=== PATIENT | female | born 1930 | race Caucasian/White ===

== ENCOUNTER 2016-10-15 18:35 | Inpatient (IN) | payer MEDICARE, BC ==
[2016-10-15] VITALS (13 sets, daily range): BP systolic 129–220; BP diastolic 62–93; PULSE 61–105; RESP 18–22; TEMP 97.8–98.4; O2SAT 97–98
[~2016-10-15] VITALS: Ht 152.4 cm; Wt 37.7 kg
[~2016-10-15 18:35] MED LIST: COUM2TAB PO; COUM3TAB PO; DILA100C PO; LANO0.2510 PO; METO25 PO; SIMV20 PO
[2016-10-15] MEDS ORDERED: METO25TA3 PO (19:00)
[2016-10-15] MEDS ORDERED: DIGO0.25 PO (19:00)
[2016-10-15] MEDS ORDERED: COUM4TAB PO (19:00)
[2016-10-15] MEDS ORDERED: SODIUM CHLORIDE 0.9% FLUSH 5 ML FLUSH IVF PRN (19:00)
[2016-10-15] MEDS ORDERED: DILA100C PO (19:00)
--- NOTE | 2016-10-15 19:02 | PD ---
HPI Chief Complaint: Pain: Acute or Chronic Time Seen by Provider: 19:02 (Cynthia Longo) Time Seen by Provider: 18:56 (Marixa Soto MD) Travel History International Travel<30 days: No Contact w/Intl Traveler<30days: No Traveled to known affect area: No (Cynthia Longo) History of Present Illness HPI 86-year-old female with a history of CVA with residual right-sided weakness, atrial fibrillation, hyperlipidemia, CHF, CAD presents to the emergency department by EMS for evaluation of right leg and right arm pain. Per EMS report the patient lives at home with her who is her caregiver. Per EMS report fire rescue was called to help lift the patient earlier today as she had fallen out of her chair onto the ground. Apparently fire rescue place the patient back into her chair and they left. Later EMS was called again to the house by the because the patient was complaining of pain in her right arm and right leg. The patient is speech impaired and therefore difficult to understand making her a poor historian. When I ask her if she has any pain she points that her right arm and right leg and moans. She is unable to provide any further meaningful history. (Cynthia Longo) PFSH Past Medical History Arthritis: No Asthma: No Atrial Fibrillation: Yes Heart Rhythm Problems: Yes Cancer: No Cardiovascular Problems: Yes High Cholesterol: Yes Chest Pain: No Congestive Heart Failure: Yes COPD: No Cerebrovascular Accident: Yes Coronary Artery Disease: Yes Diabetes: No Diminished Hearing: No Endocrine: No Genitourinary: No Hypertension: Yes Immune Disorder: No Musculoskeletal: Yes (rt hip, rt side weakness post stroke) Neurologic: Yes Psychiatric: No Reproductive: No Respiratory: No Migraines: No Seizures: Yes (Started post stroke) Sleep Apnea: No Tetanus Vaccination: Unknown PNEUMOCCOCAL Vaccine (Year): 1 ?: Not Menopausal: Yes (Cynthia Longo) Past Surgical History Abdominal Surgery: No Cardiac Surgery: No Ear Surgery: No Endocrine Surgery: No Eye Surgery: Yes (DETACHED RETINA, IVETTE CATARACTS) Genitourinary Surgery: No Gynecologic Surgery: Yes (Hysto) Hysterectomy: Yes Joint Replacement: Yes Oral Surgery: No Thoracic Surgery: No Other Surgery: Yes (Cynthia Longo) Social History Alcohol Use: No Tobacco Use: No Substance Use: No (Cynthia Longo) Allergies-Medications (Allergen,Severity, Reaction): Coded Allergies: Sulfa (Verified Allergy, Severe, UNKNOWN, 03/11/15) Reported Meds & Prescriptions Reported Meds & Active Scripts Active Reported Digoxin 0.25 Mg Tab 0.25 Mg PO DAILY Metoprolol Tartrate 25 Mg Tab 25 Mg PO BID Dilantin (Phenytoin Extended) 100 Mg Cap 100 Mg PO BID (Marixa Soto MD) Review of Systems ROS Limitations: Speech Impaired, Poor Historian (Cynthia Longo) Physical Exam Exam Limitations: Poor Historian Narrative GENERAL: Well-nourished and well-developed pleasant patient in no acute distress who is nontoxic appearing. SKIN: Warm and dry. HEAD: Normocephalic and atraumatic. EYES: No injection, drainage, or hyphema noted. PERRLA. EOMI. ENT: No nasal drainage noted. Oropharynx is clear. NECK: Supple and the trachea is midline. CARDIOVASCULAR: Regular rate and rhythm. RESPIRATORY: Breath sounds are equal bilaterally with no accessory muscle use, wheezing, rhonchi, or crackles. GASTROINTESTINAL: Abdomen is soft, non-tender, and nondistended. MUSCULOSKELETAL: Right arm and right leg contractures chronic secondary to CVA. Tenderness to palpation of right forearm and right femur, patient pointing to these locations when asked if she has pain. Full range of motion in the left hip and leg. Patient resists range of motion exercises in the right leg due to pain. No swelling, cyanosis, or ecchymosis is present throughout the upper and lower extremities. DP pulses are 2+ bilaterally. NEUROLOGICAL: Awake, alert, and oriented. Speech impaired. Cranial nerves are grossly intact. (Cynthia Longo) Data Data Last Documented VS Vital Signs Date Time Temp Pulse Resp B/P Pulse Ox O2 Delivery O2 Flow Rate FiO2 10/15/16 21:51 98 18 188/82 98 Room Air 10/15/16 18:44 98.4 (Marixa Soto MD) Orders Electrocardiogram (10/15/16 19:00) Complete Blood Count With Diff (10/15/16 19:00) Comprehensive Metabolic Panel (10/15/16 19:00) Creatine Kinase (Cpk) (10/15/16 19:00) Prothrombin Time / Inr (Pt) (10/15/16 19:00) Act Partial Throm Time (Ptt) (10/15/16 19:00) Troponin I (10/15/16 19:00) Urinalysis - C+S If Indicated (10/15/16 19:00) Chest, Single Ap (10/15/16 19:00) Ct Brain W/O Iv Contrast(Rout) (10/15/16 19:00) Blood Glucose (10/15/16 19:00) Ecg Monitoring (10/15/16 19:00) Iv Access Insert/Monitor (10/15/16 19:00) Oximetry (10/15/16 19:00) Sodium Chloride 0.9% Flush (Ns Flush) (10/15/16 19:00) Femur (Ap & Lat/2vws) (10/15/16 19:00) Hip, Uni(Ap&Lat) W Ap Pelvis (10/15/16 ) Forearm (2vws) (10/15/16 19:00) Ct Cerv Spine W/O Contrast (10/15/16 19:45) Urine Culture (10/15/16 19:30) Ceftriaxone Inj (Rocephin Inj) (10/15/16 20:15) Ct Pelvis W/O Iv Contrast (10/15/16 ) Type And Screen (10/15/16 21:06) Fresh Frozen Plasma (Ffp) (10/15/16 21:06) Blood Product Administration .UPON TRANSFUSION (10/15/16 21:06) Sodium Chlor 0.9% 250 Ml Inj (Ns 250 Ml (10/15/16 21:15) Nicardipine Inj (Cardene Inj) (10/15/16 21:15) Consult Neurosurgery (10/15/16 ) (Hub Use Only)Inp Phy Cons/Ref (10/15/16 ) Morphine Inj (Morphine Inj) (10/15/16 21:45) Admit Order (Ed Use Only) (10/15/16 21:58) (Mraixa Soto MD) Labs Laboratory Tests Test 10/15/16 10/15/16 10/15/16 19:20 19:30 21:15 Prothrombin Time 22.1 SEC Prothromb Time International 1.9 RATIO Ratio Activated Partial 40.0 SEC Thromboplast Time Sodium Level 137 MEQ/L Potassium Level 3.8 MEQ/L Chloride Level 100 MEQ/L Carbon Dioxide Level 30.7 MEQ/L Anion Gap 6 MEQ/L Blood Urea Nitrogen 13 MG/DL Creatinine 0.58 MG/DL Estimat Glomerular Filtration 99 ML/MIN Rate Random Glucose 110 MG/DL Calcium Level 9.0 MG/DL Total Bilirubin 0.4 MG/DL Aspartate Amino Transf 24 U/L (AST/SGOT) Alanine Aminotransferase 23 U/L (ALT/SGPT) Alkaline Phosphatase 231 U/L Total Creatine Kinase 73 U/L Troponin I LESS THAN 0.02 NG/ML Total Protein 7.9 GM/DL Albumin 3.3 GM/DL White Blood Count 9.0 TH/MM3 Red Blood Count 4.65 MIL/MM3 Hemoglobin 14.0 GM/DL Hematocrit 40.7 % Mean Corpuscular Volume 87.6 FL Mean Corpuscular Hemoglobin 30.0 PG Mean Corpuscular Hemoglobin 34.3 % Concent Red Cell Distribution Width 14.3 % Platelet Count 287 TH/MM3 Mean Platelet Volume 7.9 FL Neutrophils (%) (Auto) 82.6 % Lymphocytes (%) (Auto) 10.0 % Monocytes (%) (Auto) 6.4 % Eosinophils (%) (Auto) 0.7 % Basophils (%) (Auto) 0.3 % Neutrophils # (Auto) 7.4 TH/MM3 Lymphocytes # (Auto) 0.9 TH/MM3 Monocytes # (Auto) 0.6 TH/MM3 Eosinophils # (Auto) 0.1 TH/MM3 Basophils # (Auto) 0.0 TH/MM3 CBC Comment DIFF FINAL Differential Comment Urine Color LIGHT-YELLOW Urine Turbidity HAZY Urine pH 7.0 Urine Specific [place] 1.013 Urine Protein TRACE mg/dL Urine Glucose (UA) NEG mg/dL Urine Ketones NEG mg/dL Urine Occult Blood SMALL Urine Nitrite POS Urine Bilirubin NEG Urine Urobilinogen LESS THAN 2.0 MG/DL Urine Leukocyte Esterase LARGE Urine RBC 2 /hpf Urine WBC 80 /hpf Urine WBC Clumps RARE Urine Squamous Epithelial <1 /hpf Cells Urine Bacteria OCC /hpf Urine Yeast (Budding) OCC Microscopic Urinalysis Comment CATH-CULTURE IND Blood Type O POSITIVE Antibody Screen NEGATIVE Blood Bank Comment (Marixa Soto MD) MDM Medical Decision Making Medical Screen Exam Complete: Yes Emergency Medical Condition: Yes Differential Diagnosis Hip fracture versus muscle spasms versus arthritis versus altered mental status versus intracranial hemorrhage versus dehydration versus electrolyte abnormality Narrative Course 86-year-old female presents to the emergency department for evaluation of right leg and right arm pain. Patient is afebrile. She is initially hypertensive with a blood pressure of 220/93. Otherwise vital signs are stable. She has chronic right-sided weakness and contractures in the right arm and leg secondary to previous CVA. She has a speech impairment secondary to her CVA and is an unreliable historian although she does consistently complain of pain in the right arm and leg. IV access is obtained, labs have been drawn and sent. X-ray imaging has been ordered and is pending. Head and cervical spine CT has been ordered and is pending. CBC is unremarkable. BMP is unremarkable. Troponin is less than 0.02. INR is 1.9, patient is reportedly anticoagulated on Coumadin for A. fib. Urinalysis shows urinary tract infection. Chest x-ray shows patchy non-consolidative opacity throughout both lungs suggesting interstitial and alveolar disease. X-ray of the right femur is unremarkable. X-ray of the right forearm is unremarkable. X-ray of the right hip shows extra linear density along the inferior margin of the femoral neck which could represent a femoral neck fracture. CT of the cervical spine is negative for any Abnormalities. Head CT shows focal hemorrhage 5 mm in the right posterior hemisphere adjacent to the margin of the lateral ventricle suggesting a countercoup injury. Left eye frontal scalp hematoma without evidence of skull fracture. Stable appearance to the posterior MCA infarction. She is given Rocephin 1 g IV for urinary tract infection. She started on a Cardene drip for blood pressure control. Patient is administered 4 units of FFP and 1250 units of Kcentra to reverse anticoagulation. She'll be admitted to the airline reservationist service with neurosurgery consultation. I discussed the case with my attending physician Dr. Soto who is aware of the patients history, physical examination findings, and treatment plan. (Cynthia Longo) Physician Communication Physician Communication I spoke with Dr. Tao, neurosurgeon, who recommends reversal of anticoagulation with use of FFP with admission to airline reservationist and to consult him. I spoke with Dr. Cortez airline reservationist who requests we give Kcentra as well as FFP. He agrees to admit the patient to his service. (Cynthia Longo) Diagnosis Primary Impression: Intracranial hemorrhage Additional Impressions: Anticoagulated on Coumadin Right hip pain Admitting Information Admitting Physician Requests: Admit (Cynthia Longo) Cynthia Longo Oct 15, 2016 19:02 Marixa Soto MD Oct 18, 2016 05:53
[2016-10-15 19:47] LABS: AUTOMATED NEUTROPHIL # 7.4 TH/MM3 (1.8-7.7); BASOPHIL % 0.3 % (0.0-2.0); EOSINOPHIL # 0.1 TH/MM3 (0-0.4); EOSINOPHIL % 0.7 % (0.0-4.0); HEMATOCRIT 40.7 % (35.0-46.0); HEMO FLAGS DIFF FINAL; LYMPHOCYTE # 0.9 TH/MM3 (1.0-4.8); MEAN CELL VOLUME 87.6 FL (80.0-100.0); MEAN CORPUSCULAR HGB CONC 34.3 % (32.0-36.0); MONO % 6.4 % (0.0-8.0); NEUT % 82.6 % (16.0-70.0); PLATELET COUNT 287 TH/MM3 (150-450); RED BLOOD COUNT 4.65 MIL/MM3 (4.00-5.30); RED CELL DISTRIBUTION WIDTH 14.3 % (11.6-17.2)
[2016-10-15 19:51] LABS: BACTERIA, URINE OCC /hpf; BLOOD, URINE SMALL (NEG); GLUCOSE,URINE NEG (NEG); KETONE, URINE NEG (NEG); NITRITE,URINE POS (NEG); SQUAMOUS EPITHELIAL CELL URINE <1 /hpf (0-5); URINE COLOR LIGHT-YELLOW (YELLW/STRAW)
[2016-10-15 19:52] LABS: COMMENT (UR) CATH-CULTURE IND; CULTURE IF INDICATED CATH CULTURE IND
[2016-10-15 19:55] LABS: INTERNATIONAL NORMALIZED RATIO 1.9 RATIO; PROTHROMBIN TIME - PATIENT 22.1 SEC (9.8-11.6)
[2016-10-15 20:08] LABS: ANION GAP 6 MEQ/L (5-15); AST (GOT) 24 U/L (15-37); BICARBONATE 30.7 MEQ/L (21.0-32.0); BLOOD UREA NITROGEN 13 MG/DL (7-18); CHLORIDE 100 MEQ/L (98-107); GLOMERULAR FILTRATION RATE 99 ML/MIN (>89); POTASSIUM 3.8 MEQ/L (3.5-5.1); SODIUM (NA) 137 MEQ/L (136-145)
[2016-10-15 20:13] LABS: ALKALINE PHOSPHATASE 231 U/L (45-117); ALT (GPT) 23 U/L (10-53); TOTAL BILIRUBIN ADULT 0.4 MG/DL (0.2-1.0)
[2016-10-15] MEDS ORDERED: cefTRIAXone INJ 1,000 MG in SODIUM CHLORIDE 0.9% INJ 100 ML IV ONE (20:15)
[2016-10-15 20:18] LABS: CREATINE KINASE 73 U/L (26-192)
--- NOTE | 2016-10-15 20:35 | RADRPT ---
EXAM DATE/TIME: 10/15/2016 20:03 [facility] COMPARISON: No previous studies available for comparison. INDICATIONS : Fall from chair. MEDICAL HISTORY : Unobtainable. SURGICAL HISTORY : Unobtainable. ENCOUNTER: Initial ACUITY: 1 day PAIN SCORE: Non-responsive. LOCATION: Bilateral chest FINDINGS: There are patchy areas of opacity in the central lungs bilaterally without focal consolidation. The heart is normal size. Both hemidiaphragms are well delineated. No evidence of pneumothorax. Osseou s structures are diffusely osteopenic. CONCLUSION: No evidence pneumothorax. Patchy non-consolidative there is opacity throughout both lungs suggest a mixture of interstitial and alveolar disease. Orestes Breen MD on October 15, 2016 at 20:33 Board Certified Radiologist. This report was verified electronically.
--- NOTE | 2016-10-15 20:42 | RADRPT ---
EXAM DATE/TIME: 10/15/2016 20:06 [facility] COMPARISON: CT BRAIN W/O CONTRAST, February 09, 2012, 14:19. INDICATIONS : Altered mental status. RADIATION DOSE: 56.35 CTDIvol (mGy) MEDICAL HISTORY : Hypertension. Cardiovascular disease Seizures.CVA. SURGICAL HISTORY : None. ENCOUNTER: Initial ACUITY: 1 day PAIN SCALE: Non-responsive LOCATION: cranial TECHNIQUE: Multiple contiguous axial images were obtained of the head. Using automated exposure control and adj ustment of the mA and/or kV according to patient size, radiation dose was kept as low as reasonably a chievable to obtain optimal diagnostic quality images. FINDINGS: CEREBRUM: Prior CT in 2012 are demonstrated encephalomalacic from left MCA infarction involving the mid sylvian to watershed zone. On today's examination, this old infarction is similar in configuration and appe arance. There is a new oval hyperdensity along the posterior lateral margin of the right occipital h orn of the ventricle measuring 5 mm, best seen on image #18. Lacunar infarct in the left striatum wi th stable from prior. POSTERIOR FOSSA: The cerebellum and brainstem are intact. The 4th ventricle is midline. The cerebellopontine angle i s unremarkable. EXTRACRANIAL: The visualized portion of the orbits is intact. SKULL: There is a left high convexity frontal scalp hematoma which measures up to 8 mm in size. No evidence of skull fracture. CONCLUSION: 1. Findings suggesting focal hemorrhage in the right posterior hemisphere adjacent to the margin of t he lateral ventricle, suggesting a contrecoup injury. 2. Left high frontal scalp hematoma without evidence of skull fracture. 3. 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 Orestes Breen MD on October 15, 2016 at 20:36 Board Certified Radiologist. This report was verified electronically.
--- NOTE | 2016-10-15 20:46 | RADRPT ---
EXAM DATE/TIME: 10/15/2016 19:53 [facility] COMPARISON: No previous studies available for comparison. INDICATIONS : Fall from chair. MEDICAL HISTORY : Unobtainable. SURGICAL HISTORY : Unobtainable. ENCOUNTER: Initial ACUITY: 1 day PAIN SCORE: Non-responsive. LOCATION: Right hip. FINDINGS: The osseous structures are severely osteopenic. The patient is rotated towards the left. There is a total hip arthroplasty on the left side. There is a cone-down view which includes the proximal femo ral neck. The primary trabecula pattern is intact. The secondary trabecula are not visible and pres umed resorbed due to the osteoporosis. There is an unusual appearance to the inferior femoral neck o n the frontal view. The femoral head has smooth margins. The bony acetabulum appears grossly intact with intratrochanteric region is intact. CONCLUSION: Severe osteoporosis. No definite fracture seen, however, on the frontal view there is a extra linear density along the inferior margin of the femoral neck which could represent a femoral neck fracture Orestes Breen MD on October 15, 2016 at 20:41 Board Certified Radiologist. This report was verified electronically.
--- NOTE | 2016-10-15 20:47 | RADRPT ---
EXAM DATE/TIME: 10/15/2016 19:54 [facility] COMPARISON: No previous studies available for comparison. INDICATIONS : Fall from chair. MEDICAL HISTORY : Unobtainable. SURGICAL HISTORY : Unobtainable. ENCOUNTER: Initial ACUITY: 1 day PAIN SCORE: Non-responsive. LOCATION: Right femur. FINDINGS: Multiple views and mosaic are performed to include the entire femur. The findings in the proximal fe mur and femoral neck are described on the report of the hip film performed concurrently. Osseous str uctures are severely osteopenic. No fractures seen in the shaft of the femur or distal femur. No ra diopaque foreign bodies. CONCLUSION: The shaft of the femur is grossly intact. Severe osteoporosis. Orestes Breen MD on October 15, 2016 at 20:44 Board Certified Radiologist. This report was verified electronically.
--- NOTE | 2016-10-15 20:48 | RADRPT ---
EXAM DATE/TIME: 10/15/2016 20:05 [facility] COMPARISON: No previous studies available for comparison. INDICATIONS : Fall from chair. MEDICAL HISTORY : Unobtainable. SURGICAL HISTORY : Unobtainable. ENCOUNTER: Initial ACUITY: 1 day PAIN SCORE: Non-responsive. LOCATION: Right forearm. FINDINGS: Two view examination of the right forearm demonstrates no evidence of fracture or dislocation. Sever e osteoporosis. The soft tissue structures are intact. CONCLUSION: No fracture seen. Severe osteoporosis. Orestes Breen MD on October 15, 2016 at 20:46 Board Certified Radiologist. This report was verified electronically.
--- NOTE | 2016-10-15 21:08 | RADRPT ---
EXAM DATE/TIME: 10/15/2016 20:07 [facility] COMPARISON: CTA CAROTID ARTERIES W 3D RECON, October 06, 2010, 21:16. INDICATIONS : Trauma; fall. RADIATION DOSE: 22.50 CTDIvol (mGy) MEDICAL HISTORY : Cardiovascular disease. Cerebrovascular disease. Seizures.Hypertension SURGICAL HISTORY : None. ENCOUNTER: Initial ACUITY: 1 day PAIN SCALE: Non-responsive LOCATION: TECHNIQUE: Volumetric scanning of the cervical spine was performed. Multiplanar reconstructions in the sagittal, coronal and oblique axial planes were performed. Using automated exposure control and adjustment o f the mA and/or kV according to patient size, radiation dose was kept as low as reasonably achievable to obtain optimal diagnostic quality images. FINDINGS: There is an oblique cleft through the dens with a fragment measuring 11 mm located posterior and to t he left of the body of. This fragment was present on bone windows prior CTA in 2010 and configuratio n is entirely unchanged from the prior scan. There is no bony fusion between this fragment and any o ther bone. Vertebral bodies of the cervical spine are in normal alignment without evidence of compre ssion deformity of spondylolisthesis. Advanced discogenic degenerative changes are present at C3-4, C5-6 and C6-7. Moderate posterior osteophytes are present at C6-7 and C5-6. The lateral masses ricardo in in normal alignment without evidence of locked or perched facets. No acute fractures seen. CONCLUSION: No acute fractures seen; no evidence of gross deformities or spondylolisthesis. Prominent osteophyti c fragment adjacent to the dens is of uncertain bone of origin, or possibly represents some heterotop ic ossification, but is unchanged in configuration and appearance when compared to 2010. Oerstes Breen MD on October 15, 2016 at 20:46 Board Certified Radiologist. This report was verified electronically.
[2016-10-15] MEDS ORDERED: niCARdipine INJ 25 MG in SODIUM CHLOR 0.9% 250 ML INJ 250 ML IV ONE (21:15)
[2016-10-15] MEDS ORDERED: SODIUM CHLOR 0.9% 250 ML INJ 250 ML IV ONE (21:15)
[2016-10-15] MEDS ORDERED: MORPHINE SULFATE 4 MG/ML INJ IV PUSH ONE (21:45)
[2016-10-15] MEDS ORDERED: PROTHROMBIN COMPLEX CONC 500 UNIT VIAL IV ONE (22:15)
[2016-10-15] MEDS ORDERED: SODIUM CHLORIDE 0.9% FLUSH 5 ML FLUSH IV FLUSH PRN (22:30)
[2016-10-15] MEDS ORDERED: MISCELLANEOUS NURSING INFORMATION XX SCH (22:30)
[2016-10-15] MEDS ORDERED: METOCLOPRAMIDE HCL 10 MG/2 ML VIAL IV PRN (22:30)
[2016-10-15] MEDS ORDERED: CHLORHEXIDINE GLUCONATE 2 % 1 PACK (2 CLOTHS) TOP PRN (22:30)
[2016-10-15] MEDS: DOCUSATE SODIUM 100 MG/10 ML UDC G-TUBE SCH (22:30)
[2016-10-15] MEDS ORDERED: ONDANSETRON HCL 4 MG/2 ML VIAL IV PRN (22:30)
[2016-10-15] MEDS ORDERED: RESP: ALBUTEROL 2.5 MG/IPRATROPIUM 0.5 MG NEB (PRN) INH (22:30)
[2016-10-15] MEDS ORDERED: ACETAMINOPHEN 325 MG TAB PO PRN (22:30)
--- NOTE | 2016-10-15 22:31 | HHI.HP ---
HPI Service Critical Care Medicine Primary Care Physician Dennis Arnold MD Admission Diagnosis Intracranial Hemorrhage, Anticoagulated on Coumadin, Rt Hip Injury Diagnosis: Travel History International Travel<30 Days: No Contact w/Intl Traveler <30 Da: No Traveled to Known Affected Are: No History of Present Illness 86-year-old female with a history of CVA with residual right-sided weakness, atrial fibrillation on Coumadin, hyperlipidemia, CHF, CAD presents to the emergency department by EMS for evaluation of right leg and right arm pain. Per EMS report the patient lives at home with her who is her caregiver. The fire rescue was called to help lift the patient earlier today as she had fallen out of her chair onto the ground. Apparently fire rescue place the patient back into her chair and they left. Later EMS was called again to the house by the because the patient was complaining of pain in her right arm and right leg. Review of Systems ROS The patient is speech impaired and therefore unable to obtain any meaningful ROS. Past Family Social History Allergies: Coded Allergies: Sulfa (Verified Allergy, Severe, UNKNOWN, 03/11/15) Past Medical History Atrial Fibrillation: Yes High Cholesterol: Yes Congestive Heart Failure: Yes Cerebrovascular Accident: Yes Coronary Artery Disease: Yes Hypertension: Yes Seizures: Yes (Started post stroke) Past Surgical History Eye Surgery: Yes (DETACHED RETINA, IVETTE CATARACTS) Hysterectomy: Yes Joint Replacement: Yes Reported Medications Digoxin 0.25 Mg Tab 0.25 Mg PO DAILY Metoprolol Tartrate 25 Mg Tab 25 Mg PO BID Coumadin (Warfarin) 4 Mg Tab 4 Mg PO DAILY Dilantin (Phenytoin Extended) 100 Mg Cap 100 Mg PO BID Active Ordered Medications Current Medications Medications (Trade) Dose Ordered Sig/Anabella Route PRN Reason Start Time Stop Time Status Last Admin Dose Admin Sodium Chloride 250 ml @ 15 mls/hr ONCE ONCE IV 10/15/16 21:15 10/16/16 13:54 Sodium Chloride (NS 1000 ml Inj) 1,000 ml @ 84 mls/hr [id number] IV 10/15/16 22:26 10/15/16 23:35 IV Flush (NS Flush) 2 ml UNSCH PRN IV FLUSH FLUSH AFTER USING IV ACCESS 10/15/16 22:30 IV Flush (NS Flush) 2 ml BID IV FLUSH 10/16/16 09:00 Acetaminophen (Tylenol) 650 mg Q6H PRN PO PAIN 1-5 AND/OR FEVER >101F 10/15/16 22:30 Morphine Sulfate (Morphine Inj) 2 mg Q2H PRN IV PAIN SCALE 6 TO 10 10/15/16 22:30 Famotidine (Pepcid Inj) 20 mg Q12HR IV PUSH 10/16/16 09:00 Ondansetron HCl (Zofran Inj) 4 mg Q6H PRN IV NAUSEA OR VOMITING 10/15/16 22:30 Metoclopramide HCl (Reglan Inj) 10 mg Q6H PRN IV NAUSEA OR VOMITING 10/15/16 22:30 Docusate Sodium (Colace Liq) 100 mg Q12HR G-TUBE 10/15/16 22:30 Miscellaneous Information 1 [id number] XX 10/15/16 22:30 Chlorhexidine Gluconate (Chlorhexidine 2% Cloth) 3 pack Taper DAILY@04 TOP 10/16/16 04:00 10/12/17 03:59 Chlorhexidine Gluconate 3 pack 3 pack UNSCH PRN TOP HYGIENIC CARE 10/15/16 22:30 Nicardipine HCl/ Sodium Chloride (Cardene Inj/NS 250 ml Inj) 260 ml @ 0 mls/hr TITRATE IV 10/15/16 22:45 Family History Noncontributory Social History Alcohol Use: No Tobacco Use: No Substance Use: No Physical Exam Vital Signs Vital Signs Date Time Temp Pulse Resp B/P Pulse Ox O2 Delivery O2 Flow Rate FiO2 10/15/16 22:17 96 18 173/72 97 Room Air 10/15/16 21:51 98 18 188/82 98 Room Air 10/15/16 21:18 92 20 188/84 97 Room Air 10/15/16 20:24 83 22 202/87 98 Room Air 10/15/16 19:37 22 98 Room Air 10/15/16 18:50 62 18 10/15/16 18:50 61 18 220/93 98 Room Air 10/15/16 18:44 98.4 71 18 220/93 98 Physical Exam Vital Signs Date Time Temp Pulse Resp B/P Pulse Ox O2 Delivery O2 Flow Rate FiO2 10/15/16 23:40 105 18 156/72 97 Room Air 10/15/16 23:04 97.9 GENERAL: Well-nourished, well-developed patient, right sided stiffness SKIN: Warm and dry. HEAD: Normocephalic. EYES: No scleral icterus. No injection or drainage. NECK: Supple, trachea midline. No JVD or lymphadenopathy. CARDIOVASCULAR: Regular rate and rhythm without murmurs, gallops, or rubs. RESPIRATORY: Breath sounds equal bilaterally. No accessory muscle use. GASTROINTESTINAL: Abdomen soft, non-tender, nondistended. MUSCULOSKELETAL: No cyanosis, or edema. BACK: Nontender without obvious deformity. No CVA tenderness. Laboratory Laboratory Tests Test 10/15/16 10/15/16 10/15/16 19:20 19:30 21:15 White Blood Count 9.0 Red Blood Count 4.65 Hemoglobin 14.0 Hematocrit 40.7 Mean Corpuscular Volume 87.6 Mean Corpuscular Hemoglobin 30.0 Mean Corpuscular Hemoglobin 34.3 Concent Red Cell Distribution Width 14.3 Platelet Count 287 Mean Platelet Volume 7.9 Neutrophils (%) (Auto) 82.6 Lymphocytes (%) (Auto) 10.0 Monocytes (%) (Auto) 6.4 Eosinophils (%) (Auto) 0.7 Basophils (%) (Auto) 0.3 Neutrophils # (Auto) 7.4 Lymphocytes # (Auto) 0.9 Monocytes # (Auto) 0.6 Eosinophils # (Auto) 0.1 Basophils # (Auto) 0.0 CBC Comment DIFF FINAL Differential Comment Prothrombin Time 22.1 Prothromb Time International 1.9 Ratio Activated Partial 40.0 Thromboplast Time Sodium Level 137 Potassium Level 3.8 Chloride Level 100 Carbon Dioxide Level 30.7 Anion Gap 6 Blood Urea Nitrogen 13 Creatinine 0.58 Estimat Glomerular Filtration 99 Rate Random Glucose 110 Calcium Level 9.0 Total Bilirubin 0.4 Aspartate Amino Transf 24 (AST/SGOT) Alanine Aminotransferase 23 (ALT/SGPT) Alkaline Phosphatase 231 Total Creatine Kinase 73 Troponin I LESS THAN 0.02 Total Protein 7.9 Albumin 3.3 Urine Color LIGHT-YELLOW Urine Turbidity HAZY Urine pH 7.0 Urine Specific [place] 1.013 Urine Protein TRACE Urine Glucose (UA) NEG Urine Ketones NEG Urine Occult Blood SMALL Urine Nitrite POS Urine Bilirubin NEG Urine Urobilinogen LESS THAN 2.0 Urine Leukocyte Esterase LARGE Urine RBC 2 Urine WBC 80 Urine WBC Clumps RARE Urine Squamous Epithelial <1 Cells Urine Bacteria OCC Urine Yeast (Budding) OCC Microscopic Urinalysis Comment CATH-CULTURE IND Blood Type O POSITIVE Antibody Screen NEGATIVE Blood Bank Comment Date/Time Procedure Status Source Growth 10/15/16 19:30 Urine Culture Received Urine Catheterized Urine Pending Result Diagram: 10/15/16191910/15/161919 Imaging Last 24 hours Impressions Cervical Spine CT 10/15/161944 Signed Impressions: Service Date/Time: Saturday, October 15, 2016 20:07 - CONCLUSION: No acute fractures seen; no evidence of gross deformities or spondylolisthesis. Prominent osteophytic fragment adjacent to the dens is of uncertain bone of origin, or possibly represents some heterotopic ossification, but is unchanged in configuration and appearance when compared to 2011. Orestes Breen MD Radius/Ulna X-Ray 10/15/161899 Signed Impressions: Service Date/Time: Saturday, October 15, 2016 20:05 - CONCLUSION: No fracture seen. Severe osteoporosis. Orestes Breen MD Head CT 10/15/161899 Signed Impressions: Service Date/Time: Saturday, October 15, 2016 20:06 - CONCLUSION: 1. Findings suggesting focal hemorrhage in the right posterior hemisphere adjacent to the margin of the lateral ventricle, suggesting a contrecoup injury. 2. Left high frontal scalp hematoma without evidence of skull fracture. 3. 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 Orestes Breen MD Femur X-Ray 10/15/161899 Signed Impressions: Service Date/Time: Saturday, October 15, 2016 19:54 - CONCLUSION: The shaft of the femur is grossly intact. Severe osteoporosis. Orestes Breen MD Chest X-Ray 10/15/161899 Signed Impressions: Service Date/Time: Saturday, October 15, 2016 20:03 - CONCLUSION: No evidence pneumothorax. Patchy non-consolidative there is opacity throughout both lungs suggest a mixture of interstitial and alveolar disease. 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 Status: Acute (6) Intracranial hemorrhage ICD Code: I62.9 Status: Acute (7) Right hip pain ICD Code: M25.551 Status: Acute (8) Anticoagulated on Coumadin ICD Code: Z51.81 Status: Acute Assessment and Plan ICH - small - no surgical intervention indicated - reverse coumadine with FFPs and K-Centra - Neurosurgery appreciated A.Fib - resume home meds Digoxin and Metoprolol for rate control - D/C Coumadin Right hip pain - X rays negative for Fx - supporitive care - pain control Hypertension - Cardene gtt - SBP goal < 160 - Metoprolo - Hydralazine PRN - Norvasc Seizure - Phenytoin - check level a.m. DVT/GI prophylaxis - TEDs/SCDs/Pepcid Critical Care: The total critical care time was 35 minutes. Time to perform other separately billable procedures was not included in the critical care time. Ron Cortez MD Oct 15, 2016 22:31
[2016-10-15] MEDS ORDERED: niCARdipine INJ 25 MG in SODIUM CHLOR 0.9% 250 ML INJ 250 ML IV SCH (22:45)
[2016-10-15] MEDS: SODIUM CHLOR 0.9% 1000 ML INJ 1,000 ML IV SCH (23:35)
[2016-10-16] VITALS (9 sets, daily range): BP systolic 118–159; BP diastolic 57–75; PULSE 66–106; RESP 16–34; TEMP 96.7–98.7; O2SAT 90–98
[2016-10-16] MEDS: MORPHINE SULFATE 4 MG/ML INJ IV PRN ×5 (00:19→18:46)
[2016-10-16] MEDS: METOPROLOL TARTRATE 25 MG TAB PO SCH ×3 (00:30→21:03)
[2016-10-16] MEDS ORDERED: hydrALAZINE HCL 20 MG/ML VIAL IV PUSH PRN (00:45)
[2016-10-16] MEDS: SODIUM CHLOR 0.9% 1000 ML INJ 1,000 ML IV SCH ×3 (01:48→21:03)
--- NOTE | 2016-10-16 03:49 | PD.CONS ---
HPI Service Neurosurgery Consult Requested By [facility] emergency room Reason for Consult Intracerebral hemorrhage Primary Care Physician Dennis Arnold MD History of Present Illness tHIS IS A 86-year-old female with a history of CVA with residual right-sided hemiparesis, atrial fibrillation on Coumadin, hyperlipidemia, CHF, CAD presents to the emergency department by EMS for evaluation of right leg and right arm pain. According to EMS report the patient lives at home with her who is her caregiver. The fire rescue was called to help lift the patient earlier today as she had fallen out of her chair onto the ground. Apparently fire rescue place the patient back into her chair and they left their house. Later EMS was called again to the house by the because the patient was complaining of severe pain in her right arm and right leg. No seizure activity noted. No tongue biting. No incontinence of stool or urine. The patient mental status appears to be at her baseline. She was brought to [facility] emergency department. CT of the brain show a small area of hemorrhage adjacent to the lateral ventricle. The patient is chronically anticoagulated on Coumadin. The patient has expressive aphasia. A neurosurgical consultation was requested Review of Systems Unable to obtain due to APHASIA ROS Limitations: Clinical Condition, Altered Mental Status Past Family Social History Allergies: Coded Allergies: Sulfa (Verified Allergy, Severe, UNKNOWN, 03/11/15) Past Medical History Atrial Fibrillation: Yes High Cholesterol: Yes Congestive Heart Failure: Yes Cerebrovascular Accident: Yes Coronary Artery Disease: Yes Hypertension: Yes Seizures: Yes (Started post stroke) Past Surgical History Eye Surgery: Yes (DETACHED RETINA, IVETTE CATARACTS) Hysterectomy: Yes Joint Replacement: Yes Reported Medications Digoxin 0.25 Mg Tab 0.25 Mg PO DAILY Metoprolol Tartrate 25 Mg Tab 25 Mg PO BID Coumadin (Warfarin) 4 Mg Tab 4 Mg PO DAILY Dilantin (Phenytoin Extended) 100 Mg Cap 100 Mg PO BID Active Ordered Medications Current Medications IV Flush 2 ml 2 ml UNSCH PRN IVF FLUSH AFTER USING IV ACCESS; Start 10/15/16 at 19:00; Stop 10/15/16 at 22:44; Status DC Ceftriaxone Sodium 1000 mg/ Sodium Chloride 100 ml @ 200 mls/hr ONCE ONCE IV Last administered on 10/15/16 20:42; Start 10/15/16 at 20:15; Stop 10/15/16 at 20:44; Status DC Sodium Chloride 250 ml @ 15 mls/hr ONCE ONCE IV ; Start 10/15/16 at 21:15; Stop 10/16/16 at 13:54 Nicardipine HCl/ Sodium Chloride (Cardene Inj/NS 250 ml Inj) 260 ml @ 0 mls/hr TITRATE ONCE IV Last administered on 10/15/16 21:39; Start 10/15/16 at 21:15 ; Stop 10/15/16 at 21:16; Status DC Morphine Sulfate (Morphine Inj) 2 mg ONCE ONCE IV PUSH Last administered on 21:51; Start 10/15/16 at 21:45; Stop 10/15/16 at 21:46; Status DC Prothrombin Complex Concent (Human) 1250 units 1,250 units ONCE ONCE IV Last administered on 10/15/16 23:04; Start 10/15/16 at 22:15; Stop 10/15/16 at 22:16 ; Status DC Sodium Chloride (NS 1000 ml Inj) 1,000 ml @ 84 mls/hr [id number] IV Last administered on 10/16/16 10:05; Start 10/15/16 at 22:26 IV Flush (NS Flush) 2 ml UNSCH PRN IV FLUSH FLUSH AFTER USING IV ACCESS; Start 10/15/16 at 22:30 IV Flush (NS Flush) 2 ml BID IV FLUSH Last administered on 10/16/16 10:04; Start 10/16/16 at 09:00 Acetaminophen (Tylenol) 650 mg Q6H PRN PO PAIN 1-5 AND/OR FEVER >101F; Start at 22:30 Morphine Sulfate (Morphine Inj) 2 mg Q2H PRN IV PAIN SCALE 6 TO 10 Last administered on 10/16/16 10:04; Start 10/15/16 at 22:30 Famotidine (Pepcid Inj) 20 mg Q12HR IV PUSH Last administered on 10/16/16 10: 04; Start 10/16/16 at 09:00 Ondansetron HCl (Zofran Inj) 4 mg Q6H PRN IV NAUSEA OR VOMITING; Start at 22:30 Metoclopramide HCl (Reglan Inj) 10 mg Q6H PRN IV NAUSEA OR VOMITING; Start at 22:30 Docusate Sodium (Colace Liq) 100 mg Q12HR G-TUBE Last administered on 10:04; Start 10/15/16 at 22:30 Albuterol/ Ipratropium (Duoneb Neb) 1 ampule Q2HR NEB PRN INH WHEEZING; Start 10/15/16 at 22:30 Miscellaneous Information 1 [id number] Last administered on 10/15/16 00:00; Start 10/15/16 at 22:30 Chlorhexidine Gluconate (Chlorhexidine 2% Cloth) 3 pack Taper DAILY@04 TOP Last administered on 10/16/16 05:15; Start 10/16/16 at 04:00; Stop 10/12/17 at 03:59 Chlorhexidine Gluconate 3 pack 3 pack UNSCH PRN TOP HYGIENIC CARE; Start at 22:30 Nicardipine HCl/ Sodium Chloride (Cardene Inj/NS 250 ml Inj) 260 ml @ 0 mls/hr TITRATE IV ; Start 10/15/16 at 22:45 Digoxin (Lanoxin) 0.25 mg DAILY PO Last administered on 10/16/16 10:05; Start 10/16/16 at 09:00 Metoprolol Tartrate (Lopressor) 25 mg BID PO Last administered on 10/16/16 10: 05; Start 10/16/16 at 00:30 Phenytoin (Dilantin) 100 mg BID PO Last administered on 10/16/16 10:05; Start 10/16/16 at 09:00 Hydralazine HCl (Apresoline Inj) 20 mg Q4H PRN IV PUSH SBP>160, DBP>90; Start 10/16/16 at 00:45 Amlodipine Besylate (Norvasc) 1 mg DAILY PO ; Start 10/16/16 at 09:00 Family History Noncontributory Social History Alcohol Use: No Tobacco Use: No Substance Use: No Physical Exam Vital Signs Vital Signs Date Time Temp Pulse Resp B/P Pulse Ox O2 Delivery O2 Flow Rate FiO2 10/16/16 02:00 102 10/16/16 01:00 102 10/16/16 01:00 98.6 106 34 118/57 93 10/15/16 23:40 105 18 156/72 97 Room Air 10/15/16 23:37 97 18 161/70 97 Room Air 10/15/16 23:04 97.9 102 18 139/62 97 Room Air 10/15/16 22:47 97.8 96 18 129/69 97 Room Air 10/15/16 22:40 103 18 129/69 97 Room Air 10/15/16 22:31 93 18 143/65 97 Room Air 10/15/16 22:17 96 18 173/72 97 Room Air 10/15/16 21:51 98 18 188/82 98 Room Air 10/15/16 21:18 92 20 188/84 97 Room Air 10/15/16 20:24 83 22 202/87 98 Room Air 10/15/16 19:37 22 98 Room Air 10/15/16 18:50 62 18 10/15/16 18:50 61 18 220/93 98 Room Air 10/15/16 18:44 98.4 71 18 220/93 98 Physical Exam The patient is alert, confused, Aphasic Cranial nerve examination demonstrates the pupils to be equal, round, and reactive to light. Extra-ocular movements are intact with normal convergence. Facial motor function appears slighly asymmetrical. Face sensation, hearing, visual polo, and olfaction can not be assessed properly due to the patients condition. The patient has an intact corneal reflex and a gag reflex. Sternocleidomastoid and trapezius have normal and symmetrical strength. Other cranial nerves are intact. Neck is soft and supple. Cervical spine has a normal range of motion of the cervical spine without pain. There is no tenderness to palpation to the spinous processes or paraspinal muscles. Muscle testing reveals normal bulk and tone. Muscle strength is 5/5 in all muscle groups of left upper and lower extremities with mild hemiparesis. Deep tendon reflexes are 1+ and symmetrical in the biceps, triceps, and brachioradialis, bilaterally, in the upper extremities. In the lower extremities , the patellar and Achilles are 1+, bilaterally. There is a left plantar flexion response, right Babinski. There is no clonus Cerebellar examination is limited due to the patient condition Laboratory Laboratory Tests Test 10/15/16 10/15/16 10/15/16 10/16/16 19:20 19:30 21:15 00:05 White Blood Count 9.0 Red Blood Count 4.65 Hemoglobin 14.0 Hematocrit 40.7 Mean Corpuscular Volume 87.6 Mean Corpuscular Hemoglobin 30.0 Mean Corpuscular Hemoglobin 34.3 Concent Red Cell Distribution Width 14.3 Platelet Count 287 Mean Platelet Volume 7.9 Neutrophils (%) (Auto) 82.6 Lymphocytes (%) (Auto) 10.0 Monocytes (%) (Auto) 6.4 Eosinophils (%) (Auto) 0.7 Basophils (%) (Auto) 0.3 Neutrophils # (Auto) 7.4 Lymphocytes # (Auto) 0.9 Monocytes # (Auto) 0.6 Eosinophils # (Auto) 0.1 Basophils # (Auto) 0.0 CBC Comment DIFF FINAL Differential Comment Prothrombin Time 22.1 Prothromb Time International 1.9 Ratio Activated Partial 40.0 Thromboplast Time Sodium Level 137 Potassium Level 3.8 Chloride Level 100 Carbon Dioxide Level 30.7 Anion Gap 6 Blood Urea Nitrogen 13 Creatinine 0.58 Estimat Glomerular Filtration 99 Rate Random Glucose 110 Calcium Level 9.0 Total Bilirubin 0.4 Aspartate Amino Transf 24 (AST/SGOT) Alanine Aminotransferase 23 (ALT/SGPT) Alkaline Phosphatase 231 Total Creatine Kinase 73 Troponin I LESS THAN 0.02 Total Protein 7.9 Albumin 3.3 Urine Color LIGHT-YELLOW Urine Turbidity HAZY Urine pH 7.0 Urine Specific [place] 1.013 Urine Protein TRACE Urine Glucose (UA) NEG Urine Ketones NEG Urine Occult Blood SMALL Urine Nitrite POS Urine Bilirubin NEG Urine Urobilinogen LESS THAN 2.0 Urine Leukocyte Esterase LARGE Urine RBC 2 Urine WBC 80 Urine WBC Clumps RARE Urine Squamous Epithelial <1 Cells Urine Bacteria OCC Urine Yeast (Budding) OCC Microscopic Urinalysis Comment CATH-CULTURE IND Blood Type O POSITIVE Antibody Screen NEGATIVE Blood Bank Comment Nasal Screen MRSA (PCR) NEGATIVE Date/Time Procedure Status Source Growth 10/15/16 19:30 Urine Culture Received Urine Catheterized Urine Pending Result Diagram: 10/15/16191910/15/161919 Imaging Last Impressions Cervical Spine CT 10/15/161944 Signed Impressions: Service Date/Time: Saturday, October 15, 2016 20:07 - CONCLUSION: No acute fractures seen; no evidence of gross deformities or spondylolisthesis. Prominent osteophytic fragment adjacent to the dens is of uncertain bone of origin, or possibly represents some heterotopic ossification, but is unchanged in configuration and appearance when compared to 2010. Orestes Breen MD Radius/Ulna X-Ray 10/15/161899 Signed Impressions: Service Date/Time: Saturday, October 15, 2016 20:05 - CONCLUSION: No fracture seen. Severe osteoporosis. Orestes Breen MD Head CT 10/15/161899 Signed Impressions: Service Date/Time: Saturday, October 15, 2016 20:06 - CONCLUSION: 1. Findings suggesting focal hemorrhage in the right posterior hemisphere adjacent to the margin of the lateral ventricle, suggesting a contrecoup injury. 2. Left high frontal scalp hematoma without evidence of skull fracture. 3. Stable appearance to the posterior MCA infarction when compared to 2011. Orestes Breen MD Femur X-Ray 10/15/161899 Signed Impressions: Service Date/Time: Saturday, October 15, 2016 19:54 - CONCLUSION: The shaft of the femur is grossly intact. Severe osteoporosis. Orestes Breen MD Chest X-Ray 10/15/161899 Signed Impressions: Service Date/Time: Saturday, October 15, 2016 20:03 - CONCLUSION: No evidence pneumothorax. Patchy non-consolidative there is opacity throughout both lungs suggest a mixture of interstitial and alveolar disease. Orestes Breen MD Hip and Pelvis X-Ray 10/15/16 0000 Signed Impressions: Service Date/Time: Saturday, October 15, 2016 19:53 - CONCLUSION: Severe osteoporosis. No definite fracture seen, however, on the frontal view there is a extra linear density along the inferior margin of the femoral neck which could represent a femoral neck fracture Orestes Breen MD Attending Statement Neuro. I have reviewed her clinical and radiological findings. Start neuro checks in a serial fashion. Recommend non surgical treatment Recommend a CT of the brain in 24 hrs Respiratory failure. Supplemental oxygen via nasal cannula. pulmonary toilette , nasotracheal suction, and breathing treatments with nebulizers. Unfortunately she is fully anticoagulated with warfarin and needs reversal of the anticoagulation PAUL Hypertension. Cardene drip to maintain SBP less than 150 mm PT and OT Nutrition. NPO Renal. monitor closely urine output, BUN and creatinine Endocrine. Monitor serial Acu checks and SSI as needed in detail ID monitor for signs of infection Protonix for stress ulcer prophylaxis Mike hose and SCD's for DVT prophylaxis Art Tao MD Oct 16, 2016 03:49 10/15/16 18:50 62 18 10/15/16 18:50 61 18 / 98 Room Air 10/15/16 18:44 98.4 71 18 / 98 Physical Exam The patient is alert, confused, Aphasic Cranial nerve examination demonstrates the pupils to be equal, round, and reactive to light. Extra-ocular movements are intact with normal convergence. Facial motor function appears slighly asymmetrical. Face sensation, hearing, visual polo, and olfaction can not be assessed properly due to the patients condition. The patient has an intact corneal reflex and a gag reflex. Sternocleidomastoid and trapezius have normal and symmetrical strength. Other cranial nerves are intact. Neck is soft and supple. Cervical spine has a normal range of motion of the cervical spine without pain. There is no tenderness to palpation to the spinous processes or paraspinal muscles. Muscle testing reveals normal bulk and tone. Muscle strength is 5/5 in all muscle groups of left upper and lower extremities with mild hemiparesis. Deep tendon reflexes are 1+ and symmetrical in the biceps, triceps, and brachioradialis, bilaterally, in the upper extremities. In the lower extremities , the patellar and Achilles are 1+, bilaterally. There is a left plantar flexion response, right Babinski. There is no clonus Cerebellar examination is limited due to the patient condition Laboratory Laboratory Tests Test 10/15/16 10/15/16 10/15/16 10/16/16 19:20 19:30 21:15 00:05 White Blood Count 9.0 Red Blood Count 4.65 Hemoglobin 14.0 Hematocrit 40.7 Mean Corpuscular Volume 87.6 Mean Corpuscular Hemoglobin 30.0 Mean Corpuscular Hemoglobin 34.3 Concent Red Cell Distribution Width 14.3 Platelet Count 287 Mean Platelet Volume 7.9 Neutrophils (%) (Auto) 82.6 Lymphocytes (%) (Auto) 10.0 Monocytes (%) (Auto) 6.4 Eosinophils (%) (Auto) 0.7 Basophils (%) (Auto) 0.3 Neutrophils # (Auto) 7.4 Lymphocytes # (Auto) 0.9 Monocytes # (Auto) 0.6 Eosinophils # (Auto) 0.1 Basophils # (Auto) 0.0 CBC Comment DIFF FINAL Differential Comment Prothrombin Time 22.1 Prothromb Time International 1.9 Ratio Activated Partial 40.0 Thromboplast Time Sodium Level 137 Potassium Level 3.8 Chloride Level 100 Carbon Dioxide Level 30.7 Anion Gap 6 Blood Urea Nitrogen 13 Creatinine 0.58 Estimat Glomerular Filtration 99 Rate Random Glucose 110 Calcium Level 9.0 Total Bilirubin 0.4 Aspartate Amino Transf 24 (AST/SGOT) Alanine Aminotransferase 23 (ALT/SGPT) Alkaline Phosphatase 231 Total Creatine Kinase 73 Troponin I LESS THAN 0.02 Total Protein 7.9 Albumin 3.3 Urine Color LIGHT-YELLOW Urine Turbidity HAZY Urine pH 7.0 Urine Specific [place] 1.013 Urine Protein TRACE Urine Glucose (UA) NEG Urine Ketones NEG Urine Occult Blood SMALL Urine Nitrite POS Urine Bilirubin NEG Urine Urobilinogen LESS THAN 2.0 Urine Leukocyte Esterase LARGE Urine RBC 2 Urine WBC 80 Urine WBC Clumps RARE Urine Squamous Epithelial <1 Cells Urine Bacteria OCC Urine Yeast (Budding) OCC Microscopic Urinalysis Comment CATH-CULTURE IND Blood Type O POSITIVE Antibody Screen NEGATIVE Blood Bank Comment Nasal Screen MRSA (PCR) NEGATIVE Date/Time Procedure Status Source Growth 10/15/16 19:30 Urine Culture Received Urine Catheterized Urine Pending Result Diagram: 10/15/16191910/15/161919 Imaging Last Impressions Cervical Spine CT 10/15/161944 Signed Impressions: Service Date/Time: Saturday, October 15, 2016 20:07 - CONCLUSION: No acute fractures seen; no evidence of gross deformities or spondylolisthesis. Prominent osteophytic fragment adjacent to the dens is of uncertain bone of origin, or possibly represents some heterotopic ossification, but is unchanged in configuration and appearance when compared to 2010. Orestes Breen MD Radius/Ulna X-Ray 10/15/161899 Signed Impressions: Service Date/Time: Saturday, October 15, 2016 20:05 - CONCLUSION: No fracture seen. Severe osteoporosis. Orestes Breen MD Head CT 10/15/161899 Signed Impressions: Service Date/Time: Saturday, October 15, 2016 20:06 - CONCLUSION: 1. Findings suggesting focal hemorrhage in the right posterior hemisphere adjacent to the margin of the lateral ventricle, suggesting a contrecoup injury. 2. Left high frontal scalp hematoma without evidence of skull fracture. 3. 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 Orestes Breen MD Femur X-Ray 10/15/161899 Signed Impressions: Service Date/Time: Saturday, October 15, 2016 19:54 - CONCLUSION: The shaft of the femur is grossly intact. Severe osteoporosis. Orestes Breen MD Chest X-Ray 10/15/161899 Signed Impressions: Service Date/Time: Saturday, October 15, 2016 20:03 - CONCLUSION: No evidence pneumothorax. Patchy non-consolidative there is opacity throughout both lungs suggest a mixture of interstitial and alveolar disease. Orestes Breen MD Hip and Pelvis X-Ray 10/15/16 0000 Signed Impressions: Service Date/Time: Saturday, October 15, 2016 19:53 - CONCLUSION: Severe osteoporosis. No definite fracture seen, however, on the frontal view there is a extra linear density along the inferior margin of the femoral neck which could represent a femoral neck fracture Orestes Breen MD Attending Statement Neuro. I have reviewed her clinical and radiological findings. Start neuro checks in a serial fashion. Recommend non surgical treatment Recommend a CT of the brain in 24 hrs Respiratory failure. Supplemental oxygen via nasal cannula. pulmonary toilette , nasotracheal suction, and breathing treatments with nebulizers. Hypertension. Cardene drip to maintain SBP less than 150 mm PT and OT Nutrition. NPO Renal. monitor closely urine output, BUN and creatinine Endocrine. Monitor serial Acu checks and SSI as needed in detail ID monitor for signs of infection Protonix for stress ulcer prophylaxis Mike hose and SCD's for DVT prophylaxis Art Tao MD Oct 16, 2016 03:49
[2016-10-16 04:19] LABS: AUTOMATED NEUTROPHIL # 6.1 TH/MM3 (1.8-7.7); BASOPHIL % 0.2 % (0.0-2.0); EOSINOPHIL % 0.2 % (0.0-4.0); HEMATOCRIT 32.1 % (35.0-46.0); HEMO FLAGS DIFF FINAL; LYMPH % 11.8 % (9.0-44.0); LYMPHOCYTE # 0.9 TH/MM3 (1.0-4.8); MEAN CELL VOLUME 87.3 FL (80.0-100.0); MEAN CORPUSCULAR HEMOGLOBIN 29.8 PG (27.0-34.0); MEAN CORPUSCULAR HGB CONC 34.1 % (32.0-36.0); MONO % 7.5 % (0.0-8.0); NEUT % 80.3 % (16.0-70.0); PLATELET COUNT 218 TH/MM3 (150-450); RED BLOOD COUNT 3.68 MIL/MM3 (4.00-5.30); RED CELL DISTRIBUTION WIDTH 14.1 % (11.6-17.2); WHITE BLOOD COUNT 7.6 TH/MM3 (4.0-11.0)
[2016-10-16 04:40] LABS: ALKALINE PHOSPHATASE 194 U/L (45-117); ALT (GPT) 49 U/L (10-53); ANION GAP 7 MEQ/L (5-15); AST (GOT) 47 U/L (15-37); BICARBONATE 30.6 MEQ/L (21.0-32.0); CHLORIDE 104 MEQ/L (98-107); GLOMERULAR FILTRATION RATE 107 ML/MIN (>89); POTASSIUM 3.4 MEQ/L (3.5-5.1); SODIUM (NA) 142 MEQ/L (136-145); TOTAL BILIRUBIN ADULT 0.4 MG/DL (0.2-1.0)
[2016-10-16 04:43] LABS: BLOOD UREA NITROGEN 11 MG/DL (7-18)
[2016-10-16 04:49] LABS: PROTHROMBIN TIME - PATIENT 11.4 SEC (9.8-11.6)
[2016-10-16] MEDS: CHLORHEXIDINE GLUCONATE 2 % 1 PACK (2 CLOTHS) TOP SCH (05:15)
--- NOTE | 2016-10-16 06:09 | EKG ---
Date Performed: 10/15/2016 Time Performed: 20:47:43 PTAGE: 86 years EKG: BASELINE ARTEFACT MAKES RHYTHM ASSESSMENT SUBOPTIMAL, POSSIBLE Sinus rhythm WITH PACs ST DEPRESSION, CONSIDER ANTEROLATERAL ISCHEMIA ABNORMAL ECG PREVIOUS TRACING : 02/09/2012 13.08 Compared to previous tracing, baseline artefact and possibl e PACs are now present. DOCTOR: Luis Miguel Winston Interpretating Date/Time 10/16/2016 06:09:02
[2016-10-16] MEDS: DOCUSATE SODIUM 100 MG/10 ML UDC G-TUBE SCH ×2 (10:04→21:02)
[2016-10-16] MEDS: SODIUM CHLORIDE 0.9% FLUSH 5 ML FLUSH IV FLUSH SCH ×2 (10:04→21:00)
[2016-10-16] MEDS: FAMOTIDINE 20 MG/2 ML VIAL IV PUSH SCH ×2 (10:04→21:03)
[2016-10-16] MEDS: DIGOXIN 0.25 MG TAB PO SCH (10:05)
[2016-10-16] MEDS: PHENYTOIN SODIUM 100 MG CAP PO SCH ×2 (10:05→21:03)
--- NOTE | 2016-10-16 11:33 | HHI.NSPN ---
Note Status Status: Progress Note Interval History Diagnosis ICH Interval History tHIS IS A 86-year-old female with a history of CVA with residual right-sided hemiparesis, atrial fibrillation on Coumadin, hyperlipidemia, CHF, CAD presents to the emergency department by EMS for evaluation of right leg and right arm pain. According to EMS report the patient lives at home with her who is her caregiver. The fire rescue was called to help lift the patient earlier today as she had fallen out of her chair onto the ground. Apparently fire rescue place the patient back into her chair and they left their house. Later EMS was called again to the house by the because the patient was complaining of severe pain in her right arm and right leg. No seizure activity noted. No tongue biting. No incontinence of stool or urine. The patient mental status appears to be at her baseline. She was brought to [place] emergency department. CT of the brain show a small area of hemorrhage adjacent to the lateral ventricle. The patient is chronically anticoagulated on Coumadin. The patient has expressive aphasia. A neurosurgical consultation was requested 10/16. She is alert, awake. Speech slightly improved Labs, Micro, & Vital Signs Results Date Time Temp Pulse Resp B/P Pulse Ox O2 Delivery O2 Flow Rate FiO2 10/16/16 07:20 94 Nasal Cannula 2.00 10/16/16 06:00 98 10/16/16 04:00 98 10/16/16 04:00 98.7 98 19 118/75 98 10/16/16 02:00 102 10/16/16 01:00 102 10/16/16 01:00 98.6 106 34 118/57 93 10/15/16 23:40 105 18 156/72 97 Room Air 10/15/16 23:37 97 18 161/70 97 Room Air 10/15/16 23:04 97.9 102 18 139/62 97 Room Air 10/15/16 22:47 97.8 96 18 129/69 97 Room Air 10/15/16 22:40 103 18 129/69 97 Room Air 10/15/16 22:31 93 18 143/65 97 Room Air 10/15/16 22:17 96 18 173/72 97 Room Air 10/15/16 21:51 98 18 188/82 98 Room Air 10/15/16 21:18 92 20 188/84 97 Room Air 10/15/16 20:24 83 22 202/87 98 Room Air 10/15/16 19:37 22 98 Room Air 10/15/16 18:50 62 18 10/15/16 18:50 61 18 220/93 98 Room Air 10/15/16 18:44 98.4 71 18 220/93 98 10/16/16 07:00 Intake Total 1373 ml Balance 1373 ml Constitutional Vital Signs Date Time Temp Pulse Resp B/P Pulse Ox O2 Delivery O2 Flow Rate FiO2 10/16/16 07:20 94 Nasal Cannula 2.00 10/16/16 06:00 98 10/16/16 04:00 98 10/16/16 04:00 98.7 98 19 118/75 98 10/16/16 02:00 102 10/16/16 01:00 102 10/16/16 01:00 98.6 106 34 118/57 93 10/15/16 23:40 105 18 156/72 97 Room Air 10/15/16 23:37 97 18 161/70 97 Room Air 10/15/16 23:04 97.9 102 18 139/62 97 Room Air 10/15/16 22:47 97.8 96 18 129/69 97 Room Air 10/15/16 22:40 103 18 129/69 97 Room Air 10/15/16 22:31 93 18 143/65 97 Room Air 10/15/16 22:17 96 18 173/72 97 Room Air 10/15/16 21:51 98 18 188/82 98 Room Air 10/15/16 21:18 92 20 188/84 97 Room Air 10/15/16 20:24 83 22 202/87 98 Room Air 10/15/16 19:37 22 98 Room Air 10/15/16 18:50 62 18 10/15/16 18:50 61 18 220/93 98 Room Air 10/15/16 18:44 98.4 71 18 220/93 98 10/16/16 07:00 Intake Total 1373 ml Balance 1373 ml Review of Systems/Exam Exam Ms Eason is alert, confused, Aphasic Cranial nerve examination demonstrates the pupils to be equal, round, and reactive to light. Extra-ocular movements are intact with normal convergence. Facial motor function appears slighly asymmetrical. Face sensation, hearing, visual polo, and olfaction can not be assessed properly due to the patients condition. The patient has an intact corneal reflex and a gag reflex. Sternocleidomastoid and trapezius have normal and symmetrical strength. Other cranial nerves are intact. Neck is soft and supple. Cervical spine has a normal range of motion of the cervical spine without pain. There is no tenderness to palpation to the spinous processes or paraspinal muscles. Muscle testing reveals normal bulk and tone. Muscle strength is 5/5 in all muscle groups of left upper and lower extremities with mild hemiparesis. Deep tendon reflexes are 1+ and symmetrical in the biceps, triceps, and brachioradialis, bilaterally, in the upper extremities. In the lower extremities , the patellar and Achilles are 1+, bilaterally. There is a left plantar flexion response, right Babinski. There is no clonus Medications Current Medications Current Medications IV Flush 2 ml 2 ml UNSCH PRN IVF FLUSH AFTER USING IV ACCESS; Start 10/15/16 at 19:00; Stop 10/15/16 at 22:44; Status DC Ceftriaxone Sodium 1000 mg/ Sodium Chloride 100 ml @ 200 mls/hr ONCE ONCE IV Last administered on 10/15/16 20:42; Start 10/15/16 at 20:15; Stop 10/15/16 at 20:44; Status DC Sodium Chloride 250 ml @ 15 mls/hr ONCE ONCE IV ; Start 10/15/16 at 21:15; Stop 10/16/16 at 13:54 Nicardipine HCl/ Sodium Chloride (Cardene Inj/NS 250 ml Inj) 260 ml @ 0 mls/hr TITRATE ONCE IV Last administered on 10/15/16 21:39; Start 10/15/16 at 21:15 ; Stop 10/15/16 at 21:16; Status DC Morphine Sulfate (Morphine Inj) 2 mg ONCE ONCE IV PUSH Last administered on 21:51; Start 10/15/16 at 21:45; Stop 10/15/16 at 21:46; Status DC Prothrombin Complex Concent (Human) 1250 units 1,250 units ONCE ONCE IV Last administered on 10/15/16 23:04; Start 10/15/16 at 22:15; Stop 10/15/16 at 22:16 ; Status DC Sodium Chloride (NS 1000 ml Inj) 1,000 ml @ 84 mls/hr [id number] IV Last administered on 10/16/16 10:05; Start 10/15/16 at 22:26 IV Flush (NS Flush) 2 ml UNSCH PRN IV FLUSH FLUSH AFTER USING IV ACCESS; Start 10/15/16 at 22:30 IV Flush (NS Flush) 2 ml BID IV FLUSH Last administered on 10/16/16 10:04; Start 10/16/16 at 09:00 Acetaminophen (Tylenol) 650 mg Q6H PRN PO PAIN 1-5 AND/OR FEVER >101F; Start at 22:30 Morphine Sulfate (Morphine Inj) 2 mg Q2H PRN IV PAIN SCALE 6 TO 10 Last administered on 10/16/16 10:04; Start 10/15/16 at 22:30 Famotidine (Pepcid Inj) 20 mg Q12HR IV PUSH Last administered on 10/16/16 10: 04; Start 10/16/16 at 09:00 Ondansetron HCl (Zofran Inj) 4 mg Q6H PRN IV NAUSEA OR VOMITING; Start at 22:30 Metoclopramide HCl (Reglan Inj) 10 mg Q6H PRN IV NAUSEA OR VOMITING; Start at 22:30 Docusate Sodium (Colace Liq) 100 mg Q12HR G-TUBE Last administered on 10:04; Start 10/15/16 at 22:30 Albuterol/ Ipratropium (Duoneb Neb) 1 ampule Q2HR NEB PRN INH WHEEZING; Start 10/15/16 at 22:30 Miscellaneous Information 1 Q361D XX Last administered on 10/15/16 00:00; Start 10/15/16 at 22:30 Chlorhexidine Gluconate (Chlorhexidine 2% Cloth) 3 pack Taper DAILY@04 TOP Last administered on 10/16/16 05:15; Start 10/16/16 at 04:00; Stop 10/12/17 at 03:59 Chlorhexidine Gluconate 3 pack 3 pack UNSCH PRN TOP HYGIENIC CARE; Start at 22:30 Nicardipine HCl/ Sodium Chloride (Cardene Inj/NS 250 ml Inj) 260 ml @ 0 mls/hr TITRATE IV ; Start 10/15/16 at 22:45 Digoxin (Lanoxin) 0.25 mg DAILY PO Last administered on 10/16/16 10:05; Start 10/16/16 at 09:00 Metoprolol Tartrate (Lopressor) 25 mg BID PO Last administered on 10/16/16 10: 05; Start 10/16/16 at 00:30 Phenytoin (Dilantin) 100 mg BID PO Last administered on 10/16/16 10:05; Start 10/16/16 at 09:00 Hydralazine HCl (Apresoline Inj) 20 mg Q4H PRN IV PUSH SBP>160, DBP>90; Start 10/16/16 at 00:45 Amlodipine Besylate (Norvasc) 1 mg DAILY PO ; Start 10/16/16 at 09:00 Medical Decision Making MDM Remarks Last Impressions Cervical Spine CT 10/15/161944 Signed Impressions: Service Date/Time: Saturday, October 15, 2016 20:07 - CONCLUSION: No acute fractures seen; no evidence of gross deformities or spondylolisthesis. Prominent osteophytic fragment adjacent to the dens is of uncertain bone of origin, or possibly represents some heterotopic ossification, but is unchanged in configuration and appearance when compared to 2010. Orestes Breen MD Radius/Ulna X-Ray 10/15/161899 Signed Impressions: Service Date/Time: Saturday, October 15, 2016 20:05 - CONCLUSION: No fracture seen. Severe osteoporosis. Orestes Breen MD Head CT 10/15/161899 Signed Impressions: Service Date/Time: Saturday, October 15, 2016 20:06 - CONCLUSION: 1. Findings suggesting focal hemorrhage in the right posterior hemisphere adjacent to the margin of the lateral ventricle, suggesting a contrecoup injury. 2. Left high frontal scalp hematoma without evidence of skull fracture. 3. Stable appearance to the posterior MCA infarction when compared to 2011. Orestes Breen MD Femur X-Ray 10/15/161899 Signed Impressions: Service Date/Time: Saturday, October 15, 2016 19:54 - CONCLUSION: The shaft of the femur is grossly intact. Severe osteoporosis. Orestes Breen MD Chest X-Ray 10/15/16 1900 Signed Impressions: Service Date/Time: Saturday, October 15, 2016 20:03 - CONCLUSION: No evidence pneumothorax. Patchy non-consolidative there is opacity throughout both lungs suggest a mixture of interstitial and alveolar disease. Orestes Breen MD Hip and Pelvis X-Ray 10/15/16 0000 Signed Impressions: Service Date/Time: Saturday, October 15, 2016 19:53 - CONCLUSION: Severe osteoporosis. No definite fracture seen, however, on the frontal view there is a extra linear density along the inferior margin of the femoral neck which could represent a femoral neck fracture Orestes Breen MD Attending Statement Neuro. continue neuro checks in a serial fashion. continue non surgical treatment Follow up CT of the brain Respiratory failure. continue supplemental oxygen via nasal cannula. pulmonary toilette, nasotracheal suction, and breathing treatments with nebulizers. Anticoagulation reversed Aphasia. daily speech pathology Hypertension. continue to maintain SBP less than 150 mm PT and OT Nutrition. Oral diet Renal. continue to monitor closely urine output, BUN and creatinine Endocrine. continue to monitor serial Acu checks and SSI as needed in detail ID continue monitor for signs of infection continue Protonix for stress ulcer prophylaxis continue Mike hose and SCD's for DVT prophylaxis Art Tao MD Oct 16, 2016 11:33
--- NOTE | 2016-10-16 13:44 | HHI.PR ---
Subjective Remarks The patient was sitting up in bed. She appeared comfortable. She denied any pain. She was talking and mumbling. She seems indicate that she did have a bit of a headache at the site of the hematoma. Nursing was at the bedside. Objective Vitals Vital Signs Date Time Temp Pulse Resp B/P Pulse Ox O2 Delivery O2 Flow Rate FiO2 10/16/16 07:20 94 Nasal Cannula 2.00 10/16/16 06:00 98 10/16/16 04:00 98 10/16/16 04:00 98.7 98 19 118/75 98 10/16/16 02:00 102 10/16/16 01:00 102 10/16/16 01:00 98.6 106 34 118/57 93 10/15/16 23:40 105 18 156/72 97 Room Air 10/15/16 23:37 97 18 161/70 97 Room Air 10/15/16 23:04 97.9 102 18 139/62 97 Room Air 10/15/16 22:47 97.8 96 18 129/69 97 Room Air 10/15/16 22:40 103 18 129/69 97 Room Air 10/15/16 22:31 93 18 143/65 97 Room Air 10/15/16 22:17 96 18 173/72 97 Room Air 10/15/16 21:51 98 18 188/82 98 Room Air 10/15/16 21:18 92 20 188/84 97 Room Air 10/15/16 20:24 83 22 202/87 98 Room Air 10/15/16 19:37 22 98 Room Air 10/15/16 18:50 62 18 10/15/16 18:50 61 18 220/93 98 Room Air 10/15/16 18:44 98.4 71 18 220/93 98 I/O 10/15/16 10/15/16 10/15/16 10/16/16 10/16/16 10/16/16 07:00 15:00 23:00 07:00 15:00 23:00 Intake Total 1373 ml Balance 1373 ml Intake IV Total 120 ml FFP 1253 ml # Voids 1 Result Diagram: 10/16/16 0345 10/16/16 0345 Imaging Last Impressions Cervical Spine CT 10/15/161944 Signed Impressions: Service Date/Time: Saturday, October 15, 2016 20:07 - CONCLUSION: No acute fractures seen; no evidence of gross deformities or spondylolisthesis. Prominent osteophytic fragment adjacent to the dens is of uncertain bone of origin, or possibly represents some heterotopic ossification, but is unchanged in configuration and appearance when compared to 2010. Orestes Breen MD Radius/Ulna X-Ray 10/15/161899 Signed Impressions: Service Date/Time: Saturday, October 15, 2016 20:05 - CONCLUSION: No fracture seen. Severe osteoporosis. Orestes Breen MD Head CT 10/15/161899 Signed Impressions: Service Date/Time: Saturday, October 15, 2016 20:06 - CONCLUSION: 1. Findings suggesting focal hemorrhage in the right posterior hemisphere adjacent to the margin of the lateral ventricle, suggesting a contrecoup injury. 2. Left high frontal scalp hematoma without evidence of skull fracture. 3. Stable appearance to the posterior MCA infarction when compared to 2011. Orestes Breen MD Femur X-Ray 10/15/161899 Signed Impressions: Service Date/Time: Saturday, October 15, 2016 19:54 - CONCLUSION: The shaft of the femur is grossly intact. Severe osteoporosis. Orestes Breen MD Chest X-Ray 10/15/161899 Signed Impressions: Service Date/Time: Saturday, October 15, 2016 20:03 - CONCLUSION: No evidence pneumothorax. Patchy non-consolidative there is opacity throughout both lungs suggest a mixture of interstitial and alveolar disease. Orestes Breen MD Hip and Pelvis X-Ray 10/15/16 0000 Signed Impressions: Service Date/Time: Saturday, October 15, 2016 19:53 - CONCLUSION: Severe osteoporosis. No definite fracture seen, however, on the frontal view there is a extra linear density along the inferior margin of the femoral neck which could represent a femoral neck fracture Orestes Breen MD Objective Remarks GENERAL: Well-nourished and well-developed pleasant patient in no acute distress. SKIN: Warm and dry. HEAD: Bruising and hematoma above left eye. EYES: No injection, drainage, or hyphema noted. PERRLA. EOMI. ENT: No nasal drainage noted. Oropharynx is clear. NECK: Supple and the trachea is midline. CARDIOVASCULAR: Regular rate and rhythm. RESPIRATORY: Breath sounds are equal bilaterally with no accessory muscle use, wheezing, rhonchi, or crackles. GASTROINTESTINAL: Abdomen is soft, non-tender, and nondistended. MUSCULOSKELETAL: Right arm and right leg contractures. Tenderness to palpation of right forearm and right femur. Full range of motion in the left hip and leg. Patient resists range of motion exercises in the right leg due to pain. No swelling, cyanosis, or ecchymosis is present throughout the upper and lower extremities. DP pulses are 2+ bilaterally. NEUROLOGICAL: Awake, alert, and oriented. Speech impaired. Cranial nerves are grossly intact. PSYCH: Mood and affect appropriate. Medications and IVs Current Medications Medications (Trade) Dose Ordered Sig/Anabella Route Start Time Stop Time Status Last Admin (NS 1000 ml Inj) 1,000 ml @ 84 mls/hr [id number] IV 10/15/16 22:26 10/16/16 10:05 (NS Flush) 2 ml UNSCH PRN IV FLUSH 10/15/16 22:30 (NS Flush) 2 ml BID IV FLUSH 10/16/16 09:00 10/16/16 10:04 (Tylenol) 650 mg Q6H PRN PO 10/15/16 22:30 (Morphine Inj) 2 mg Q2H PRN IV 10/15/16 22:30 10/16/16 10:04 (Pepcid Inj) 20 mg Q12HR IV PUSH 10/16/16 09:00 10/16/16 10:04 (Zofran Inj) 4 mg Q6H PRN IV 10/15/16 22:30 (Reglan Inj) 10 mg Q6H PRN IV 10/15/16 22:30 (Colace Liq) 100 mg Q12HR G-TUBE 10/15/16 22:30 10/16/16 10:04 Miscellaneous Information 1 Q361D XX 10/15/16 22:30 10/15/16 00:00 (Chlorhexidine 2% Cloth) 3 pack Taper DAILY@04 TOP 10/16/16 04:00 10/12/17 03:59 10/16/16 05:15 Chlorhexidine Gluconate 3 pack 3 pack UNSCH PRN TOP 10/15/16 22:30 (Cardene Inj/NS 250 ml Inj) 260 ml @ 0 mls/hr TITRATE IV 10/15/16 22:45 (Lanoxin) 0.25 mg DAILY PO 10/16/16 09:00 10/16/16 10:05 (Lopressor) 25 mg BID PO 10/16/16 00:30 10/16/16 10:05 Phenytoin 100 mg 100 mg BID PO 10/16/16 09:00 10/16/16 10:05 (Rocephin Inj/NS Inj) 100 ml @ 200 mls/hr Q24H IV 10/16/16 20:00 (Prinivil) 20 mg DAILY PO 10/16/16 14:30 (Vasotec Inj) 1.25 mg Q6H PRN IV PUSH 10/16/16 14:30 UNV A/P Assessment and Plan ICH Head CT revealed: Findings suggesting focal hemorrhage in the right posterior hemisphere adjacent to the margin of the lateral ventricle, suggesting a contrecoup injury; Left high frontal scalp hematoma without evidence of skull fracture; Stable appearance to the posterior MCA infarction when compared to 2011. Neurosurgery consult appreciated. - no surgical intervention indicated - reverse coumadine with FFPs and K-Centra. - PT/OT/ST. Diet per speech therapy. Anemia May be s/t hemorrhage. Coumadin reversed as above. - follow CBC and transfuse as needed. A.Fib On Coumadin. - resume home meds Digoxin and Metoprolol for rate control. - D/C Coumadin as above. Right hip pain X rays negative for Fx. - supporitive care - pain control. - PT. - CT of the hip is pending. Hypertension S/p Cardene gtt. - SBP goal < 160 - Metoprolol, lisinopril. - Vasotec as needed. UTI Urine culture growing GNR. - continue ceftriaxone and follow urine culture. Seizure On phenytoin as an outpt. - continue phenytoin, check level. Hypokalemia/ hypophosphatemia Likely s/t poor PO intake. - replete and monitor. DVT/GI prophylaxis - TEDs/SCDs/Pepcid Discharge Planning Transfer to floor. Bill Garcia DO Oct 16, 2016 13:44
[2016-10-16] MEDS ORDERED: POTASSIUM CHLORIDE 25 MEQ EFFERVESCENT TAB PO ONE (14:00)
[2016-10-16] MEDS ORDERED: POTASSIUM PHOSPHATE INJ 30 MMOL in SODIUM CHLOR 0.9% 250 ML INJ 250 ML IV ONE (15:00)
[2016-10-16] MEDS: LISINOPRIL 20 MG TAB PO SCH (15:16)
--- NOTE | 2016-10-16 18:13 | RADRPT ---
EXAM DATE/TIME: 10/16/2016 17:50 [facility] COMPARISON: No previous studies available for comparison. INDICATIONS : Pain after fall. ORAL CONTRAST: No oral contrast ingested. RADIATION DOSE: 6.33 CTDIvol (mGy) MEDICAL HISTORY : Stroke. SURGICAL HISTORY : Right hip replacement. ENCOUNTER: Initial ACUITY: 1 day PAIN SCALE: 7/10 LOCATION: Right pelvis TECHNIQUE: Volumetric scanning of the pelvis was performed. Using automated exposure control and adjustment of the mA and/or kV according to patient size, radiation dose was kept as low as reasonably achievable t o obtain optimal diagnostic quality images. FINDINGS: The bones are diffusely osteopenic. No acute fractures identified. His previous left total hip replac ement. There is moderate to advanced degenerative change of the sacroiliac joints and pubic symphysis . This constipation. Rectum is distended to 9.4 cm with stool. CONCLUSION: 1. Osteopenia. Previous left hip replacement. No acute fracture. Severe rectal constipation. Miguel Quach MD on October 16, 2016 at 18:06 Board Certified Radiologist. This report was verified electronically.
[2016-10-16] MEDS: cefTRIAXone INJ 1,000 MG in SODIUM CHLORIDE 0.9% INJ 100 ML IV SCH (21:03)
[2016-10-17] VITALS: BP 133/71; PULSE 84; RESP 23; TEMP 97; O2SAT 91
[2016-10-17] MEDS: CHLORHEXIDINE GLUCONATE 2 % 1 PACK (2 CLOTHS) TOP SCH (04:00)
[2016-10-17 07:28] LABS: HEMATOCRIT 34.7 % (35.0-46.0); MEAN CELL VOLUME 88.7 FL (80.0-100.0); MEAN CORPUSCULAR HEMOGLOBIN 29.6 PG (27.0-34.0); MEAN CORPUSCULAR HGB CONC 33.3 % (32.0-36.0); PLATELET COUNT 259 TH/MM3 (150-450); RED BLOOD COUNT 3.91 MIL/MM3 (4.00-5.30); RED CELL DISTRIBUTION WIDTH 14.4 % (11.6-17.2); REVIEW FLAG FINAL; WHITE BLOOD COUNT 8.5 TH/MM3 (4.0-11.0)
[2016-10-17 07:53] LABS: BICARBONATE 23.5 MEQ/L (21.0-32.0); MAGNESIUM 1.9 MG/DL (1.5-2.5); POTASSIUM 3.6 MEQ/L (3.5-5.1)
[2016-10-17 08:30] VITALS: BP 186/115; PULSE 84; RESP 18; TEMP 98.9; O2SAT 95; O2SAT 97
[2016-10-17] MEDS: DOCUSATE SODIUM 100 MG/10 ML UDC G-TUBE SCH ×2 (08:43→21:00)
[2016-10-17] MEDS: PHENYTOIN SODIUM 100 MG CAP PO SCH ×2 (08:44→23:14)
[2016-10-17] MEDS: FAMOTIDINE 20 MG/2 ML VIAL IV PUSH SCH ×2 (08:44→23:13)
[2016-10-17] MEDS: LISINOPRIL 20 MG TAB PO SCH (08:44)
[2016-10-17] MEDS: DIGOXIN 0.25 MG TAB PO SCH (08:44)
[2016-10-17] MEDS: METOPROLOL TARTRATE 25 MG TAB PO SCH ×2 (08:44→23:14)
[2016-10-17] MEDS: SODIUM CHLORIDE 0.9% FLUSH 5 ML FLUSH IV FLUSH SCH ×2 (08:45→23:14)
--- NOTE | 2016-10-17 11:28 | HHI.PR ---
Subjective Remarks The patient was resting comfortably in bed. Staff reports that she ate well. The patient had no acute complaints. Objective Vitals Vital Signs Date Time Temp Pulse Resp B/P Pulse Ox O2 Delivery O2 Flow Rate FiO2 10/17/16 08:55 95 Nasal Cannula 2.00 10/17/16 08:30 98.9 84 18 186/115 95 10/17/16 08:30 97 Nasal Cannula 2.00 10/17/16 00:00 97.0 84 23 133/71 91 10/16/16 19:00 Nasal Cannula 2.00 10/16/16 18:52 96.7 86 19 137/75 90 10/16/16 16:00 98.2 66 20 143/64 98 10/16/16 13:00 98 Nasal Cannula 2.00 10/16/16 12:00 98.1 75 16 159/69 97 10/16/16 12:00 97 Nasal Cannula 3.00 I/O 10/16/16 10/16/16 10/16/16 10/17/16 10/17/16 10/17/16 07:00 15:00 23:00 07:00 15:00 23:00 Intake Total 1373 ml 860 ml 100 ml Balance 1373 ml 860 ml 100 ml Intake Oral 430 ml 100 ml IV Total 120 ml 430 ml FFP 1253 ml # Voids 1 4 2 # Bowel Movements 0 1 Result Diagram: 10/17/16 0650 10/17/16 0650 Imaging Last Impressions Cervical Spine CT 10/15/161944 Signed Impressions: Service Date/Time: Saturday, October 15, 2016 20:07 - CONCLUSION: No acute fractures seen; no evidence of gross deformities or spondylolisthesis. Prominent osteophytic fragment adjacent to the dens is of uncertain bone of origin, or possibly represents some heterotopic ossification, but is unchanged in configuration and appearance when compared to 2010. Orestes Breen MD Radius/Ulna X-Ray 10/15/161899 Signed Impressions: Service Date/Time: Saturday, October 15, 2016 20:05 - CONCLUSION: No fracture seen. Severe osteoporosis. Orestes Breen MD Head CT 10/15/161899 Signed Impressions: Service Date/Time: Saturday, October 15, 2016 20:06 - CONCLUSION: 1. Findings suggesting focal hemorrhage in the right posterior hemisphere adjacent to the margin of the lateral ventricle, suggesting a contrecoup injury. 2. Left high frontal scalp hematoma without evidence of skull fracture. 3. 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 Oerstes Breen MD Femur X-Ray 10/15/161899 Signed Impressions: Service Date/Time: Saturday, October 15, 2016 19:54 - CONCLUSION: The shaft of the femur is grossly intact. Severe osteoporosis. Orestes Breen MD Chest X-Ray 10/15/161899 Signed Impressions: Service Date/Time: Saturday, October 15, 2016 20:03 - CONCLUSION: No evidence pneumothorax. Patchy non-consolidative there is opacity throughout both lungs suggest a mixture of interstitial and alveolar disease. Orestes Breen MD Pelvis CT 10/15/16 0000 Signed Impressions: Service Date/Time: Sunday, October 16, 2016 17:50 - CONCLUSION: 1. Osteopenia. Previous left hip replacement. No acute fracture. Severe rectal constipation. Miguel Quach MD Hip and Pelvis X-Ray 10/15/16 0000 Signed Impressions: Service Date/Time: Saturday, October 15, 2016 19:53 - CONCLUSION: Severe osteoporosis. No definite fracture seen, however, on the frontal view there is a extra linear density along the inferior margin of the femoral neck which could represent a femoral neck fracture Orestes Breen MD Objective Remarks GENERAL: Well-nourished and well-developed pleasant patient in no acute distress. SKIN: Warm and dry. HEAD: Bruising above left eye. EYES: No injection, drainage, or hyphema noted. PERRLA. EOMI. ENT: No nasal drainage noted. Oropharynx is clear. NECK: Supple and the trachea is midline. CARDIOVASCULAR: Regular rate and rhythm. RESPIRATORY: Breath sounds are equal bilaterally with no accessory muscle use, wheezing, rhonchi, or crackles. GASTROINTESTINAL: Abdomen is soft, non-tender, and nondistended. MUSCULOSKELETAL: Right arm and right leg contractures. Tenderness to palpation of right forearm and right femur. Full range of motion in the left hip and leg. Patient resists range of motion exercises in the right leg due to pain. No swelling, cyanosis, or ecchymosis is present throughout the upper and lower extremities. DP pulses are 2+ bilaterally. NEUROLOGICAL: Awake, alert, and oriented. Speech impaired. Cranial nerves are grossly intact. PSYCH: Mood and affect appropriate. Medications and IVs Current Medications Medications (Trade) Dose Ordered Sig/Anabella Route Start Time Stop Time Status Last Admin (NS 1000 ml Inj) 1,000 ml @ 84 mls/hr [id number] IV 10/15/16 22:26 10/16/16 10:05 (NS Flush) 2 ml UNSCH PRN IV FLUSH 10/15/16 22:30 (NS Flush) 2 ml BID IV FLUSH 10/16/16 09:00 10/16/16 10:04 (Tylenol) 650 mg Q6H PRN PO 10/15/16 22:30 (Morphine Inj) 2 mg Q2H PRN IV 10/15/16 22:30 10/16/16 18:46 (Pepcid Inj) 20 mg Q12HR IV PUSH 10/16/16 09:00 10/17/16 08:44 (Zofran Inj) 4 mg Q6H PRN IV 10/15/16 22:30 (Reglan Inj) 10 mg Q6H PRN IV 10/15/16 22:30 (Colace Liq) 100 mg Q12HR G-TUBE 10/15/16 22:30 10/17/16 08:43 Miscellaneous Information 1 Q361D XX 10/15/16 22:30 10/15/16 00:00 (Chlorhexidine 2% Cloth) 3 pack Taper DAILY@04 TOP 10/16/16 04:00 10/12/17 03:59 10/16/16 05:15 Chlorhexidine Gluconate 3 pack 3 pack UNSCH PRN TOP 10/15/16 22:30 (Cardene Inj/NS 250 ml Inj) 260 ml @ 0 mls/hr TITRATE IV 10/15/16 22:45 (Lanoxin) 0.25 mg DAILY PO 10/16/16 09:00 10/17/16 08:44 (Lopressor) 25 mg BID PO 10/16/16 00:30 10/17/16 08:44 Phenytoin 100 mg 100 mg BID PO 10/16/16 09:00 10/17/16 08:44 (Rocephin Inj/NS Inj) 100 ml @ 200 mls/hr Q24H IV 10/16/16 20:00 10/16/16 21:03 (Vasotec Inj) 1.25 mg Q6H PRN IV PUSH 10/16/16 14:30 (Prinivil) 40 mg DAILY PO 10/18/16 09:00 UNV (Prinivil) 20 mg ONCE ONCE PO 10/17/16 11:15 10/17/16 11:16 UNV A/P Assessment and Plan [facility] Head CT revealed: Findings suggesting focal hemorrhage in the right posterior hemisphere adjacent to the margin of the lateral ventricle, suggesting a contrecoup injury; Left high frontal scalp hematoma without evidence of skull fracture; Stable appearance to the posterior MCA infarction when compared to 2011. Neurosurgery consult appreciated. - no surgical intervention indicated - reverse coumadine with FFPs and K-Centra. INR in a.m. - PT/OT/ST. Diet per speech therapy. Anemia May be s/t hemorrhage. Coumadin reversed as above. - follow CBC and transfuse as needed. A.Fib On Coumadin. - resume home meds Digoxin and Metoprolol for rate control. - D/C Coumadin as above. Right hip pain X rays negative for Fx. CT of the hip negative for fracture. - supportive care - pain control. - PT. Hypertension S/p Cardene gtt. - SBP goal < 160 - Metoprolol, lisinopril. Increased lisinopril 10/17/16. - Vasotec as needed. UTI Urine culture growing Escherichia coli. - continue ceftriaxone. Seizure On phenytoin as an outpt. Phenytoin level is therapeutic. - continue phenytoin. Hypokalemia/ hypophosphatemia/ hypoglycemia Likely s/t poor PO intake. - replete and monitor. - D51/2NS. - follow blood sugar level. DVT/GI prophylaxis - TEDs/SCDs/Pepcid Discharge Planning Awaiting clinical improvement. Bill Garcia DO Oct 17, 2016 11:28
[2016-10-17 12:08] VITALS: BP 185/77; PULSE 68; RESP 18; TEMP 97.6; O2SAT 98
[2016-10-17] MEDS ORDERED: LISINOPRIL 20 MG TAB PO ONE (12:30)
[2016-10-17] MEDS ORDERED: DEXT 5%-NACL 0.45% 1000 ML INJ 1,000 ML IV SCH (12:30)
[2016-10-17] MEDS ORDERED: POTASSIUM CHLORIDE 25 MEQ EFFERVESCENT TAB PO ONE (12:30)
[2016-10-17] MEDS ORDERED: POTASSIUM PHOSPHATE INJ 30 MMOL in SODIUM CHLOR 0.9% 250 ML INJ 250 ML IV ONE (13:00)
--- NOTE | 2016-10-17 15:32 | HHI.NSPN ---
(Shwetha Jorge) Note Status Status: Progress Note (Shwetha Jorge) Interval History Interval History Ms. Eason is a 86-year-old female with a history of CVA with residual right- sided hemiparesis, atrial fibrillation on Coumadin, hyperlipidemia, CHF, CAD presents to the emergency department by EMS for evaluation of right leg and right arm pain. According to EMS report the patient lives at home with her who is her caregiver. The fire rescue was called to help lift the patient earlier today as she had fallen out of her chair onto the ground. Apparently fire rescue place the patient back into her chair and they left their house. Later EMS was called again to the house by the because the patient was complaining of severe pain in her right arm and right leg. No seizure activity noted. No tongue biting. No incontinence of stool or urine. The patient mental status appears to be at her baseline. She was brought to [place] emergency department. CT of the brain show a small area of hemorrhage adjacent to the lateral ventricle. The patient is chronically anticoagulated on Coumadin. The patient has expressive aphasia 10/17: Sitting up on edge of bed with PT, smiling, incomprehensible speech, babbling, right dense hemiparesis. (Shwetha Jorge) Labs, Micro, & Vital Signs Results Date Time Temp Pulse Resp B/P Pulse Ox O2 Delivery O2 Flow Rate FiO2 10/17/16 12:08 97.6 68 18 185/77 98 10/17/16 08:55 95 Nasal Cannula 2.00 10/17/16 08:30 98.9 84 18 186/115 95 10/17/16 08:30 97 Nasal Cannula 2.00 10/17/16 00:00 97.0 84 23 133/71 91 10/16/16 19:00 Nasal Cannula 2.00 10/16/16 18:52 96.7 86 19 137/75 90 10/16/16 16:00 98.2 66 20 143/64 98 10/17/16 06:59 Intake Total 960 ml Balance 960 ml Constitutional Vital Signs Date Time Temp Pulse Resp B/P Pulse Ox O2 Delivery O2 Flow Rate FiO2 10/17/16 12:08 97.6 68 18 185/77 98 10/17/16 08:55 95 Nasal Cannula 2.00 10/17/16 08:30 98.9 84 18 186/115 95 10/17/16 08:30 97 Nasal Cannula 2.00 10/17/16 00:00 97.0 84 23 133/71 91 10/16/16 19:00 Nasal Cannula 2.00 10/16/16 18:52 96.7 86 19 137/75 90 10/16/16 16:00 98.2 66 20 143/64 98 10/17/16 06:59 Intake Total 960 ml Balance 960 ml (Shwetha Jorge) Review of Systems/Exam Exam Ms. Eason is alert, sitting up in edge of bed, smiling. She is aphasic. Cranial nerve examination demonstrates the pupils to be equal. Neck is soft and supple. Left facial ecchymoses Motor: moves left side well, right dense hemiparesis There is a left plantar flexion response, right Babinski. There is no clonus Cerebellar exam limited, but no truncal ataxia when in sitting position. (Shwetha Jorge) Medications Current Medications Current Medications Medications (Trade) Dose Ordered Sig/Anabella Route PRN Reason Start Time Stop Time Status Last Admin Dose Admin IV Flush (NS Flush) 2 ml UNSCH PRN IV FLUSH FLUSH AFTER USING IV ACCESS 10/15/16 22:30 IV Flush (NS Flush) 2 ml BID IV FLUSH 10/16/16 09:00 10/16/16 10:04 Acetaminophen (Tylenol) 650 mg Q6H PRN PO PAIN 1-5 AND/OR FEVER >101F 10/15/16 22:30 Morphine Sulfate (Morphine Inj) 2 mg Q2H PRN IV PAIN SCALE 6 TO 10 10/15/16 22:30 10/16/16 18:46 Famotidine (Pepcid Inj) 20 mg Q12HR IV PUSH 10/16/16 09:00 10/17/16 08:44 Ondansetron HCl (Zofran Inj) 4 mg Q6H PRN IV NAUSEA OR VOMITING 10/15/16 22:30 Metoclopramide HCl (Reglan Inj) 10 mg Q6H PRN IV NAUSEA OR VOMITING 10/15/16 22:30 Docusate Sodium (Colace Liq) 100 mg Q12HR G-TUBE 10/15/16 22:30 10/17/16 08:43 Miscellaneous Information 1 1 Q361D XX 10/15/16 22:30 10/15/16 00:00 Nicardipine HCl/ Sodium Chloride (Cardene Inj/NS 250 ml Inj) 260 ml @ 0 mls/hr TITRATE IV 10/15/16 22:45 Digoxin (Lanoxin) 0.25 mg DAILY PO 10/16/16 09:00 10/17/16 08:44 Metoprolol Tartrate (Lopressor) 25 mg BID PO 10/16/16 00:30 10/17/16 08:44 Phenytoin 100 mg 100 mg BID PO 10/16/16 09:00 10/17/16 08:44 Ceftriaxone Sodium/Sodium Chloride (Rocephin Inj/NS Inj) 100 ml @ 200 mls/hr Q24H IV 10/16/16 20:00 10/16/16 21:03 Enalaprilat (Vasotec Inj) 1.25 mg Q6H PRN IV PUSH SBP>160, DBP>90 10/16/16 14:30 Lisinopril 40 mg 40 mg DAILY PO 10/18/16 09:00 Potassium Phosphate 30 mmol/ Sodium Chloride 260 ml @ 43.333 mls/ hr ONCE ONCE IV 10/17/16 13:00 10/17/16 18:59 10/17/16 14:25 Dextrose/Sodium Chloride (D5W-1/2 NS 1000 ml Inj) 1,000 ml @ 75 mls/hr [id number] IV 10/17/16 12:30 10/18/16 01:49 10/17/16 14:28 (Shwetha Jorge) Medical Decision Making MDM Remarks 86 y/o female s/p fall, head trauma with small intracranial bleed old large left hemispheric stroke with chronic aphasia and right hemiparesis ( Shwetha Jorge) Plan Plan Remarks neuro exam stable, doing well, cont nonsurgical mgt avoid further falls and head trauma (Shwetha Jorge) Attending Statement The exam, history, and the medical decision-making described in the above note were completed with the assistance of the mid-level provider. I reviewed and agree with the findings presented. I attest that I had a [id number] encounter with the patient on the same day, and personally performed and documented my assessment and findings in the medical record. (Art Tao MD) Shwetha Jorge Oct 17, 2016 15:32 Art Tao MD Oct 22, 2016 18:00
[2016-10-17 17:05] VITALS: BP 146/68; PULSE 68; RESP 18; TEMP 98.9; O2SAT 97
[2016-10-17 20:17] VITALS: BP 143/67; PULSE 76; RESP 20; TEMP 98.4; O2SAT 92
[2016-10-17] MEDS: cefTRIAXone INJ 1,000 MG in SODIUM CHLORIDE 0.9% INJ 100 ML IV SCH (23:14)
[2016-10-18] VITALS (8 sets, daily range): BP systolic 121–183; BP diastolic 58–88; PULSE 56–88; RESP 16–24; TEMP 95.7–98.7; O2SAT 91–98
[2016-10-18] MEDS: ENALAPRILAT 1.25 MG/ML VIAL IV PUSH PRN ×2 (01:55→12:10)
[2016-10-18] MEDS: DIGOXIN 0.25 MG TAB PO SCH (08:21)
[2016-10-18] MEDS: DOCUSATE SODIUM 100 MG/10 ML UDC G-TUBE SCH ×2 (08:21→21:00)
[2016-10-18] MEDS: PHENYTOIN SODIUM 100 MG CAP PO SCH ×2 (08:22→22:28)
[2016-10-18] MEDS: LISINOPRIL 20 MG TAB PO SCH (08:22)
[2016-10-18] MEDS: METOPROLOL TARTRATE 25 MG TAB PO SCH ×2 (08:22→22:28)
[2016-10-18] MEDS: SODIUM CHLORIDE 0.9% FLUSH 5 ML FLUSH IV FLUSH SCH ×2 (08:23→22:29)
[2016-10-18] MEDS: FAMOTIDINE 20 MG/2 ML VIAL IV PUSH SCH (08:23)
[2016-10-18 08:32] LABS: INTERNATIONAL NORMALIZED RATIO 1.1 RATIO; PROTHROMBIN TIME - PATIENT 12.1 SEC (9.8-11.6)
[2016-10-18 08:48] LABS: BICARBONATE 26.3 MEQ/L (21.0-32.0); POTASSIUM 3.2 MEQ/L (3.5-5.1)
--- NOTE | 2016-10-18 14:32 | HHI.NSPN ---
(Shwetha Jorge) Note Status Status: Progress Note (Shwetha Jorge) Interval History Interval History Ms. Eason is a 86-year-old female with a history of CVA with residual right- sided hemiparesis, atrial fibrillation on Coumadin, hyperlipidemia, CHF, CAD presents to the emergency department by EMS for evaluation of right leg and right arm pain. According to EMS report the patient lives at home with her who is her caregiver. The fire rescue was called to help lift the patient earlier today as she had fallen out of her chair onto the ground. Apparently fire rescue place the patient back into her chair and they left their house. Later EMS was called again to the house by the because the patient was complaining of severe pain in her right arm and right leg. No seizure activity noted. No tongue biting. No incontinence of stool or urine. The patient mental status appears to be at her baseline. She was brought to [facility] emergency department. CT of the brain show a small area of hemorrhage adjacent to the lateral ventricle. The patient is chronically anticoagulated on Coumadin. The patient has expressive aphasia 10/17: Sitting up on edge of bed with PT, smiling, incomprehensible speech, babbling, right dense hemiparesis. 10/18: no changes overnight, no seizures, smiling (Shwetha Jorge) Labs, Micro, & Vital Signs Results Date Time Temp Pulse Resp B/P Pulse Ox O2 Delivery O2 Flow Rate FiO2 10/18/16 08:03 91 Nasal Cannula 2.00 10/18/16 08:00 98.5 70 18 177/74 98 10/18/16 05:09 98.4 78 20 174/88 91 10/18/16 02:01 162/87 97 10/18/16 00:19 98.5 85 20 181/83 92 10/17/16 20:17 98.4 76 20 143/67 92 10/17/16 17:05 98.9 68 18 146/68 97 10/18/16 07:00 Intake Total 932 ml Balance 932 ml Constitutional Vital Signs Date Time Temp Pulse Resp B/P Pulse Ox O2 Delivery O2 Flow Rate FiO2 10/18/16 08:03 91 Nasal Cannula 2.00 10/18/16 08:00 98.5 70 18 177/74 98 10/18/16 05:09 98.4 78 20 174/88 91 10/18/16 02:01 162/87 97 10/18/16 00:19 98.5 85 20 181/83 92 10/17/16 20:17 98.4 76 20 143/67 92 10/17/16 17:05 98.9 68 18 146/68 97 10/18/16 07:00 Intake Total 932 ml Balance 932 ml (Shwetha Jorge) Review of Systems/Exam Exam Ms. Eason is resting comfortably, awake, smiling. She is aphasic. Cranial nerve examination demonstrates the pupils to be equal. Neck is soft and supple. Left facial ecchymoses Motor: moves left side well, right dense hemiparesis There is a left plantar flexion response, right Babinski. There is no clonus Cerebellar exam limited, but no truncal ataxia when in sitting position. (Shwetha Jorge) Medical Decision Making MDM Remarks 86 y/o female s/p fall, head trauma with small intracranial bleed old large left hemispheric stroke with chronic aphasia and right hemiparesis ( Shwetha Jorge) Plan Plan Remarks remains clinically stable doing well, clear to dc back to rehab from [facility] standpoint avoid further falls and head trauma will sign off, call prn (Shwetha Jorge) Attending Statement The exam, history, and the medical decision-making described in the above note were completed with the assistance of the mid-level provider. I reviewed and agree with the findings presented. I attest that I had a kehf-ep-uvul encounter with the patient on the same day, and personally performed and documented my assessment and findings in the medical record. (Art Tao MD) Shwetha Jorge Oct 18, 2016 14:32 Art Tao MD Oct 22, 2016 18:06
[2016-10-18] MEDS ORDERED: POTASSIUM CHLORIDE 25 MEQ EFFERVESCENT TAB PO ONE (15:30)
--- NOTE | 2016-10-18 15:38 | HHI.PR ---
Subjective Remarks The patient was resting comfortably in bed. She was smiling. She had no acute complaints. Discussed with nursing. Objective Vitals Vital Signs Date Time Temp Pulse Resp B/P Pulse Ox O2 Delivery O2 Flow Rate FiO2 10/18/16 14:10 94 Nasal Cannula 2.00 10/18/16 12:00 95.7 56 16 183/77 98 10/18/16 08:03 91 Nasal Cannula 2.00 10/18/16 08:00 98.5 70 18 177/74 98 10/18/16 05:09 98.4 78 20 174/88 91 10/18/16 02:01 162/87 97 10/18/16 00:19 98.5 85 20 181/83 92 10/17/16 20:17 98.4 76 20 143/67 92 10/17/16 17:05 98.9 68 18 146/68 97 I/O 10/17/16 10/17/16 10/17/16 10/18/16 10/18/16 10/18/16 07:00 15:00 23:00 07:00 15:00 23:00 Intake Total 100 ml 812 ml 120 ml Balance 100 ml 812 ml 120 ml Intake Oral 100 ml 200 ml 120 ml IV Total 612 ml # Voids 2 2 0 # Bowel Movements 1 Result Diagram: 10/17/16 0650 10/18/16 0734 Imaging Last Impressions Cervical Spine CT 10/15/161944 Signed Impressions: Service Date/Time: Saturday, October 15, 2016 20:07 - CONCLUSION: No acute fractures seen; no evidence of gross deformities or spondylolisthesis. Prominent osteophytic fragment adjacent to the dens is of uncertain bone of origin, or possibly represents some heterotopic ossification, but is unchanged in configuration and appearance when compared to 2010. Orestes Breen MD Radius/Ulna X-Ray 10/15/161899 Signed Impressions: Service Date/Time: Saturday, October 15, 2016 20:05 - CONCLUSION: No fracture seen. Severe osteoporosis. Orestes Breen MD Head CT 10/15/161899 Signed Impressions: Service Date/Time: Saturday, October 15, 2016 20:06 - CONCLUSION: 1. Findings suggesting focal hemorrhage in the right posterior hemisphere adjacent to the margin of the lateral ventricle, suggesting a contrecoup injury. 2. Left high frontal scalp hematoma without evidence of skull fracture. 3. 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 Orestes Breen MD Femur X-Ray 10/15/161899 Signed Impressions: Service Date/Time: Saturday, October 15, 2016 19:54 - CONCLUSION: The shaft of the femur is grossly intact. Severe osteoporosis. Orestes Breen MD Chest X-Ray 10/15/160 Signed Impressions: Service Date/Time: Saturday, October 15, 2016 20:03 - CONCLUSION: No evidence pneumothorax. Patchy non-consolidative there is opacity throughout both lungs suggest a mixture of interstitial and alveolar disease. Orestes Breen MD Pelvis CT 10/15/16 0000 Signed Impressions: Service Date/Time: Sunday, October 16, 2016 17:50 - CONCLUSION: 1. Osteopenia. Previous left hip replacement. No acute fracture. Severe rectal constipation. Miguel Quach MD Hip and Pelvis X-Ray 10/15/16 0000 Signed Impressions: Service Date/Time: Saturday, October 15, 2016 19:53 - CONCLUSION: Severe osteoporosis. No definite fracture seen, however, on the frontal view there is a extra linear density along the inferior margin of the femoral neck which could represent a femoral neck fracture Orestes Breen MD Objective Remarks GENERAL: Well-nourished and well-developed pleasant patient in no acute distress. SKIN: Warm and dry. HEAD: Bruising above left eye. EYES: No injection, drainage, or hyphema noted. PERRLA. EOMI. ENT: No nasal drainage noted. Oropharynx is clear. NECK: Supple and the trachea is midline. CARDIOVASCULAR: Regular rate and rhythm. RESPIRATORY: Breath sounds are equal bilaterally with no accessory muscle use, wheezing, rhonchi, or crackles. GASTROINTESTINAL: Abdomen is soft, non-tender, and nondistended. MUSCULOSKELETAL: Right arm and right leg contractures. Tenderness to palpation of right forearm and right femur. Full range of motion in the left hip and leg. Patient resists range of motion exercises in the right leg due to pain. No swelling, cyanosis, or ecchymosis is present throughout the upper and lower extremities. DP pulses are 2+ bilaterally. NEUROLOGICAL: Awake, alert, and oriented. Speech impaired. Cranial nerves are grossly intact. PSYCH: Mood and affect appropriate. Medications and IVs Current Medications Medications (Trade) Dose Ordered Sig/Anabella Route Start Time Stop Time Status Last Admin (NS Flush) 2 ml UNSCH PRN IV FLUSH 10/15/16 22:30 (NS Flush) 2 ml BID IV FLUSH 10/16/16 09:00 10/18/16 08:23 (Tylenol) 650 mg Q6H PRN PO 10/15/16 22:30 (Morphine Inj) 2 mg Q2H PRN IV 10/15/16 22:30 10/16/16 18:46 (Pepcid Inj) 20 mg Q12HR IV PUSH 10/16/16 09:00 10/18/16 08:23 (Zofran Inj) 4 mg Q6H PRN IV 10/15/16 22:30 (Reglan Inj) 10 mg Q6H PRN IV 10/15/16 22:30 (Colace Liq) 100 mg Q12HR G-TUBE 10/15/16 22:30 10/18/16 08:21 Miscellaneous Information 1 1 Q361D XX 10/15/16 22:30 10/15/16 00:00 (Cardene Inj/NS 250 ml Inj) 260 ml @ 0 mls/hr TITRATE IV 10/15/16 22:45 (Lanoxin) 0.25 mg DAILY PO 10/16/16 09:00 10/18/16 08:21 (Lopressor) 25 mg BID PO 10/16/16 00:30 10/18/16 08:22 Phenytoin 100 mg 100 mg BID PO 10/16/16 09:00 10/18/16 08:22 (Rocephin Inj/NS Inj) 100 ml @ 200 mls/hr Q24H IV 10/16/16 20:00 10/17/16 23:14 (Vasotec Inj) 1.25 mg Q6H PRN IV PUSH 10/16/16 14:30 10/18/16 12:10 (Prinivil) 40 mg DAILY PO 10/18/16 09:00 10/18/16 08:22 A/P Assessment and Plan [facility] Head CT revealed: Findings suggesting focal hemorrhage in the right posterior hemisphere adjacent to the margin of the lateral ventricle, suggesting a contrecoup injury; Left high frontal scalp hematoma without evidence of skull fracture; Stable appearance to the posterior MCA infarction when compared to 2012. Neurosurgery consult appreciated. - no surgical intervention indicated - reverse coumadine with FFPs and K-Centra. - PT/OT/ST. Diet per speech therapy. - neurosurgery signed off. Stable for SNF. Anemia May be s/t hemorrhage. Coumadin reversed as above. - follow CBC and transfuse as needed. Stable. A.Fib On Coumadin. - resume home meds Digoxin and Metoprolol for rate control. - D/C Coumadin as above. Right hip pain X rays negative for Fx. CT of the hip negative for fracture. - supportive care - pain control. - PT. Hypertension S/p Cardene gtt. - SBP goal < 160 - Metoprolol, lisinopril. Increased lisinopril 10/17/16. Add amlodipine 10 mg daily 10/18. - Vasotec as needed. UTI Urine culture growing Escherichia coli. - continue ceftriaxone. Seizure On phenytoin as an outpt. Phenytoin level is therapeutic. - continue phenytoin. Hypokalemia/ hypophosphatemia/ hypoglycemia Likely s/t poor PO intake. - replete and monitor. - follow blood sugar level. DVT/GI prophylaxis - TEDs/SCDs/Pepcid Discharge Planning Anticipate DC to SNF in AM. Bill Garcia DO Oct 18, 2016 15:38
[2016-10-18] MEDS ORDERED: POTASSIUM PHOSPHATE INJ 30 MMOL in SODIUM CHLOR 0.9% 250 ML INJ 250 ML IV ONE (16:00)
[2016-10-18] MEDS: cefTRIAXone INJ 1,000 MG in SODIUM CHLORIDE 0.9% INJ 100 ML IV SCH (22:28)
[2016-10-18] MEDS: MORPHINE SULFATE 4 MG/ML INJ IV PRN (22:49)
[2016-10-19] VITALS: BP 135/62; PULSE 76; RESP 14; TEMP 98.8; O2SAT 96
[2016-10-19 04:00] VITALS: BP 145/65; PULSE 65; RESP 16; TEMP 98.7; O2SAT 99
[2016-10-19 07:00] VITALS: O2SAT 96
[2016-10-19 07:57] LABS: BICARBONATE 27.9 MEQ/L (21.0-32.0); POTASSIUM 3.8 MEQ/L (3.5-5.1)
[2016-10-19 08:00] VITALS: BP 143/63; PULSE 66; RESP 16; TEMP 95.5; O2SAT 97
[2016-10-19] MEDS: DOCUSATE SODIUM 100 MG/10 ML UDC G-TUBE SCH (09:00)
[2016-10-19] MEDS: SODIUM CHLORIDE 0.9% FLUSH 5 ML FLUSH IV FLUSH SCH (09:00)
[2016-10-19] MEDS: METOPROLOL TARTRATE 25 MG TAB PO SCH (10:40)
[2016-10-19] MEDS: PHENYTOIN SODIUM 100 MG CAP PO SCH (10:40)
[2016-10-19] MEDS: DIGOXIN 0.25 MG TAB PO SCH (10:40)
[2016-10-19] MEDS: LISINOPRIL 20 MG TAB PO SCH (10:40)
[2016-10-19 12:00] VITALS: BP 133/71; PULSE 74; RESP 17; TEMP 96.2; O2SAT 96
[2016-10-19] MEDS ORDERED: POTASSIUM PHOSPHATE INJ 30 MMOL in SODIUM CHLOR 0.9% 250 ML INJ 250 ML IV ONE (15:30)
[2016-10-19] MEDS ORDERED: LISI-515 PO (15:41)
[2016-10-19] MEDS ORDERED: CEFT250T8 PO (15:41)
[2016-10-19] MEDS ORDERED: AMLO10 PO (15:41)
[2016-10-19] MEDS ORDERED: K-PHTAB PO (15:48)
[2016-10-19] MEDS ORDERED: POTA-163 PO (15:48)
--- NOTE | 2016-10-19 15:49 | HHI.DCPOC ---
Discharge Care Plan Diagnosis: (1) Anticoagulated on Coumadin (2) Intracranial hemorrhage Goals to Promote Your Health * To prevent worsening of your condition and complications * To maintain your health at the optimal level Directions to Meet Your Goals Take your medications as prescribed Follow your dietary instruction Follow activity as directed Keep your appointments as scheduled Take your immunizations and boosters as scheduled If your symptoms worsen call your PCP, if no PCP go to Urgent Care Center or Emergency Room Smoking is Dangerous to Your Health. Avoid second hand smoke Call the 24-hour hour crisis hotline for domestic abuse at Bill Garcia DO Oct 19, 2016 15:49
[2016-10-19 16:00] VITALS: BP 134/59; PULSE 67; RESP 18; TEMP 98.4; O2SAT 93
--- NOTE | 2016-10-19 16:02 | HHI.FF ---
Face to Face Verification Diagnosis: (1) Anticoagulated on Coumadin (2) Aphasia (3) Intracranial hemorrhage (4) Stroke Physical Therapy Order: Evaluate and Treat, Improve ambulation, Strength and gait training Occupational Therapy Order: Evaluate and Treat, Improve ADL, Gross motor coordination, Fine motor coordination Speech Therapy Order: To Improve: Speech and communication skills, Cognitive skills, Swallowing Home Health Nursing Order: Medical education Signs/symptoms of disease process Medication education-adverse effect Nursing assessment with vital signs I have seen patient Colleen Eason on 10/19/16. My clinical findings support the need for the requested home health care services because: Ltd mobility - disease progression Deconditioned w/ increased weakness Med compliance is questionable Limited ability to care for self Need for psychosocial assistance Impaired cognition/judgement High risk of falls I certify that my clinical findings support that this patient is homebound because: Impaired cognitive ability/safety Unsteady gait/balance Unsafe to leave home unassisted Need for psychosocial assistance Bill Garcia DO Oct 19, 2016 16:02
--- NOTE | 2016-10-19 16:02 | HHI.DS ---
Discharge Summary Admission Date Oct 15, 2016 at 22:02 Discharge Date: Oct 19, 2016 Admitting Diagnosis Intracranial Hemorrhage, Anticoagulated on Coumadin, Rt Hip Injury (1) Intracranial hemorrhage ICD Code: I62.9 Diagnosis: Principal (2) Anticoagulated on Coumadin ICD Code: Z51.81 Procedures None. Brief History - From Admission 86-year-old female with a history of CVA with residual right-sided weakness, atrial fibrillation on Coumadin, hyperlipidemia, CHF, CAD presents to the emergency department by EMS for evaluation of right leg and right arm pain. Per EMS report the patient lives at home with her who is her caregiver. The fire rescue was called to help lift the patient earlier today as she had fallen out of her chair onto the ground. Apparently fire rescue place the patient back into her chair and they left. Later EMS was called again to the house by the because the patient was complaining of pain in her right arm and right leg. CBC/BMP: 10/17/16 0650 10/19/16 0651 Significant Findings Laboratory Tests Test 10/17/16 10/18/16 10/19/16 06:50 07:34 06:51 Red Blood Count 3.91 MIL/MM3 (4.00-5.30) Hematocrit 34.7 % (35.0-46.0) Creatinine 0.47 MG/DL 0.46 MG/DL 0.42 MG/DL (0.50-1.00) (0.50-1.00) (0.50-1.00) Random Glucose 68 MG/DL (74-106) Phosphorus Level 2.3 MG/DL 2.0 MG/DL 2.2 MG/DL (2.5-4.9) (2.5-4.9) (2.5-4.9) Prothrombin Time 12.1 SEC (9.8-11.6) Potassium Level 3.2 MEQ/L (3.5-5.1) Calcium Level 8.4 MG/DL 8.4 MG/DL (8.5-10.1) (8.5-10.1) Chloride Level 108 MEQ/L (98-107) Imaging Last Impressions Cervical Spine CT 10/15/161944 Signed Impressions: Service Date/Time: Saturday, October 15, 2016 20:07 - CONCLUSION: No acute fractures seen; no evidence of gross deformities or spondylolisthesis. Prominent osteophytic fragment adjacent to the dens is of uncertain bone of origin, or possibly represents some heterotopic ossification, but is unchanged in configuration and appearance when compared to 2011. Orestes Breen MD Radius/Ulna X-Ray 10/15/161899 Signed Impressions: Service Date/Time: Saturday, October 15, 2016 20:05 - CONCLUSION: No fracture seen. Severe osteoporosis. Orestes Breen MD Head CT 10/15/161899 Signed Impressions: Service Date/Time: Saturday, October 15, 2016 20:06 - CONCLUSION: 1. Findings suggesting focal hemorrhage in the right posterior hemisphere adjacent to the margin of the lateral ventricle, suggesting a contrecoup injury. 2. Left high frontal scalp hematoma without evidence of skull fracture. 3. 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 Orestes Breen MD Femur X-Ray 10/15/161899 Signed Impressions: Service Date/Time: Saturday, October 15, 2016 19:54 - CONCLUSION: The shaft of the femur is grossly intact. Severe osteoporosis. Orestes Breen MD Chest X-Ray 10/15/161899 Signed Impressions: Service Date/Time: Saturday, October 15, 2016 20:03 - CONCLUSION: No evidence pneumothorax. Patchy non-consolidative there is opacity throughout both lungs suggest a mixture of interstitial and alveolar disease. Orestes Breen MD Pelvis CT 10/15/16 0000 Signed Impressions: Service Date/Time: Sunday, October 16, 2016 17:50 - CONCLUSION: 1. Osteopenia. Previous left hip replacement. No acute fracture. Severe rectal constipation. Miguel Quach MD Hip and Pelvis X-Ray 10/15/16 0000 Signed Impressions: Service Date/Time: Saturday, October 15, 2016 19:53 - CONCLUSION: Severe osteoporosis. No definite fracture seen, however, on the frontal view there is a extra linear density along the inferior margin of the femoral neck which could represent a femoral neck fracture Orestes Breen MD PE at Discharge GENERAL: Well-nourished and well-developed pleasant patient in no acute distress. SKIN: Warm and dry. HEAD: Bruising above left eye. EYES: No injection, drainage, or hyphema noted. PERRLA. EOMI. ENT: No nasal drainage noted. Oropharynx is clear. NECK: Supple and the trachea is midline. CARDIOVASCULAR: Regular rate and rhythm. RESPIRATORY: Breath sounds are equal bilaterally with no accessory muscle use, wheezing, rhonchi, or crackles. GASTROINTESTINAL: Abdomen is soft, non-tender, and nondistended. MUSCULOSKELETAL: Right arm and right leg contractures. Tenderness to palpation of right forearm and right femur. Full range of motion in the left hip and leg. Patient resists range of motion exercises in the right leg due to pain. No swelling, cyanosis, or ecchymosis is present throughout the upper and lower extremities. DP pulses are 2+ bilaterally. NEUROLOGICAL: Awake, alert, and oriented. Speech impaired. Cranial nerves are grossly intact. PSYCH: Mood and affect appropriate. Pt update on day of discharge at the bedside and demands that his be discharged home and not to [place]. I went over the benefits of going to rehab and he would not have it. The pt had no acute complaints. Discussed with nursing and case management. Hospital Course ICH Head CT revealed: Findings suggesting focal hemorrhage in the right posterior hemisphere adjacent to the margin of the lateral ventricle, suggesting a contrecoup injury; Left high frontal scalp hematoma without evidence of skull fracture; Stable appearance to the posterior MCA infarction when compared to 2012. Neurosurgery was consulted. No surgical intervention was indicated. Coumadin was reversed with FFP and K-Centra. The pt worked with PT/OT/ST. Neurosurgery signed off and the pt was stable for transfer to SNF. The pt's refused transfer. He was informed of the hazards of taking the pt home with her history of falls and ICH. The pt's was adamant on taking the pt home. The pt will be discharged against medical advice. Scripts were provided. She will follow up with her PCP and neurosurgery. Will try to arrange HHC. Lee.Jeri Resumed home meds including digoxin and metoprolol. D/C Coumadin as above. Right hip pain X rays negative for Fx. CT of the hip negative for fracture. She received supportive care, pain control and she worked with PT. Hypertension S/p Cardene gtt. She was continued on metoprolol. Increased lisinopril and added amlodipine. She received Vasotec as needed. UTI Urine culture growing Escherichia coli. She will complete a course of Ceftin. Seizure On phenytoin as an outpt. Phenytoin level is therapeutic. She will continue phenytoin. Hypokalemia/ hypophosphatemia She will be discharged on supplementations. She will work with ST. Pt Condition on Discharge: Stable Discharge Disposition: Discharge Home Discharge Time: > 30 minutes Discharge Instructions DIET: Follow Instructions for: Heart Healthy Diet Speech Therapy-Diet Recommends: Mechanical Soft Follow up Referrals: Internal Medicine Neurosurgery - 2 Weeks with Art Tao MD PCP Follow-up - 1 Week New Medications: Cefuroxime (Ceftin) 250 Mg Tab 250 MG PO BID Infection #6 Ref 0 TAB Potassium Chloride ER (Potassium Chloride ER) 20 Meq Tab 20 MEQ PO DAILY Electrolyte Replacement #14 Ref 0 TAB Potassium Phosphate Monobasic (K-Phos) 500 Mg Tab 500 MG PO BID Electrolyte Replacement #60 Ref 0 TAB Amlodipine (Norvasc) 10 Mg Tab 10 MG PO DAILY Blood Pressure Management #30 TAB Lisinopril (Lisinopril) 20 Mg Tab 40 MG PO DAILY Blood Pressure Management #30 TAB Continued Medications: Digoxin (Digoxin) 0.25 Mg Tab 0.25 MG PO DAILY Regulate Heart Beat #30 Ref 0 TAB Metoprolol Tartrate (Metoprolol Tartrate) 25 Mg Tab 25 MG PO BID #60 Ref 0 TAB Phenytoin Extended (Dilantin) 100 Mg Cap 100 MG PO BID Control Seizures #90 Ref 0 Bill Sorto DO Oct 19, 2016 16:01 Amlodipine (Norvasc) 10 Mg Tab 10 MG PO DAILY Blood Pressure Management #30 TAB Lisinopril (Lisinopril) 20 Mg Tab 40 MG PO DAILY Blood Pressure Management #30 TAB Continued Medications: Digoxin (Digoxin) 0.25 Mg Tab 0.25 MG PO DAILY Regulate Heart Beat #30 Ref 0 TAB Metoprolol Tartrate (Metoprolol Tartrate) 25 Mg Tab 25 MG PO BID #60 Ref 0 TAB Phenytoin Extended (Dilantin) 100 Mg Cap 100 MG PO BID Control Seizures #90 Ref 0 Bill Sorto DO Oct 19, 2016 16:01
== END 2016-10-19 17:19 | disposition left against medical advice (07) | DRG 86 ==
LOC: NEPE 18:35 → NEDA 22:02 → N03B 10-16 → N05A 10-16 18:31
PROVIDERS: ADMIT Internal Medicine Critical Care Medicine; ATTEND Hospitalist
PROC: 30233K1 Transfusion of Nonautologous Frozen Plasma into Peripheral Vein, Percutaneous Approach (ICD-10-PCS; principal; 2016-10-15)
DX: S06.340A Traumatic hemorrhage of right cerebrum without loss of consciousness, initial encounter (principal); I69.351 Hemiplegia and hemiparesis following cerebral infarction affecting right dominant side; I50.9 Heart failure, unspecified; S00.03XA Contusion of scalp, initial encounter; D64.9 Anemia, unspecified; I10 Essential (primary) hypertension; N39.0 Urinary tract infection, site not specified; E83.39 Other disorders of phosphorus metabolism; I48.91 Unspecified atrial fibrillation; E78.5 Hyperlipidemia, unspecified; I69.320 Aphasia following cerebral infarction; E87.6 Hypokalemia; I25.10 Atherosclerotic heart disease of native coronary artery without angina pectoris; M25.551 Pain in right hip; M79.601 Pain in right arm; E16.2 Hypoglycemia, unspecified; B96.20 Unspecified Escherichia coli [E. coli] as the cause of diseases classified elsewhere; R56.9 Unspecified convulsions; W07.XXXA Fall from chair, initial encounter; Y92.009 Unspecified place in unspecified non-institutional (private) residence as the place of occurrence of the external cause; Z91.81 History of falling; Z79.01 Long term (current) use of anticoagulants; Z88.2 Allergy status to sulfonamides
CPT/HCPCS: 36430; 70450; 71010; 72125; 72192; 73090; 73502; 73552; 76937; 80048; 80053; 80185; 80186; 81001; 82550; 82948; 83735; 84100; 84443; 84484; 85025; 85027; 85610; 85730; 86850; 86900; 86901; 86927; 87077; 87086; 87186; 87641; 93005; 96365; 96375; C9132; J0696; J2270; J7030; J7050; P9017

== ENCOUNTER 2016-12-09 05:20 | Observation (INO) | payer MEDICARE, BC ==
[~2016-12-09 05:20] MED LIST changes: +AMLO10 PO; +CEFT250T8 PO; -COUM2TAB PO; -COUM3TAB PO; +DIGO0.25 PO; +K-PHTAB PO; -LANO0.2510 PO; +LISI-515 PO; -METO25 PO; +METO25TA3 PO; +POTA-163 PO; -SIMV20 PO
[2016-12-09 05:41] VITALS: BP 196/78; PULSE 64; RESP 20; TEMP 98.2; O2SAT 98
--- NOTE | 2016-12-09 06:44 | RADRPT ---
EXAM DATE/TIME: 12/09/2016 06:20 [facility] COMPARISON: HIP RIGHT (AP&LAT 2/3VWS) W AP PELVIS, October 15, 2016, 19:53. INDICATIONS : Right distal leg swelling without any known trauma, possible deep venous thrombosis. MEDICAL HISTORY : Stroke. SURGICAL HISTORY : Left hip arthroplasty ENCOUNTER: Initial ACUITY: 1 day PAIN SCORE: Non-responsive. LOCATION: Right leg FINDINGS: 3 views of the pelvis and right hip reveal diffuse osteopenia. No fracture or dislocation. The sacrum is totally obscured by stool within the rectal vault. Left hip prosthesis partially seen. CONCLUSION: 1. Osteopenia. 2. No acute abnormality. 3. Significant stool burden within the rectal vault obscures the sacrum. Orestes Osborne Jr., MD on December 09, 2016 at 6:42 Board Certified Radiologist. This report was verified electronically.
[2016-12-09 07:12] LABS: BASOPHIL % 0.5 % (0.0-2.0); EOSINOPHIL # 0.2 TH/MM3 (0-0.4); EOSINOPHIL % 2.3 % (0.0-4.0); HEMATOCRIT 37.5 % (35.0-46.0); HEMO FLAGS DIFF FINAL; LYMPH % 18.3 % (9.0-44.0); LYMPHOCYTE # 1.3 TH/MM3 (1.0-4.8); MEAN CELL VOLUME 87.3 FL (80.0-100.0); MEAN CORPUSCULAR HEMOGLOBIN 29.1 PG (27.0-34.0); MEAN CORPUSCULAR HGB CONC 33.4 % (32.0-36.0); MONO % 8.8 % (0.0-8.0); NEUT % 70.1 % (16.0-70.0); PLATELET COUNT 312 TH/MM3 (150-450); RED CELL DISTRIBUTION WIDTH 14.2 % (11.6-17.2); WHITE BLOOD COUNT 7.2 TH/MM3 (4.0-11.0)
[2016-12-09 07:22] LABS: INTERNATIONAL NORMALIZED RATIO 2.7 RATIO
--- NOTE | 2016-12-09 07:28 | PD ---
HPI Chief Complaint: Medical Clearance Time Seen by Provider: 05:53 Travel History International Travel<30 days: No Contact w/Intl Traveler<30days: No Traveled to known affect area: No History of Present Illness HPI 86-year-old female presents to the emergency department from home by EMS transport after reportedly yelling out in pain and grabbing her right lower extremity. History was provided by to EMS who conveys history to the emergency department personnel. Patient with recent intracranial hemorrhage with right sided residual September 2016. Patient at home with spouse at this time. No reported injury or fall. Patient has had right lower extremity edema. Patient has had ongoing expressive aphasia. Patient is able to understand reportedly but is limited as previously mentioned with communication. No reported recent injury or fall. No reported recent febrile illness. Other history is not available and spouse is not with the patient to provide ongoing history. Patient is prescribed Coumadin therapy for history of atrial fibrillation. PFSH Past Medical History Narrative Medical CVA Coumadin therapy atrial fibrillation dyslipidemia CHF CAD seizure hysterectomy no tobacco use nursing notes reviewed Arthritis: No Asthma: No Atrial Fibrillation: Yes Heart Rhythm Problems: Yes Cancer: No Cardiovascular Problems: Yes High Cholesterol: Yes Chest Pain: No Congestive Heart Failure: Yes COPD: No Cerebrovascular Accident: Yes Coronary Artery Disease: Yes Diabetes: No Diminished Hearing: No Endocrine: No Genitourinary: No Hypertension: Yes Immune Disorder: No Musculoskeletal: Yes (rt hip, rt side weakness post stroke) Neurologic: Yes Psychiatric: No Reproductive: No Respiratory: No Migraines: No Seizures: Yes (Started post stroke) Sleep Apnea: No PNEUMOCCOCAL Vaccine (Year): 1 Menopausal: Yes Past Surgical History Abdominal Surgery: No Cardiac Surgery: No Ear Surgery: No Endocrine Surgery: No Eye Surgery: Yes (DETACHED RETINA, IVETTE CATARACTS) Genitourinary Surgery: No Gynecologic Surgery: Yes (Hysto) Hysterectomy: Yes Joint Replacement: Yes Oral Surgery: No Thoracic Surgery: No Other Surgery: Yes Social History Alcohol Use: No Tobacco Use: No Substance Use: No Allergies-Medications (Allergen,Severity, Reaction): Coded Allergies: Sulfa (Verified Allergy, Severe, UNKNOWN, 12/09/16) Reported Meds & Prescriptions Reported Meds & Active Scripts Active Potassium Chloride ER (Potassium Chloride) 20 Meq Tab 20 Meq PO DAILY K-Phos (Potassium Phosphate Monobasic) 500 Mg Tab 500 Mg PO BID Ceftin (Cefuroxime Axetil) 250 Mg Tab 250 Mg PO BID Lisinopril 20 Mg Tab 40 Mg PO DAILY Norvasc (Amlodipine Besylate) 10 Mg Tab 10 Mg PO DAILY Reported Digoxin 0.25 Mg Tab 0.25 Mg PO DAILY Metoprolol Tartrate 25 Mg Tab 25 Mg PO BID Dilantin (Phenytoin Extended) 100 Mg Cap 100 Mg PO BID Review of Systems ROS Limitations: Clinical Condition, Speech Impaired, Poor Historian, Other: Except as stated in HPI: all other systems reviewed are Neg Physical Exam Narrative GENERAL: Well-developed disheveled thin female in no acute distress no apparent distress SKIN: Warm and dry. Various staged ecchymoses HEAD: Atraumatic. Normocephalic. EYES: Pupils equal and round. No scleral icterus. No injection or drainage. ENT: No nasal bleeding or discharge. Mucous membranes pink and moist. NECK: Trachea midline. No JVD. CARDIOVASCULAR: Regular rate and rhythm. RESPIRATORY: No accessory muscle use. Clear to auscultation. Breath sounds equal bilaterally. GASTROINTESTINAL: Abdomen soft, non-tender, nondistended. Hepatic and splenic margins not palpable. MUSCULOSKELETAL: Extremities without clubbing, cyanosis, RLE edema. No obvious deformities. NEUROLOGICAL: Awake and alert. No obvious cranial nerve deficits. Motor grossly within normal limits. Five out of 5 muscle strength in the left arm and leg; RUE contractured, RLE edema flaccid. Expressive aphasia. PSYCHIATRIC: Appropriate mood and affect; insight and judgment normal. Data Data Last Documented VS Vital Signs Date Time Temp Pulse Resp B/P Pulse Ox O2 Delivery O2 Flow Rate FiO2 12/09/16 05:41 98.2 64 20 196/78 98 Orders Complete Blood Count With Diff (12/09/16 05:54) Basic Metabolic Panel (Bmp) (12/09/16 05:54) Prothrombin Time / Inr (Pt) (12/09/16 05:54) Hip, Uni(Ap&Lat) W Ap Pelvis (12/09/16 ) Us Leg Venous Doppler (12/09/16 ) Urinalysis - C+S If Indicated (12/09/16 05:54) Cath For Specimen (12/09/16 05:54) Labs Laboratory Tests Test 12/09/16 12/09/16 06:00 06:35 White Blood Count 7.2 TH/MM3 Red Blood Count 4.30 MIL/MM3 Hemoglobin 12.5 GM/DL Hematocrit 37.5 % Mean Corpuscular Volume 87.3 FL Mean Corpuscular Hemoglobin 29.1 PG Mean Corpuscular Hemoglobin 33.4 % Concent Red Cell Distribution Width 14.2 % Platelet Count 312 TH/MM3 Mean Platelet Volume 8.9 FL Neutrophils (%) (Auto) 70.1 % Lymphocytes (%) (Auto) 18.3 % Monocytes (%) (Auto) 8.8 % Eosinophils (%) (Auto) 2.3 % Basophils (%) (Auto) 0.5 % Neutrophils # (Auto) 5.0 TH/MM3 Lymphocytes # (Auto) 1.3 TH/MM3 Monocytes # (Auto) 0.6 TH/MM3 Eosinophils # (Auto) 0.2 TH/MM3 Basophils # (Auto) 0.0 TH/MM3 CBC Comment DIFF FINAL Differential Comment Prothrombin Time 31.0 SEC Prothromb Time International 2.7 RATIO Ratio Sodium Level 143 MEQ/L Potassium Level 3.8 MEQ/L Chloride Level 107 MEQ/L Carbon Dioxide Level 31.7 MEQ/L Anion Gap 4 MEQ/L Blood Urea Nitrogen 22 MG/DL Creatinine 0.53 MG/DL Estimat Glomerular Filtration 109 ML/MIN Rate Random Glucose 101 MG/DL Calcium Level 9.3 MG/DL Urine Color YELLOW Urine Turbidity CLEAR Urine pH 6.0 Urine Specific [place] 1.026 Urine Protein TRACE mg/dL Urine Glucose (UA) NEG mg/dL Urine Ketones NEG mg/dL Urine Occult Blood TRACE Urine Nitrite NEG Urine Bilirubin NEG Urine Urobilinogen LESS THAN 2.0 MG/DL Urine Leukocyte Esterase SMALL Urine RBC 3 /hpf Urine WBC 6 /hpf Urine Mucus FEW /lpf Microscopic Urinalysis Comment CATH-CULT NOT IND MDM Medical Decision Making Medical Screen Exam Complete: Yes Emergency Medical Condition: Yes Medical Record Reviewed: Yes Interpretation(s) INR 2.7, therapeutic CBC & BMP Diagram 12/09/16 06:00 Differential Diagnosis Leg pain, DVT, hip dislocation, fracture, UTI, sepsis Narrative Course IV access obtained specimens collected and sent for resulting ultrasound of the right lower extremity and imaging of the right hip and pelvis ordered care signed over to Dr Jarquin for follow up of US and disposition Michaela Alford MD Dec 09, 2016 07:28
[2016-12-09 07:31] LABS: BICARBONATE 31.7 MEQ/L (21.0-32.0); POTASSIUM 3.8 MEQ/L (3.5-5.1)
[2016-12-09 07:37] LABS: BLOOD, URINE TRACE (NEG); GLUCOSE,URINE NEG (NEG); KETONE, URINE NEG (NEG); MUCUS URINE FEW /lpf (OCC); NITRITE,URINE NEG (NEG); URINE COLOR YELLOW (YELLW/STRAW)
[2016-12-09 07:39] LABS: COMMENT (UR) CATH-CULT NOT IND; CULTURE IF INDICATED CATH CULTURE NOT IND
--- NOTE | 2016-12-09 08:37 | RADRPT ---
EXAM DATE/TIME: 12/09/2016 08:00 [facility] COMPARISON: No previous studies available for comparison. INDICATIONS : Swelling in right lower extremity. MEDICAL HISTORY : Congestive heart failure. Hypercholesterolemia. Hypertension. Cerebrovascular accident. Head traum a. Seizures. A-Fib. Coronary artery disease. SURGICAL HISTORY : Hysterectomy. Detatched retina, bilateral cataracts. Right hip surgery. ENCOUNTER: Initial ACUITY: 1 day PAIN SCORE: 0/10 LOCATION: Right leg. TECHNIQUE: Venous ultrasound of the leg was performed from the inguinal ligament to the proximal calf. Real-contreras e, color Doppler and spectral tracing, compression and augmentation techniques were used. FINDINGS: There is normal compressibility of the deep venous system from the inguinal region to the proximal ca lf. No echogenic clot is seen in the lumen of the common femoral, femoral, popliteal, and posterior tibial veins. There is a normal response of the venous system to proximal and distal augmentation an d respiration. CONCLUSION: No evidence of deep venous thrombosis. There is significant subcutaneous edema identi fied within the lower extremity without evidence of thrombus. Amira Alcaraz MD on December 09, 2016 at 8:33 Board Certified Radiologist. This report was verified electronically.
[2016-12-09 09:00] VITALS: BP 137/101; PULSE 69; RESP 17; O2SAT 97
[2016-12-09] MEDS ORDERED: ACETAMINOPHEN/HYDROcodone 325 MG/5 MG TAB PO PRN (13:30)
[2016-12-09] MEDS ORDERED: ACETAMINOPHEN 325 MG TAB PO PRN (13:30)
--- NOTE | 2016-12-09 13:31 | PD ---
Physical Exam Date Seen by Provider: Dec 09, 2016 Time Seen by Provider: 07:00 Narrative Patient was signed out to me by Dr. Alford at 7 AM. We're awaiting ultrasound of the lower extremity to rule out DVT. Ultrasound of lower extremity with was negative for DVT. At that time we're arranging to try to get the patient home we're waiting for family members to come in. Her brother arrived and stated that he did not feel that she was safe to go home. He was concerned that her was not able to care for her at home and this appears to be the case given her admission and presentation. I did ask case management to come in and evaluate the patient and gave them options. At this point she does not meet criteria for intermediate from the ED. Given this, I feel she needs to be admitted under observation and have more case management involvement to try to get her placed. She did meet criteria for [facility] when she was last here however at that time signed her out AGAINST MEDICAL ADVICE. According to the housing case manager, her did not wish her to be admitted however her daughter did and disagreed with him signing her out. Data Data Last Documented VS Vital Signs Date Time Temp Pulse Resp B/P Pulse Ox O2 Delivery O2 Flow Rate FiO2 12/09/16 09:00 69 17 137/101 97 Room Air 12/09/16 05:41 98.2 Orders Complete Blood Count With Diff (12/09/16 05:54) Basic Metabolic Panel (Bmp) (12/09/16 05:54) Prothrombin Time / Inr (Pt) (12/09/16 05:54) Hip, Uni(Ap&Lat) W Ap Pelvis (12/09/16 ) Us Leg Venous Doppler (12/09/16 ) Urinalysis - C+S If Indicated (12/09/16 05:54) Cath For Specimen (12/09/16 05:54) Diet Heart Healthy (12/09/16 Lunch) Vital Signs (Adult) TRI.Q4H (12/09/16 13:20) Acetaminophen (Tylenol) (12/09/16 13:30) Acetamin-Hydrocod 325-5 Mg (Florien 5-325 (12/09/16 13:30) Consult Pt Eval & Treat (12/09/16 13:20) ^ Fall Precautions (3/25/17 13:20) Case Management Consult (12/09/16 ) Labs Laboratory Tests Test 12/09/16 12/09/16 06:00 06:35 White Blood Count 7.2 TH/MM3 Red Blood Count 4.30 MIL/MM3 Hemoglobin 12.5 GM/DL Hematocrit 37.5 % Mean Corpuscular Volume 87.3 FL Mean Corpuscular Hemoglobin 29.1 PG Mean Corpuscular Hemoglobin 33.4 % Concent Red Cell Distribution Width 14.2 % Platelet Count 312 TH/MM3 Mean Platelet Volume 8.9 FL Neutrophils (%) (Auto) 70.1 % Lymphocytes (%) (Auto) 18.3 % Monocytes (%) (Auto) 8.8 % Eosinophils (%) (Auto) 2.3 % Basophils (%) (Auto) 0.5 % Neutrophils # (Auto) 5.0 TH/MM3 Lymphocytes # (Auto) 1.3 TH/MM3 Monocytes # (Auto) 0.6 TH/MM3 Eosinophils # (Auto) 0.2 TH/MM3 Basophils # (Auto) 0.0 TH/MM3 CBC Comment DIFF FINAL Differential Comment Prothrombin Time 31.0 SEC Prothromb Time International 2.7 RATIO Ratio Sodium Level 143 MEQ/L Potassium Level 3.8 MEQ/L Chloride Level 107 MEQ/L Carbon Dioxide Level 31.7 MEQ/L Anion Gap 4 MEQ/L Blood Urea Nitrogen 22 MG/DL Creatinine 0.53 MG/DL Estimat Glomerular Filtration 109 ML/MIN Rate Random Glucose 101 MG/DL Calcium Level 9.3 MG/DL Urine Color YELLOW Urine Turbidity CLEAR Urine pH 6.0 Urine Specific [place] 1.026 Urine Protein TRACE mg/dL Urine Glucose (UA) NEG mg/dL Urine Ketones NEG mg/dL Urine Occult Blood TRACE Urine Nitrite NEG Urine Bilirubin NEG Urine Urobilinogen LESS THAN 2.0 MG/DL Urine Leukocyte Esterase SMALL Urine RBC 3 /hpf Urine WBC 6 /hpf Urine Mucus FEW /lpf Microscopic Urinalysis Comment CATH-CULT NOT IND MDM Medical Record Reviewed: Yes Supervised Visit with RICKI: No Differential Diagnosis Inability to care for self. Left leg pain. Previous CVA. Narrative Course 86-year-old presents with severe leg pain. Patient was signed out to me by Dr. Alford. We are awaiting ultrasound which was negative for DVT. Please see narrative for further information however patient is not at this time safe for discharge home. Patient has had multiple falls and concern is that she is not able to be cared appropriately for at home. Case was discussed with Dr. Pisano , who agreed for observation admission. Diagnosis Primary Impression: inability to care for self Additional Impressions: Left leg pain Atrial fibrillation Carlos Jarquin MD Dec 09, 2016 13:31
[2016-12-09] MEDS ORDERED: HYDROmorphone HCL PF 1 MG/ML VIAL IV PUSH PRN (13:45)
--- NOTE | 2016-12-09 13:51 | HHI.HP ---
[facility] Service [facility] Primary Care Physician Dennis Arnold MD Admission Diagnosis mulitiple falls, leg pain , inability to care for self. Diagnoses: (1) Right leg pain Diagnosis: Principal Chief Complaint: pain to the right leg Travel History International Travel<30 Days: No Contact w/Intl Traveler <30 Da: No Traveled to Known Affected Are: No History of Present Illness patient is a 86 y/o female with history of falls and intracranial hemorrhage who was brought to ER with pain to the right leg. information is limited due to the patient's mental status and dysphasia. reportedly she started to have pain to the right leg earlier today foe which she was brought to ER. at the time of my evaluation she was in no acute distress but pointing at her right leg when I asked her about the pain. no fever at the time of presentation. as noted before she's not a good historian. Review of Systems ROS Limitations: Poor Historian Constitutional: DENIES: Fever, Weight loss, Chills, Night Sweats Eyes: DENIES: Blurred vision, Diplopia, Vision loss, Double Vision Ears, nose, mouth, throat: DENIES: Tinnitus, Vertigo, Throat pain, Epistaxis Respiratory: DENIES: Apneas, Cough, Snoring, Wheezing, Hemoptysis, Sputum production, Shortness of breath Cardiovascular: DENIES: Chest pain, Palpitations, Syncope, Dyspnea on Exertion , PND, Lower Extremity Edema, Orthopnea, Claudication Gastrointestinal: DENIES: Abdominal pain, Black stools, Bloody stools, Constipation, Diarrhea, Nausea, Vomiting, Difficulty Swallowing, Anorexia Genitourinary: DENIES: Urinary frequency, Urgency, Hematuria, Dysuria Musculoskeletal: COMPLAINS OF: Joint pain (right leg.), DENIES: Muscle aches, Stiffness, Joint Swelling Integumentary: DENIES: Rash Neurologic: DENIES: Abnormal gait, Headache, Localized weakness, Paresthesias, Seizures, Speech Problems, Tremor, Poor Balance Psychiatric: DENIES: Anxiety, Confusion, Mood changes, Depression, Hallucinations, Agitation, Suicidal Ideation, Homicidal Ideation, Delusions Past Family Social History Past Medical History atrial fibrillation hypertension intracranial hemorrhage Past Surgical History eye surgery hysterectomy Reported Medications Potassium Chloride ER (Potassium Chloride) 20 Meq Tab 20 Meq PO DAILY K-Phos (Potassium Phosphate Monobasic) 500 Mg Tab 500 Mg PO BID Ceftin (Cefuroxime Axetil) 250 Mg Tab 250 Mg PO BID Lisinopril 20 Mg Tab 40 Mg PO DAILY Norvasc (Amlodipine Besylate) 10 Mg Tab 10 Mg PO DAILY Digoxin 0.25 Mg Tab 0.25 Mg PO DAILY Metoprolol Tartrate 25 Mg Tab 25 Mg PO BID Dilantin (Phenytoin Extended) 100 Mg Cap 100 Mg PO BID Allergies: Coded Allergies: Sulfa (Verified Allergy, Severe, UNKNOWN, 12/09/16) Active Ordered Medications Current Medications Acetaminophen (Tylenol) 650 mg Q4H PRN PO FEVER/PAIN 1-5; Start 12/09/16 at 13: 30; Status UNV Acetaminophen/ Hydrocodone Bitart ([place] 5-325 Mg) 1 tab Q4H PRN PO PAIN 6-10 ; Start 12/09/16 at 13:30; Status UNV Family History could not be obtained. Social History reportedly lives at home with the . Physical Exam Vital Signs Vital Signs Date Time Temp Pulse Resp B/P Pulse Ox O2 Delivery O2 Flow Rate FiO2 12/09/16 09:00 69 17 137/101 97 Room Air 12/09/16 05:41 98.2 64 20 196/78 98 Physical Exam GENERAL: elderly female in no acute distress. SKIN: superficial lacerations noted on the right leg HEAD: Atraumatic. Normocephalic. No temporal or scalp tenderness. EYES: Pupils equal round and reactive. Extraocular motions intact. No scleral icterus. No injection or drainage. ENT: Nose without bleeding, purulent drainage or septal hematoma. Throat without erythema, tonsillar hypertrophy or exudate. Uvula midline. Airway patent. NECK: Trachea midline. No JVD or lymphadenopathy. Supple, nontender, no meningeal signs. CARDIOVASCULAR: Regular rate and rhythm without murmurs, gallops, or rubs. RESPIRATORY: Clear to auscultation. Breath sounds equal bilaterally. No wheezes , rales, or rhonchi. GASTROINTESTINAL: Abdomen soft, non-tender, nondistended. No hepato-splenomegaly , or palpable masses. No guarding. MUSCULOSKELETAL: the right leg is swollen, tender to touch and feels warm- right upper extremity is contracted. NEUROLOGICAL: Awake and alert. with dysphagia and contracted right upper extremity Laboratory Laboratory Tests Test 12/09/16 12/09/16 06:00 06:35 White Blood Count 7.2 Red Blood Count 4.30 Hemoglobin 12.5 Hematocrit 37.5 Mean Corpuscular Volume 87.3 Mean Corpuscular Hemoglobin 29.1 Mean Corpuscular Hemoglobin 33.4 Concent Red Cell Distribution Width 14.2 Platelet Count 312 Mean Platelet Volume 8.9 Neutrophils (%) (Auto) 70.1 Lymphocytes (%) (Auto) 18.3 Monocytes (%) (Auto) 8.8 Eosinophils (%) (Auto) 2.3 Basophils (%) (Auto) 0.5 Neutrophils # (Auto) 5.0 Lymphocytes # (Auto) 1.3 Monocytes # (Auto) 0.6 Eosinophils # (Auto) 0.2 Basophils # (Auto) 0.0 CBC Comment DIFF FINAL Differential Comment Prothrombin Time 31.0 Prothromb Time International 2.7 Ratio Sodium Level 143 Potassium Level 3.8 Chloride Level 107 Carbon Dioxide Level 31.7 Anion Gap 4 Blood Urea Nitrogen 22 Creatinine 0.53 Estimat Glomerular Filtration 109 Rate Random Glucose 101 Calcium Level 9.3 Urine Color YELLOW Urine Turbidity CLEAR Urine pH 6.0 Urine Specific [place] 1.026 Urine Protein TRACE Urine Glucose (UA) NEG Urine Ketones NEG Urine Occult Blood TRACE Urine Nitrite NEG Urine Bilirubin NEG Urine Urobilinogen LESS THAN 2.0 Urine Leukocyte Esterase SMALL Urine RBC 3 Urine WBC 6 Urine Mucus FEW Microscopic Urinalysis Comment CATH-CULT NOT IND Result Diagram: 12/09/16 0600 12/09/16 0600 Imaging Last Impressions Lower Extremity Ultrasound 12/09/16 0000 Signed Impressions: Service Date/Time: Friday, December 09, 2016 08:00 - CONCLUSION: No evidence of deep venous thrombosis. There is significant subcutaneous edema identified within the lower extremity without evidence of thrombus. Amira Alcaraz MD Hip and Pelvis X-Ray 12/09/16 0000 Signed Impressions: Service Date/Time: Friday, December 09, 2016 06:20 - CONCLUSION: 1. Osteopenia. 2. No acute abnormality. 3. Significant stool burden within the rectal vault obscures the sacrum. Orestes Osborne Jr., MD Assessment and Plan Assessment and Plan A/P - painful right leg venous doppler with no DVT- will check the tibia/ fibula XR continue with pain control -atrial fibrillation; continue digoxin and metoprolol- was on coumadin before- not a good candidate for anticoagulation due to falls -history of intracranial hemorrhage/ stroke fall precautions-continue dilantin- consult PT- pending the result of XR's consult ST -hypertension; resume home meds- will monitor and adjust the regimen as needed. -will consult case management since it seems that the patient needs placement Discussed Condition With ER physician, the patient and RN. Sterling Mcwilliams MD Dec 09, 2016 13:51
[2016-12-09] MEDS ORDERED: MAGNESIUM HYDROXIDE SUSP 30 ML CUP PO PRN (14:00)
--- NOTE | 2016-12-09 14:36 | RADRPT ---
EXAM DATE/TIME: 12/09/2016 13:43 [place] COMPARISON: No previous studies available for comparison. INDICATIONS : Apparent Right Lower Leg pain, Open Wound and Swelling midshaft lateral aspect. MEDICAL HISTORY : Congestive heart failure. Hypercholesterolemia. Hypertension. Cerebrovascular accident. Head trauma. Seizures. A-Fib. Coronary artery disease. SURGICAL HISTORY : Hysterectomy. Detatched retina, bilateral cataracts. Right hip surgery. ENCOUNTER: Initial ACUITY: 1 day PAIN SCORE: Non-responsive. LOCATION: Right Lower Leg. FINDINGS: Two view examination of the right tibia demonstrates no evidence of fracture or dislocation. The bone s are osteopenic. No focal soft tissue abnormality seen. CONCLUSION: No evidence of fracture or other concerning for retained foreign body or osteomyelitis. Amira Alcaraz MD on December 09, 2016 at 14:33 Board Certified Radiologist. This report was verified electronically.
[2016-12-09 15:15] VITALS: BP 201/85; PULSE 69; RESP 16; TEMP 97.6; O2SAT 96
[2016-12-09 17:08] VITALS: BP 167/77; PULSE 65; RESP 20; TEMP 97.8
[2016-12-09 19:36] VITALS: BP 148/65; PULSE 61; RESP 18; TEMP 98.3; O2SAT 96
[2016-12-09] MEDS: POTASSIUM PHOSPHATE MONOBASIC 500 MG TAB PO SCH (22:32)
[2016-12-09] MEDS: METOPROLOL TARTRATE 25 MG TAB PO SCH (22:33)
[2016-12-09] MEDS: PHENYTOIN SODIUM 100 MG CAP PO SCH (22:33)
[2016-12-10] VITALS (8 sets, daily range): BP systolic 142–181; BP diastolic 65–75; PULSE 58–68; RESP 16–20; TEMP 96.8–98.3; O2SAT 94–99
[2016-12-10 04:58] LABS: INTERNATIONAL NORMALIZED RATIO 2.7 RATIO; PROTHROMBIN TIME - PATIENT 30.8 SEC (9.8-11.6)
[2016-12-10] MEDS: ENALAPRILAT 1.25 MG/ML VIAL IV PUSH PRN (05:09)
--- NOTE | 2016-12-10 07:55 | HHI.PR ---
Subjective Remarks looks more comfortable today. pain to the right leg is better. no fever. Objective Vitals Vital Signs Date Time Temp Pulse Resp B/P Pulse Ox O2 Delivery O2 Flow Rate FiO2 12/10/16 07:19 97.8 58 18 172/72 94 12/10/16 05:03 98.3 61 18 181/75 95 12/10/16 03:33 97.6 60 18 148/68 97 12/09/16 19:36 98.3 61 18 148/65 96 12/09/16 17:08 97.8 65 20 167/77 12/09/16 15:15 97.6 69 16 201/85 96 12/09/16 09:00 69 17 137/101 97 Room Air I/O 12/09/16 12/09/16 12/09/16 12/10/16 12/10/16 12/10/16 07:00 15:00 23:00 07:00 15:00 23:00 Intake Total 100 ml Balance 100 ml Intake IV Total 100 ml # Voids 1 2 Result Diagram: 12/09/16 0600 12/09/16 0600 Imaging Last Impressions Tibia/Fibula X-Ray 12/09/16 0000 Signed Impressions: Service Date/Time: Friday, December 09, 2016 13:43 - CONCLUSION: No evidence of fracture or other concerning for retained foreign body or osteomyelitis. Amira Alcaraz MD Lower Extremity Ultrasound 12/09/16 0000 Signed Impressions: Service Date/Time: Friday, December 09, 2016 08:00 - CONCLUSION: No evidence of deep venous thrombosis. There is significant subcutaneous edema identified within the lower extremity without evidence of thrombus. Amira Alcaraz MD Hip and Pelvis X-Ray 12/09/16 0000 Signed Impressions: Service Date/Time: Friday, December 09, 2016 06:20 - CONCLUSION: 1. Osteopenia. 2. No acute abnormality. 3. Significant stool burden within the rectal vault obscures the sacrum. Orestes Osborne Jr., MD Objective Remarks GENERAL: This is a well-nourished, well-developed patient, in no apparent distress. CARDIOVASCULAR: Regular rate and regular rhythm without murmurs, gallops, or rubs. RESPIRATORY: Clear to auscultation. Breath sounds equal bilaterally. No wheezes , rales, or rhonchi. GASTROINTESTINAL: Abdomen soft, non-tender, nondistended. Normal, active bowel sounds MUSCULOSKELETAL: swelling and tenderness of the right leg has improved. NEURO: awake and alert with dysphasia. Procedures none Medications and IVs Current Medications Acetaminophen (Tylenol) 650 mg Q4H PRN PO FEVER/PAIN 1-5; Start 12/09/16 at 13: 30 Acetaminophen/ Hydrocodone Bitart ([place] 5-325 Mg) 1 tab Q4H PRN PO PAIN 6-10 Last administered on 12/09/16 15:58; Start 12/09/16 at 13:30 Hydromorphone HCl (Dilaudid Pf Inj) 0.5 mg Q4H PRN IV PUSH BREAKTHROUGH PAIN; Start 12/09/16 at 13:45 Digoxin (Lanoxin) 0.25 mg DAILY PO ; Start 12/10/16 at 09:00 Lisinopril (Prinivil) 40 mg DAILY PO ; Start 12/10/16 at 09:00 Metoprolol Tartrate (Lopressor) 25 mg BID PO Last administered on 12/09/16 22: 33; Start 12/09/16 at 21:00 Phenytoin (Dilantin) 100 mg BID PO Last administered on 12/09/16 22:33; Start 12/09/16 at 21:00 Potassium Chloride (KCl) 20 meq DAILY PO ; Start 12/10/16 at 09:00 Potassium Phosphate (K-Phos) 500 mg BID PO Last administered on 12/09/16 22:32 ; Start 12/09/16 at 21:00 Magnesium Hydroxide (Milk Of Magnesia Liq) 30 ml DAILY PRN PO CONSTIPATION; Start 12/09/16 at 14:00 Enalaprilat 1.25 mg 1.25 mg Q8H PRN IV PUSH SBP> OR = 180, DBP> OR = 100 Last administered on 12/10/16 05:09; Start 12/09/16 at 16:15 Cefazolin Sodium/ Sodium Chloride (Ancef Inj/NS Inj) 100 ml @ 200 mls/hr Q8H IV Last administered on 12/10/16 02:59; Start 12/09/16 at 17:00 A/P Assessment and Plan A/P - cellulitis of the right leg-improving. venous doppler with no DVT- XR of the tibia and fibula with no fractures. continue with IV antibiotic and pain control -atrial fibrillation; continue digoxin and metoprolol- was on coumadin before- not a good candidate for anticoagulation due to falls -history of intracranial hemorrhage/ stroke fall precautions-continue dilantin- consult PT/ST -hypertension;not well controlled- resumed home meds- vasotec prn-will monitor and adjust the regimen as needed. - consulted case management since it seems that the patient needs placement Discharge Planning spoke with the who said that he'd like to take her home. dc home with C vs rehab within the next 24-48 hrs if stable. Sterling Mcwilliams MD Dec 10, 2016 07:55
[2016-12-10] MEDS: POTASSIUM CHLORIDE 20 MEQ CONTROLLED RELEASE TAB PO SCH (09:52)
[2016-12-10] MEDS: POTASSIUM PHOSPHATE MONOBASIC 500 MG TAB PO SCH ×2 (09:55→21:26)
[2016-12-10] MEDS: LISINOPRIL 20 MG TAB PO SCH (09:55)
[2016-12-10] MEDS: PHENYTOIN SODIUM 100 MG CAP PO SCH ×2 (09:55→21:26)
[2016-12-10] MEDS: DIGOXIN 0.25 MG TAB PO SCH (09:59)
[2016-12-10] MEDS: METOPROLOL TARTRATE 25 MG TAB PO SCH ×2 (11:23→21:26)
[2016-12-11 04:35] VITALS: BP 182/75; PULSE 52; RESP 18; TEMP 97.7; O2SAT 95
[2016-12-11] MEDS: ENALAPRILAT 1.25 MG/ML VIAL IV PUSH PRN (05:18)
[2016-12-11 07:54] LABS: INTERNATIONAL NORMALIZED RATIO 1.5 RATIO; PROTHROMBIN TIME - PATIENT 16.8 SEC (9.8-11.6)
[2016-12-11 07:55] VITALS: BP 161/70; PULSE 62; RESP 16; TEMP 96.2; O2SAT 96
--- NOTE | 2016-12-11 08:06 | HHI.PR ---
Subjective Remarks resting comfortably with no distress. pain is much better. no fever. d/w the RN and no acute issues over night. Objective Vitals Vital Signs Date Time Temp Pulse Resp B/P Pulse Ox O2 Delivery O2 Flow Rate FiO2 12/11/16 07:55 96.2 62 16 161/70 96 12/11/16 04:35 97.7 52 18 182/75 95 12/10/16 23:43 97.6 61 16 177/75 97 12/10/16 21:26 97.3 61 18 171/72 99 12/10/16 15:43 96.8 59 20 142/67 95 12/10/16 11:17 97.9 68 20 142/65 96 12/10/16 09:50 68 I/O 12/10/16 12/10/16 12/10/16 12/11/16 12/11/16 12/11/16 07:00 15:00 23:00 07:00 15:00 23:00 Intake Total 520 ml Balance 520 ml Intake Oral 420 ml IV Total 100 ml # Voids 3 2 # Bowel Movements 1 Result Diagram: 12/09/16 0600 12/09/16 0600 Imaging Last Impressions Tibia/Fibula X-Ray 12/09/16 0000 Signed Impressions: Service Date/Time: Friday, December 09, 2016 13:43 - CONCLUSION: No evidence of fracture or other concerning for retained foreign body or osteomyelitis. Amira Alcaraz MD Lower Extremity Ultrasound 12/09/16 0000 Signed Impressions: Service Date/Time: Friday, December 09, 2016 08:00 - CONCLUSION: No evidence of deep venous thrombosis. There is significant subcutaneous edema identified within the lower extremity without evidence of thrombus. Amira Alcaraz MD Hip and Pelvis X-Ray 12/09/16 0000 Signed Impressions: Service Date/Time: Friday, December 09, 2016 06:20 - CONCLUSION: 1. Osteopenia. 2. No acute abnormality. 3. Significant stool burden within the rectal vault obscures the sacrum. Orestes Osborne Jr., MD Objective Remarks GENERAL: This is a well-nourished, well-developed patient, in no apparent distress. CARDIOVASCULAR: Regular rate and regular rhythm without murmurs, gallops, or rubs. RESPIRATORY: Clear to auscultation. Breath sounds equal bilaterally. No wheezes , rales, or rhonchi. GASTROINTESTINAL: Abdomen soft, non-tender, nondistended. Normal, active bowel sounds MUSCULOSKELETAL: swelling and tenderness of the right leg has improved. NEURO: awake and alert with dysphasia. Procedures none Medications and IVs Current Medications Acetaminophen (Tylenol) 650 mg Q4H PRN PO FEVER/PAIN 1-5; Start 12/09/16 at 13: 30 Acetaminophen/ Hydrocodone Bitart ([place] 5-325 Mg) 1 tab Q4H PRN PO PAIN 6-10 Last administered on 12/09/16 15:58; Start 12/09/16 at 13:30 Hydromorphone HCl (Dilaudid Pf Inj) 0.5 mg Q4H PRN IV PUSH BREAKTHROUGH PAIN; Start 12/09/16 at 13:45 Digoxin (Lanoxin) 0.25 mg DAILY PO Last administered on 12/10/16 09:59; Start 12/10/16 at 09:00 Lisinopril (Prinivil) 40 mg DAILY PO Last administered on 12/10/16 09:55; Start 12/10/16 at 09:00 Metoprolol Tartrate (Lopressor) 25 mg BID PO Last administered on 12/10/16 21: 26; Start 12/09/16 at 21:00 Phenytoin (Dilantin) 100 mg BID PO Last administered on 12/10/16 21:26; Start 12/09/16 at 21:00 Potassium Chloride (KCl) 20 meq DAILY PO Last administered on 12/10/16 09:52; Start 12/10/16 at 09:00 Potassium Phosphate (K-Phos) 500 mg BID PO Last administered on 12/10/16 21:26 ; Start 12/09/16 at 21:00 Magnesium Hydroxide (Milk Of Magnesia Liq) 30 ml DAILY PRN PO CONSTIPATION; Start 12/09/16 at 14:00 Enalaprilat 1.25 mg 1.25 mg Q8H PRN IV PUSH SBP> OR = 180, DBP> OR = 100 Last administered on 12/11/16 05:18; Start 12/09/16 at 16:15 Cefazolin Sodium/ Sodium Chloride (Ancef Inj/NS Inj) 100 ml @ 200 mls/hr Q8H IV Last administered on 12/11/16 01:31; Start 12/09/16 at 17:00 A/P Assessment and Plan A/P - cellulitis of the right leg-improving. venous doppler with no DVT- XR of the tibia and fibula with no fractures. continue with antibiotic . -atrial fibrillation; continue digoxin and metoprolol- was on coumadin before- not a good candidate for anticoagulation due to falls -history of intracranial hemorrhage/ stroke fall precautions-continue dilantin- consulted PT/ST -hypertension; resumed home meds- will add norvasc. f/u as outpatient. - consulted case management Discharge Planning spoke with the who said that he'd like to take her home. dc home with [facility] later today. see med list. d/w the patient and RN. Sterling Mcwilliams MD Dec 11, 2016 08:05
[2016-12-11] MEDS ORDERED: CEPH-459 PO (08:07)
--- NOTE | 2016-12-11 08:07 | HHI.DCPOC ---
Discharge Care Plan Diagnosis: (1) Right leg pain Your Health Problems Are: Difficulty with ADL Chronic Pain Goals to Promote Your Health * To prevent worsening of your condition and complications * To maintain your health at the optimal level Directions to Meet Your Goals Take your medications as prescribed Follow your dietary instruction Follow activity as directed Keep your appointments as scheduled Take your immunizations and boosters as scheduled If your symptoms worsen call your PCP, if no PCP go to Urgent Care Center or Emergency Room Smoking is Dangerous to Your Health. Avoid second hand smoke Call the 24-hour hour crisis hotline for domestic abuse at Sterling Mcwilliams MD Dec 11, 2016 08:07
--- NOTE | 2016-12-11 08:07 | HHI.DS ---
Discharge Summary Admission Date Dec 09, 2016 at 13:28 Discharge Date: Dec 11, 2016 Admitting Diagnosis mulitiple falls, leg pain , inability to care for self. (1) Right leg pain ICD Code: M79.604 Diagnosis: Principal Procedures none Brief History - From Admission patient is a 86 y/o female with history of falls and intracranial hemorrhage who was brought to ER with pain to the right leg. information is limited due to the patient's mental status and dysphasia. reportedly she started to have pain to the right leg earlier today foe which she was brought to ER. at the time of my evaluation she was in no acute distress but pointing at her right leg when I asked her about the pain. no fever at the time of presentation. as noted before she's not a good historian. CBC/BMP: 12/09/16 0600 12/09/16 0600 Significant Findings Laboratory Tests Test 12/09/16 12/09/16 12/10/16 12/11/16 06:00 06:35 04:25 07:11 Neutrophils (%) (Auto) 70.1 % (16.0-70.0) Monocytes (%) (Auto) 8.8 % (0.0-8.0) Prothrombin Time 31.0 SEC 30.8 SEC 16.8 SEC (9.8-11.6) (9.8-11.6) (9.8-11.6) Anion Gap 4 MEQ/L (5-15) Blood Urea Nitrogen 22 MG/DL (7-18) Urine Occult Blood TRACE (NEG) Urine Leukocyte Esterase SMALL (NEG) Urine WBC 6 /hpf (0-5) Urine Mucus FEW /lpf (OCC) Imaging Last Impressions Tibia/Fibula X-Ray 12/09/16 0000 Signed Impressions: Service Date/Time: Friday, December 09, 2016 13:43 - CONCLUSION: No evidence of fracture or other concerning for retained foreign body or osteomyelitis. Amira Alcaraz MD Lower Extremity Ultrasound 12/09/16 0000 Signed Impressions: Service Date/Time: Friday, December 09, 2016 08:00 - CONCLUSION: No evidence of deep venous thrombosis. There is significant subcutaneous edema identified within the lower extremity without evidence of thrombus. Amira Alcaraz MD Hip and Pelvis X-Ray 12/09/16 0000 Signed Impressions: Service Date/Time: Friday, December 09, 2016 06:20 - CONCLUSION: 1. Osteopenia. 2. No acute abnormality. 3. Significant stool burden within the rectal vault obscures the sacrum. Orestes Osborne Jr., MD PE at Discharge GENERAL: This is a well-nourished, well-developed patient, in no apparent distress. CARDIOVASCULAR: Regular rate and regular rhythm without murmurs, gallops, or rubs. RESPIRATORY: Clear to auscultation. Breath sounds equal bilaterally. No wheezes , rales, or rhonchi. GASTROINTESTINAL: Abdomen soft, non-tender, nondistended. Normal, active bowel sounds MUSCULOSKELETAL: swelling and tenderness of the right leg has improved. NEURO: awake and alert with dysphasia. Hospital Course - cellulitis of the right leg-improving. venous doppler with no DVT- XR of the tibia and fibula with no fractures. continue with antibiotic . -atrial fibrillation; continue digoxin and metoprolol- was on coumadin before- not a good candidate for anticoagulation due to falls -history of intracranial hemorrhage/ stroke fall precautions-continue dilantin- consulted PT/ST -hypertension; resumed home meds- will add norvasc. f/u as outpatient. - consulted case management Pt Condition on Discharge: Fair Discharge Disposition: Disch w/ Home Health Serv Discharge Time: <= 30 minutes Discharge Instructions DIET: Follow Instructions for: Heart Healthy Diet Speech Therapy-Diet Recommends: Regular Activities you can perform: Regular-No Restrictions Follow up Referrals: PCP Follow-up New Medications: Cephalexin (Keflex) 250 Mg Cap 250 MG PO Q6H Infection Days 7 Ref 0 CAP Continued Medications: Amlodipine (Norvasc) 10 Mg Tab 10 MG PO DAILY Blood Pressure Management #30 TAB Digoxin (Digoxin) 0.25 Mg Tab 0.25 MG PO DAILY Regulate Heart Beat #30 Ref 0 TAB Lisinopril (Lisinopril) 20 Mg Tab 40 MG PO DAILY Blood Pressure Management #30 TAB Metoprolol Tartrate (Metoprolol Tartrate) 25 Mg Tab 25 MG PO BID #60 Ref 0 TAB Phenytoin Extended (Dilantin) 100 Mg Cap 100 MG PO BID Control Seizures #90 Ref 0 CAP Potassium Chloride ER (Potassium Chloride ER) 20 Meq Tab 20 MEQ PO DAILY Electrolyte Replacement #14 Ref 0 TAB Potassium Phosphate Monobasic (K-Phos) 500 Mg Tab 500 MG PO BID Electrolyte Replacement #60 Ref 0 TAB Discontinued Medications: Cefuroxime (Ceftin) 250 Mg Tab 250 MG PO BID Infection #6 Ref 0 TAB Sterling Mcwilliams MD Dec 11, 2016 08:07
--- NOTE | 2016-12-11 08:08 | HHI.FF ---
Face to Face Verification Diagnosis: (1) Right leg pain Physical Therapy Order: Evaluate and Treat Home Health Nursing Order: Medical education Signs/symptoms of disease process Medication education-adverse effect Nursing assessment with vital signs I have seen patient Colleen Eason on 12/11/16. My clinical findings support the need for the requested home health care services because: Ltd mobility - disease progression I certify that my clinical findings support that this patient is homebound because: Unsteady gait/balance Sterling Mcwilliams MD Dec 11, 2016 08:08
[2016-12-11] MEDS: LISINOPRIL 20 MG TAB PO SCH (08:42)
[2016-12-11] MEDS: DIGOXIN 0.25 MG TAB PO SCH (08:42)
[2016-12-11] MEDS: POTASSIUM PHOSPHATE MONOBASIC 500 MG TAB PO SCH (08:42)
[2016-12-11] MEDS: METOPROLOL TARTRATE 25 MG TAB PO SCH (08:42)
[2016-12-11] MEDS: PHENYTOIN SODIUM 100 MG CAP PO SCH (08:42)
[2016-12-11] MEDS: POTASSIUM CHLORIDE 20 MEQ CONTROLLED RELEASE TAB PO SCH (08:42)
[2016-12-11 11:48] VITALS: BP 132/63; PULSE 67; RESP 16; TEMP 96.3; O2SAT 96
== END 2016-12-11 16:32 | disposition home or self-care (01) ==
LOC: NEPC 05:20 → NEDA 13:28 → NEPHCDU 15:32 → NEPFCDU 15:41
PROVIDERS: ADMIT Internal Medicine; ATTEND Internal Medicine
DX: L03.115 Cellulitis of right lower limb (principal); I48.91 Unspecified atrial fibrillation; I11.0 Hypertensive heart disease with heart failure; I50.9 Heart failure, unspecified; E78.00 Pure hypercholesterolemia, unspecified; I25.10 Atherosclerotic heart disease of native coronary artery without angina pectoris; E78.5 Hyperlipidemia, unspecified; Z91.81 History of falling; Z88.2 Allergy status to sulfonamides; Z79.01 Long term (current) use of anticoagulants; Z96.642 Presence of left artificial hip joint; Z86.73 Personal history of transient ischemic attack (TIA), and cerebral infarction without residual deficits
CPT/HCPCS: 73502; 73590; 76937; 80048; 81001; 85025; 85610; 92526; 92610; 93971; 97163; 99285; G0378; G8987; G8988; G8996; G8997; G8998; J0690; P9612

== ENCOUNTER 2017-01-09 00:01 | Inpatient (IN) | payer MEDICARE, BC ==
[~2017-01-09] VITALS: Ht 162.6 cm; Wt 42.5 kg
[2017-01-09] VITALS (9 sets, daily range): BP systolic 109–204; BP diastolic 56–86; PULSE 68–91; RESP 16–20; TEMP 97.6–98.7; O2SAT 92–98
[~2017-01-09 00:01] MED LIST changes: -CEFT250T8 PO; +CEPH-459 PO
[2017-01-09] MEDS ORDERED: SODIUM CHLORID 0.9% 500 ML INJ 500 ML IV ONE (00:30)
--- NOTE | 2017-01-09 00:52 | PD ---
HPI Chief Complaint: Fall Time Seen by Provider: 00:17 Travel History International Travel<30 days: No Contact w/Intl Traveler<30days: No Traveled to known affect area: No History of Present Illness HPI The patient is an 86 year old female who presents to the [facility] emergency department with a history of reportedly having an unwitnessed fall from her wheelchair sometime prior to arrival. The patient resides at home with her . Unfortunately both the patient and the patient has been or poor historian. The patient has a history of prior stroke with right sided deficits. The patient also has a history of aphasia. The patient reportedly seemed to have pain in the right lower extremity prior to arrival with movement. The patient otherwise had no visible trauma. The patient is noted to have an older bruise on the chin. The patient is noted to have a small abrasion to the right cheek and an older appearing abrasion to the left lateral shoulder. Unfortunately as the patient is a phasic she is not able to provide any significant history, review of systems is unable to be obtained. The patient does shake her head yes and no to answer questions. She denied having any chest pain or shortness of breath. She does shake her head yes and point to her right lower extremity as the site of pain. [facility] Past Medical History Narrative Medical The patient's past medical history is significant for hypertension, atrial fibrillation, history of a prior ischemic stroke affecting the right side with residual deficits from 2010, history of hyperlipidemia, history of congestive heart failure, history of coronary artery disease, history of seizure disorder Arthritis: No Asthma: No Atrial Fibrillation: Yes Heart Rhythm Problems: Yes Cancer: No Cardiovascular Problems: Yes High Cholesterol: Yes Chest Pain: No Congestive Heart Failure: Yes COPD: No Cerebrovascular Accident: Yes Coronary Artery Disease: Yes Diabetes: No Diminished Hearing: No Endocrine: No Genitourinary: No Hypertension: Yes Immune Disorder: No Musculoskeletal: Yes (rt hip, rt side weakness post stroke) Neurologic: Yes Psychiatric: No Reproductive: No Respiratory: No Migraines: No Seizures: Yes (Started post stroke) Sleep Apnea: No Tetanus Vaccination: Unknown Influenza Vaccination: No PNEUMOCCOCAL Vaccine (Year): 1 Menopausal: Yes Past Surgical History Narrative Surgical The patient has a history of a joint replacement, history of hysterectomy, cataract surgery, surgery related to a retinal detachment. Abdominal Surgery: No Cardiac Surgery: No Ear Surgery: No Endocrine Surgery: No Eye Surgery: Yes (DETACHED RETINA, IVETTE CATARACTS) Genitourinary Surgery: No Gynecologic Surgery: Yes (Hysto) Hysterectomy: Yes Joint Replacement: Yes Oral Surgery: No Thoracic Surgery: No Other Surgery: Yes Social History Alcohol Use: No Tobacco Use: No Substance Use: No Allergies-Medications (Allergen,Severity, Reaction): Coded Allergies: Sulfa (Verified Allergy, Severe, UNKNOWN, 01/09/17) Reported Meds & Prescriptions Reported Meds & Active Scripts Active Keflex (Cephalexin) 250 Mg Cap 250 Mg PO Q6H 7 Days Potassium Chloride ER (Potassium Chloride) 20 Meq Tab 20 Meq PO DAILY K-Phos (Potassium Phosphate Monobasic) 500 Mg Tab 500 Mg PO BID Lisinopril 20 Mg Tab 40 Mg PO DAILY Norvasc (Amlodipine Besylate) 10 Mg Tab 10 Mg PO DAILY Reported Digoxin 0.25 Mg Tab 0.25 Mg PO DAILY Metoprolol Tartrate 25 Mg Tab 25 Mg PO BID Dilantin (Phenytoin Extended) 100 Mg Cap 100 Mg PO BID Review of Systems ROS Limitations: Clinical Condition Cardiovascular: No: Chest Pain or Discomfort Respiratory: No: Shortness of Breath Musculoskeletal: Positive: Myalgias, Arthralgias, Limited ROM, No: Pain Physical Exam Narrative General: The patient is a well-developed, thin appearing female, somewhat disheveled appearing, however in no acute distress. Head and Neck exam: Head is normocephalic atraumatic. Eyes: EOMI, pupils are equal round and reactive to light. Nose: Midline septum with pink mucous membranes Mouth: Dentition unremarkable. Moist mucus membranes. Posterior oropharynx is not erythematous. No tonsillar hypertrophy. Uvula midline. Airway patent. Neck: No palpable lymphadenopathy. No nuchal rigidity. No thyromegaly. Cardiovascular: Irregularly irregular with rate control in the 70s to 80s without murmurs, gallops, or rubs. Lungs: Clear to auscultation bilaterally. No wheezes, rhonchi, or rales. Abdomen: Soft, without tenderness to palpation in all 4 quadrants of the abdomen. No guarding, rebound, or rigidity. Normal bowel sounds are audible. Extremities: No pelvic instability or tenderness on palpation with pelvic rock. No clubbing , cyanosis, or edema. 2+ pulses in all 4 extremities. The patient has contracture of the right upper extremity, no tenderness or crepitus on palpation. The patient has no pain or crepitus on palpation of the left upper or left lower extremity. She has full range of motion of the left upper and left lower extremity. The patient on examination of the right lower extremity has some swelling noted with tenderness on palpation of the right tib-fib area. There is no crepitus or step-off. No erythema or ecchymosis. No pain on palpation of her foot. She has 2+ pulses with less than 3 second capillary refill. Back: No spinous process tenderness to palpation. No costovertebral angle tenderness to palpation. Neurologic Exam: The patient appears to be at her baseline neurologic examination with weakness of the right lower extremity, contracture of the right upper extremity, aphasia. The patient has strength that is 5 over 5 in the left upper and left lower extremity. Data Data Last Documented VS Vital Signs Date Time Temp Pulse Resp B/P Pulse Ox O2 Delivery O2 Flow Rate FiO2 01/09/17 00:05 97.6 76 16 204/86 96 Orders Electrocardiogram (01/09/17:17) Complete Blood Count With Diff (01/09/17:17) Comprehensive Metabolic Panel (01/09/17 00:17) Prothrombin Time / Inr (Pt) (01/09/17:17) Act Partial Throm Time (Ptt) (01/09/17:17) Urinalysis - C+S If Indicated (01/09/17:17) Cath For Specimen (01/09/17:17) Magnesium (Mg) (01/09/17:17) Iv Access Insert/Monitor (01/09/17:17) Ecg Monitoring (01/09/17 00:17) Oximetry (01/09/17 00:17) Chest, Single Ap (01/09/17 00:17) Femur (Ap & Lat/2vws) (01/09/17 00:17) Hip, Uni(Ap&Lat) W Ap Pelvis (01/09/17 00:17) Tibia/Fibula (Ap/Lat) (01/09/17 00:17) Ice/Cold Pack (01/09/17 00:17) Sodium Chlorid 0.9% 500 Ml Inj (Ns 500 M (01/09/17 00:30) Ct Brain W/O Iv Contrast(Rout) (01/09/17 00:20) Ct Cerv Spine W/O Contrast (01/09/17 00:20) Morphine Inj (Morphine Inj) (01/09/17 02:45) Ondansetron Inj (Zofran Inj) (01/09/17 02:45) Admit Order (Ed Use Only) (01/09/17 03:13) Labs Laboratory Tests Test 01/09/17 01/09/17 01/09/17 00:45 01:36 02:35 Urine Color YELLOW Urine Turbidity HAZY Urine pH 7.5 Urine Specific [place] 1.020 Urine Protein TRACE mg/dL Urine Glucose (UA) NEG mg/dL Urine Ketones NEG mg/dL Urine Occult Blood NEG Urine Nitrite NEG Urine Bilirubin NEG Urine Urobilinogen LESS THAN 2.0 MG/DL Urine Leukocyte Esterase NEG Urine RBC 2 /hpf Urine WBC 2 /hpf Urine Squamous Epithelial 1 /hpf Cells Urine Renal Epithelial Cells <1 /hpf Urine Amorphous Sediment RARE Urine Bacteria RARE /hpf Microscopic Urinalysis Comment CATH-CULT NOT IND White Blood Count 11.9 TH/MM3 Red Blood Count 4.81 MIL/MM3 Hemoglobin 14.2 GM/DL Hematocrit 42.2 % Mean Corpuscular Volume 87.7 FL Mean Corpuscular Hemoglobin 29.4 PG Mean Corpuscular Hemoglobin 33.6 % Concent Red Cell Distribution Width 14.7 % Platelet Count 277 TH/MM3 Mean Platelet Volume 8.4 FL Neutrophils (%) (Auto) 87.8 % Lymphocytes (%) (Auto) 7.8 % Monocytes (%) (Auto) 3.3 % Eosinophils (%) (Auto) 0.7 % Basophils (%) (Auto) 0.4 % Neutrophils # (Auto) 10.4 TH/MM3 Lymphocytes # (Auto) 0.9 TH/MM3 Monocytes # (Auto) 0.4 TH/MM3 Eosinophils # (Auto) 0.1 TH/MM3 Basophils # (Auto) 0.1 TH/MM3 CBC Comment AUTO DIFF Differential Comment AUTO DIFF CONFIRMED Prothrombin Time 25.2 SEC Prothromb Time International 2.2 RATIO Ratio Activated Partial 38.2 SEC Thromboplast Time Sodium Level 140 MEQ/L Potassium Level 4.1 MEQ/L Chloride Level 108 MEQ/L Carbon Dioxide Level 25.7 MEQ/L Anion Gap 6 MEQ/L Blood Urea Nitrogen 16 MG/DL Creatinine 0.54 MG/DL Estimat Glomerular Filtration 107 ML/MIN Rate Random Glucose 86 MG/DL Calcium Level 8.9 MG/DL Magnesium Level 2.2 MG/DL Total Bilirubin 0.5 MG/DL Aspartate Amino Transf 33 U/L (AST/SGOT) Alanine Aminotransferase 26 U/L (ALT/SGPT) Alkaline Phosphatase 189 U/L Total Protein 8.4 GM/DL Albumin 3.4 GM/DL MDM Medical Decision Making Medical Screen Exam Complete: Yes Emergency Medical Condition: Yes Medical Record Reviewed: Yes Differential Diagnosis Fracture, versus dislocation, versus intracranial hemorrhage, versus cervical spine trauma Narrative Course During the course of the patients emergency department visit, the patients history, examination, and differential diagnosis were reviewed with the patient. The patient had IV access obtained and blood work sent for analysis. The patient placed on a cardiac exercise physiologist with oximetry and blood pressure monitoring. The patient had an EKG done on arrival. The patient's EKG shows a sinus rhythm heart rate of 94 with occasional supraventricular premature complexes, no acute ST segment elevation. An x-ray of the pelvis, right hip, right femur, right tib-fib was ordered. A CT scan of the head and neck was ordered. The patient was initially provided normal saline a 500 mL bolus 1. The patient was given morphine for pain, Zofran for nausea. The patients laboratory studies were reviewed and remarkable for [-]. Radiology studies were reviewed and remarkable for [-] The patient continued to have discomfort intermittently requiring pain medication for relief. The patient's never called and never arrived to check on the patient. Given the ambulance services report that the patient appeared to not have a good home situation, and her apparently is having difficulty caring for her, the patient will be admitted to the hospital for consideration of placement assistance. The patients results were discussed with the patient, including the plan of care. I explained that further testing and/ or monitoring is indicated based on the patients history, examination, and/ or laboratory findings. Therefore, I recommended admission for additional evaluation. The patient expressed understanding and was agreeable with this plan. The patient was admitted to the hospital in stable condition and [facility] Physician Communication Physician Communication The patient's case was discussed with Dr. Mendoza who did agree to admit the patient for further evaluation and treatment at this time. Diagnosis Primary Impression: Generalized weakness Additional Impressions: Contusion of right lower extremity Qualified Code: S80.11XA - Contusion of right lower extremity, initial encounter Fall Qualified Code: W19.XXXA - Fall, initial encounter Admitting Information Admitting Physician Requests: Marixa Mcclain MD Jan 09, 2017 00:52
[2017-01-09 01:03] LABS: BACTERIA, URINE RARE /hpf; BLOOD, URINE NEG (NEG); COMMENT (UR) CATH-CULT NOT IND; CULTURE IF INDICATED CATH CULTURE NOT IND; GLUCOSE,URINE NEG (NEG); KETONE, URINE NEG (NEG); NITRITE,URINE NEG (NEG); PH, URINE 7.5 (5.0-8.5); RENAL EPITHELIAL CELLS <1 /hpf; SQUAMOUS EPITHELIAL CELL URINE 1 /hpf (0-5); URINE COLOR YELLOW (YELLW/STRAW)
--- NOTE | 2017-01-09 01:22 | RADRPT ---
EXAM DATE/TIME: 01/09/2017 00:51 [facility] COMPARISON: CT BRAIN W/O CONTRAST, October 15, 2016, 20:06. INDICATIONS : Trauma, fall. RADIATION DOSE: 56.35 CTDIvol (mGy) MEDICAL HISTORY : Seizures. Cardiovascular disease Hypertension.CVA. SURGICAL HISTORY : Hysterectomy. Right hip surgery. ENCOUNTER: Initial ACUITY: 1 day PAIN SCALE: 0/10 LOCATION: cranial TECHNIQUE: Multiple contiguous axial images were obtained of the head. Using automated exposure control and adj ustment of the mA and/or kV according to patient size, radiation dose was kept as low as reasonably a chievable to obtain optimal diagnostic quality images. FINDINGS: CEREBRUM: Stable large old infarct involving the left posterior frontal area. There is an old left lacunar infa rct which is stable. No focal or acute intracranial hemorrhage. No mass effect or midline shift. The ventricles are within normal limits and stable compared to the prior examination. POSTERIOR FOSSA: The cerebellum and brainstem are intact. The 4th ventricle is midline. The cerebellopontine angle i s unremarkable. EXTRACRANIAL: The visualized portion of the orbits is intact. SKULL: The calvaria is intact. No evidence of skull fracture. CONCLUSION: 1. No focal or acute intracranial hemorrhage. 2. 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 3. Stable left lacunar infarct. Jeremy Weinstein MD on January 09, 2017 at 1:19 Board Certified Radiologist. This report was verified electronically.
--- NOTE | 2017-01-09 01:25 | RADRPT ---
EXAM DATE/TIME: 01/09/2017 00:53 [facility] COMPARISON: CT CERVICAL SPINE W/O CONTRAST, October 15, 2016, 20:07. INDICATIONS : Trauma, fall. RADIATION DOSE: 15.34 CTDIvol (mGy) MEDICAL HISTORY : Seizures. Hypertension. Cardiovascular diseaseCVA. SURGICAL HISTORY : Hysterectomy. Right hip surgery. ENCOUNTER: Initial ACUITY: 1 day PAIN SCALE: 0/10 LOCATION: neck TECHNIQUE: Volumetric scanning of the cervical spine was performed. Multiplanar reconstructions in the sagittal, coronal and oblique axial planes were performed. Using automated exposure control and adjustment o f the mA and/or kV according to patient size, radiation dose was kept as low as reasonably achievable to obtain optimal diagnostic quality images. FINDINGS: Today's exam is compared to the prior study. There continues to be diffuse primary bony degenerative changes, disc degeneration and disc space narrowing throughout the cervical spine from C3-C7. No acut e bony fractures. Stable ossification along the top of the dens. No focal soft tissue swelling. No sp ondylolisthesis. No significant extradural defects on the canal. Compared to the prior study there day ve been no new or significant changes. CONCLUSION: 1. No acute bony fracture. 2. Stable diffuse primary bony degenerative changes, disc degeneration and disc space narrowing throu ghout the cervical spine. Jeremy Weinstein MD on January 09, 2017 at 1:21 Board Certified Radiologist. This report was verified electronically.
--- NOTE | 2017-01-09 01:27 | RADRPT ---
EXAM DATE/TIME: 01/09/2017 00:53 [facility] COMPARISON: TIBIA/FIBULA RIGHT (AP/LAT), December 09, 2016, 13:43. INDICATIONS : Right lower leg pain post fall. MEDICAL HISTORY : None. SURGICAL HISTORY : None. ENCOUNTER: Initial ACUITY: 1 day PAIN SCORE: 10/10 LOCATION: Right lower leg FINDINGS: Two view examination of the right tibia demonstrates no evidence of fracture or dislocation. Bony mi neralization is osteopenic.. The soft tissue structures are intact. No significant change. CONCLUSION: No acute fracture or joint dislocation. Stable exam compared to the prior study. Jeremy Weinstein MD on January 09, 2017 at 1:24 Board Certified Radiologist. This report was verified electronically.
--- NOTE | 2017-01-09 01:28 | RADRPT ---
EXAM DATE/TIME: 01/09/2017 00:50 [facility] COMPARISON: CHEST SINGLE AP, October 15, 2016, 20:03. INDICATIONS : Short of breath. MEDICAL HISTORY : Congestive heart failure. Hypercholesterolemia. Hypertension. Corornary arery disease. SURGICAL HISTORY : None. ENCOUNTER: Initial ACUITY: 1 day PAIN SCORE: 0/10 LOCATION: Bilateral chest FINDINGS: There appears to be chronic interstitial lung disease throughout both lung polo without significant change compared to the prior exam. No definite new areas of focal proximal consolidation are demonst rated. There are no pleural effusions. The heart size is within normal limits. The bony structures ar e stable. CONCLUSION: Bilateral interstitial lung disease which appears to be stable compared to the prior exam. Jeremy Weinstein MD on January 09, 2017 at 1:25 Board Certified Radiologist. This report was verified electronically.
--- NOTE | 2017-01-09 01:29 | RADRPT ---
EXAM DATE/TIME: 01/09/2017 00:38 [facility] COMPARISON: FEMUR RIGHT (AP & LAT/2VWS), October 15, 2016, 19:54. INDICATIONS : Right femur pain post fall. MEDICAL HISTORY : None. SURGICAL HISTORY : None. ENCOUNTER: Initial ACUITY: 1 day PAIN SCORE: 10/10 LOCATION: Right femur FINDINGS: Two view examination of the right femur demonstrates no evidence of fracture or dislocation. Bony mi neralization is osteopenic. The soft tissue structures are intact. No significant change compared to the prior study. CONCLUSION: No acute fracture or joint dislocation. Jeremy Weinstein MD on January 09, 2017 at 1:27 Board Certified Radiologist. This report was verified electronically.
--- NOTE | 2017-01-09 01:30 | RADRPT ---
EXAM DATE/TIME: 01/09/2017 00:40 [facility] COMPARISON: HIP RIGHT (AP&LAT 2/3VWS) W AP PELVIS, December 09, 2016, 6:20. INDICATIONS : Right hip pain post fall. MEDICAL HISTORY : None. SURGICAL HISTORY : Left hip replacement. ENCOUNTER: Initial ACUITY: 1 day PAIN SCORE: 10/10 LOCATION: Right hip FINDINGS: Examination of the right hip was performed with AP Pelvis. There is osteopenia the bony structures. T here is a left hip prosthesis in place. No acute bony fracture or joint dislocation is demonstrated. No new or significant changes compared to the prior exam. CONCLUSION: No acute fracture or joint dislocation. Stable examination. Jeremy Weinstein MD on January 09, 2017 at 1:28 Board Certified Radiologist. This report was verified electronically.
[2017-01-09 01:44] LABS: AUTOMATED NEUTROPHIL # 10.4 TH/MM3 (1.8-7.7); BASOPHIL # 0.1 TH/MM3 (0-0.2); BASOPHIL % 0.4 % (0.0-2.0); EOSINOPHIL # 0.1 TH/MM3 (0-0.4); EOSINOPHIL % 0.7 % (0.0-4.0); HEMATOCRIT 42.2 % (35.0-46.0); HEMO FLAGS AUTO DIFF; LYMPH % 7.8 % (9.0-44.0); LYMPHOCYTE # 0.9 TH/MM3 (1.0-4.8); MEAN CELL VOLUME 87.7 FL (80.0-100.0); MEAN CORPUSCULAR HEMOGLOBIN 29.4 PG (27.0-34.0); MEAN CORPUSCULAR HGB CONC 33.6 % (32.0-36.0); MONO % 3.3 % (0.0-8.0); NEUT % 87.8 % (16.0-70.0); PLATELET COUNT 277 TH/MM3 (150-450); RED BLOOD COUNT 4.81 MIL/MM3 (4.00-5.30); RED CELL DISTRIBUTION WIDTH 14.7 % (11.6-17.2); WHITE BLOOD COUNT 11.9 TH/MM3 (4.0-11.0)
[2017-01-09 01:53] LABS: APTT (PATIENT) 38.2 SEC (24.3-30.1); INTERNATIONAL NORMALIZED RATIO 2.2 RATIO; PROTHROMBIN TIME - PATIENT 25.2 SEC (9.8-11.6)
[2017-01-09 02:12] LABS: ALKALINE PHOSPHATASE 189 U/L (45-117); TOTAL BILIRUBIN ADULT 0.5 MG/DL (0.2-1.0)
[2017-01-09 02:23] LABS: SCAN/DIFF AUTO DIFF CONFIRMED
[2017-01-09] MEDS ORDERED: ONDANSETRON HCL 4 MG/2 ML VIAL IV PUSH ONE (02:45)
[2017-01-09] MEDS ORDERED: MORPHINE SULFATE 4 MG/ML INJ IV PUSH ONE (02:45)
[2017-01-09 03:15] LABS: ALT (GPT) 26 U/L (10-53); ANION GAP 6 MEQ/L (5-15); AST (GOT) 33 U/L (15-37); BICARBONATE 25.7 MEQ/L (21.0-32.0); BLOOD UREA NITROGEN 16 MG/DL (7-18); CHLORIDE 108 MEQ/L (98-107); GLOMERULAR FILTRATION RATE 107 ML/MIN (>89); MAGNESIUM 2.2 MG/DL (1.5-2.5); POTASSIUM 4.1 MEQ/L (3.5-5.1); SODIUM (NA) 140 MEQ/L (136-145)
[2017-01-09] MEDS ORDERED: SODIUM CHLORIDE 0.9% FLUSH 10 ML FLUSH IV FLUSH PRN (04:00)
[2017-01-09] MEDS ORDERED: NALOXONE HCL 0.4 MG/ML AMP IV PRN (04:00)
--- NOTE | 2017-01-09 04:17 | HHI.HP ---
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 Patient has aphagia information is very difficult to obtain per patient. Patient does point to RLE when asked about pain. Patient offers no other complaints at this time. Information gathered by physical exam and review of prior medical records. Per ER documentation patient had an unwitnessed fall from her wheelchair prior to arrival. Patient also has an older bruise on the chin. The patient is noted to have a small abrasion to the right cheek and an older appearing abrasion to the left lateral shoulder. Patient had brief in place soiled with both stool and urine. Patient's perineal skin excoriated. 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, hyperlipidemia, CHF, CAD, hypertension, intracranial hemorrhage 10/15/16, hypercholesterolemia Past Surgical History Eye surgery with detached retina bilateral cataract surgery Hysterectomy Reported Medications Potassium Chloride ER (Potassium Chloride) 20 Meq Tab 20 Meq PO DAILY K-Phos (Potassium Phosphate Monobasic) 500 Mg Tab 500 Mg PO BID Lisinopril 20 Mg Tab 40 Mg PO DAILY Norvasc (Amlodipine Besylate) 10 Mg Tab 10 Mg PO DAILY Digoxin 0.25 Mg Tab 0.25 Mg PO DAILY Metoprolol Tartrate 25 Mg Tab 25 Mg PO BID Dilantin (Phenytoin Extended) 100 Mg Cap 100 Mg PO BID Allergies: Coded Allergies: Sulfa (Verified Allergy, Severe, UNKNOWN, 01/09/17) Active Ordered Medications Current Medications Medications (Trade) Dose Ordered Sig/Anabella Route Start Time Stop Time Status Last Admin (NS Flush) 2 ml UNSCH PRN IV FLUSH 01/09/17 04:00 (NS Flush) 2 ml BID IV FLUSH 01/09/17 09:00 (Narcan Inj) 0.4 mg UNSCH PRN IV 01/09/17 04:00 Family History Unable to obtain due to patient's clinical condition- prior records reviewed no reported family medical history Social History Patient lives at home with No report of tobacco use EtOH use or illicit drug use Physical Exam Vital Signs Vital Signs Date Time Temp Pulse Resp B/P Pulse Ox O2 Delivery O2 Flow Rate FiO2 01/09/17 03:57 82 18 135/84 92 Nasal Cannula 2 01/09/17 03:37 70 16 130/68 98 Room Air 01/09/17 00:05 97.6 76 16 204/86 96 Physical Exam GENERAL: This is an elderly 86 year old female patient with excoriated perineal area, soiled brief, multiple healing abrasions and ecchymotic areas SKIN: Multiple healing abrasions and ecchymotic areas EYES: Extraocular motions intact. No scleral icterus. No injection or drainage. CARDIOVASCULAR: Regular rate and rhythm without murmurs, gallops, or rubs. RESPIRATORY: Clear to auscultation. Breath sounds equal bilaterally. No wheezes , rales, or rhonchi. GASTROINTESTINAL: Abdomen soft, non-tender, nondistended. No hepato-splenomegaly , or palpable masses. No guarding. MUSCULOSKELETAL: RUE contracted, RLE contracted. Right lower extremity is more edematous than left NEUROLOGICAL: Awake and alert. aphagia. Unable to follow commands Laboratory Laboratory Tests Test 01/09/17 01/09/17 01/09/17 00:45 01:36 02:35 Urine Color YELLOW Urine Turbidity HAZY Urine pH 7.5 Urine Specific [place] 1.020 Urine Protein TRACE Urine Glucose (UA) NEG Urine Ketones NEG Urine Occult Blood NEG Urine Nitrite NEG Urine Bilirubin NEG Urine Urobilinogen LESS THAN 2.0 Urine Leukocyte Esterase NEG Urine RBC 2 Urine WBC 2 Urine Squamous Epithelial 1 Cells Urine Renal Epithelial Cells <1 Urine Amorphous Sediment RARE Urine Bacteria RARE Microscopic Urinalysis Comment CATH-CULT NOT IND White Blood Count 11.9 Red Blood Count 4.81 Hemoglobin 14.2 Hematocrit 42.2 Mean Corpuscular Volume 87.7 Mean Corpuscular Hemoglobin 29.4 Mean Corpuscular Hemoglobin 33.6 Concent Red Cell Distribution Width 14.7 Platelet Count 277 Mean Platelet Volume 8.4 Neutrophils (%) (Auto) 87.8 Lymphocytes (%) (Auto) 7.8 Monocytes (%) (Auto) 3.3 Eosinophils (%) (Auto) 0.7 Basophils (%) (Auto) 0.4 Neutrophils # (Auto) 10.4 Lymphocytes # (Auto) 0.9 Monocytes # (Auto) 0.4 Eosinophils # (Auto) 0.1 Basophils # (Auto) 0.1 CBC Comment AUTO DIFF Differential Comment AUTO DIFF CONFIRMED Prothrombin Time 25.2 Prothromb Time International 2.2 Ratio Activated Partial 38.2 Thromboplast Time Sodium Level 140 Potassium Level 4.1 Chloride Level 108 Carbon Dioxide Level 25.7 Anion Gap 6 Blood Urea Nitrogen 16 Creatinine 0.54 Estimat Glomerular Filtration 107 Rate Random Glucose 86 Calcium Level 8.9 Magnesium Level 2.2 Total Bilirubin 0.5 Aspartate Amino Transf 33 (AST/SGOT) Alanine Aminotransferase 26 (ALT/SGPT) Alkaline Phosphatase 189 Total Protein 8.4 Albumin 3.4 Result Diagram: 01/09/17 0136 01/09/17 0235 Imaging Last Impressions Head CT 01/09/1719 Signed Impressions: Service Date/Time: Monday, January 09, 2017 00:51 - CONCLUSION: 1. No focal or acute intracranial hemorrhage. 2. 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 3. Stable left lacunar infarct. Jeremy Weinstein MD Cervical Spine CT 01/09/1719 Signed Impressions: Service Date/Time: Monday, January 09, 2017 00:53 - CONCLUSION: 1. No acute bony fracture. 2. Stable diffuse primary bony degenerative changes, disc degeneration and disc space narrowing throughout the cervical spine. Jeremy Weinstein MD Tibia/Fibula X-Ray 01/09/1716 Signed Impressions: Service Date/Time: Monday, January 09, 2017 00:53 - CONCLUSION: No acute fracture or joint dislocation. Stable exam compared to the prior study. Jeremy Weinstein MD Hip and Pelvis X-Ray 01/09/1716 Signed Impressions: Service Date/Time: Monday, January 09, 2017 00:40 - CONCLUSION: No acute fracture or joint dislocation. Stable examination. Jeremy Weinstein MD Femur X-Ray 01/09/177 Signed Impressions: Service Date/Time: Monday, January 09, 2017 00:38 - CONCLUSION: No acute fracture or joint dislocation. Jeremy Weinstein MD Chest X-Ray 01/09/177 Signed Impressions: Service Date/Time: Monday, January 09, 2017 00:50 - CONCLUSION: Bilateral interstitial lung disease which appears to be stable compared to the prior exam. Jeremy Weinstein MD Assessment and Plan Problem List: (1) Right leg pain ICD Code: M79.604 Status: Chronic Assessment and Plan This is an 86 year old female patient with past medical history which includes atrial fibrillation on Coumadin, 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 Patient has aphagia information is very difficult to obtain per patient. Patient does point to RLE when asked about pain. Patient offers no other complaints at this time. Right lower extremity pain- with edema Routine ultrasound to rule out DVT- low index of suspicion as patient INR is 2.2 Imaging reviewed right tibia-fibula x-ray reviewed by myself as well as Dr. Mendoza and reveals No acute fracture or joint dislocation. Stable exam compared to the prior study. Right femur x-ray reviewed by myself as well as Dr. Mendoza and reveals No acute fracture or joint dislocation. Stable examination. Hip/pelvic x-ray reviewed by myself as well as Dr. Mendoza and reveals:No acute fracture or joint dislocation. Stable examination. Intracranial hemorrhage September 2016- patient was on Coumadin at that time which was discontinued concerned because INR is 2.2 Request RN to clarify med reconciliation with /pharmacy CT of the head reviewed report reveals no focal or acute intracranial hemorrhage. 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 Stable left lacunar infarct Atrial fibrillation- chronic rate controlled continue digoxin Hypertension- chronic continue home medication metoprolol, lisinopril and Norvasc with hold parameters Prior CVA with right-sided hemiparalysis Consult physical therapy Consult case management patient will likely need placement at time of discharge DVT prophylaxis patient INR is 2.2- request RN clarify home med reconciliation concerned patient still on Coumadin no further DVT prophylaxis at this time Discussed with ER provider, nursing inpatient Written by Ltaasha Mejia, acting as scribe for Dr. Mendoza on 01/09/17 at 05: 08. This note was transcribed by scribe [Latasha Mejia]. I, Dr. Christiano Mendoza personally performed the history, physical exam, and medical decision making; and confirmed the accuracy of the information in the transcribed note. Authenticated by Dr. Christiano Mendoza on 01/09/17 at 05:08. Latasha Mejia Jan 09, 2017 04:17 Christiano Mendoza MD Jan 09, 2017 07:02
--- NOTE | 2017-01-09 08:36 | EKG ---
Date Performed: 01/09/2017 Time Performed: 01:31:48 PTAGE: 86 years EKG: Sinus rhythm WITH OCCASIONAL SUPRAVENTRICULAR PREMATURE COMPLEXES ST DEPRESSION, CONSIDER INCERIOR AND ANTEROLATE RAL ISCHEMIA ABNORMAL ECG PREVIOUS TRACING : 10/15/2016 20.47 No significant change from previous tracing noted. DOCTOR: Luis Miguel Winston Interpretating Date/Time 01/09/2017 08:35:53
[2017-01-09] MEDS: SODIUM CHLORIDE 0.9% FLUSH 10 ML FLUSH IV FLUSH SCH ×2 (09:00→23:02)
[2017-01-09] MEDS: DIGOXIN 0.25 MG TAB PO SCH (09:33)
[2017-01-09] MEDS: METOPROLOL TARTRATE 25 MG TAB PO SCH ×2 (09:34→21:00)
[2017-01-09] MEDS: LISINOPRIL 20 MG TAB PO SCH (09:34)
[2017-01-09] MEDS: PHENYTOIN SODIUM 100 MG CAP PO SCH ×2 (09:36→23:02)
--- NOTE | 2017-01-09 11:29 | RADRPT ---
EXAM DATE/TIME: 01/09/2017 10:21 [place] COMPARISON: US LEG BILATERAL VENOUS DOPPLER, October 11, 2014, 15:24. INDICATIONS : Leg pain. MEDICAL HISTORY : Seizures. Hypertension. Cardiovascular disease. CVA. SURGICAL HISTORY : Hysterectomy. Right hip surgery. ENCOUNTER: Initial ACUITY: 1 day PAIN SCORE: 5/10 LOCATION: Bilateral legs. TECHNIQUE: Venous ultrasound of the left and right leg was performed from the inguinal ligament to the proximal calf. Real-time, color Doppler and spectral tracing, compression and augmentation techniques were us ed. FINDINGS: RIGHT LEG: There is normal compressibility of the deep venous system from the inguinal region to the proximal ca lf. No echogenic clot is seen in the lumen of the common femoral, femoral, popliteal, and posterior tibial veins. There is a normal response of the venous system to proximal and distal augmentation an d respiration. LEFT LEG: There is normal compressibility of the deep venous system from the inguinal region to the proximal ca lf. No echogenic clot is seen in the lumen of the common femoral, femoral, popliteal, and posterior tibial veins. There is a normal response of the venous system to proximal and distal augmentation an d respiration. CONCLUSION: Negative exam with no evidence of deep venous thrombosis. Bill Larsen MD on January 09, 2017 at 11:27 Board Certified Radiologist. This report was verified electronically.
[2017-01-10] VITALS (7 sets, daily range): BP systolic 117–147; BP diastolic 60–79; PULSE 63–85; RESP 18–20; TEMP 98–98.2; O2SAT 93–98
[2017-01-10 05:38] LABS: AUTOMATED NEUTROPHIL # 6.5 TH/MM3 (1.8-7.7); BASOPHIL % 0.4 % (0.0-2.0); EOSINOPHIL # 0.2 TH/MM3 (0-0.4); HEMATOCRIT 37.1 % (35.0-46.0); LYMPH % 17.6 % (9.0-44.0); LYMPHOCYTE # 1.6 TH/MM3 (1.0-4.8); MEAN CELL VOLUME 89.1 FL (80.0-100.0); MEAN CORPUSCULAR HEMOGLOBIN 28.7 PG (27.0-34.0); MEAN CORPUSCULAR HGB CONC 32.2 % (32.0-36.0); MONO % 7.7 % (0.0-8.0); NEUT % 72.3 % (16.0-70.0); PLATELET COUNT 182 TH/MM3 (150-450); RED BLOOD COUNT 4.16 MIL/MM3 (4.00-5.30); RED CELL DISTRIBUTION WIDTH 14.7 % (11.6-17.2); WHITE BLOOD COUNT 9.1 TH/MM3 (4.0-11.0)
[2017-01-10 05:40] LABS: BICARBONATE 28.1 MEQ/L (21.0-32.0); POTASSIUM 4.1 MEQ/L (3.5-5.1)
[2017-01-10 05:49] LABS: HEMO FLAGS AUTO DIFF
[2017-01-10 07:34] LABS: SCAN/DIFF AUTO DIFF CONFIRMED
[2017-01-10] MEDS: METOPROLOL TARTRATE 25 MG TAB PO SCH ×2 (08:28→21:27)
[2017-01-10] MEDS: SODIUM CHLORIDE 0.9% FLUSH 10 ML FLUSH IV FLUSH SCH ×2 (08:28→21:27)
[2017-01-10] MEDS: LISINOPRIL 20 MG TAB PO SCH (08:29)
[2017-01-10] MEDS: PHENYTOIN SODIUM 100 MG CAP PO SCH ×2 (08:29→21:27)
[2017-01-10] MEDS: DIGOXIN 0.25 MG TAB PO SCH (09:00)
--- NOTE | 2017-01-10 09:41 | HHI.PR ---
Subjective Remarks Follow up generalized weakness failure to thrive. Patient is aphasic and unable to take very much. She does complain of pain, and is able to point to her right thigh. She does grimace with palpation. No family is currently at bedside. Per RN patient lives with her and he is unable to care for her. Objective Vitals Vital Signs Date Time Temp Pulse Resp B/P Pulse Ox O2 Delivery O2 Flow Rate FiO2 01/10/17 08:16 64 134/64 97 01/10/17 02:32 72 18 146/67 98 01/09/17 20:45 75 01/09/17 19:54 98.3 86 18 109/56 92 01/09/17 16:33 98.4 68 18 133/70 97 01/09/17 12:28 98.7 78 18 131/77 96 01/09/17 12:01 98.2 68 18 146/67 98 Result Diagram: 01/10/17 0434 01/10/17 0434 Imaging Last Impressions Head CT 01/09/170 Signed Impressions: Service Date/Time: Monday, January 09, 2017 00:51 - CONCLUSION: 1. No focal or acute intracranial hemorrhage. 2. 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 3. Stable left lacunar infarct. Jeremy Weinstein MD Cervical Spine CT 01/09/1719 Signed Impressions: Service Date/Time: Monday, January 09, 2017 00:53 - CONCLUSION: 1. No acute bony fracture. 2. Stable diffuse primary bony degenerative changes, disc degeneration and disc space narrowing throughout the cervical spine. Jeremy Weinstein MD Tibia/Fibula X-Ray 01/09/1716 Signed Impressions: Service Date/Time: Monday, January 09, 2017 00:53 - CONCLUSION: No acute fracture or joint dislocation. Stable exam compared to the prior study. Jeremy Weinstein MD Hip and Pelvis X-Ray 01/09/1716 Signed Impressions: Service Date/Time: Monday, January 09, 2017 00:40 - CONCLUSION: No acute fracture or joint dislocation. Stable examination. Jeremy Weinstein MD Femur X-Ray 01/09/1716 Signed Impressions: Service Date/Time: Monday, January 09, 2017 00:38 - CONCLUSION: No acute fracture or joint dislocation. Jeremy Weinstein MD Chest X-Ray 01/09/17 0017 Signed Impressions: Service Date/Time: Monday, January 09, 2017 00:50 - CONCLUSION: Bilateral interstitial lung disease which appears to be stable compared to the prior exam. Jeremy Weinstein MD Lower Extremity Ultrasound 01/09/17 0000 Signed Impressions: Service Date/Time: Monday, January 09, 2017 10:21 - CONCLUSION: Negative exam with no evidence of deep venous thrombosis. Bill Larsen MD Objective Remarks GENERAL: This is an elderly 86 year old female patient who is aphasic and can only nod to simple questions SKIN: Multiple healing abrasions and ecchymotic areas, excoriated perineal area EYES: Extraocular motions intact. No scleral icterus. No injection or drainage. CARDIOVASCULAR: Regular rate and rhythm without murmurs, gallops, or rubs. RESPIRATORY: Clear to auscultation. Breath sounds equal bilaterally. No wheezes , rales, or rhonchi. GASTROINTESTINAL: Abdomen soft, non-tender, nondistended. No hepato-splenomegaly , or palpable masses. No guarding. MUSCULOSKELETAL: RUE contracted, RLE contracted. Right lower extremity is more edematous than left. Pain to right thigh with palpation. NEUROLOGICAL: Awake and alert. aphagia. Medications and IVs Current Medications Medications (Trade) Dose Ordered Sig/Anabella Route Start Time Stop Time Status Last Admin (NS Flush) 2 ml UNSCH PRN IV FLUSH 01/09/17 04:00 (NS Flush) 2 ml BID IV FLUSH 01/09/17 09:00 01/10/17 08:28 (Narcan Inj) 0.4 mg UNSCH PRN IV 01/09/17 04:00 (Norvasc) 10 mg DAILY PO 01/09/17 09:00 01/10/17 08:28 (Lanoxin) 0.25 mg DAILY PO 01/09/17 09:00 01/09/17 09:33 (Prinivil) 40 mg DAILY PO 01/09/17 09:00 01/10/17 08:29 (Lopressor) 25 mg BID PO 01/09/17 09:00 01/10/17 08:28 Phenytoin 100 mg 100 mg BID PO 01/09/17 09:00 01/10/17 08:29 (1/2 NS 1000 ml Inj) 1,000 ml @ 75 mls/hr [id number] IV 01/10/17 09:45 UNV A/P Problem List: (1) Right leg pain ICD Code: M79.604 Status: Chronic Assessment and Plan This is an 86 year old female patient with past medical history which includes atrial fibrillation on Coumadin, 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 Patient has aphagia information is very difficult to obtain per patient. Patient does point to RLE when asked about pain. Patient offers no other complaints at this time. Right lower extremity pain- with edema LE US shows no DVT -Dilaudid prn for pain management Intracranial hemorrhage September 2016- patient was on Coumadin at that time which was discontinued concerned because INR is 2.2 Request RN to clarify med reconciliation with /pharmacy CT of the head reviewed report reveals no focal or acute intracranial hemorrhage. 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 Stable left lacunar infarct Atrial fibrillation- chronic rate controlled continue digoxin Hypertension- chronic continue home medication metoprolol, lisinopril and Norvasc with hold parameters Prior CVA with right-sided hemiparalysis Consult physical therapy Consult case management patient will likely need placement at time of discharge DVT prophylaxis patient INR is 2.2- request RN clarify home med reconciliation concerned patient still on Coumadin no further DVT prophylaxis at this time Vanesa Nance Jan 10, 2017 09:41 Mady White MD Jan 10, 2017 14:39
[2017-01-10] MEDS: SODIUM CHLOR 0.45% 1000 ML INJ 1,000 ML IV SCH ×2 (10:31→23:23)
[2017-01-10] MEDS: HYDROmorphone HCL PF 1 MG/ML VIAL IV PUSH PRN ×3 (13:34→23:24)
[2017-01-11] VITALS (9 sets, daily range): BP systolic 123–178; BP diastolic 57–75; PULSE 63–86; RESP 16–18; TEMP 97.9–99.1; O2SAT 93–98
[2017-01-11] MEDS: HYDROmorphone HCL PF 1 MG/ML VIAL IV PUSH PRN ×3 (10:05→23:28)
[2017-01-11] MEDS: SODIUM CHLORIDE 0.9% FLUSH 10 ML FLUSH IV FLUSH SCH ×2 (10:06→20:43)
[2017-01-11] MEDS: PHENYTOIN SODIUM 100 MG CAP PO SCH ×2 (10:06→20:43)
[2017-01-11] MEDS: METOPROLOL TARTRATE 25 MG TAB PO SCH ×2 (10:06→20:42)
[2017-01-11] MEDS: LISINOPRIL 20 MG TAB PO SCH (10:06)
[2017-01-11] MEDS: DIGOXIN 0.25 MG TAB PO SCH (10:06)
--- NOTE | 2017-01-11 12:45 | HHI.PR ---
Subjective Remarks Follow up generalized weakness. Patient seen and examined today in bed. Patient is aphasic but able to shack head yes to pain and points to right thigh. Dilaudid IV was given for pain over night. She also grimaces when abdomen is palpated, and shacks head no to BM. Discussed with case management who is in the process of finding a SNF for patient. Objective Vitals Vital Signs Date Time Temp Pulse Resp B/P Pulse Ox O2 Delivery O2 Flow Rate FiO2 01/11/17 09:15 Nasal Cannula 2.00 01/11/17 08:00 99.1 68 18 178/75 95 01/11/17 04:00 98.2 70 18 134/70 93 01/11/17 00:00 98.3 78 16 138/73 95 01/10/17 23:00 69 01/10/17 19:15 85 20 129/62 93 01/10/17 16:36 98.0 72 19 147/63 93 I/O 01/10/17 01/10/17 01/10/17 01/11/17 01/11/17 01/11/17 07:00 15:00 23:00 07:00 15:00 23:00 Intake Total 240 ml Balance 240 ml Intake Oral 240 ml # Voids 2 4 Result Diagram: 01/10/17 0434 01/10/17 0434 Imaging Last Impressions Head CT 01/09/1719 Signed Impressions: Service Date/Time: Monday, January 09, 2017 00:51 - CONCLUSION: 1. No focal or acute intracranial hemorrhage. 2. 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 3. Stable left lacunar infarct. Jeremy Weinstein MD Cervical Spine CT 01/09/1719 Signed Impressions: Service Date/Time: Monday, January 09, 2017 00:53 - CONCLUSION: 1. No acute bony fracture. 2. Stable diffuse primary bony degenerative changes, disc degeneration and disc space narrowing throughout the cervical spine. Jeremy Weinstein MD Tibia/Fibula X-Ray 01/09/1716 Signed Impressions: Service Date/Time: Monday, January 09, 2017 00:53 - CONCLUSION: No acute fracture or joint dislocation. Stable exam compared to the prior study. Jeremy Weinstein MD Hip and Pelvis X-Ray 01/09/1716 Signed Impressions: Service Date/Time: Monday, January 09, 2017 00:40 - CONCLUSION: No acute fracture or joint dislocation. Stable examination. Jeremy Weinstein MD Femur X-Ray 01/09/177 Signed Impressions: Service Date/Time: Monday, January 09, 2017 00:38 - CONCLUSION: No acute fracture or joint dislocation. Jeremy Weinstein MD Chest X-Ray 01/09/1716 Signed Impressions: Service Date/Time: Monday, January 09, 2017 00:50 - CONCLUSION: Bilateral interstitial lung disease which appears to be stable compared to the prior exam. Jeremy Weinstein MD Lower Extremity Ultrasound 01/09/17 0000 Signed Impressions: Service Date/Time: Monday, January 09, 2017 10:21 - CONCLUSION: Negative exam with no evidence of deep venous thrombosis. Bill Larsen MD Objective Remarks GENERAL: This is an elderly 86 year old female patient who is aphasic and can only nod to simple questions SKIN: Multiple healing abrasions and ecchymotic areas, excoriated perineal area EYES: Extraocular motions intact. No scleral icterus. No injection or drainage. CARDIOVASCULAR: Regular rate and rhythm without murmurs, gallops, or rubs. RESPIRATORY: Clear to auscultation. Breath sounds equal bilaterally. No wheezes , rales, or rhonchi. GASTROINTESTINAL: Abdomen soft, non-tender, nondistended. No hepato-splenomegaly , or palpable masses. No guarding. MUSCULOSKELETAL: RUE contracted, RLE contracted. Right lower extremity is more edematous than left. Pain to right thigh with palpation. NEUROLOGICAL: Awake and alert. aphagia. Medications and IVs Current Medications Medications (Trade) Dose Ordered Sig/Anabella Route Start Time Stop Time Status Last Admin (NS Flush) 2 ml UNSCH PRN IV FLUSH 01/09/17 04:00 (NS Flush) 2 ml BID IV FLUSH 01/09/17 09:00 01/11/17 10:06 (Narcan Inj) 0.4 mg UNSCH PRN IV 01/09/17 04:00 (Norvasc) 10 mg DAILY PO 01/09/17 09:00 01/11/17 10:05 (Lanoxin) 0.25 mg DAILY PO 01/09/17 09:00 01/11/17 10:06 (Prinivil) 40 mg DAILY PO 01/09/17 09:00 01/11/17 10:06 (Lopressor) 25 mg BID PO 01/09/17 09:00 01/11/17 10:06 Phenytoin 100 mg 100 mg BID PO 01/09/17 09:00 01/11/17 10:06 (1/2 NS 1000 ml Inj) 1,000 ml @ 75 mls/hr [id number] IV 01/10/17 09:45 01/10/17 23:23 (Dilaudid Pf Inj) 0.2 mg Q4H PRN IV PUSH 01/10/17 10:30 01/11/17 10:05 A/P Problem List: (1) Right leg pain ICD Code: M79.604 Status: Chronic Assessment and Plan This is an 86 year old female patient with past medical history which includes atrial fibrillation on Coumadin, 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 Patient has aphagia information is very difficult to obtain per patient. Patient does point to RLE when asked about pain. Patient offers no other complaints at this time. Right lower extremity pain- with edema LE US shows no DVT -Dilaudid prn for pain management Constipation -Senna BID -Milk of mag PRN Intracranial hemorrhage September 2016- patient was on Coumadin at that time which was discontinued concerned because INR is 2.2 Request RN to clarify med reconciliation with /pharmacy CT of the head reviewed report reveals no focal or acute intracranial hemorrhage. 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 Stable left lacunar infarct Atrial fibrillation- chronic rate controlled -continue digoxin, dig level 1.1 -Recheck INR Hypertension- chronic -continue home medication metoprolol, lisinopril and Norvasc with hold parameters Prior CVA with right-sided hemiparalysis -Cont physical therapy daily DVT prophylaxis patient INR is 2.2- request RN clarify home med reconciliation concerned patient still on Coumadin no further DVT prophylaxis at this time, SCDs Written by CARMINE Olivia acting as scribe for [Cosma] on 01/11/17 at 12: 15. This note was transcribed by brandy LOU. I, Dr. Mady White personally performed the history, physical exam, and medical decision making; and confirmed the accuracy of the information in the transcribed note. Authenticated by Dr. Mady White on 01/11/17 at 12:15. Discharge Planning Awaiting SNF placement Vanesa Nance Jan 11, 2017 12:45 Mady White MD Jan 11, 2017 14:43
[2017-01-11] MEDS: SODIUM CHLOR 0.45% 1000 ML INJ 1,000 ML IV SCH (14:42)
[2017-01-11] MEDS: DOCUSATE SODIUM 50 MG/SENNA 8.6 MG TAB PO SCH (20:43)
[2017-01-12] MEDS: SODIUM CHLOR 0.45% 1000 ML INJ 1,000 ML IV SCH ×2 (01:45→14:36)
[2017-01-12 03:49] VITALS: BP 104/54; PULSE 71; RESP 16; TEMP 98.1; O2SAT 96
[2017-01-12 08:00] VITALS: BP 149/92; PULSE 64; RESP 18; TEMP 97.7; O2SAT 92
[2017-01-12] MEDS: LISINOPRIL 20 MG TAB PO SCH (08:06)
[2017-01-12] MEDS: PHENYTOIN SODIUM 100 MG CAP PO SCH ×2 (08:06→20:12)
[2017-01-12] MEDS: MAGNESIUM HYDROXIDE SUSP 30 ML CUP PO PRN ×2 (08:06→16:06)
[2017-01-12] MEDS: DOCUSATE SODIUM 50 MG/SENNA 8.6 MG TAB PO SCH ×2 (08:07→20:11)
[2017-01-12] MEDS: SODIUM CHLORIDE 0.9% FLUSH 10 ML FLUSH IV FLUSH SCH ×2 (08:07→20:12)
[2017-01-12] MEDS: METOPROLOL TARTRATE 25 MG TAB PO SCH ×2 (08:07→20:11)
[2017-01-12] MEDS: DIGOXIN 0.25 MG TAB PO SCH (08:07)
--- NOTE | 2017-01-12 08:11 | HHI.PR ---
Subjective Remarks With constipation. Has pain when moving. Pain is controlled by meds. No n/v. No fever or chills. Objective Vitals Vital Signs Date Time Temp Pulse Resp B/P Pulse Ox O2 Delivery O2 Flow Rate FiO2 01/12/17 03:49 98.1 71 16 104/54 96 01/11/17 23:00 98.1 63 16 161/70 95 01/11/17 21:09 97.9 69 16 149/67 93 01/11/17 20:45 Nasal Cannula 2.00 01/11/17 20:45 Nasal Cannula 2.00 01/11/17 20:00 78 01/11/17 16:00 97.9 74 18 149/68 93 01/11/17 12:00 98.4 67 18 123/57 98 01/11/17 09:15 Nasal Cannula 2.00 I/O 01/11/17 01/11/17 01/11/17 01/12/17 01/12/17 01/12/17 07:00 15:00 23:00 07:00 15:00 23:00 Intake Total 240 ml 972 ml 759 ml 748 ml Balance 240 ml 972 ml 759 ml 748 ml Intake Oral 240 ml 500 ml 240 ml 120 ml IV Total 472 ml 519 ml 628 ml # Voids 4 6 3 96 # Bowel Movements 0 0 0 Result Diagram: 01/10/1743301/10/17433 Imaging Last Impressions Head CT 01/09/1719 Signed Impressions: Service Date/Time: Monday, January 09, 2017 00:51 - CONCLUSION: 1. No focal or acute intracranial hemorrhage. 2. 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 3. Stable left lacunar infarct. Jeremy Weinstein MD Cervical Spine CT 01/09/1719 Signed Impressions: Service Date/Time: Monday, January 09, 2017 00:53 - CONCLUSION: 1. No acute bony fracture. 2. Stable diffuse primary bony degenerative changes, disc degeneration and disc space narrowing throughout the cervical spine. Jeremy Weinstein MD Tibia/Fibula X-Ray 01/09/17 0017 Signed Impressions: Service Date/Time: Monday, January 09, 2017 00:53 - CONCLUSION: No acute fracture or joint dislocation. Stable exam compared to the prior study. Jeremy Weinstein MD Hip and Pelvis X-Ray 01/09/177 Signed Impressions: Service Date/Time: Monday, January 09, 2017 00:40 - CONCLUSION: No acute fracture or joint dislocation. Stable examination. Jermey Weinstein MD Femur X-Ray 01/09/177 Signed Impressions: Service Date/Time: Monday, January 09, 2017 00:38 - CONCLUSION: No acute fracture or joint dislocation. Jeremy Weinstein MD Chest X-Ray 01/09/1716 Signed Impressions: Service Date/Time: Monday, January 09, 2017 00:50 - CONCLUSION: Bilateral interstitial lung disease which appears to be stable compared to the prior exam. Jeremy Weinstein MD Lower Extremity Ultrasound 01/09/17 0000 Signed Impressions: Service Date/Time: Monday, January 09, 2017 10:21 - CONCLUSION: Negative exam with no evidence of deep venous thrombosis. Bill Larsen MD Objective Remarks GENERAL: This is an elderly 86 year old female patient who is aphasic and can only nod to simple questions SKIN: Multiple healing abrasions and ecchymotic areas, excoriated perineal area EYES: Extraocular motions intact. No scleral icterus. No injection or drainage. CARDIOVASCULAR: Regular rate and rhythm without murmurs, gallops, or rubs. RESPIRATORY: Clear to auscultation. Breath sounds equal bilaterally. No wheezes , rales, or rhonchi. GASTROINTESTINAL: Abdomen soft, non-tender, nondistended. No hepato-splenomegaly , or palpable masses. No guarding. MUSCULOSKELETAL: RUE contracted, RLE contracted. Right lower extremity is more edematous than left. Pain to right thigh with palpation. NEUROLOGICAL: Awake and alert. aphagia. 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 Patient has aphagia information is very difficult to obtain per patient. Patient does point to RLE when asked about pain. Patient offers no other complaints at this time. Right lower extremity pain- with edema LE US shows no DVT -Dilaudid prn for pain management Constipation -Senna BID -Milk of mag PRN Intracranial hemorrhage September 2016- patient was on Coumadin at that time which was discontinued concerned because INR is 2.2 Request RN to clarify med reconciliation with /pharmacy CT of the head reviewed report reveals no focal or acute intracranial hemorrhage. 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 Stable left lacunar infarct Atrial fibrillation- chronic rate controlled -continue digoxin, dig level 1.1 -Recheck INR Hypertension- chronic -continue home medication metoprolol, lisinopril and Norvasc with hold parameters Prior CVA with right-sided hemiparalysis -Cont physical therapy daily DVT prophylaxis patient INR is 2.2- request RN clarify home med reconciliation concerned patient still on Coumadin no further DVT prophylaxis at this time, SCDs Discharge Planning Awaiting SNF placement Mady White MD Jan 12, 2017 08:11
[2017-01-12 08:18] VITALS: PULSE 80
[2017-01-12] MEDS ORDERED: NORC5TAB PO (09:43)
[2017-01-12] MEDS ORDERED: SENN1TAB PO (09:43)
--- NOTE | 2017-01-12 09:43 | HHI.DS ---
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 Patient has aphagia information is very difficult to obtain per patient. Patient does point to RLE when asked about pain. Patient offers no other complaints at this time. Information gathered by physical exam and review of prior medical records. Per ER documentation patient had an unwitnessed fall from her wheelchair prior to arrival. Patient also has an older bruise on the chin. The patient is noted to have a small abrasion to the right cheek and an older appearing abrasion to the left lateral shoulder. Patient had brief in place soiled with both stool and urine. Patient's perineal skin excoriated. CBC/BMP: 01/10/17 0434 01/10/17 0434 Significant Findings Laboratory Tests Test 01/10/17 04:34 Neutrophils (%) (Auto) 72.3 % (16.0-70.0) Imaging Last Impressions Head CT 01/09/1719 Signed Impressions: Service Date/Time: Monday, January 09, 2017 00:51 - CONCLUSION: 1. No focal or acute intracranial hemorrhage. 2. 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 3. Stable left lacunar infarct. Jeremy Weinstein MD Cervical Spine CT 01/09/1719 Signed Impressions: Service Date/Time: Monday, January 09, 2017 00:53 - CONCLUSION: 1. No acute bony fracture. 2. Stable diffuse primary bony degenerative changes, disc degeneration and disc space narrowing throughout the cervical spine. Jeremy Weinstein MD Tibia/Fibula X-Ray 01/09/1716 Signed Impressions: Service Date/Time: Monday, January 09, 2017 00:53 - CONCLUSION: No acute fracture or joint dislocation. Stable exam compared to the prior study. Jeremy Weinstein MD Hip and Pelvis X-Ray 01/09/1716 Signed Impressions: Service Date/Time: Monday, January 09, 2017 00:40 - CONCLUSION: No acute fracture or joint dislocation. Stable examination. Jeremy Weinstein MD Femur X-Ray 01/09/1716 Signed Impressions: Service Date/Time: Monday, January 09, 2017 00:38 - CONCLUSION: No acute fracture or joint dislocation. Jeremy Weinstein MD Chest X-Ray 01/09/1716 Signed Impressions: Service Date/Time: Monday, January 09, 2017 00:50 - CONCLUSION: Bilateral interstitial lung disease which appears to be stable compared to the prior exam. Jeremy Weinstein MD Lower Extremity Ultrasound 01/09/17 0000 Signed Impressions: Service Date/Time: Monday, January 09, 2017 10:21 - CONCLUSION: Negative exam with no evidence of deep venous thrombosis. Bill Larsen MD PE at Discharge GENERAL: This is an elderly 86 year old female patient who is aphasic and can only nod to simple questions SKIN: Multiple healing abrasions and ecchymotic areas, excoriated perineal area EYES: Extraocular motions intact. No scleral icterus. No injection or drainage. CARDIOVASCULAR: Regular rate and rhythm without murmurs, gallops, or rubs. RESPIRATORY: Clear to auscultation. Breath sounds equal bilaterally. No wheezes , rales, or rhonchi. GASTROINTESTINAL: Abdomen soft, non-tender, nondistended. No hepato-splenomegaly , or palpable masses. No guarding. MUSCULOSKELETAL: RUE contracted, RLE contracted. Right lower extremity is more edematous than left. Pain to right thigh with palpation. NEUROLOGICAL: Awake and alert. aphagia. Hospital Course This is an 86 year old female patient with past medical history which includes atrial fibrillation on Coumadin, 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 Patient has aphagia information is very difficult to obtain per patient. Patient does point to RLE when asked about pain. Patient offers no other complaints at this time. Right lower extremity pain- with edema LE US shows no DVT -Dilaudid prn for pain management Constipation -Senna BID -Milk of mag PRN Intracranial hemorrhage September 2016- patient was on Coumadin at that time which was discontinued concerned because INR is 2.2 Request RN to clarify med reconciliation with /pharmacy CT of the head reviewed report reveals no focal or acute intracranial hemorrhage. 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 Stable left lacunar infarct Atrial fibrillation- chronic rate controlled -continue digoxin, dig level 1.1 -Recheck INR Hypertension- chronic -continue home medication metoprolol, lisinopril and Norvasc with hold parameters Prior CVA with right-sided hemiparalysis -Cont physical therapy daily Constipation: stool softeners, laxatives as need. DVT prophylaxis patient INR is 2.2- request RN clarify home med reconciliation concerned patient still on Coumadin no further DVT prophylaxis at this time, SCDs Discharge Planning Awaiting SNF placement Pt Condition on Discharge: Stable Discharge Disposition: Discharge to SNF Discharge Time: > 30 minutes Discharge Instructions DIET: Follow Instructions for: Heart Healthy Diet Activities you can perform: Regular-No Restrictions Follow up Referrals: PCP Follow-up - 3-5 Days SNF/[facility]/ with [facility] New Medications: Hydrocodone-Acetaminophen ([place]) 5-325 mg Tab 1 TAB PO Q4H PRN PAIN #20 Ref 0 TAB Sennosides-Docusate Sodium (Senna Plus 8.6-50 mg) 1 Tab Tab 2 TAB PO BID constipation #60 TAB Continued Medications: Amlodipine (Norvasc) 10 Mg Tab 10 MG PO DAILY Blood Pressure Management #30 TAB Cephalexin (Keflex) 250 Mg Cap 250 MG PO Q6H Infection Days 7 Ref 0 CAP Digoxin (Digoxin) 0.25 Mg Tab 0.25 MG PO DAILY Regulate Heart Beat #30 Ref 0 TAB Lisinopril (Lisinopril) 20 Mg Tab 40 MG PO DAILY Blood Pressure Management #30 TAB Metoprolol Tartrate (Metoprolol Tartrate) 25 Mg Tab 25 MG PO BID #60 Ref 0 TAB Phenytoin Extended (Dilantin) 100 Mg Cap 100 MG PO BID Control Seizures #90 Ref 0 CAP Potassium Chloride ER (Potassium Chloride ER) 20 Meq Tab 20 MEQ PO DAILY Electrolyte Replacement #14 Ref 0 TAB Potassium Phosphate Monobasic (K-Phos) 500 Mg Tab 500 MG PO BID Electrolyte Replacement #60 Ref 0 TAB Mady White MD Jan 12, 2017 09:43
[2017-01-12] MEDS: ACETAMINOPHEN/HYDROcodone 325 MG/5 MG TAB PO PRN ×2 (11:16→20:12)
[2017-01-12 12:00] VITALS: BP 97/56; PULSE 78; RESP 20; TEMP 98.1; O2SAT 92
[2017-01-12] MEDS ORDERED: BISACODYL 10 MG SUPP RECTAL PRN (13:45)
[2017-01-12 16:00] VITALS: BP 112/56; PULSE 60; RESP 18; TEMP 98; O2SAT 95
[2017-01-12] MEDS ORDERED: SOD PHOSPHATE/SOD BIPHOSPHATE (ADULT) ENEMA 133ML RECTAL PRN (17:00)
--- NOTE | 2017-01-12 19:14 | RADRPT ---
EXAM DATE/TIME: 01/12/2017 18:27 [place] COMPARISON: No previous studies available for comparison. INDICATIONS : Abdominal distention and pain. MEDICAL HISTORY : Congestive heart failure. Hypercholesterolemia. Hypertension. Coronary SURGICAL HISTORY : None. ENCOUNTER: Initial ACUITY: 1 day PAIN SCORE: Non-responsive. LOCATION: Abdomen FINDINGS: There is some dilatation of the ascending colon measuring at least 6.5 cm in diameter. There does appear to be stool throughout the left side of the colon especially in the rectum. Dilat ed small bowel is not seen. The bones are osteopenic. There are compressive deformities seen at T12 and L3. 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 Vascular calcifications are seen. CONCLUSION: Large amount of stool on the left side of the colon especially in the rectum. There i s some dilatation of the ascending colon. Golden Gamboa MD on January 12, 2017 at 19:05 Board Certified Radiologist. This report was verified electronically.
[2017-01-12 20:00] VITALS: BP 133/69; PULSE 75; RESP 20; TEMP 98.1; O2SAT 96
[2017-01-13] VITALS (7 sets, daily range): BP systolic 117–148; BP diastolic 58–67; PULSE 56–86; RESP 18–20; TEMP 97.1–98.1; O2SAT 93–99
[2017-01-13] MEDS: SODIUM CHLOR 0.45% 1000 ML INJ 1,000 ML IV SCH (04:41)
[2017-01-13] MEDS: LISINOPRIL 20 MG TAB PO SCH (08:36)
[2017-01-13] MEDS: DOCUSATE SODIUM 50 MG/SENNA 8.6 MG TAB PO SCH (08:36)
[2017-01-13] MEDS: METOPROLOL TARTRATE 25 MG TAB PO SCH (08:36)
[2017-01-13] MEDS: PHENYTOIN SODIUM 100 MG CAP PO SCH (08:37)
[2017-01-13] MEDS: DIGOXIN 0.25 MG TAB PO SCH (08:37)
[2017-01-13] MEDS: SODIUM CHLORIDE 0.9% FLUSH 10 ML FLUSH IV FLUSH SCH (08:44)
[2017-01-13] MEDS: ACETAMINOPHEN/HYDROcodone 325 MG/5 MG TAB PO PRN ×2 (08:46→15:49)
[2017-01-13] MEDS ORDERED: METHYLNALTREXONE BROMIDE 12 MG/0.6 ML VIAL SQ ONE (10:15)
[2017-01-13] MEDS ORDERED: SOD PHOSPHATE/SOD BIPHOSPHATE (ADULT) ENEMA 133ML RECTAL ONE (10:15)
--- NOTE | 2017-01-13 16:15 | HHI.DS ---
Discharge Summary Admission Date Jan 11, 2017 at 10:17 Discharge Date: Jan 13, 2017 Admitting Diagnosis Generalized weakness, inability to care for self (1) Right leg pain ICD Code: M79.604 Diagnosis: Secondary (2) Generalized weakness ICD Code: R53.1 Diagnosis: Principal (3) Hyperlipemia ICD Code: E78.5 Diagnosis: Secondary (4) Hypertension ICD Code: I10 Diagnosis: Secondary (5) Aphasia ICD Code: R47.01 Diagnosis: Secondary (6) Spastic hemiplegia, dominant side ICD Code: G81.10 Diagnosis: Secondary Procedures none Brief History - From Admission This is an 86 year old female patient with past medical history which includes atrial fibrillation on Coumadin, 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 Patient has aphagia information is very difficult to obtain per patient. Patient does point to RLE when asked about pain. Patient offers no other complaints at this time. Information gathered by physical exam and review of prior medical records. Per ER documentation patient had an unwitnessed fall from her wheelchair prior to arrival. Patient also has an older bruise on the chin. The patient is noted to have a small abrasion to the right cheek and an older appearing abrasion to the left lateral shoulder. Patient had brief in place soiled with both stool and urine. Patient's perineal skin excoriated. CBC/BMP: 01/10/17 0434 01/10/17 0434 Imaging Last Impressions Abdomen X-Ray 01/12/17 0000 Signed Impressions: Service Date/Time: Thursday, January 12, 2017 18:27 - CONCLUSION: Large amount of stool on the left side of the colon especially in the rectum. There is some dilatation of the ascending colon. Golden Gamboa MD Head CT 01/09/17 0020 Signed Impressions: Service Date/Time: Monday, January 09, 2017 00:51 - CONCLUSION: 1. No focal or acute intracranial hemorrhage. 2. 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 3. Stable left lacunar infarct. Jeremy Weinstein MD Cervical Spine CT 01/09/17 0020 Signed Impressions: Service Date/Time: Monday, January 09, 2017 00:53 - CONCLUSION: 1. No acute bony fracture. 2. Stable diffuse primary bony degenerative changes, disc degeneration and disc space narrowing throughout the cervical spine. Jeremy Weinstein MD Tibia/Fibula X-Ray 01/09/17 0017 Signed Impressions: Service Date/Time: Monday, January 09, 2017 00:53 - CONCLUSION: No acute fracture or joint dislocation. Stable exam compared to the prior study. Jeremy Weinstein MD Hip and Pelvis X-Ray 01/09/1716 Signed Impressions: Service Date/Time: Monday, January 09, 2017 00:40 - CONCLUSION: No acute fracture or joint dislocation. Stable examination. Jeremy Weinstein MD Femur X-Ray 01/09/17 0017 Signed Impressions: Service Date/Time: Monday, January 09, 2017 00:38 - CONCLUSION: No acute fracture or joint dislocation. Jeremy Weinstein MD Chest X-Ray 01/09/17 0017 Signed Impressions: Service Date/Time: Monday, January 09, 2017 00:50 - CONCLUSION: Bilateral interstitial lung disease which appears to be stable compared to the prior exam. Jeremy Weinstein MD Lower Extremity Ultrasound 01/09/17 0000 Signed Impressions: Service Date/Time: Monday, January 09, 2017 10:21 - CONCLUSION: Negative exam with no evidence of deep venous thrombosis. Bill Larsen MD PE at Discharge GENERAL: This is an elderly 86 year old female patient who is aphasic and can only nod to simple questions. Exam unchanged from yesterday. SKIN: Multiple healing abrasions and ecchymotic areas, excoriated perineal area EYES: Extraocular motions intact. No scleral icterus. No injection or drainage. CARDIOVASCULAR: Regular rate and rhythm without murmurs, gallops, or rubs. RESPIRATORY: Clear to auscultation. Breath sounds equal bilaterally. No wheezes , rales, or rhonchi. GASTROINTESTINAL: Abdomen soft, non-tender, nondistended. No hepato-splenomegaly , or palpable masses. No guarding. MUSCULOSKELETAL: RUE contracted, RLE contracted. Right lower extremity is more edematous than left. Pain to right thigh with palpation. NEUROLOGICAL: Awake and alert. aphagia. Pt update on day of discharge Patient seen this morning. Reports the pain is controlled. No chest pain or shortness of breath.. denies any abdominal pain. Positive bowel movement. Hospital Course This is an 86 year old female patient with past medical history which includes atrial fibrillation on Coumadin, 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 Patient has aphagia information is very difficult to obtain per patient. Patient does point to RLE when asked about pain. Patient offers no other complaints at this time. Patient underwent imaging which was negative for acute fracture of legs or hips, and head CT stable from previously. Patient was found to have constipation, AP abdomen as above, however this resolved with by mouth laxatives. Patient is also found to have elevated INR of 2.2 on admission, which could be due to patient not discontinuing warfarin at home. For problem of a summary for most recent progress note, please see below. Right lower extremity pain- with edema LE US shows no DVT -Dilaudid prn for pain management Constipation -Senna BID -Milk of mag PRN Intracranial hemorrhage September 2016- patient was on Coumadin at that time which was discontinued concerned because INR is 2.2 Request RN to clarify med reconciliation with /pharmacy CT of the head reviewed report reveals no focal or acute intracranial hemorrhage. 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 Stable left lacunar infarct Atrial fibrillation- chronic rate controlled -continue digoxin, dig level 1.1 -Recheck INR Hypertension- chronic -continue home medication metoprolol, lisinopril and Norvasc with hold parameters Prior CVA with right-sided hemiparalysis -Cont physical therapy daily DVT prophylaxis patient INR is 2.2- request RN clarify home med reconciliation concerned patient still on Coumadin no further DVT prophylaxis at this time, SCDs Pt Condition on Discharge: Stable Discharge Disposition: Discharge to SNF Discharge Time: > 30 minutes Discharge Instructions DIET: Follow Instructions for: Heart Healthy Diet Activities you can perform: Regular-No Restrictions Follow up Referrals: PCP Follow-up - 3-5 Days SNF/[facility]/ with [facility] New Medications: Hydrocodone-Acetaminophen ([place]) 5-325 mg Tab 1 TAB PO Q4H PRN PAIN #20 Ref 0 TAB Sennosides-Docusate Sodium (Senna Plus 8.6-50 mg) 1 Tab Tab 2 TAB PO BID constipation #60 TAB Continued Medications: Amlodipine (Norvasc) 10 Mg Tab 10 MG PO DAILY Blood Pressure Management #30 TAB Cephalexin (Keflex) 250 Mg Cap 250 MG PO Q6H Infection Days 7 Ref 0 CAP Digoxin (Digoxin) 0.25 Mg Tab 0.25 MG PO DAILY Regulate Heart Beat #30 Ref 0 TAB Lisinopril (Lisinopril) 20 Mg Tab 40 MG PO DAILY Blood Pressure Management #30 TAB Metoprolol Tartrate (Metoprolol Tartrate) 25 Mg Tab 25 MG PO BID #60 Ref 0 TAB Phenytoin Extended (Dilantin) 100 Mg Cap 100 MG PO BID Control Seizures #90 Ref 0 CAP Potassium Chloride ER (Potassium Chloride ER) 20 Meq Tab 20 MEQ PO DAILY Electrolyte Replacement #14 Ref 0 TAB Potassium Phosphate Monobasic (K-Phos) 500 Mg Tab 500 MG PO BID Electrolyte Replacement #60 Ref 0 TAB Ervin Moe MD Jan 13, 2017 16:15
== END 2017-01-13 18:01 | DRG 556 ==
LOC: NEPC 00:01 → NEDA 03:15 → NEDH 06:52 → NEPHCDU 11:47 → N04A 01-10 22:02 → OBSVTOIN 01-11 10:17
PROVIDERS: ADMIT Internal Medicine; ATTEND Internal Medicine
DX: M79.604 Pain in right leg (principal); I50.9 Heart failure, unspecified; I69.351 Hemiplegia and hemiparesis following cerebral infarction affecting right dominant side; I11.0 Hypertensive heart disease with heart failure; I48.91 Unspecified atrial fibrillation; G40.909 Epilepsy, unspecified, not intractable, without status epilepticus; R62.7 Adult failure to thrive; I25.10 Atherosclerotic heart disease of native coronary artery without angina pectoris; E78.5 Hyperlipidemia, unspecified; E78.00 Pure hypercholesterolemia, unspecified; S00.83XA Contusion of other part of head, initial encounter; S40.211A Abrasion of right shoulder, initial encounter; I69.320 Aphasia following cerebral infarction; I49.1 Atrial premature depolarization; K59.00 Constipation, unspecified; W05.0XXA Fall from non-moving wheelchair, initial encounter; Y92.009 Unspecified place in unspecified non-institutional (private) residence as the place of occurrence of the external cause; Z74.2 Need for assistance at home and no other household member able to render care; Z79.01 Long term (current) use of anticoagulants; Z99.3 Dependence on wheelchair; Z88.2 Allergy status to sulfonamides
CPT/HCPCS: 70450; 71010; 72125; 73502; 73552; 73590; 74000; 80048; 80053; 80162; 80185; 81001; 83735; 85025; 85610; 85730; 93005; 93970; 96374; 96375; G0378; G8987-GP; G8988-GP; J1170; J2212; J2270; J2405; J7040; P9612

== ENCOUNTER 2017-01-18 14:26 | Inpatient (IN) | payer MEDICARE, BC ==
[2017-01-18] VITALS (7 sets, daily range): BP systolic 117–176; BP diastolic 60–78; PULSE 66–89; RESP 16–20; TEMP 97.3–98.5; O2SAT 95–100
[~2017-01-18 14:26] MED LIST changes: +NORC5TAB PO; +SENN1TAB PO
--- NOTE | 2017-01-18 16:07 | PD ---
HPI Chief Complaint: Psychiatric Symptoms Time Seen by Provider: 16:03 Travel History International Travel<30 days: No Contact w/Intl Traveler<30days: No Traveled to known affect area: No History of Present Illness HPI 86-year-old female that presents to the ED for evaluation of [place]ung act. Patient was Cheung acted by police after apparently she and her were both under underwear and she was naked calling a cab to go to an appointment to see a doctor. Apparently the school bus driver called the police and the police went into the house and the house was completely healthy. Patient herself smells of feces. Police was concern for the patient and her safety. She is somewhat nonverbal. Patient has a history of CVA with chronic right-sided deficits. Patient reports no pain. Patient was actually seen here less than a week ago and was released on January 15 for evaluation of a fall that she sustained at the time as well as weakness. She has a history of A. fib and apparently she was taken out of her warfarin. She has no complaints. She does have chronic deficits to the right side. History is very limited because of patient' s mental status and nonverbal status. PFSH Past Medical History Arthritis: No Asthma: No Atrial Fibrillation: Yes Blood Disorders: No Heart Rhythm Problems: Yes (Afib) Cancer: No Cardiovascular Problems: Yes High Cholesterol: Yes Chest Pain: No Congestive Heart Failure: Yes COPD: No Cerebrovascular Accident: Yes Coronary Artery Disease: Yes Diabetes: No Diminished Hearing: No Endocrine: No Genitourinary: No Headaches: No Hypertension: Yes Immune Disorder: No Musculoskeletal: Yes (left hip replacement, rt side weakness post stroke) Neurologic: Yes (CVA, ) Psychiatric: No Reproductive: Yes (Hysterectomy) Respiratory: No Migraines: No Seizures: Yes (s/p stroke) Sleep Apnea: No Thyroid Disease: No Tetanus Vaccination: Unknown PNEUMOCCOCAL Vaccine (Year): 1 Menopausal: Yes Past Surgical History Abdominal Surgery: No Cardiac Surgery: No Ear Surgery: No Endocrine Surgery: No Eye Surgery: Yes (DETACHED RETINA, IVETTE CATARACTS) Genitourinary Surgery: No Gynecologic Surgery: Yes (Hysto) Hysterectomy: Yes Joint Replacement: Yes Oral Surgery: No Thoracic Surgery: No Other Surgery: Yes (Retina, Cataracts, Hysterectomy, hip joint replacement) Social History Alcohol Use: No Tobacco Use: No Substance Use: No Allergies-Medications (Allergen,Severity, Reaction): Coded Allergies: Sulfa (Verified Allergy, Severe, UNKNOWN, 01/18/17) Reported Meds & Prescriptions Reported Meds & Active Scripts Active [place] (Hydrocodone-Acetaminophen) 5-325 mg Tab 1 Tab PO Q4H PRN Senna Plus 8.6-50 mg (Sennosides-Docusate Sodium) 1 Tab Tab 2 Tab PO BID Potassium Chloride ER (Potassium Chloride) 20 Meq Tab 20 Meq PO DAILY K-Phos (Potassium Phosphate Monobasic) 500 Mg Tab 500 Mg PO BID Lisinopril 20 Mg Tab 40 Mg PO DAILY Norvasc (Amlodipine Besylate) 10 Mg Tab 10 Mg PO DAILY Reported Digoxin 0.25 Mg Tab 0.25 Mg PO DAILY Metoprolol Tartrate 25 Mg Tab 25 Mg PO BID Dilantin (Phenytoin Extended) 100 Mg Cap 100 Mg PO BID Review of Systems Except as stated in HPI: all other systems reviewed are Neg Physical Exam Narrative GENERAL: SKIN: Warm and dry. HEAD: Atraumatic. Normocephalic. EYES: Pupils equal and round 4 mm reactive and accommodation. No scleral icterus. No injection or drainage. ENT: No nasal bleeding or discharge. Mucous membranes pink and moist. Tongue is midline. No uvula deviation. NECK: Trachea midline. No JVD. CARDIOVASCULAR: Regular rate and rhythm. No murmurs, S3, S4. RESPIRATORY: No accessory muscle use. Clear to auscultation. Breath sounds equal bilaterally. GASTROINTESTINAL: Abdomen soft, non-tender, nondistended. Hepatic and splenic margins not palpable. MUSCULOSKELETAL: Extremities without clubbing, cyanosis, or edema. No obvious deformities. Full range of motion of the left upper and lower extremity. Patient has chronic atrophy and weakness to the right upper and lower extremity. 2+ pulses bilaterally. NEUROLOGICAL: Awake and alert. No obvious cranial nerve deficits. Motor grossly within normal limits. Five out of 5 muscle strength in the arms and legs. Normal speech. PSYCHIATRIC: Appropriate mood and affect; insight and judgment normal. Data Data Last Documented VS Vital Signs Date Time Temp Pulse Resp B/P Pulse Ox O2 Delivery O2 Flow Rate FiO2 01/18/17 14:41 97.3 89 20 138/60 96 Orders Complete Blood Count With Diff (01/18/17 15:37) Comprehensive Metabolic Panel (01/18/17 15:37) Thyroid Stimulating Hormone (01/18/17 15:37) Urinalysis - C+S If Indicated (01/18/17 15:37) Electrocardiogram (01/18/17 15:37) Iv Access Insert/Monitor (01/18/17 15:37) Psych Screen (01/18/17 15:37) Drug Screen, Random Urine (01/18/17 15:37) Troponin I (01/18/17 15:39) Chest, Single Ap (01/18/17 15:39) Ct Brain W/O Iv Contrast(Rout) (01/18/17 15:39) Ecg Monitoring (01/18/17 15:39) Oximetry (01/18/17 15:39) MDM Medical Decision Making Medical Screen Exam Complete: Yes Emergency Medical Condition: Yes Medical Record Reviewed: Yes Differential Diagnosis Depression versus suicidal ideation versus anxiety versus adjustment disorder versus mood disorder versus bipolar disorder versus schizophrenia versus paranoid disorder versus psychosis versus substance abuse versus alcohol abuse versus alcohol induced psychosis versus homicidality addition versus cutting versus personality disorder versus failure to thrive versus generalized weakness Narrative Course 86-year-old female that presents to the ED for evaluation of Cheung act. Patient was properly examined and was found to have signs and symptoms very consistent what appears to be generalized weakness as well as inability to take care of self. Patient is actually here with was also Cheung act for the same reason. They both appear to be demented and per report from police the house is in complete disarray. Patient voices no concerns. At this time I recommend labs and imaging to make sure there is nothing organic causing the symptoms. She will medically clear pending labs. Patient will be signed out to incoming provider pending disposition. Juma Ocasio January 18, 2017 16:07
--- NOTE | 2017-01-18 16:09 | RADRPT ---
EXAM DATE/TIME: 01/18/2017 15:39 [facility] COMPARISON: CHEST SINGLE AP, January 09, 2017, 0:50. ABDOMEN KUB ONLY, January 12, 2017, 18:27. INDICATIONS : Chest discomfort. MEDICAL HISTORY : Hypertension. Congestive heart failure. Afib. Coronary artery disease. CVA. Seizures. SURGICAL HISTORY : Hysterectomy. ENCOUNTER: Initial ACUITY: 1 day PAIN SCORE: 0/10 LOCATION: Bilateral chest FINDINGS: The examination demonstrates COPD changes. There is interstitial fibrotic changes throughout the pulm onary parenchyma as well. The heart is normal in size. There is ectasia of the thoracic aorta. The bony structures are intact. CONCLUSION: 1. COPD and interstitial fibrotic changes stable compared to previous exam. Clay Gaines MD on January 18, 2017 at 16:05 Board Certified Radiologist. This report was verified electronically.
--- NOTE | 2017-01-18 16:32 | RADRPT ---
EXAM DATE/TIME: 01/18/2017 16:15 [facility] COMPARISON: CT CERVICAL SPINE W/O CONTRAST, January 09, 2017, 0:53. INDICATIONS : Altered mental status, failure to thrive. RADIATION DOSE: 56.78 CTDIvol (mGy) MEDICAL HISTORY : Cardiovascular disease. Hypertension. SURGICAL HISTORY : None. ENCOUNTER: Initial ACUITY: 1 day PAIN SCALE: Non-responsive LOCATION: Bilateral cranial TECHNIQUE: Multiple contiguous axial images were obtained of the head. Using automated exposure control and adj ustment of the mA and/or kV according to patient size, radiation dose was kept as low as reasonably a chievable to obtain optimal diagnostic quality images. FINDINGS: CEREBRUM: The examination demonstrates a large cortical infarct involving the left parieto-occipital cortex. Th is is encephalomalacic and is old. There is colpocephalic dilation of the posterior horn of the left lateral ventricle. No acute intracranial hemorrhage is identified. POSTERIOR FOSSA: The cerebellum and brainstem are intact. The 4th ventricle is midline. The cerebellopontine angle i s unremarkable. EXTRACRANIAL: The visualized portion of the orbits is intact. SKULL: The calvaria is intact. No evidence of skull fracture. CONCLUSION: 1. Large area of infarct involving the left parietal-occipital cortex. This is encephalomalacic and i s old. There is colpocephalic dilation of the posterior horn of the left lateral ventricle. 2. No acute intracranial hemorrhage identified. 3. Incidental note made of scleral banding on the right. Clay Gaines MD on January 18, 2017 at 16:22 Board Certified Radiologist. This report was verified electronically.
--- NOTE | 2017-01-18 16:34 | PD ---
Physical Exam Date Seen by Provider: January 18, 2017 Time Seen by Provider: 16:33 Narrative 86 year old elderly female patient presents to the emergency department under BA by local police. Patient was initially seen by ELSIE Haynes and signed out to me. Patient was brought in under Cheung act after being found living in her residence which is in horrible condition. According the [employer] act , she was found naked in bed with bugs crawling over her and used diapers scattered around the house. She appeared unable to move and is in no evidence of a capable caregiver checking on her. The patient is nonverbal at baseline. She has PMH atrial fibrillation, 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 She was recently taken off of Coumadin. GENERAL: Well-nourished, well-developed elderly female patient, afebrile. SKIN: Focused skin assessment warm/dry. Patient does have erythema and mild excoriation to the left buttock. HEAD: Normocephalic. Atraumatic. EYES: No scleral icterus. No injection or drainage. NECK: Supple, trachea midline. No JVD or lymphadenopathy. CARDIOVASCULAR: Regular rate and rhythm without murmurs, gallops, or rubs. RESPIRATORY: Breath sounds equal bilaterally. No accessory muscle use. Lungs sounds are clear to auscultation GASTROINTESTINAL: Abdomen soft, non-tender, nondistended. MUSCULOSKELETAL: No cyanosis, or edema. Patient has chronically contracted right arm she BACK: Nontender without obvious deformity. No CVA tenderness. Data Data Last Documented VS Vital Signs Date Time Temp Pulse Resp B/P Pulse Ox O2 Delivery O2 Flow Rate FiO2 01/18/17 17:20 68 16 176/78 100 Nasal Cannula 2 01/18/17 14:41 97.3 Orders Complete Blood Count With Diff (01/18/17 15:37) Comprehensive Metabolic Panel (01/18/17 15:37) Thyroid Stimulating Hormone (01/18/17 15:37) Urinalysis - C+S If Indicated (01/18/17 15:37) Electrocardiogram (01/18/17 15:37) Iv Access Insert/Monitor (01/18/17 15:37) Psych Screen (01/18/17 15:37) Drug Screen, Random Urine (01/18/17 15:37) Troponin I (01/18/17 15:39) Chest, Single Ap (01/18/17 15:39) Ct Brain W/O Iv Contrast(Rout) (01/18/17 15:39) Ecg Monitoring (01/18/17 15:39) Oximetry (01/18/17 15:39) Vascular Access Team Consult/P PRN (01/18/17 17:12) Urine Culture (01/18/17 17:00) Blood Culture (01/18/17 17:27) Lactic Acid Sepsis Protocol (01/18/17 17:27) Ceftriaxone Inj (Rocephin Inj) (01/18/17 17:45) Creatine Kinase (Cpk) (01/18/17 16:40) Admit Order (Ed Use Only) (01/18/17 18:19) Labs Laboratory Tests Test 01/18/17 01/18/17 01/18/17 16:40 17:00 17:50 Sodium Level 139 MEQ/L Potassium Level 4.3 MEQ/L Chloride Level 103 MEQ/L Carbon Dioxide Level 27.1 MEQ/L Anion Gap 9 MEQ/L Blood Urea Nitrogen 17 MG/DL Creatinine 0.49 MG/DL Estimat Glomerular Filtration 120 ML/MIN Rate Random Glucose 84 MG/DL Calcium Level 9.2 MG/DL Total Bilirubin 0.4 MG/DL Aspartate Amino Transf 39 U/L (AST/SGOT) Alanine Aminotransferase 27 U/L (ALT/SGPT) Alkaline Phosphatase 210 U/L Total Creatine Kinase 126 U/L Troponin I 0.05 NG/ML Total Protein 7.5 GM/DL Albumin 2.9 GM/DL Thyroid Stimulating Hormone 2.720 uIU/ML 3rd Gen Urine Color YELLOW Urine Turbidity HAZY Urine pH 6.0 Urine Specific [place] 1.020 Urine Protein TRACE mg/dL Urine Glucose (UA) NEG mg/dL Urine Ketones 80 mg/dL Urine Occult Blood TRACE Urine Nitrite POS Urine Bilirubin NEG Urine Urobilinogen LESS THAN 2.0 MG/DL Urine Leukocyte Esterase LARGE Urine RBC 14 /hpf Urine WBC 96 /hpf Urine Squamous Epithelial 1 /hpf Cells Urine Bacteria OCC /hpf Urine Mucus FEW /lpf Microscopic Urinalysis Comment CATH-CULTURE IND Urine Opiates Screen NEG Urine Barbiturates Screen NEG Urine Amphetamines Screen NEG Urine Benzodiazepines Screen NEG Urine Cocaine Screen NEG Urine Cannabinoids Screen NEG White Blood Count 6.7 TH/MM3 Red Blood Count 3.87 MIL/MM3 Hemoglobin 11.1 GM/DL Hematocrit 34.0 % Mean Corpuscular Volume 87.9 FL Mean Corpuscular Hemoglobin 28.6 PG Mean Corpuscular Hemoglobin 32.5 % Concent Red Cell Distribution Width 14.3 % Platelet Count 377 TH/MM3 Mean Platelet Volume 8.4 FL Neutrophils (%) (Auto) 72.8 % Lymphocytes (%) (Auto) 18.3 % Monocytes (%) (Auto) 6.9 % Eosinophils (%) (Auto) 1.2 % Basophils (%) (Auto) 0.8 % Neutrophils # (Auto) 4.9 TH/MM3 Lymphocytes # (Auto) 1.2 TH/MM3 Monocytes # (Auto) 0.5 TH/MM3 Eosinophils # (Auto) 0.1 TH/MM3 Basophils # (Auto) 0.1 TH/MM3 CBC Comment DIFF FINAL Differential Comment Lactic Acid Level 0.9 mmol/L MDM Medical Record Reviewed: Yes Supervised Visit with RICKI: No Interpretation(s) Last Impressions Head CT 01/18/17 1539 Signed Impressions: Service Date/Time: January 16:15 - CONCLUSION: 1. Large area of infarct involving the left parietal-occipital cortex. This is encephalomalacic and is old. There is colpocephalic dilation of the posterior horn of the left lateral ventricle. 2. No acute intracranial hemorrhage identified. 3. Incidental note made of scleral banding on the right. Clay Gaines MD Chest X-Ray 01/18/17 1539 Signed Impressions: Service Date/Time: January 15:39 - CONCLUSION: 1. COPD and interstitial fibrotic changes stable compared to previous exam. Clay Gaines MD Differential Diagnosis Electrolyte abnormality versus dehydration versus intracranial abnormality versus pneumonia versus UTI Narrative Course 86-year-old female presents to the emergency Department under Cheung act for inability to care for herself. Her was also Cheung acted and brought to the emergency Department as they're living and unsafe conditions at home. EKG shows atrial fibrillation, no acute ST changes. CBC, CMP, TSH, troponin, UA, urine drug screen, chest x-ray, CT of the brain are ordered and pending. CBC shows no acute abnormality. CMP shows no acute abnormality. TSH is 2.720. Troponin is 0.05. CK is 126. Lactic acid is 0.9. UA shows trace occult blood, positive nitrate, large leukocyte esterase, 96 WBC. UDS is negative. Chest x-ray shows COPD and interstitial fibrotic changes stable compared to previous exam. CT of the brain shows large area of infarct involving the left parietal-occipital cortex. This is encephalomalacic and is old. There is colpocephalic dilation of the posterior horn of the left lateral ventricle; no acute intracranial hemorrhage identified; Incidental note made of scleral banding on the right. Patient is given Rocephin [address] Aguero accepted admission. Diagnosis Primary Impression: Urinary tract infection Qualified Code: N30.00 - Acute cystitis without hematuria Additional Impression: Generalized weakness Admitting Information Admitting Physician Requests: it Ling Brewer January 18, 2017 16:34
[2017-01-18 17:22] LABS: AMPHETAMINE, URINE NEG (NEG); BARBITURATES, URINE NEG (NEG); COCAINE, URINE NEG (NEG)
[2017-01-18 17:23] LABS: BACTERIA, URINE OCC /hpf; BLOOD, URINE TRACE (NEG); COMMENT (UR) CATH-CULTURE IND; CULTURE IF INDICATED CATH CULTURE IND; GLUCOSE,URINE NEG (NEG); KETONE, URINE 80 mg/dL (NEG); MUCUS URINE FEW /lpf (OCC); SQUAMOUS EPITHELIAL CELL URINE 1 /hpf (0-5); URINE COLOR YELLOW (YELLW/STRAW)
[2017-01-18 17:24] LABS: NITRITE,URINE POS (NEG)
[2017-01-18 17:39] LABS: ALKALINE PHOSPHATASE 210 U/L (45-117); TOTAL BILIRUBIN ADULT 0.4 MG/DL (0.2-1.0)
[2017-01-18 17:43] LABS: ALT (GPT) 27 U/L (10-53); ANION GAP 9 MEQ/L (5-15); AST (GOT) 39 U/L (15-37); BICARBONATE 27.1 MEQ/L (21.0-32.0); BLOOD UREA NITROGEN 17 MG/DL (7-18); CHLORIDE 103 MEQ/L (98-107); GLOMERULAR FILTRATION RATE 120 ML/MIN (>89); SODIUM (NA) 139 MEQ/L (136-145)
[2017-01-18] MEDS ORDERED: cefTRIAXone INJ 1,000 MG in SODIUM CHLORIDE 0.9% INJ 100 ML IV ONE (17:45)
[2017-01-18 17:49] LABS: POTASSIUM 4.3 MEQ/L (3.5-5.1)
[2017-01-18 18:07] LABS: AUTOMATED NEUTROPHIL # 4.9 TH/MM3 (1.8-7.7); BASOPHIL # 0.1 TH/MM3 (0-0.2); BASOPHIL % 0.8 % (0.0-2.0); EOSINOPHIL # 0.1 TH/MM3 (0-0.4); EOSINOPHIL % 1.2 % (0.0-4.0); HEMO FLAGS DIFF FINAL; LYMPH % 18.3 % (9.0-44.0); LYMPHOCYTE # 1.2 TH/MM3 (1.0-4.8); MEAN CELL VOLUME 87.9 FL (80.0-100.0); MEAN CORPUSCULAR HEMOGLOBIN 28.6 PG (27.0-34.0); MEAN CORPUSCULAR HGB CONC 32.5 % (32.0-36.0); MONO % 6.9 % (0.0-8.0); NEUT % 72.8 % (16.0-70.0); PLATELET COUNT 377 TH/MM3 (150-450); RED BLOOD COUNT 3.87 MIL/MM3 (4.00-5.30); RED CELL DISTRIBUTION WIDTH 14.3 % (11.6-17.2); WHITE BLOOD COUNT 6.7 TH/MM3 (4.0-11.0)
[2017-01-18] MEDS ORDERED: SODIUM CHLOR 0.45% 1000 ML INJ 1,000 ML IV SCH (18:25)
[2017-01-18] MEDS ORDERED: ACETAMINOPHEN 325 MG TAB PO PRN (18:30)
[2017-01-18] MEDS ORDERED: ONDANSETRON HCL 4 MG/2 ML VIAL IVP PRN (18:30)
[2017-01-18] MEDS ORDERED: SODIUM CHLORIDE 0.9% FLUSH 10 ML FLUSH IV FLUSH PRN ×2 (18:30→19:45)
[2017-01-18] MEDS ORDERED: NALOXONE HCL 0.4 MG/ML AMP IV PRN (18:30)
--- NOTE | 2017-01-18 18:32 | PD ---
Physical Exam Narrative GENERAL: thin, well-developed patient. SKIN: Warm and dry. HEAD: Normocephalic EYES: No injection or drainage. ENT: No nasal drainage noted. NECK: Supple, trachea midline. CARDIOVASCULAR: Regular rate and rhythm RESPIRATORY: No increased effort. No accessory muscle use. GASTROINTESTINAL: Abdomen soft, non-tender, nondistended. NEUROLOGICAL: Awake. Moves all extremities. Normal speech. Data Data Last Documented VS Vital Signs Date Time Temp Pulse Resp B/P Pulse Ox O2 Delivery O2 Flow Rate FiO2 01/18/17 17:20 68 16 176/78 100 Nasal Cannula 2 01/18/17 14:41 97.3 Orders Complete Blood Count With Diff (01/18/17 15:37) Comprehensive Metabolic Panel (01/18/17 15:37) Thyroid Stimulating Hormone (01/18/17 15:37) Urinalysis - C+S If Indicated (01/18/17 15:37) Electrocardiogram (01/18/17 15:37) Iv Access Insert/Monitor (01/18/17 15:37) Psych Screen (01/18/17 15:37) Drug Screen, Random Urine (01/18/17 15:37) Troponin I (01/18/17 15:39) Chest, Single Ap (01/18/17 15:39) Ct Brain W/O Iv Contrast(Rout) (01/18/17 15:39) Ecg Monitoring (01/18/17 15:39) Oximetry (01/18/17 15:39) Vascular Access Team Consult/P PRN (01/18/17 17:12) Urine Culture (01/18/17 17:00) Blood Culture (01/18/17 17:27) Lactic Acid Sepsis Protocol (01/18/17 17:27) Ceftriaxone Inj (Rocephin Inj) (01/18/17 17:45) Creatine Kinase (Cpk) (01/18/17 16:40) Admit Order (Ed Use Only) (01/18/17 18:19) Vascular Poc Ultrasound (01/18/17 ) Labs Laboratory Tests Test 01/18/17 01/18/17 01/18/17 16:40 17:00 17:50 Sodium Level 139 MEQ/L Potassium Level 4.3 MEQ/L Chloride Level 103 MEQ/L Carbon Dioxide Level 27.1 MEQ/L Anion Gap 9 MEQ/L Blood Urea Nitrogen 17 MG/DL Creatinine 0.49 MG/DL Estimat Glomerular Filtration 120 ML/MIN Rate Random Glucose 84 MG/DL Calcium Level 9.2 MG/DL Total Bilirubin 0.4 MG/DL Aspartate Amino Transf 39 U/L (AST/SGOT) Alanine Aminotransferase 27 U/L (ALT/SGPT) Alkaline Phosphatase 210 U/L Total Creatine Kinase 126 U/L Troponin I 0.05 NG/ML Total Protein 7.5 GM/DL Albumin 2.9 GM/DL Thyroid Stimulating Hormone 2.720 uIU/ML 3rd Gen Urine Color YELLOW Urine Turbidity HAZY Urine pH 6.0 Urine Specific [place] 1.020 Urine Protein TRACE mg/dL Urine Glucose (UA) NEG mg/dL Urine Ketones 80 mg/dL Urine Occult Blood TRACE Urine Nitrite POS Urine Bilirubin NEG Urine Urobilinogen LESS THAN 2.0 MG/DL Urine Leukocyte Esterase LARGE Urine RBC 14 /hpf Urine WBC 96 /hpf Urine Squamous Epithelial 1 /hpf Cells Urine Bacteria OCC /hpf Urine Mucus FEW /lpf Microscopic Urinalysis Comment CATH-CULTURE IND Urine Opiates Screen NEG Urine Barbiturates Screen NEG Urine Amphetamines Screen NEG Urine Benzodiazepines Screen NEG Urine Cocaine Screen NEG Urine Cannabinoids Screen NEG White Blood Count 6.7 TH/MM3 Red Blood Count 3.87 MIL/MM3 Hemoglobin 11.1 GM/DL Hematocrit 34.0 % Mean Corpuscular Volume 87.9 FL Mean Corpuscular Hemoglobin 28.6 PG Mean Corpuscular Hemoglobin 32.5 % Concent Red Cell Distribution Width 14.3 % Platelet Count 377 TH/MM3 Mean Platelet Volume 8.4 FL Neutrophils (%) (Auto) 72.8 % Lymphocytes (%) (Auto) 18.3 % Monocytes (%) (Auto) 6.9 % Eosinophils (%) (Auto) 1.2 % Basophils (%) (Auto) 0.8 % Neutrophils # (Auto) 4.9 TH/MM3 Lymphocytes # (Auto) 1.2 TH/MM3 Monocytes # (Auto) 0.5 TH/MM3 Eosinophils # (Auto) 0.1 TH/MM3 Basophils # (Auto) 0.1 TH/MM3 CBC Comment DIFF FINAL Differential Comment Lactic Acid Level 0.9 mmol/L [facility] Supervised Visit with RICKI: Yes Interpretation(s) CBC & BMP Diagram 01/18/17 16:40 01/18/17 17:50 Last [address] 01/18/17 1539 Signed Impressions: Service Date/Time: January 16:15 - CONCLUSION: 1. Large area of infarct involving the left parietal-occipital cortex. This is encephalomalacic and is old. There is colpocephalic dilation of the posterior horn of the left lateral ventricle. 2. No acute intracranial hemorrhage identified. 3. Incidental note made of scleral banding on the right. Clay Gaines MD Chest X-Ray 01/18/17 1539 Signed Impressions: Service Date/Time: January 15:39 - CONCLUSION: 1. COPD and interstitial fibrotic changes stable compared to previous exam. Clay Gaines MD UA with UTI Narrative Course I, Dr. urrutia, have reviewed the advance practice practitioner's documentation and am in agreement, met with the patient face to face, made the diagnosis, and the medical decision making was done by me. *My assessment and Findings: 86-year-old female with poor living conditions under Cheung act for unable to care for self. Workup reveals urinary tract infection. She'll be admitted for further care. Procedures Procedure Narrative Left-sided EJ was attempted and patient has difficulty laying flat as she cannot hyperextend her neck so unable to thread but was able to send blood Physician Communication Physician Communication dr marquez agrees to admit Diagnosis Primary Impression: UTI (urinary tract infection) Qualified Code: N39.0 - Urinary tract infection without hematuria, site unspecified Additional Impression: Weakness generalized Admitting Information Admitting Physician Requests: Admit Asia Urrutia MD January 18, 2017 18:32
--- NOTE | 2017-01-18 19:43 | HHI.HP ---
[facility] Dennis Arnold MD Admission Diagnosis UTI, generalized weakness Diagnoses: (1) Encephalopathy Diagnosis: Principal (2) UTI (urinary tract infection) Diagnosis: Principal (3) Total self-care deficit Diagnosis: Principal (4) COPD (chronic obstructive pulmonary disease) Diagnosis: Principal (5) Seizure disorder Diagnosis: Principal (6) A-fib Diagnosis: Principal Travel History International Travel<30 Days: No Contact w/Intl Traveler <30 Da: No Traveled to Known Affected Are: No History of Present Illness This is an 86-year-old female with an apparent PMH of A. fib off Coumadin, CVA with Residual Right-sided Hemiparesis, Seizure Disorder, HTN, Hyperlipidemia and CHF (Echo 10/07/10 w/ EF 60-65%) who was brought to the ER by Police under [employer] Act for inability to care for self, also brought in by Police under [employer] Act for same. Per report, taxicab coordinator arrived at their home to take them to a doctor's appointment, found both pt and to be confused and living in horrid conditions, covered in feces w/ bugs crawling on her. Pt nonverbal at baseline from previous CVA, unable to give history, but nods to some questions. On arrival, BP 138/60, HR 89, O2 sat 96% on RA, Afebrile. CBC unremarkable except for mildly elevated neutrophil count. Chemistry essentially unremarkable. Troponin 0.05. UA with UTI. Urine Drug Screen negative. CT Head with large infarct in the left parietal occipital cortex, old , no acute findings noted. CXR with COPD and interstitial fibrotic changes. S/ p Rocephin in ER. Review of Systems ROS: Unable to obtain secondary to nonverbal state. Past Family Social History Past Medical History PMH: A. fib off Coumadin, CVA with Residual Right-sided Hemiparesis, Seizure Disorder, HTN, Hyperlipidemia and CHF (Echo 10/07/10 w/ EF 60-65%) Past Surgical History PAST SURGICAL HISTORY: Left Hip Replacement, Hysterectomy, Cataract Surgery Allergies: Coded Allergies: Sulfa (Verified Allergy, Severe, UNKNOWN, 01/18/17) Family History PAST FAMILY HISTORY: Reviewed. No h/o DM or CAD Social History PAST SOCIAL HISTORY: Negative for alcohol, tobacco or drugs. Physical Exam Vital Signs Vital Signs Date Time Temp Pulse Resp B/P Pulse Ox O2 Delivery O2 Flow Rate FiO2 01/18/17 19:14 97.5 66 18 139/78 97 Room Air 01/18/17 18:30 72 16 168/71 98 Nasal Cannula 2 01/18/17 17:20 68 16 176/78 100 Nasal Cannula 2 01/18/17 14:41 97.3 89 20 138/60 96 Physical Exam PE: GENERAL: Pleasant appearing elderly white female in no acute distress. Nonverbal at baseline. HEENT: PERRLA, EOMI. No scleral icterus or conjunctival pallor. No lid lag or facial droop. CARDIOVASCULAR: Regular rate and rhythm. No obvious murmurs to auscultation. No chest tenderness to palpation. RESPIRATORY: No obvious rhonchi or wheezing. Clear to auscultation. Breath sounds equal bilaterally. GASTROINTESTINAL: Abdomen soft, non-tender, nondistended. BS normal. MUSCULOSKELETAL: Extremities without clubbing, cyanosis, or edema. No obvious deformities. NEUROLOGICAL: Nonverbal, at baseline, but nods/shakes heads to some questions. Right-sided hemiparesis from previous CVA, no new focal neurologic deficits. Laboratory Laboratory Tests Test 01/18/17 01/18/17 01/18/17 16:40 17:00 17:50 Sodium Level 139 Potassium Level 4.3 Chloride Level 103 Carbon Dioxide Level 27.1 Anion Gap 9 Blood Urea Nitrogen 17 Creatinine 0.49 Estimat Glomerular Filtration 120 Rate Random Glucose 84 Calcium Level 9.2 Total Bilirubin 0.4 Aspartate Amino Transf 39 (AST/SGOT) Alanine Aminotransferase 27 (ALT/SGPT) Alkaline Phosphatase 210 Total Creatine Kinase 126 Troponin I 0.05 Total Protein 7.5 Albumin 2.9 Thyroid Stimulating Hormone 2.720 3rd Gen Urine Color YELLOW Urine Turbidity HAZY Urine pH 6.0 Urine Specific [place] 1.020 Urine Protein TRACE Urine Glucose (UA) NEG Urine Ketones 80 Urine Occult Blood TRACE Urine Nitrite POS Urine Bilirubin NEG Urine Urobilinogen LESS THAN 2.0 Urine Leukocyte Esterase LARGE Urine RBC 14 Urine WBC 96 Urine Squamous Epithelial 1 Cells Urine Bacteria OCC Urine Mucus FEW Microscopic Urinalysis Comment CATH-CULTURE IND Urine Opiates Screen NEG Urine Barbiturates Screen NEG Urine Amphetamines Screen NEG Urine Benzodiazepines Screen NEG Urine Cocaine Screen NEG Urine Cannabinoids Screen NEG White Blood Count 6.7 Red Blood Count 3.87 Hemoglobin 11.1 Hematocrit 34.0 Mean Corpuscular Volume 87.9 Mean Corpuscular Hemoglobin 28.6 Mean Corpuscular Hemoglobin 32.5 Concent Red Cell Distribution Width 14.3 Platelet Count 377 Mean Platelet Volume 8.4 Neutrophils (%) (Auto) 72.8 Lymphocytes (%) (Auto) 18.3 Monocytes (%) (Auto) 6.9 Eosinophils (%) (Auto) 1.2 Basophils (%) (Auto) 0.8 Neutrophils # (Auto) 4.9 Lymphocytes # (Auto) 1.2 Monocytes # (Auto) 0.5 Eosinophils # (Auto) 0.1 Basophils # (Auto) 0.1 CBC Comment DIFF FINAL Differential Comment Lactic Acid Level 0.9 Date/Time Procedure Status Source Growth 01/18/17 18:35 Aerobic Blood Culture Received Blood Peripheral Pending 01/18/17 18:35 Anaerobic Blood Culture Received Blood Peripheral Pending 01/18/17 17:00 Urine Culture Received Urine Catheterized Urine Pending Result Diagram: 01/18/17 1750 01/18/17 1640 Assessment and Plan Problem List: (1) Encephalopathy ICD Code: G93.40 Status: Acute (2) UTI (urinary tract infection) ICD Code: N39.0 Status: Acute (3) Total self-care deficit ICD Code: R41.89 Status: Acute (4) COPD (chronic obstructive pulmonary disease) ICD Code: J44.9 Status: Acute (5) A-fib ICD Code: I48.91 Status: Acute (6) Seizure disorder ICD Code: G40.909 Status: Acute Assessment and Plan A/P: 1. Encephalopathy: Likely multifactorial-previous CVA, UTI w/ acute confusion. CT Head w/ large area of infarct in the left parietal occipital cortex, old, no acute intracranial findings, images reviewed by me. IVF, continue w/ IV Abx for UTI. 2. Total Self Care Deficit: Lives at home w/ , found to living in horrid conditions, naked, covered in feces w/ bugs crawling on her. in similar condition. Currently under [employer] Act. Psych consult placed. Case Management consult for assistance w/ placement as neede.d 3. COPD: Chronic Respiratory Failure. Stable. DuoNeb prn as needed. 4. A-fib: Resume home Metoprolol and Digoxin. 5. Seizure Disorder: Stable. No reported seizure activity. Continue home Dilantin. 6. DVT Prophylaxis: SCD/Teds. 7. Social work for d/c planning as needed. 8. Case discussed w/ day physician at length. Problem Qualifiers (1) UTI (urinary tract infection): Qualified Code: N39.0 - Urinary tract infection without hematuria, site unspecified Josefina Gibson MD January 18, 2017 19:43
[2017-01-18] MEDS ORDERED: RESP: ALBUTEROL 2.5 MG/IPRATROPIUM 0.5 MG NEB (PRN) NEB (19:45)
[2017-01-18] MEDS ORDERED: BISACODYL 10 MG SUPP RECTAL PRN (19:45)
[2017-01-18] MEDS ORDERED: ACETAMINOPHEN/HYDROcodone 325 MG/10 MG TAB PO PRN (19:45)
[2017-01-18] MEDS ORDERED: SODIUM CHLORIDE 0.9% FLUSH 10 ML FLUSH IV FLUSH SCH (21:00)
[2017-01-18] MEDS: SODIUM CHLOR 0.9% 1000 ML INJ 1,000 ML IV SCH (21:15)
[2017-01-18] MEDS: SODIUM CHLORIDE 0.9% FLUSH 10 ML FLUSH IV FLUSH SCH (21:15)
[2017-01-18] MEDS: PHENYTOIN SODIUM 100 MG CAP PO SCH (21:29)
[2017-01-18] MEDS: DOCUSATE SODIUM 50 MG/SENNA 8.6 MG TAB PO SCH (21:29)
[2017-01-18] MEDS: METOPROLOL TARTRATE 25 MG TAB PO SCH (21:30)
[2017-01-19] VITALS (7 sets, daily range): BP systolic 135–155; BP diastolic 60–94; PULSE 54–76; RESP 16–20; TEMP 96.2–98.3; O2SAT 94–96
[2017-01-19] MEDS: SODIUM CHLOR 0.9% 1000 ML INJ 1,000 ML IV SCH (05:17)
[2017-01-19 07:50] LABS: AUTOMATED NEUTROPHIL # 4.4 TH/MM3 (1.8-7.7); BASOPHIL % 0.7 % (0.0-2.0); EOSINOPHIL # 0.2 TH/MM3 (0-0.4); EOSINOPHIL % 2.7 % (0.0-4.0); HEMATOCRIT 30.8 % (35.0-46.0); HEMO FLAGS DIFF FINAL; LYMPH % 19.9 % (9.0-44.0); LYMPHOCYTE # 1.3 TH/MM3 (1.0-4.8); MEAN CELL VOLUME 87.5 FL (80.0-100.0); MEAN CORPUSCULAR HEMOGLOBIN 28.5 PG (27.0-34.0); MEAN CORPUSCULAR HGB CONC 32.6 % (32.0-36.0); NEUT % 68.7 % (16.0-70.0); PLATELET COUNT 339 TH/MM3 (150-450); RED BLOOD COUNT 3.52 MIL/MM3 (4.00-5.30); RED CELL DISTRIBUTION WIDTH 14.2 % (11.6-17.2); WHITE BLOOD COUNT 6.5 TH/MM3 (4.0-11.0)
[2017-01-19 08:16] LABS: ALKALINE PHOSPHATASE 180 U/L (45-117); ALT (GPT) 19 U/L (10-53); ANION GAP 7 MEQ/L (5-15); AST (GOT) 22 U/L (15-37); BLOOD UREA NITROGEN 14 MG/DL (7-18); CHLORIDE 106 MEQ/L (98-107); GLOMERULAR FILTRATION RATE 123 ML/MIN (>89); POTASSIUM 3.4 MEQ/L (3.5-5.1); SODIUM (NA) 140 MEQ/L (136-145); TOTAL BILIRUBIN ADULT 0.3 MG/DL (0.2-1.0)
[2017-01-19] MEDS: PHENYTOIN SODIUM 100 MG CAP PO SCH ×2 (09:11→22:42)
[2017-01-19] MEDS: METOPROLOL TARTRATE 25 MG TAB PO SCH ×2 (09:11→21:00)
[2017-01-19] MEDS: SODIUM CHLORIDE 0.9% FLUSH 10 ML FLUSH IV FLUSH SCH ×2 (09:11→22:43)
[2017-01-19] MEDS: DIGOXIN 0.25 MG TAB PO SCH (09:12)
[2017-01-19] MEDS: DOCUSATE SODIUM 50 MG/SENNA 8.6 MG TAB PO SCH ×2 (09:12→22:42)
[2017-01-19] MEDS ORDERED: THIAMINE INJ 100 MG in SODIUM CHLORIDE 0.9% INJ 100 ML IV ONE (09:45)
--- NOTE | 2017-01-19 10:21 | HHI.PR ---
Subjective Remarks Follow up [employer] act and UTI. Patient is aphasic but nods no to chest pain or sob. Patient is here for possible SNF placement because her is unable to care for her. She is unable to care for self due to an old cva that left her with right side hemiparesis. Objective Vitals Vital Signs Date Time Temp Pulse Resp B/P Pulse Ox O2 Delivery O2 Flow Rate FiO2 01/19/17 07:20 98.2 76 20 155/94 94 01/19/17 04:17 98.3 72 20 136/65 95 01/18/17 23:57 98.5 81 20 128/64 95 01/18/17 20:44 80 18 117/78 98 Nasal Cannula 2 01/18/17 20:30 96 01/18/17 19:14 97.5 66 18 139/78 97 Room Air 01/18/17 18:30 72 16 168/71 98 Nasal Cannula 2 01/18/17 17:20 68 16 176/78 100 Nasal Cannula 2 01/18/17 14:41 97.3 89 20 138/60 96 I/O 01/18/17 01/18/17 01/18/17 01/19/17 01/19/17 01/19/17 07:00 15:00 23:00 07:00 15:00 23:00 Intake Total 240 ml Balance 240 ml Intake Oral 240 ml Result Diagram: 01/19/17 0640 01/19/17 0640 Imaging Last Impressions Head CT 01/18/17 1539 Signed Impressions: Service Date/Time: January 16:15 - CONCLUSION: 1. Large area of infarct involving the left parietal-occipital cortex. This is encephalomalacic and is old. There is colpocephalic dilation of the posterior horn of the left lateral ventricle. 2. No acute intracranial hemorrhage identified. 3. Incidental note made of scleral banding on the right. Clay Gaines MD Chest X-Ray 01/18/17 1539 Signed Impressions: Service Date/Time: January 15:39 - CONCLUSION: 1. COPD and interstitial fibrotic changes stable compared to previous exam. Clay Gaines MD Objective Remarks GENERAL: Pleasant appearing elderly white female in no acute distress. Aphasic at baseline. HEENT: PERRLA, EOMI. No scleral icterus or conjunctival pallor. No lid lag or facial droop. CARDIOVASCULAR: Regular rate and rhythm. No obvious murmurs to auscultation. No chest tenderness to palpation. RESPIRATORY: No obvious rhonchi or wheezing. Clear to auscultation. Breath sounds equal bilaterally. GASTROINTESTINAL: Abdomen soft, non-tender, nondistended. BS normal. MUSCULOSKELETAL: Extremities without clubbing, cyanosis, or edema. No obvious deformities. NEUROLOGICAL: Nonverbal, at baseline, but nods/shakes heads to some questions. Right-sided hemiparesis from previous CVA, no new focal neurologic deficits. Medications and IVs Current Medications Medications (Trade) Dose Ordered Sig/Anabella Route Start Time Stop Time Status Last Admin (Tylenol) 650 mg Q4H PRN PO 01/18/17 18:30 (Zofran Inj) 4 mg Q6H PRN IVP 01/18/17 18:30 Naloxone HCl 0.4 mg 0.4 mg UNSCH PRN IV 01/18/17 18:30 Ceftriaxone Sodium 1000 mg/ Sodium Chloride 100 ml @ 200 mls/hr Q24H IV 01/19/17 18:00 (NS 1000 ml Inj) 1,000 ml @ 100 mls/hr Q10H IV 01/18/17 19:39 01/19/17 05:17 (NS Flush) 2 ml UNSCH PRN IV FLUSH 01/18/17 19:45 (NS Flush) 2 ml BID IV FLUSH 01/18/17 21:00 01/19/17 09:11 (Dulcolax Supp) 10 mg DAILY PRN RECTAL 01/18/17 19:45 ([place] 5-325 Mg) 1 tab Q4H PRN PO 01/18/17 19:45 ([place] 10-325 Mg) 1 tab Q4H PRN PO 01/18/17 19:45 (Norvasc) 10 mg DAILY PO 01/19/17 09:00 01/19/17 09:11 (Lanoxin) 0.25 mg DAILY PO 01/19/17 09:00 01/19/17 09:12 (Lopressor) 25 mg BID PO 01/18/17 21:00 01/19/17 09:11 (Dilantin) 100 mg BID PO 01/18/17 21:00 01/19/17 09:11 Senna/Docusate Sodium 2 tab 2 tab BID PO 01/18/17 21:00 01/19/17 09:12 Thiamine HCl 100 mg/Sodium Chloride 101 ml @ 101 mls/hr ONCE ONCE IV 01/19/17 09:45 01/19/17 10:44 (Sodium Chloride 23.4% Inj/D10w Inj) 1,019.25 ml @ 20 mls/hr Q24H IV 01/19/17 11:00 (Vitamin B1) 100 mg DAILY PO 01/20/17 09:00 A/P Problem List: (1) Encephalopathy ICD Code: G93.40 Status: Acute (2) UTI (urinary tract infection) ICD Code: N39.0 Status: Acute (3) Total self-care deficit ICD Code: R41.89 Status: Acute (4) Protein-calorie malnutrition, severe ICD Code: E43 Status: Acute (5) COPD (chronic obstructive pulmonary disease) ICD Code: J44.9 Status: Chronic (6) A-fib ICD Code: I48.91 Status: Chronic (7) Seizure disorder ICD Code: G40.909 Status: Chronic Assessment and Plan This is an 86-year-old female with an apparent PMH of A. fib off Coumadin, CVA with Residual Right-sided Hemiparesis, Seizure Disorder, HTN, Hyperlipidemia and CHF (Echo 10/07/10 w/ EF 60-65%) who was brought to the ER by Police under [employer] Act for inability to care for self, also brought in by Police under [employer] Act for same. Encephalopathy: Likely multifactorial-previous CVA, UTI w/ acute confusion. CT Head w/ large area of infarct in the left parietal occipital cortex, old, no acute intracranial findings -IVF -IV Rocephin for UTI. -Urine culture pending Total Self Care Deficit, Lives at home w/ , found to living in horrid conditions, naked, covered in feces w/ bugs crawling on her. in similar condition. -Currently under [employer] Act. -Psych consult placed. -Case Management consult for assistance w/ placement as needed Protein/ Calorie malnutrition, severe with temporal wasting, ketones, low albumin -IVF D10 1/2 NS -Ensure supplements with meals -Thiamine daily COPD: Chronic Respiratory Failure. Stable. -DuoNeb prn as needed. A-fib:chronic, Resume home Metoprolol and Digoxin. Seizure Disorder, Chronic Stable. No reported seizure activity. Continue home Dilantin. DVT Prophylaxis: SCD/Teds. Discussed with Dr. Moe Discharge Planning Waiting on SNF placement and psych consult Problem Qualifiers (1) UTI (urinary tract infection): Qualified Code: N39.0 - Urinary tract infection without hematuria, site unspecified Vanesa Nance January 19, 2017 10:21
[2017-01-19] MEDS: SODIUM CHLORIDE 23.4% INJ 77 MEQ in DEXTROSE 10% INJ 1,000 ML IV SCH (14:58)
--- NOTE | 2017-01-19 15:33 | MB ---
cc: EMILIANO FIGUEROA DATE OF CONSULTATION: 01/19/[address] Gibson REASON FOR CONSULTATION [employer]. HISTORY OF PRESENT ILLNESS Ms. Eason is an 86-year-old female with no known past psychiatric history, who was brought in on a [employer] Act by [place] [employer] along with her alleging that the conditions in which they were living were deplorable. The patient is aphasic following a stroke several years ago and was unable to provide any history. Reviewing the electronic medical record, I see no prior psychiatric contact within our system. Patient seen and examined. Chart reviewed. Case discussed with nursing staff. On my examination today, the patient is aphasic. She is unable to generate any meaningful speech. She does follow simple commands such as showing two fingers but is unable to follow more complex commands. I did endeavor to communicate with her by other means such as yes and no questioning and written questioning, but was unsuccessful in doing so. It is unclear at this time if this is due to some underlying neurocognitive issue or due to a neurological problem related to her history of stroke. Psychiatric interview is quite limited for this reason. I am unable to obtain any past psychiatric, family, chemical dependency or social history from this patient for the reasons noted above. I did obtain collateral over the phone from the patient's son, Damon Eason. He notes that the patient's father has taken care of the patient following her stroke seven years ago. He notes that the patient's has struggled more and more recently to adequately care for the patient. He notes that their house has fallen into disrepair, although the son insists that he was not aware that the conditions had grown as deplorable as were listed in the [employer] Act, which indicated that there was feces and bugs around in the house and that the patient was living amongst them. The son reports that the patient has no history of psychiatric illness, no history of suicide attempts, no family history of mental illness, and no chemical dependency history to speak of. The son believes that the patient can be safely discharged home with home health care noting that the patient and her had promised each other that they would never allow themselves to go into a nursing facility. PAST MEDICAL HISTORY Includes a history of stroke. See electronic medical record. REVIEW OF SYSTEMS Unable to obtain from the patient because of communication barrier. PHYSICAL EXAMINATION Vital signs: Temperature 97.0, pulse 73, respirations 20, blood pressure 141/60, pulse oximetry 94% on room air. Physical examination completed by primary team. On my examination today, the patient appears to be in no acute physical distress. She does have some residual right-sided weakness related to her history of CVA. She is also aphasic. No other motoric abnormalities noted. LABORATORY Laboratory reviewed: CBC is significant for anemia with a hemoglobin of 10. CMP is significant for mild hypokalemia with a potassium of 3.4 and a mildly elevated alkaline phosphatase at 180. Toxicology is negative. Urinalysis is concerning for UTI and urine culture is growing out gram-negative rods. IMAGING Head CT revealed a large left parieto-occipital infarct, old, but no acute process. MENTAL STATUS EXAMINATION Mental status examination is quite limited because of the communication difficulties. The patient is able to follow simple commands as I said. She is unable to write or produce a clock draw. She does produce some speech, but this is largely nonsensical. She does not verbalize any suicidal or homicidal thoughts. She does not appear internally preoccupied. ASSESSMENT AND PLAN 1. Adjustment disorder, unspecified This is an 86-year-old female with psychiatric history as detailed above, who presents under a [employer] Act because of deplorable living conditions at her home. The patient was residing at home with her . The patient has a history of stroke and is unable to participate in the psychiatric interview to any significant degree at this time. The son indicates that the patient has no personal psychiatric history and no history of suicide attempts. I am very concerned about the patient's ability to function at home, and I likewise question the wisdom of the plan described by her son for the patient to go home with home health care with the patient's filling the role of primary caregiver. I do wonder how the home got to the reported degree of disarray if there were willing family members around to help out. I do think that DCF investigation is likely warranted if a case is not already open. I will leave the [employer] Act in place for the time being pending further assessment. I will be available through the weekend to reassess the [employer] Act if needed. Otherwise, I will ask Dr. Chaparro to follow up after the weekend. Case discussed with Dr. Moe and RN. Thank you very much for this consultation. Emiliano HAYES /3:02 PM /3:25 PM [facility] HOSPITALArgenis
--- NOTE | 2017-01-19 15:41 | EKG ---
Date Performed: 01/18/2017 Time Performed: 16:00:38 PTAGE: 86 years EKG: ATRIAL FIBRILLATION LATERAL MYOCARDIAL INFARCTION ABNORMAL ECG PREVIOUS TRACING : 01/09/2017 01.31 DOCTOR: Norbert Cano Interpretating Date/Time 01/19/2017 15:34:44
[2017-01-19] MEDS: cefTRIAXone INJ 1,000 MG in SODIUM CHLORIDE 0.9% INJ 100 ML IV SCH (17:32)
[2017-01-20] VITALS (8 sets, daily range): BP systolic 109–139; BP diastolic 55–94; PULSE 54–79; RESP 16–20; TEMP 96.7–98.6; O2SAT 94–96
[2017-01-20] MEDS: METOPROLOL TARTRATE 25 MG TAB PO SCH ×2 (08:44→23:05)
[2017-01-20] MEDS: SODIUM CHLORIDE 0.9% FLUSH 10 ML FLUSH IV FLUSH SCH ×2 (08:45→21:00)
[2017-01-20] MEDS: DOCUSATE SODIUM 50 MG/SENNA 8.6 MG TAB PO SCH ×2 (08:45→23:05)
[2017-01-20] MEDS: PHENYTOIN SODIUM 100 MG CAP PO SCH ×2 (08:45→23:05)
[2017-01-20] MEDS: THIAMINE HCL 100 MG TAB PO SCH (08:45)
[2017-01-20] MEDS: DIGOXIN 0.25 MG TAB PO SCH (09:00)
[2017-01-20] MEDS ORDERED: POTASSIUM CHLORIDE 20 MEQ CONTROLLED RELEASE TAB PO ONE (10:00)
--- NOTE | 2017-01-20 10:26 | RADRPT ---
EXAM DATE/TIME: 01/20/2017 09:52 [facility] COMPARISON: US LEG BILATERAL VENOUS DOPPLER, January 09, 2017, 10:21. INDICATIONS : Bilateral leg edema. MEDICAL HISTORY : Congestive heart failure. Hypercholesterolemia. Osteoporosis. CVA. Seizures. Head trauma. CAD. Afib. HTN. Right sided weakness and right arm contracted. Clotting problems. SURGICAL HISTORY : Hysterectomy. Bilateral cataracts. Detached retina. Right hip. ENCOUNTER: Subsequent ACUITY: 1 day PAIN SCORE: Non-responsive LOCATION: Bilateral leg. TECHNIQUE: Venous ultrasound of the left and right leg was performed from the inguinal ligament to the proximal calf. Real-time, color Doppler and spectral tracing, compression and augmentation techniques were us ed. FINDINGS: RIGHT LEG: There is normal compressibility of the deep venous system from the inguinal region to the proximal ca lf. No echogenic clot is seen in the lumen of the common femoral, femoral, popliteal, and posterior tibial veins. There is a normal response of the venous system to proximal and distal augmentation an d respiration. LEFT LEG: There is normal compressibility of the deep venous system from the inguinal region to the proximal ca lf. No echogenic clot is seen in the lumen of the common femoral, femoral, popliteal, and posterior tibial veins. There is a normal response of the venous system to proximal and distal augmentation an d respiration. CONCLUSION: Negative exam with no evidence of deep venous thrombosis. Bill Larsen MD on January 20, 2017 at 10:24 Board Certified Radiologist. This report was verified electronically.
--- NOTE | 2017-01-20 13:46 | HHI.PR ---
Subjective Remarks Patient seen for follow up [employer] and UTI. 01/20/2017 - patient seen this afternoon. AFVSS. Patient has no complaints this morning. Spoke with nursing. concern for subjective, mild swelling right calf. BL LE doppler negative for DVT. Patient states she has no pain in legs. Objective Vitals Vital Signs Date Time Temp Pulse Resp B/P Pulse Ox O2 Delivery O2 Flow Rate FiO2 01/20/17 11:50 97.8 55 20 124/62 96 01/20/17 08:28 65 01/20/17 07:50 98.6 78 20 139/63 96 01/20/17 04:42 96.9 54 16 130/55 94 01/20/17 00:17 97.9 57 16 139/58 94 01/19/17 20:39 97.3 54 16 135/64 95 01/19/17 14:36 65 01/19/17 14:03 96.2 72 17 140/62 96 I/O 01/19/17 01/19/17 01/19/17 01/20/17 01/20/17 01/20/17 07:00 15:00 23:00 07:00 15:00 23:00 Intake Total 240 ml 670 ml 150 ml Balance 240 ml 670 ml 150 ml Intake Oral 240 ml 270 ml 150 ml IV Total 400 ml # Voids 3 2 1 # Bowel Movements 1 1 1 Result Diagram: 01/19/17 0640 01/19/17 0640 Objective Remarks GENERAL: Pleasant appearing elderly white female in no acute distress. Aphasic at baseline. HEENT: PERRLA, EOMI. No scleral icterus or conjunctival pallor. No lid lag or facial droop. CARDIOVASCULAR: Regular rate and rhythm. No obvious murmurs to auscultation. No chest tenderness to palpation. RESPIRATORY: No obvious rhonchi or wheezing. Clear to auscultation. Breath sounds equal bilaterally. GASTROINTESTINAL: Abdomen soft, non-tender, nondistended. BS normal. MUSCULOSKELETAL: Extremities without clubbing or cyanosis. Trace LE edema on the right. No calf tenderness. Negative Oralia sign. NEUROLOGICAL: Nonverbal, at baseline, but nods/shakes heads to some questions. Right-sided hemiparesis from previous CVA, no new focal neurologic deficits. A/P Problem List: (1) Encephalopathy ICD Code: G93.40 Status: Acute (2) UTI (urinary tract infection) ICD Code: N39.0 Status: Acute (3) Total self-care deficit ICD Code: R41.89 Status: Acute (4) Protein-calorie malnutrition, severe ICD Code: E43 Status: Acute (5) COPD (chronic obstructive pulmonary disease) ICD Code: J44.9 Status: Chronic (6) A-fib ICD Code: I48.91 Status: Chronic (7) Seizure disorder ICD Code: G40.909 Status: Chronic (8) Hypokalemia ICD Code: E87.6 Status: Acute Assessment and Plan This is an 86-year-old female with an apparent PMH of A. fib off Coumadin, CVA with Residual Right-sided Hemiparesis, Seizure Disorder, HTN, Hyperlipidemia and CHF (Echo 10/07/10 w/ EF 60-65%) who was brought to the ER by Police under [employer] Act for inability to care for self, also brought in by Police under [employer] Act for same. Encephalopathy: Likely multifactorial-previous CVA, UTI w/ acute confusion. CT Head w/ large area of infarct in the left parietal occipital cortex, old, no acute intracranial findings -IVF -IV Rocephin for UTI. -Urine culture positive for pansensitive E. coli Total Self Care Deficit, Lives at home w/ , found to living in horrid conditions, naked, covered in feces w/ bugs crawling on her. in similar condition. -Currently under [employer] Act. -Psych consult placed. They plan to keep under [email or web address] for the time being. -Case Management consult for assistance w/ placement as needed Leg swelling -venous doppler 01/20 negative for DVT Protein/ Calorie malnutrition, severe with temporal wasting, ketones, low albumin -IVF D10 09/18 NS -Ensure supplements with meals -Thiamine daily -potassium low at 3.4. Replete. -daily BMP COPD: Chronic Respiratory Failure. Stable. -DuoNeb prn as needed. A-fib:chronic: bradycardia down to the 50s on tele. Difficult to assess if symptomatic, given mental status. Will hold dig and cont with metoprolol, for now. Seizure Disorder, Chronic Stable. No reported seizure activity. Continue home Dilantin. DVT Prophylaxis: SCD/Teds. Problem Qualifiers (1) UTI (urinary tract infection): Qualified Code: N39.0 - Urinary tract infection without hematuria, site unspecified Shai Mehta MD R3 January 20, 2017 13:46
[2017-01-20] MEDS: ACETAMINOPHEN/HYDROcodone 325 MG/5 MG TAB PO PRN (14:45)
[2017-01-20] MEDS ORDERED: POTASSIUM CHLORIDE 25 MEQ EFFERVESCENT TAB PO ONE (15:00)
[2017-01-20] MEDS: cefTRIAXone INJ 1,000 MG in SODIUM CHLORIDE 0.9% INJ 100 ML IV SCH (17:08)
[2017-01-20] MEDS: SODIUM CHLORIDE 23.4% INJ 77 MEQ in DEXTROSE 10% INJ 1,000 ML IV SCH (23:09)
[2017-01-21] VITALS (7 sets, daily range): BP systolic 112–139; BP diastolic 54–65; PULSE 64–80; RESP 16–19; TEMP 97.1–99; O2SAT 93–96
[2017-01-21 06:56] LABS: BICARBONATE 26.7 MEQ/L (21.0-32.0); POTASSIUM 3.5 MEQ/L (3.5-5.1)
--- NOTE | 2017-01-21 08:12 | HHI.PR ---
Subjective Remarks No acute events overnight. Afebrile, vital signs stable. Patient nonverbal, does shake her head no when asked if she is in any pain. By mouth intake is poor. Objective Vitals Vital Signs Date Time Temp Pulse Resp B/P Pulse Ox O2 Delivery O2 Flow Rate FiO2 01/21/17 04:00 98.0 80 16 130/63 95 01/21/17 00:00 98.5 80 16 130/60 95 01/20/17 20:00 97.3 79 16 129/58 95 01/20/17 15:50 96.7 63 20 116/68 95 01/20/17 11:50 97.8 55 20 124/62 96 01/20/17 08:28 65 I/O 01/20/17 01/20/17 01/20/17 01/21/17 01/21/17 01/21/17 07:00 15:00 23:00 07:00 15:00 23:00 Intake Total 150 ml 1012 ml 120 ml 60 ml Balance 150 ml 1012 ml 120 ml 60 ml Intake Oral 150 ml 30 ml 120 ml 60 ml IV Total 982 ml # Voids 1 2 1 5 # Bowel Movements 1 0 1 Result Diagram: 01/19/17 0640 01/21/17 0611 Objective Remarks GENERAL: Pleasant appearing elderly white female in no acute distress. Aphasic at baseline. HEENT: PERRLA, EOMI. No scleral icterus or conjunctival pallor. No lid lag or facial droop. CARDIOVASCULAR: Regular rate and rhythm. No obvious murmurs to auscultation. No chest tenderness to palpation. RESPIRATORY: No obvious rhonchi or wheezing. Clear to auscultation. Breath sounds equal bilaterally. GASTROINTESTINAL: Abdomen soft, non-tender, nondistended. BS normal. MUSCULOSKELETAL: Extremities without clubbing or cyanosis. Trace LE edema on the right. No calf tenderness. Negative Oralia sign. NEUROLOGICAL: Nonverbal, at baseline, but nods/shakes heads to some questions. Right-sided hemiparesis from previous CVA, no new focal neurologic deficits. A/P Problem List: (1) Encephalopathy ICD Code: G93.40 Status: Acute (2) UTI (urinary tract infection) ICD Code: N39.0 Status: Acute (3) Total self-care deficit ICD Code: R41.89 Status: Acute (4) Protein-calorie malnutrition, severe ICD Code: E43 Status: Acute (5) COPD (chronic obstructive pulmonary disease) ICD Code: J44.9 Status: Chronic (6) A-fib ICD Code: I48.91 Status: Chronic (7) Seizure disorder ICD Code: G40.909 Status: Chronic (8) Hypokalemia ICD Code: E87.6 Status: Acute Assessment and Plan This is an 86-year-old female with an apparent PMH of A. fib off Coumadin, CVA with Residual Right-sided Hemiparesis, Seizure Disorder, HTN, Hyperlipidemia and CHF (Echo 10/07/10 w/ EF 60-65%) who was brought to the ER by Police under [employer] for inability to care for self, also brought in by Police under [employer] Act for same. Encephalopathy: Likely multifactorial-previous CVA, UTI w/ acute confusion. CT Head w/ large area of infarct in the left parietal occipital cortex, old, no acute intracranial findings -IV Rocephin for UTI. -Urine culture positive for pansensitive E. coli Total Self Care Deficit, Lives at home w/ , found to living in horrid conditions, naked, covered in feces w/ bugs crawling on her. in similar condition. -Currently under [employer] Act. -Psych consult placed. They plan to keep under [employer] Act for the time being. -Case Management consult for assistance w/ placement as needed -Recommend SNF placement as patient and her unable to care for themselves. Currently, son wishes to have patients go home with home health care. Case management communicating with son regarding this matter. Leg swelling -venous doppler 01/20 negative for DVT Protein/ Calorie malnutrition, severe with temporal wasting, ketones, low albumin -Ensure supplements with meals -Thiamine daily -potassium low at 3.4. Replete. -daily BMP COPD: Chronic Respiratory Failure. Stable. -DuoNeb prn as needed. A-fib:chronic: bradycardia down to the 50s on tele. Difficult to assess if symptomatic, given mental status. Will hold dig and cont with metoprolol, for now. No additional bradycardic events since holding digoxin. Seizure Disorder, Chronic Stable. No reported seizure activity. Continue home Dilantin. DVT Prophylaxis: SCD/Teds. Discharge Planning Pending SNF placement Problem Qualifiers (1) UTI (urinary tract infection): Qualified Code: N39.0 - Urinary tract infection without hematuria, site unspecified Katalina López MD R3 January 21, 2017 08:12
[2017-01-21] MEDS ORDERED: POTASSIUM CHLORIDE 25 MEQ EFFERVESCENT TAB PO ONE (09:00)
[2017-01-21] MEDS: PHENYTOIN SODIUM 100 MG CAP PO SCH ×2 (09:53→22:01)
[2017-01-21] MEDS: THIAMINE HCL 100 MG TAB PO SCH (09:53)
[2017-01-21] MEDS: METOPROLOL TARTRATE 25 MG TAB PO SCH ×2 (09:53→22:01)
[2017-01-21] MEDS: DOCUSATE SODIUM 50 MG/SENNA 8.6 MG TAB PO SCH ×2 (09:54→22:01)
[2017-01-21] MEDS: SODIUM CHLORIDE 0.9% FLUSH 10 ML FLUSH IV FLUSH SCH ×2 (09:54→22:01)
[2017-01-21] MEDS: cefTRIAXone INJ 1,000 MG in SODIUM CHLORIDE 0.9% INJ 100 ML IV SCH (17:46)
[2017-01-22] VITALS (7 sets, daily range): BP systolic 114–182; BP diastolic 56–80; PULSE 60–77; RESP 16–18; TEMP 96.1–98.5; O2SAT 95–97
[2017-01-22 06:55] LABS: AUTOMATED NEUTROPHIL # 5.5 TH/MM3 (1.8-7.7); BASOPHIL # 0.1 TH/MM3 (0-0.2); BASOPHIL % 1.1 % (0.0-2.0); EOSINOPHIL # 0.3 TH/MM3 (0-0.4); EOSINOPHIL % 4.1 % (0.0-4.0); HEMATOCRIT 35.8 % (35.0-46.0); HEMO FLAGS DIFF FINAL; LYMPH % 20.8 % (9.0-44.0); LYMPHOCYTE # 1.7 TH/MM3 (1.0-4.8); MEAN CORPUSCULAR HEMOGLOBIN 28.6 PG (27.0-34.0); MEAN CORPUSCULAR HGB CONC 32.5 % (32.0-36.0); MONO % 7.9 % (0.0-8.0); NEUT % 66.1 % (16.0-70.0); PLATELET COUNT 365 TH/MM3 (150-450); RED BLOOD COUNT 4.06 MIL/MM3 (4.00-5.30); RED CELL DISTRIBUTION WIDTH 14.4 % (11.6-17.2); WHITE BLOOD COUNT 8.3 TH/MM3 (4.0-11.0)
[2017-01-22 07:25] LABS: BICARBONATE 28.7 MEQ/L (21.0-32.0); POTASSIUM 3.6 MEQ/L (3.5-5.1)
[2017-01-22] MEDS: DOCUSATE SODIUM 50 MG/SENNA 8.6 MG TAB PO SCH ×2 (08:42→21:18)
[2017-01-22] MEDS: PHENYTOIN SODIUM 100 MG CAP PO SCH ×2 (08:42→21:17)
[2017-01-22] MEDS: THIAMINE HCL 100 MG TAB PO SCH (08:42)
[2017-01-22] MEDS: METOPROLOL TARTRATE 25 MG TAB PO SCH ×2 (08:42→21:17)
[2017-01-22] MEDS: SODIUM CHLORIDE 0.9% FLUSH 10 ML FLUSH IV FLUSH SCH ×2 (08:42→21:18)
--- NOTE | 2017-01-22 09:21 | HHI.PR ---
Subjective Remarks Follow-up for encephalopathy, urinary tract infection. Ms. Eason is doing well , resting in bed. She is not able to vocalize her words. However she seems to understand and nods appropriately. No acute concerns. Objective Vitals Vital Signs Date Time Temp Pulse Resp B/P Pulse Ox O2 Delivery O2 Flow Rate FiO2 01/22/17 08:00 98.0 61 18 182/80 97 01/22/17 04:00 97.6 60 18 153/62 97 01/22/17 00:00 97.6 77 17 116/58 96 01/21/17 20:00 98.0 79 17 120/57 96 01/21/17 16:00 98.5 72 19 132/59 95 01/21/17 12:49 97.1 64 17 112/54 93 I/O 01/21/17 01/21/17 01/21/17 01/22/17 01/22/17 01/22/17 06:59 14:59 22:59 06:59 14:59 22:59 Intake Total 60 ml 341 ml 240 ml 60 ml Balance 60 ml 341 ml 240 ml 60 ml Intake Oral 60 ml 240 ml 60 ml IV Total 341 ml # Voids 5 2 2 3 # Bowel Movements 1 1 2 Result Diagram: 01/22/17 0605 01/22/17 0605 Imaging Last Impressions Lower Extremity Ultrasound 01/20/17 0000 Signed Impressions: Service Date/Time: Friday, January 20, 2017 09:52 - CONCLUSION: Negative exam with no evidence of deep venous thrombosis. Bill Larsen MD Head CT 01/18/171538 Signed Impressions: Service Date/Time: January 16:15 - CONCLUSION: 1. Large area of infarct involving the left parietal-occipital cortex. This is encephalomalacic and is old. There is colpocephalic dilation of the posterior horn of the left lateral ventricle. 2. No acute intracranial hemorrhage identified. 3. Incidental note made of scleral banding on the right. Clay Gaines MD Chest X-Ray 01/18/171538 Signed Impressions: Service Date/Time: January 15:39 - CONCLUSION: 1. COPD and interstitial fibrotic changes stable compared to previous exam. Clay Gaines MD Objective Remarks GENERAL: Alert, NAD. Mouths words but unable to vocalize. SKIN: Warm and dry. HEAD: Normocephalic. EYES: No scleral icterus. No injection or drainage. NECK: Supple, trachea midline. No JVD or lymphadenopathy. CARDIOVASCULAR: Regular rate and rhythm without murmurs, gallops, or rubs. RESPIRATORY: Breath sounds equal bilaterally. No accessory muscle use. GASTROINTESTINAL: Abdomen soft, non-tender, nondistended. MUSCULOSKELETAL: No cyanosis, or edema. BACK: Nontender without obvious deformity. No CVA tenderness. Procedures None A/P Problem List: (1) Encephalopathy ICD Code: G93.40 Status: Acute (2) UTI (urinary tract infection) ICD Code: N39.0 Status: Acute (3) Total self-care deficit ICD Code: R41.89 Status: Acute (4) Protein-calorie malnutrition, severe ICD Code: E43 Status: Acute (5) COPD (chronic obstructive pulmonary disease) ICD Code: J44.9 Status: Chronic (6) A-fib ICD Code: I48.91 Status: Chronic (7) Seizure disorder ICD Code: G40.909 Status: Chronic (8) Hypokalemia ICD Code: E87.6 Status: Acute Assessment and Plan This is an 86-year-old female with an apparent PMH of A. fib off Coumadin, CVA with Residual Right-sided Hemiparesis, Seizure Disorder, HTN, Hyperlipidemia and CHF (Echo 10/07/10 w/ EF 60-65%) who was brought to the ER by Police under [employer] Act for inability to care for self, also brought in by Police under [employer] Act for same. Encephalopathy: Likely multifactorial-previous CVA, UTI w/ acute confusion. CT Head w/ large area of infarct in the left parietal occipital cortex, old, no acute intracranial findings -IV Rocephin for UTI. -Urine culture positive for pansensitive E. coli Total Self Care Deficit, Lives at home w/ , found to living in horrid conditions, naked, covered in feces w/ bugs crawling on her. in similar condition. -Currently under [employer] Act. -Psych consult placed. They plan to keep under [employer] Act for the time being. -Case Management consult for assistance w/ placement as needed -Recommend SNF placement as patient and her unable to care for themselves. Leg swelling -venous doppler 01/20 negative for DVT Protein/ Calorie malnutrition, severe with temporal wasting, ketones, low albumin -Ensure supplements with meals -Thiamine daily -potassium low at 3.4. Replete. -daily BMP COPD: Chronic Respiratory Failure. Stable. -DuoNeb prn as needed. A-fib:chronic: bradycardia down to the 50s on tele. Difficult to assess if symptomatic, given mental status. Will hold dig and cont with metoprolol, for now. No additional bradycardic events since holding digoxin. Seizure Disorder, Chronic Stable. No reported seizure activity. Continue home Dilantin. DVT Prophylaxis: SCD/Teds. Discharge Plan: It is hard to imagine independent living situation for this patient whose is also in the hospital. SNF and eventually a joint terminal attack controller care facility would be reasonable. DCF is involved. Problem Qualifiers (1) UTI (urinary tract infection): Qualified Code: N39.0 - Urinary tract infection without hematuria, site unspecified oRdrigo Wilson DO January 22, 2017 9:21 am
--- NOTE | 2017-01-22 12:26 | HHI.PYPN ---
Subjective Remarks Patient seen today for psychiatric evaluation, patient is alert, can follow simple commands, but is aphasic, unable to provide any meaningful information for psychiatric follow-up. She does not seem to be in distress, pain, she is smiling, actively receiving PT. Review of Systems Other No somatic complaints Objective Alert: Yes [place]: Situation (patient is disoriented to person, time place) Mood: Calm Affect: Euthymic Memory Intact: Comment (patient is aphasic and severrely demented ) Hallucinations: Other (patient doesn't seem to have hallucinations) Delusions: No Delusion Type: Other (none elicited) Suicidal: Ideation (no voiced) Homicidal: Ideation (no voiced) Insight/Judgment poor Labs Test 01/22/17 06:05 White Blood Count 8.3 TH/MM3 Red Blood Count 4.06 MIL/MM3 Hemoglobin 11.6 GM/DL Hematocrit 35.8 % Mean Corpuscular Volume 88.0 FL Mean Corpuscular Hemoglobin 28.6 PG Mean Corpuscular Hemoglobin 32.5 % Concent Red Cell Distribution Width 14.4 % Platelet Count 365 TH/MM3 Mean Platelet Volume 8.1 FL Neutrophils (%) (Auto) 66.1 % Lymphocytes (%) (Auto) 20.8 % Monocytes (%) (Auto) 7.9 % Eosinophils (%) (Auto) 4.1 % Basophils (%) (Auto) 1.1 % Neutrophils # (Auto) 5.5 TH/MM3 Lymphocytes # (Auto) 1.7 TH/MM3 Monocytes # (Auto) 0.7 TH/MM3 Eosinophils # (Auto) 0.3 TH/MM3 Basophils # (Auto) 0.1 TH/MM3 CBC Comment DIFF FINAL Differential Comment Sodium Level 140 MEQ/L Potassium Level 3.6 MEQ/L Chloride Level 105 MEQ/L Carbon Dioxide Level 28.7 MEQ/L Anion Gap 6 MEQ/L Blood Urea Nitrogen 11 MG/DL Creatinine 0.47 MG/DL Estimat Glomerular Filtration 126 ML/MIN Rate Random Glucose 82 MG/DL Calcium Level 8.5 MG/DL Date/Time Procedure Status Source Growth 01/18/17 18:35 Aerobic Blood Culture - Preliminary Resulted Blood Peripheral NO GROWTH IN 4 DAYS 01/18/17 18:35 Anaerobic Blood Culture - Preliminary Resulted Blood Peripheral NO GROWTH IN 4 DAYS 01/18/17 17:00 Urine Culture - Final Complete Urine Catheterized Urine Escherichia Coli Vitals/IOs Vital Signs Date Time Temp Pulse Resp B/P Pulse Ox O2 Delivery O2 Flow Rate FiO2 01/22/17 08:00 98.0 61 18 182/80 97 01/18/17 20:44 Nasal Cannula 2 Intake and Output 01/21/17 01/21/17 01/21/17 07:59 15:59 23:59 Intake Total 60 ml 341 ml 240 ml Balance 60 ml 341 ml 240 ml Assessment & Plan Problem List: (1) Dementia Assessment & Plan: Patient is nonverbal, unable to provide any meaningful information for the psychiatric interview. She does not seem to be in distress , pain. As per , patient is a baseline where now. Patient is severely demented, she does not meet criteria for psychiatric admission. ICD Code: F03.90 Assessment & Plan Estimated LOS: days Justification for Cont. Inpt. Patient does not meet criteria for psychiatric admission. DCF is involved in discharge planning. Problem Qualifiers (1) Dementia: Eliot Chaparro MD January 22, 2017 12:26
[2017-01-22] MEDS: cefTRIAXone INJ 1,000 MG in SODIUM CHLORIDE 0.9% INJ 100 ML IV SCH (18:05)
[2017-01-23] VITALS: BP 120/53; PULSE 73; RESP 16; TEMP 97.6; O2SAT 96
[2017-01-23 04:00] VITALS: BP 137/63; PULSE 65; RESP 15; TEMP 96.5; O2SAT 95
[2017-01-23 08:00] VITALS: BP 134/59; PULSE 57; RESP 18; TEMP 96.7; O2SAT 95
[2017-01-23] MEDS: SODIUM CHLORIDE 0.9% FLUSH 10 ML FLUSH IV FLUSH SCH ×2 (09:14→21:00)
[2017-01-23] MEDS: DOCUSATE SODIUM 50 MG/SENNA 8.6 MG TAB PO SCH ×2 (09:14→21:00)
[2017-01-23] MEDS: METOPROLOL TARTRATE 25 MG TAB PO SCH (09:14)
[2017-01-23] MEDS: THIAMINE HCL 100 MG TAB PO SCH (09:14)
[2017-01-23] MEDS: PHENYTOIN SODIUM 100 MG CAP PO SCH (09:14)
[2017-01-23 12:00] VITALS: BP 129/64; PULSE 58; RESP 16; TEMP 97.7; O2SAT 96
[2017-01-23 16:00] VITALS: BP 141/83; PULSE 102; RESP 18; TEMP 97.1; O2SAT 94
[2017-01-23] MEDS: cefTRIAXone INJ 1,000 MG in SODIUM CHLORIDE 0.9% INJ 100 ML IV SCH (18:18)
--- NOTE | 2017-01-23 18:43 | HHI.PR ---
Subjective Remarks ollow-up for encephalopathy, urinary tract infection. Patient is sitting at the side of the bed and mumbles. She cannot communicate verbally. She nods when asked if she is in any pain. She cannot specify her concerns, unfortunately. Objective Vitals Vital Signs Date Time Temp Pulse Resp B/P Pulse Ox O2 Delivery O2 Flow Rate FiO2 01/23/17 16:00 97.1 102 18 141/83 94 01/23/17 12:00 97.7 58 16 129/64 96 01/23/17 08:00 96.7 57 18 134/59 95 01/23/17 04:00 96.5 65 15 137/63 95 01/23/17 00:00 97.6 73 16 120/53 96 01/22/17 22:23 18 01/22/17 20:08 74 01/22/17 20:00 96.2 74 16 114/56 97 I/O 01/22/17 01/22/17 01/22/17 01/23/17 01/23/17 01/23/17 07:00 15:00 23:00 07:00 15:00 23:00 Intake Total 60 ml 600 ml 60 ml 480 ml Balance 60 ml 600 ml 60 ml 480 ml Intake Oral 60 ml 600 ml 60 ml 480 ml IV Total 0 ml # Voids 3 4 3 4 # Bowel Movements 2 1 1 3 Result Diagram: 01/22/17 0605 01/22/17 0605 Imaging Last Impressions Lower Extremity Ultrasound 01/20/17 0000 Signed Impressions: Service Date/Time: Friday, January 20, 2017 09:52 - CONCLUSION: Negative exam with no evidence of deep venous thrombosis. Bill Larsen MD Head CT 01/18/17 1539 Signed Impressions: Service Date/Time: January 16:15 - CONCLUSION: 1. Large area of infarct involving the left parietal-occipital cortex. This is encephalomalacic and is old. There is colpocephalic dilation of the posterior horn of the left lateral ventricle. 2. No acute intracranial hemorrhage identified. 3. Incidental note made of scleral banding on the right. Clay Gaines MD Chest X-Ray 01/18/17 2530 Signed Impressions: Service Date/Time: January 15:39 - CONCLUSION: 1. COPD and interstitial fibrotic changes stable compared to previous exam. Clay Gaines MD Objective Remarks GENERAL: Alert, NAD. Mouths words but unable to vocalize. SKIN: Warm and dry. HEAD: Normocephalic. EYES: No scleral icterus. No injection or drainage. NECK: Supple, trachea midline. No JVD or lymphadenopathy. CARDIOVASCULAR: Regular rate and rhythm without murmurs, gallops, or rubs. RESPIRATORY: Breath sounds equal bilaterally. No accessory muscle use. GASTROINTESTINAL: Abdomen soft, non-tender, nondistended. MUSCULOSKELETAL: No cyanosis, or edema. BACK: Nontender without obvious deformity. No CVA tenderness. Procedures None A/P Problem List: (1) Encephalopathy ICD Code: G93.40 Status: Acute (2) UTI (urinary tract infection) ICD Code: N39.0 Status: Acute (3) Total self-care deficit ICD Code: R41.89 Status: Acute (4) Protein-calorie malnutrition, severe ICD Code: E43 Status: Acute (5) COPD (chronic obstructive pulmonary disease) ICD Code: J44.9 Status: Chronic (6) A-fib ICD Code: I48.91 Status: Chronic (7) Seizure disorder ICD Code: G40.909 Status: Chronic (8) Hypokalemia ICD Code: E87.6 Status: Acute Assessment and Plan This is an 86-year-old female with an apparent PMH of A. fib off Coumadin, CVA with Residual Right-sided Hemiparesis, Seizure Disorder, HTN, Hyperlipidemia and CHF (Echo 10/07/10 w/ EF 60-65%) who was brought to the ER by Police under [employer] Act for inability to care for self, also brought in by Police under [employer] Act for same. Encephalopathy: Likely multifactorial-previous CVA, UTI w/ acute confusion. CT Head w/ large area of infarct in the left parietal occipital cortex, old, no acute intracranial findings - Received IV rocephin for UTI for 5 days. We will discontinue rocephin. - Urine culture positive for pansensitive E. coli Total Self Care Deficit, Lives at home w/ , found to living in horrid conditions, naked, covered in feces w/ bugs crawling on her. in similar condition. -Currently under [employer]. -Psych consult placed. They plan to keep under [employer] for the time being. -Case Management consult for assistance w/ placement as needed -Recommend SNF placement as patient and her unable to care for themselves. Leg swelling -venous doppler 01/20 negative for DVT Protein/ Calorie malnutrition, severe with temporal wasting, ketones, low albumin -Ensure supplements with meals -Thiamine daily -potassium low at 3.4. Replete. -daily BMP COPD: Chronic Respiratory Failure. Stable. -DuoNeb prn as needed. A-fib:chronic: bradycardia down to the 50s on tele. Difficult to assess if symptomatic, given mental status. Will hold dig and cont with metoprolol, for now. No additional bradycardic events since holding digoxin. Seizure Disorder, Chronic Stable. No reported seizure activity. Continue home Dilantin. DVT Prophylaxis: SCD/Teds. Discharge Plan: Discussed with CM today. Patient and her both want to be discharged on the same day. We will coordinate to discharge both of them on . Problem Qualifiers (1) UTI (urinary tract infection): Qualified Code: N39.0 - Urinary tract infection without hematuria, site unspecified Rodrigo Wilson DO January 23, 2017 6:43 pm
[2017-01-23 20:06] VITALS: BP 112/67; PULSE 82; RESP 18; TEMP 98.6; O2SAT 96
[2017-01-24] MEDS: METOPROLOL TARTRATE 25 MG TAB PO SCH ×2 (00:02→09:22)
[2017-01-24] MEDS: PHENYTOIN SODIUM 100 MG CAP PO SCH ×2 (00:02→09:21)
[2017-01-24] MEDS: ACETAMINOPHEN/HYDROcodone 325 MG/5 MG TAB PO PRN (00:03)
[2017-01-24 00:19] VITALS: BP 148/68; PULSE 71; RESP 20; TEMP 98.4; O2SAT 99
[2017-01-24 04:31] VITALS: BP 148/67; PULSE 58; RESP 20; TEMP 98.1; O2SAT 96
[2017-01-24 08:00] VITALS: BP 140/64; PULSE 64; RESP 18; TEMP 98.8; O2SAT 96
[2017-01-24] MEDS: THIAMINE HCL 100 MG TAB PO SCH (09:21)
[2017-01-24] MEDS: DOCUSATE SODIUM 50 MG/SENNA 8.6 MG TAB PO SCH (09:22)
[2017-01-24] MEDS: SODIUM CHLORIDE 0.9% FLUSH 10 ML FLUSH IV FLUSH SCH (09:22)
[2017-01-24] MEDS ORDERED: NORC5TAB PO ×2 (10:38→11:22)
[2017-01-24] MEDS ORDERED: VITA100T2 PO (10:38)
--- NOTE | 2017-01-24 10:40 | HHI.DS ---
Discharge Summary Admission Date January 22, 2017 at 10:31 Discharge Date: January 24, 2017 Admitting Diagnosis UTI, generalized weakness (1) Encephalopathy ICD Code: G93.40 Diagnosis: Principal (2) UTI (urinary tract infection) ICD Code: N39.0 Diagnosis: Principal (3) Total self-care deficit ICD Code: R41.89 (4) Protein-calorie malnutrition, severe ICD Code: E43 (5) COPD (chronic obstructive pulmonary disease) ICD Code: J44.9 (6) A-fib ICD Code: I48.91 (7) Seizure disorder ICD Code: G40.909 (8) Hypokalemia ICD Code: E87.6 Procedures None Brief History - From Admission This is an 86-year-old female with an apparent PMH of A. fib off Coumadin, CVA with Residual Right-sided Hemiparesis, Seizure Disorder, HTN, Hyperlipidemia and CHF (Echo 10/07/10 w/ EF 60-65%) who was brought to the ER by Police under [employer] Act for inability to care for self, also brought in by Police under [employer] Act for same. Per report, regional truck driver arrived at their home to take them to a doctor's appointment, found both pt and to be confused and living in horrid conditions, covered in feces w/ bugs crawling on her. Pt nonverbal at baseline from previous CVA, unable to give history, but nods to some questions. On arrival, BP 138/60, HR 89, O2 sat 96% on RA, Afebrile. CBC unremarkable except for mildly elevated neutrophil count. Chemistry essentially unremarkable. Troponin 0.05. UA with UTI. Urine Drug Screen negative. CT Head with large infarct in the left parietal occipital cortex, old , no acute findings noted. CXR with COPD and interstitial fibrotic changes. S/ p Rocephin in ER. CBC/BMP: 01/22/17 0605 01/22/17 0605 Significant Findings Laboratory Tests Test 01/22/17 06:05 Eosinophils (%) (Auto) 4.1 % (0.0-4.0) Creatinine 0.47 MG/DL (0.50-1.00) Imaging Last Impressions Lower Extremity Ultrasound 01/20/17 0000 Signed Impressions: Service Date/Time: Friday, January 20, 2017 09:52 - CONCLUSION: Negative exam with no evidence of deep venous thrombosis. Bill Larsen MD Head CT 01/18/17 1539 Signed Impressions: Service Date/Time: January 16:15 - CONCLUSION: 1. Large area of infarct involving the left parietal-occipital cortex. This is encephalomalacic and is old. There is colpocephalic dilation of the posterior horn of the left lateral ventricle. 2. No acute intracranial hemorrhage identified. 3. Incidental note made of scleral banding on the right. Clay Gaines MD Chest X-Ray 01/18/17 1539 Signed Impressions: Service Date/Time: January 15:39 - CONCLUSION: 1. COPD and interstitial fibrotic changes stable compared to previous exam. Clay Gaines MD PE at Discharge GENERAL: Alert, NAD. Mouths words but unable to vocalize. SKIN: Warm and dry. HEAD: Normocephalic. EYES: No scleral icterus. No injection or drainage. NECK: Supple, trachea midline. No JVD or lymphadenopathy. CARDIOVASCULAR: Regular rate and rhythm without murmurs, gallops, or rubs. RESPIRATORY: Breath sounds equal bilaterally. No accessory muscle use. GASTROINTESTINAL: Abdomen soft, non-tender, nondistended. MUSCULOSKELETAL: No cyanosis, or edema. BACK: Nontender without obvious deformity. No CVA tenderness. Pt update on day of discharge Patient is doing well. Pleasant, no acute concerns. Going to SNF with her . Hospital Course This is an 86-year-old female with an apparent PMH of A. fib off Coumadin, CVA with Residual Right-sided Hemiparesis, Seizure Disorder, HTN, Hyperlipidemia and CHF (Echo 10/07/10 w/ EF 60-65%) who was brought to the ER by Police under [employer] Act for inability to care for self, also brought in by Police under [employer] Act for same. Encephalopathy: Likely multifactorial-previous CVA, UTI w/ acute confusion. CT Head w/ large area of infarct in the left parietal occipital cortex, old, no acute intracranial findings - Received IV rocephin for UTI for 5 days. - Urine culture positive for pansensitive E. coli Total Self Care Deficit, Lives at home w/ , found to living in horrid conditions, naked, covered in feces w/ bugs crawling on her. in similar condition. -Case Management consult for assistance w/ placement as needed -Recommend SNF placement as patient and her unable to care for themselves. Leg swelling -venous doppler 01/20 negative for DVT Protein/ Calorie malnutrition, severe with temporal wasting, ketones, low albumin -Ensure supplements with meals -Thiamine daily -potassium low at 3.4. Replete. COPD: Chronic Respiratory Failure. Stable. -DuoNeb prn as needed. A-fib:chronic: Continue Metoprolol. Seizure Disorder, Chronic Stable. No reported seizure activity. Continue home Dilantin. DVT Prophylaxis: SCD/Teds. Pt Condition on Discharge: Stable Discharge Disposition: Discharge to SNF Discharge Time: > 30 minutes Discharge Instructions DIET: Follow Instructions for: As Tolerated, No Restrictions Activities you can perform: Regular-No Restrictions Follow up Referrals: SNF/[facility] New Medications: Thiamine (Vitamin B-1) 100 Mg Tab 100 MG PO DAILY Vitamin #30 TAB Continued Medications: Amlodipine (Norvasc) 10 Mg Tab 10 MG PO DAILY Blood Pressure Management #30 TAB Hydrocodone-Acetaminophen ([place]erry) 5-325 mg Tab 1 TAB PO Q4H PRN PAIN #20 Ref 0 TAB (This prescription has been renewed) Metoprolol Tartrate (Metoprolol Tartrate) 25 Mg Tab 25 MG PO BID #60 Ref 0 TAB Phenytoin Extended (Dilantin) 100 Mg Cap 100 MG PO BID Control Seizures #90 Ref 0 CAP Sennosides-Docusate Sodium (Senna Plus 8.6-50 mg) 1 Tab Tab 2 TAB PO BID constipation #60 TAB Discontinued Medications: Digoxin (Digoxin) 0.25 Mg Tab 0.25 MG PO DAILY Regulate Heart Beat #30 Ref 0 TAB Lisinopril (Lisinopril) 20 Mg Tab 40 MG PO DAILY Blood Pressure Management #30 TAB Potassium Chloride ER (Potassium Chloride ER) 20 Meq Tab 20 MEQ PO DAILY Electrolyte Replacement #14 Ref 0 TAB Potassium Phosphate Monobasic (K-Phos) 500 Mg Tab 500 MG PO BID Electrolyte Replacement #60 Ref 0 TAB Rodrigo Wilson DO January 24, 2017 10:40
[2017-01-24 12:00] VITALS: BP 138/72; PULSE 64; RESP 16; TEMP 97.6; O2SAT 95
== END 2017-01-24 14:08 | DRG 689 ==
LOC: NEPC 14:26 → INTOOBSV 18:21 → NEDA 18:21 → NEPHCDU 21:05 → HOCB 01-19 11:10 → OBSVTOIN 01-22 10:31
PROVIDERS: ADMIT Hospitalist; ATTEND Hospitalist
DX: N39.0 Urinary tract infection, site not specified (principal); G93.40 Encephalopathy, unspecified; E43 Unspecified severe protein-calorie malnutrition; J96.10 Chronic respiratory failure, unspecified whether with hypoxia or hypercapnia; I69.251 Hemiplegia and hemiparesis following other nontraumatic intracranial hemorrhage affecting right dominant side; I48.2 Chronic atrial fibrillation; F03.90 Unspecified dementia, unspecified severity, without behavioral disturbance, psychotic disturbance, mood disturbance, and anxiety; Z68.1 Body mass index [BMI] 19.9 or less, adult; J44.9 Chronic obstructive pulmonary disease, unspecified; I10 Essential (primary) hypertension; E78.5 Hyperlipidemia, unspecified; E87.6 Hypokalemia; I69.220 Aphasia following other nontraumatic intracranial hemorrhage; D64.9 Anemia, unspecified; F43.20 Adjustment disorder, unspecified; G40.909 Epilepsy, unspecified, not intractable, without status epilepticus
CPT/HCPCS: 70450; 71010; 76937; 80048; 80053; 80307; 81001; 82550; 83605; 84443; 84484; 85025; 87040; 87077; 87086; 87186; 93005; 93970; G0378; G8987-GP; G8988-GP; J0696; J3411; J7030

== ENCOUNTER 2017-02-24 16:17 | Inpatient (IN) | payer MEDICARE, BC ==
[~2017-02-24] VITALS: Ht 152.4 cm; Wt 38.6 kg
[~2017-02-24 16:17] MED LIST changes: -CEPH-459 PO; -DIGO0.25 PO; -K-PHTAB PO; -LISI-515 PO; -POTA-163 PO; +VITA100T2 PO
--- NOTE | 2017-02-24 16:40 | PD ---
HPI Chief Complaint: fall, femur fracture Time Seen by Provider: 16:23 Travel History International Travel<30 days: No Contact w/Intl Traveler<30days: No Traveled to known affect area: No History of Present Illness HPI 86-year-old female came to the emergency room sent by [facility] for a distal femur fracture. Patient has significant dementia. She is a very poor historian and hence the details about the fall was unclear. However the x-ray seemed like it was read at 6:45 AM. There is a chance that the fall happened last night. Vital signs were stable. [facility] Past Medical History Narrative Medical List of her past medical, surgical, social and family history is reviewed from the nursing note. Arthritis: No Asthma: No Atrial Fibrillation: Yes Blood Disorders: No Heart Rhythm Problems: Yes (A-FIB) Cancer: No Cardiovascular Problems: Yes High Cholesterol: Yes Chest Pain: No Congestive Heart Failure: Yes COPD: No Cerebrovascular Accident: Yes Coronary Artery Disease: Yes Diabetes: No Diminished Hearing: No Endocrine: No Genitourinary: No Headaches: No Hypertension: Yes Immune Disorder: No Musculoskeletal: Yes (RIGHT SIDED WEAKNESS AND RIGHT ARM CONTRACTED) Neurologic: Yes (HISTORY OF CVA) Psychiatric: No Reproductive: No Respiratory: No Migraines: No Seizures: Yes (s/p stroke) Sleep Apnea: No Thyroid Disease: No PNEUMOCCOCAL Vaccine (Year): 1 Menopausal: Yes Past Surgical History Abdominal Surgery: No Cardiac Surgery: No Ear Surgery: No Endocrine Surgery: No Eye Surgery: Yes (DETACHED RETINA, IVETTE CATARACTS) Genitourinary Surgery: No Gynecologic Surgery: Yes (Hysto) Hysterectomy: Yes Joint Replacement: Yes Oral Surgery: No Thoracic Surgery: No Other Surgery: Yes (Retina, Cataracts, Hysterectomy, hip joint replacement) Social History Alcohol Use: No Tobacco Use: No Substance Use: No Allergies-Medications (Allergen,Severity, Reaction): Coded Allergies: Sulfa (Verified Allergy, Severe, UNKNOWN, 01/18/17) Comments List of her allergies reviewed from the nursing note. Reported Meds & Prescriptions Reported Meds & Active Scripts Active Reported Sennosides 8.6 Mg Tab 8.6 Mg PO HS Vitamin B-1 (Thiamine HCl) 100 Mg Tab 100 Mg PO DAILY Metoprolol Tartrate 25 Mg Tab 25 Mg PO BID Multiple Vitamin 1 Tab 1 Tab PO DAILY Dulcolax Supp (Bisacodyl) 10 Mg Supp 10 Mg RECTAL DAILY PRN Aspirin 81 Mg Chew 81 Mg CHEW DAILY Dilantin (Phenytoin Extended) 100 Mg Cap 200 Mg PO BID Baclofen 10 Mg Tab 5 Mg PO Q8HR PRN Norvasc (Amlodipine Besylate) 5 Mg Tab 5 Mg PO DAILY [place] (Hydrocodone-Acetaminophen) 5-325 mg Tab 1 Tab PO Q6H PRN Remeron (Mirtazapine) 15 Mg Tab 7.5 Mg PO HS Narrative Medication List of her home medications reviewed from the nursing note. Review of Systems Except as stated in HPI: all other systems reviewed are Neg Physical Exam Narrative GENERAL: Awake, elderly, frail, significant dementia SKIN: Focused skin assessment warm/dry. HEAD: Atraumatic. Normocephalic. EYES: Pupils equal and round. No scleral icterus. No injection or drainage. ENT: No nasal bleeding or discharge. Mucous membranes pink and moist. NECK: Trachea midline. No JVD. CARDIOVASCULAR: Regular rate and rhythm. No murmur appreciated. RESPIRATORY: No accessory muscle use. Clear to auscultation. Breath sounds equal bilaterally. GASTROINTESTINAL: Abdomen soft, non-tender, nondistended. Hepatic and splenic margins not palpable. MUSCULOSKELETAL: Swelling of the right knee. Decreased range of motion. No clubbing. No cyanosis. No edema. NEUROLOGICAL: Awake and alert. No obvious cranial nerve deficits. Motor grossly within normal limits. Normal speech. PSYCHIATRIC: Anxious; poor insight and judgment Data Data Last Documented VS Vital Signs Date Time Temp Pulse Resp B/P Pulse Ox O2 Delivery O2 Flow Rate FiO2 02/24/17 17:02 97 Nasal Cannula 2 02/24/17 16:47 90 18 02/24/17 16:41 97.9 160/70 Orders Electrocardiogram (02/24/17 16:50) Basic Metabolic Panel (Bmp) (02/24/17 16:50) Complete Blood Count With Diff (02/24/17 16:50) Prothrombin Time / Inr (Pt) (02/24/17 16:50) Chest, Single Ap (02/24/17 16:50) Ecg Monitoring (02/24/17 16:50) Bilateral Bp Monitoring (02/24/17 16:50) Iv Access Insert/Monitor (02/24/17 16:50) Oximetry (02/24/17 16:50) Oxygen Administration (02/24/17 16:50) Sodium Chloride 0.9% Flush (Ns Flush) (02/24/17 17:00) Femur (Ap & Lat/2vws) (02/24/17 ) Sodium Chlor 0.9% 250 Ml Inj (Ns 250 Ml (02/24/17 17:00) Type And Screen (02/24/17 16:50) Morphine Inj (Morphine Inj) (02/24/17 17:00) Phenytoin (Dilantin) (02/24/17 17:13) Admit Order (Ed Use Only) (02/24/17 18:46) Labs Laboratory Tests Test 02/24/17 17:13 White Blood Count 7.4 TH/MM3 Red Blood Count 4.41 MIL/MM3 Hemoglobin 12.3 GM/DL Hematocrit 38.0 % Mean Corpuscular Volume 86.1 FL Mean Corpuscular Hemoglobin 27.9 PG Mean Corpuscular Hemoglobin 32.4 % Concent Red Cell Distribution Width 14.9 % Platelet Count 363 TH/MM3 Mean Platelet Volume 8.3 FL Neutrophils (%) (Auto) 61.5 % Lymphocytes (%) (Auto) 25.2 % Monocytes (%) (Auto) 5.9 % Eosinophils (%) (Auto) 6.8 % Basophils (%) (Auto) 0.6 % Neutrophils # (Auto) 4.5 TH/MM3 Lymphocytes # (Auto) 1.9 TH/MM3 Monocytes # (Auto) 0.4 TH/MM3 Eosinophils # (Auto) 0.5 TH/MM3 Basophils # (Auto) 0.0 TH/MM3 CBC Comment DIFF FINAL Differential Comment Prothrombin Time 10.9 SEC Prothromb Time International 1.0 RATIO Ratio Sodium Level 138 MEQ/L Potassium Level 3.6 MEQ/L Chloride Level 105 MEQ/L Carbon Dioxide Level 22.0 MEQ/L Anion Gap 11 MEQ/L Blood Urea Nitrogen 23 MG/DL Creatinine 0.43 MG/DL Estimat Glomerular Filtration 139 ML/MIN Rate Random Glucose 86 MG/DL Calcium Level 9.0 MG/DL Phenytoin (Dilantin) Level 18.8 MCG/ML MDM Medical Decision Making Medical Screen Exam Complete: Yes Emergency Medical Condition: Yes Medical Record Reviewed: Yes Interpretation(s) Twelve-lead EKG was reviewed by me. Atrial fibrillation, normal axis, motion artifact. Heart rate of 85 bpm. Differential Diagnosis Distal right femur fracture Narrative Course 6:30 PM blood test results of back and within normal limit. Since there was no x-ray films sent with the patient I ordered a repeat x-ray. Awaiting for the x- ray to be done. Patient has been admitted to the hospitalist. Procedures EKG Prior to Arrival: No Diagnosis Primary Impression: Fall Qualified Code: W19.XXXA - Fall, initial encounter Additional Impressions: Dementia Qualified Code: F03.90 - Dementia without behavioral disturbance, unspecified dementia type Closed fracture of right distal femur Qualified Code: S72.401A - Closed fracture of distal end of right femur, unspecified fracture morphology, initial encounter Admitting Information Admitting Physician Requests: Admit Efe Mayfield MD Feb 24, 2017 16:40 Admitting Information Admitting Physician Requests: Efe Taylor MD Feb 24, 2017 16:40
[2017-02-24 16:41] VITALS: BP 160/70; PULSE 89; RESP 18; TEMP 97.9; O2SAT 98
[2017-02-24] MEDS ORDERED: NORC5TAB PO (16:53)
[2017-02-24] MEDS ORDERED: MULTTAB67 PO (16:53)
[2017-02-24] MEDS ORDERED: ASPI81CH CHEW (16:53)
[2017-02-24] MEDS ORDERED: SENN8.6T81 PO (16:53)
[2017-02-24] MEDS ORDERED: REME15TA PO (16:53)
[2017-02-24] MEDS ORDERED: METO25TA3 PO (16:53)
[2017-02-24] MEDS ORDERED: VITA100T54 PO (16:53)
[2017-02-24] MEDS ORDERED: DILA100C PO (16:53)
[2017-02-24] MEDS ORDERED: AMLO5 PO (16:53)
[2017-02-24] MEDS ORDERED: DULC10SU3 RECTAL (16:53)
[2017-02-24] MEDS ORDERED: BACL10TA PO (16:53)
[2017-02-24] MEDS ORDERED: SODIUM CHLORIDE 0.9% FLUSH 10 ML FLUSH IVF PRN (17:00)
[2017-02-24] MEDS ORDERED: MORPHINE SULFATE 4 MG/ML INJ IV PUSH ONE (17:00)
[2017-02-24] MEDS ORDERED: SODIUM CHLOR 0.9% 250 ML INJ 250 ML IV ONE (17:00)
[2017-02-24 17:02] VITALS: O2SAT 97
[2017-02-24 17:40] LABS: AUTOMATED NEUTROPHIL # 4.5 TH/MM3 (1.8-7.7); BASOPHIL % 0.6 % (0.0-2.0); EOSINOPHIL # 0.5 TH/MM3 (0-0.4); EOSINOPHIL % 6.8 % (0.0-4.0); HEMO FLAGS DIFF FINAL; LYMPH % 25.2 % (9.0-44.0); LYMPHOCYTE # 1.9 TH/MM3 (1.0-4.8); MEAN CELL VOLUME 86.1 FL (80.0-100.0); MEAN CORPUSCULAR HEMOGLOBIN 27.9 PG (27.0-34.0); MEAN CORPUSCULAR HGB CONC 32.4 % (32.0-36.0); MONO % 5.9 % (0.0-8.0); NEUT % 61.5 % (16.0-70.0); PLATELET COUNT 363 TH/MM3 (150-450); RED BLOOD COUNT 4.41 MIL/MM3 (4.00-5.30); RED CELL DISTRIBUTION WIDTH 14.9 % (11.6-17.2); WHITE BLOOD COUNT 7.4 TH/MM3 (4.0-11.0)
[2017-02-24 17:48] LABS: PROTHROMBIN TIME - PATIENT 10.9 SEC (9.8-11.6)
[2017-02-24 18:05] LABS: POTASSIUM 3.6 MEQ/L (3.5-5.1)
--- NOTE | 2017-02-24 18:54 | RADRPT ---
EXAM DATE/TIME: 02/24/2017 18:21 [facility] COMPARISON: No previous studies available for comparison. INDICATIONS : Right femur pain. MEDICAL HISTORY : None. SURGICAL HISTORY : None. ENCOUNTER: Initial ACUITY: 1 day PAIN SCORE: Non-responsive. LOCATION: Right femur. FINDINGS: The right femur is diffusely osteopenic. No fracture is demonstrated. No focal bone lesion or periost eal reaction. There is diffuse muscle wasting. CONCLUSION: Osteopenic right femur without evidence of fracture. Golden Bruner MD on February 24, 2017 at 18:51 Board Certified Radiologist. This report was verified electronically.
--- NOTE | 2017-02-24 18:55 | RADRPT ---
EXAM DATE/TIME: 02/24/2017 18:27 [facility] COMPARISON: CHEST SINGLE AP, January 18, 2017, 15:39. CHEST SINGLE AP, October 15, 2016, 20:03. INDICATIONS : Altered mental status. MEDICAL HISTORY : Hypertension. Congestive heart failure. Afib. Coronary artery disease. SURGICAL HISTORY : Hysterectomy. ENCOUNTER: Initial ACUITY: 1 day PAIN SCORE: Non-responsive. LOCATION: Bilateral chest FINDINGS: Comparison with multiple prior examinations reveal chronic interstitial lung disease, likely pulmonar y fibrosis with bronchiectasis as well. Minimal chronic basilar airspace disease as well. No signific ant effusion. Heart size mildly enlarged. No pneumothorax. CONCLUSION: 1. Chronic interstitial lung changes, likely underlying pulmonary fibrosis as well as some bronchiect asis. Miguel Quach MD on February 24, 2017 at 18:52 Board Certified Radiologist. This report was verified electronically.
[2017-02-24 19:15] VITALS: BP 137/60; PULSE 83; RESP 18; O2SAT 97
--- NOTE | 2017-02-24 19:35 | HHI.HP ---
[facility] Dennis Arnold MD Admission Diagnosis fall, femur fracture, dementia Diagnoses: (1) Fall Diagnosis: Principal (2) COPD (chronic obstructive pulmonary disease) Diagnosis: Principal (3) Closed fracture of right distal femur Diagnosis: Principal (4) Seizure disorder Diagnosis: Principal (5) A-fib Diagnosis: Principal (6) CHF (congestive heart failure) Diagnosis: Principal (7) H/O: CVA (cerebrovascular accident) Diagnosis: Principal (8) Dementia Diagnosis: Principal Travel History International Travel<30 Days: No Contact w/Intl Traveler <30 Da: No Traveled to Known Affected Are: No History of Present Illness 86-year-old female with a PMH of HTN, A. fib, CHF (Echo 10/07/10 w/ EF 60-65%), CVA w/ Residual Aphasia, Hyperlipidemia, COPD and Seizure Disorder who was sent to the ER from SNF secondary to outpatient X-ray showing Right Distal Femur Fx. Pt unable to provide any history due to significant dementia and aphasia. Ortho consulted by ER physician, recommended repeat imaging. Femur X-ray with osteopenic right femur however no evidence of fracture. On arrival, BP 160/70, HR 89, O2 sat 98% on RA, Afebrile. CBC unremarkable. Chemistry essentially unremarkable except for BUN 23. INR 1.0. Phenytoin 18.8. CXR with chronic interstitial lung changes on the likely underlying pulmonary fibrosis and bronchiectasis. Review of Systems Except as stated in HPI: all other systems reviewed are Neg ROS: Unable to obtain secondary to dementia and aphasia. Past Family Social History Past Medical History PMH: HTN, A. fib, CHF (Echo 10/07/10 w/ EF 60-65%), CVA w/ Residual Aphasia, Hyperlipidemia, COPD and Seizure Disorder Past Surgical History PAST SURGICAL HISTORY: Bilateral Cataract Surgery, Hysterectomy, Hip Joint Replacement Allergies: Coded Allergies: Sulfa (Verified Allergy, Severe, UNKNOWN, 01/18/17) Family History PAST FAMILY HISTORY: Reviewed. No h/o DM or CAD Social History PAST SOCIAL HISTORY: Negative for alcohol, tobacco or drugs. Physical Exam Vital Signs Vital Signs Date Time Temp Pulse Resp B/P Pulse Ox O2 Delivery O2 Flow Rate FiO2 02/24/17 19:15 83 18 137/60 97 Nasal Cannula 2 02/24/17 17:02 97 Nasal Cannula 2 02/24/17 17:02 95 Nasal Cannula 2 02/24/17 16:47 90 18 98 Room Air 02/24/17 16:41 97.9 89 18 160/70 98 Physical Exam PE: GENERAL: Thin, elderly white female in no acute distress. +Aphasia at baseline, however nods/shakes head to some questions. HEENT: PERRLA, EOMI. No scleral icterus or conjunctival pallor. No lid lag or facial droop. CARDIOVASCULAR: Regular rate and rhythm. No obvious murmurs to auscultation. No chest tenderness to palpation. RESPIRATORY: No obvious rhonchi or wheezing. Clear to auscultation. Breath sounds equal bilaterally. GASTROINTESTINAL: Abdomen soft, non-tender, nondistended. BS normal. MUSCULOSKELETAL: Decreased ROM of RLE due to pain. Pulses intact. NEUROLOGICAL: Awake, alert4. No focal neurologic deficits. Moving both upper and lower extremities spontaneously. Laboratory Laboratory Tests Test 02/24/17 17:13 White Blood Count 7.4 Red Blood Count 4.41 Hemoglobin 12.3 Hematocrit 38.0 Mean Corpuscular Volume 86.1 Mean Corpuscular Hemoglobin 27.9 Mean Corpuscular Hemoglobin 32.4 Concent Red Cell Distribution Width 14.9 Platelet Count 363 Mean Platelet Volume 8.3 Neutrophils (%) (Auto) 61.5 Lymphocytes (%) (Auto) 25.2 Monocytes (%) (Auto) 5.9 Eosinophils (%) (Auto) 6.8 Basophils (%) (Auto) 0.6 Neutrophils # (Auto) 4.5 Lymphocytes # (Auto) 1.9 Monocytes # (Auto) 0.4 Eosinophils # (Auto) 0.5 Basophils # (Auto) 0.0 CBC Comment DIFF FINAL Differential Comment Prothrombin Time 10.9 Prothromb Time International 1.0 Ratio Sodium Level 138 Potassium Level 3.6 Chloride Level 105 Carbon Dioxide Level 22.0 Anion Gap 11 Blood Urea Nitrogen 23 Creatinine 0.43 Estimat Glomerular Filtration 139 Rate Random Glucose 86 Calcium Level 9.0 Phenytoin (Dilantin) Level 18.8 Result Diagram: 02/24/17171202/24/171712 Assessment and Plan Problem List: (1) Fall ICD Code: W19.XXXA Status: Acute (2) Closed fracture of right distal femur ICD Code: S72.401A Status: Acute (3) CHF (congestive heart failure) ICD Code: I50.9 Status: Acute (4) A-fib ICD Code: I48.91 Status: Chronic (5) H/O: CVA (cerebrovascular accident) ICD Code: Z86.73 Status: Acute (6) Seizure disorder ICD Code: G40.909 Status: Chronic (7) COPD (chronic obstructive pulmonary disease) ICD Code: J44.9 Status: Chronic (8) Dementia ICD Code: F03.90 Status: Acute Assessment and Plan A/P: 1. Fall: s/p fall at SNF, unwitnessed, details unknown. 2. Right Femur Fx: Outpatient X-ray w/ right distal femur fracture, Ortho consulted by ER physician, recommended repeat imaging, Femur X-ray w/ osteopenic femur but no fracture, images reviewed by me. Will await Ortho eval for further recommendations. Analgesics/antiemetics as needed. 3. H/o CVA: w/ residual Aphasia, at baseline. Nods/Shakes head to some questions. 4. Seizure Disorder: No seizure activity. Resume home Dilantin, therapeutic levels. 5. COPD: Chronic Respiratory Failure. Stable. DuoNeb prn as needed. 6. A-fib: Chronic. On Coumadin per SNF records, however not listed on med rec. INR 1.0. 7. Dementia: At baseline. 8. DVT Prophylaxis: Anticoagulation post-op per Ortho 9. Social work for d/c planning as needed. 10. Case discussed w/ day physician at length Physician Certification 2 Midnight Certification Type: Admission for Inpatient Services Order for Inpatient Services The services are ordered in accordance with Medicare regulations or non- Medicare payer requirements, as applicable. In the case of services not specified as inpatient-only, they are appropriately provided as inpatient services in accordance with the 2-midnight benchmark. Estimated LOS (days): 2 days is the estimated time the patient will need to remain in the hospital, assuming treatment plan goals are met and no additional complications. Post-Hospital Plan: Not yet determined Problem Qualifiers (1) Fall: Qualified Code: W19.XXXA - Fall, initial encounter (2) Closed fracture of right distal femur: Qualified Code: S72.401A - Closed fracture of distal end of right femur, unspecified fracture morphology, initial encounter (3) Dementia: Qualified Code: F03.90 - Dementia without behavioral disturbance, unspecified dementia type Josefina Gibson MD Feb 24, 2017 19:35
[2017-02-24] MEDS ORDERED: MAGNESIUM HYDROXIDE SUSP 30 ML CUP PO PRN (19:45)
[2017-02-24] MEDS ORDERED: SENNOSIDES 8.6 MG TAB PO PRN (19:45)
[2017-02-24] MEDS ORDERED: LACTULOSE SYRUP 20 GM/30 ML CUP PO PRN (19:45)
[2017-02-24] MEDS ORDERED: SODIUM CHLORIDE 0.9% FLUSH 10 ML FLUSH IV FLUSH PRN (19:45)
[2017-02-24] MEDS ORDERED: BACLOFEN 10 MG TAB PO PRN (19:45)
[2017-02-24] MEDS ORDERED: ACETAMINOPHEN 325 MG TAB PO PRN (19:45)
[2017-02-24] MEDS ORDERED: BISACODYL 10 MG SUPP RECTAL PRN (19:45)
[2017-02-24] MEDS ORDERED: ONDANSETRON HCL 4 MG/2 ML VIAL IVP PRN (19:45)
[2017-02-24] MEDS ORDERED: MORPHINE SULFATE 4 MG/ML INJ IV PRN (19:45)
[2017-02-24 20:15] VITALS: BP 164/89; PULSE 74; RESP 18; TEMP 96.7; O2SAT 96
--- NOTE | 2017-02-24 20:15 | RADRPT ---
EXAM DATE/TIME: 02/24/2017 19:43 [facility] COMPARISON: No previous studies available for comparison. INDICATIONS : Fall today, right lower extremity pain. RADIATION DOSE: 7.63 CTDIvol (mGy) MEDICAL HISTORY : Dementia. SURGICAL HISTORY : Non-responsive. ENCOUNTER: Initial ACUITY: 1 day PAIN SCALE: Non-responsive LOCATION: Right leg TECHNIQUE: Volumetric scanning of the femur was performed. Using automated exposure control and adjustment of t he mA and/or kV according to patient size, radiation dose was kept as low as reasonably achievable to obtain optimal diagnostic quality images. FINDINGS: The bones are diffusely osteopenic. There is a subacute healing fracture of the right inferior pubic ramus. There is subcutaneous edema in the medial and posterior right thigh which could represent trau ma related change or possibly a mild cellulitis. There is severe constipation the rectum. Previous left hip replacement. CONCLUSION: 1. No acute fracture of the right femur. Severe osteopenia. Small knee joint effusion. 2. Subcutaneous edema in the right medial and posterior thigh. Differential diagnosis includes bruisi ng or cellulitis. 3. Subacute healing fracture right inferior pubic ramus. 4. Severe rectal constipation. Miguel Qucah MD on February 24, 2017 at 20:10 Board Certified Radiologist. This report was verified electronically.
[2017-02-24] MEDS: DOCUSATE SODIUM 50 MG/SENNA 8.6 MG TAB PO SCH (20:49)
[2017-02-24] MEDS: METOPROLOL TARTRATE 25 MG TAB PO SCH (20:49)
[2017-02-24] MEDS: SODIUM CHLORIDE 0.9% FLUSH 10 ML FLUSH IV FLUSH SCH (20:49)
[2017-02-24] MEDS: PHENYTOIN SODIUM 100 MG CAP PO SCH (20:49)
[2017-02-24] MEDS: ACETAMINOPHEN/HYDROcodone 325 MG/5 MG TAB PO PRN (20:49)
[2017-02-24] MEDS: MIRTAZAPINE 15 MG TAB PO SCH (20:49)
[2017-02-25] VITALS (13 sets, daily range): BP systolic 118–146; BP diastolic 65–94; PULSE 62–132; RESP 12–18; TEMP 96.2–98.6; O2SAT 97–100
[2017-02-25] LABS: BLOOD, URINE NEG (NEG); COMMENT (UR) CULTURE INDICATED; CULTURE IF INDICATED CULTURE INDICATED; GLUCOSE,URINE NEG (NEG); HYALINE CAST, URINE 3 /lpf (RARE); KETONE, URINE NEG (NEG); MUCUS URINE MANY /lpf (OCC); NITRITE,URINE NEG (NEG); PH, URINE 5.5 (5.0-8.5); SQUAMOUS EPITHELIAL CELL URINE <1 /hpf (0-5); URINE COLOR YELLOW (YELLW/STRAW)
--- NOTE | 2017-02-25 07:14 | PD.ORT.PN ---
Subjective Subjective Remarks Consult dictated Admitted due to possible right femur fracture. Patient has dementia and previous CVA. Objective Vitals Vital Signs Date Time Temp Pulse Resp B/P Pulse Ox O2 Delivery O2 Flow Rate FiO2 02/25/17 00:00 96.2 62 17 144/68 98 02/24/17 20:15 96.7 74 18 164/89 96 02/24/17 19:15 83 18 137/60 97 Nasal Cannula 2 02/24/17 17:02 97 Nasal Cannula 2 02/24/17 17:02 95 Nasal Cannula 2 02/24/17 16:47 90 18 98 Room Air 02/24/17 16:41 97.9 89 18 160/70 98 I/O 02/24/17 02/24/17 02/24/17 02/25/17 02/25/17 02/25/17 07:00 15:00 23:00 07:00 15:00 23:00 Output Total 200 ml 200 ml Balance -200 ml -200 ml Output Urine Total 200 ml 200 ml # Bowel Movements 0 Result Diagram: 02/24/17 1713 02/24/17 1713 Other Results Laboratory Tests Test 02/24/17 17:13 Prothrombin Time 10.9 SEC (9.8-11.6) Prothromb Time International 1.0 RATIO Ratio Imaging Last 72 hours Impressions Chest X-Ray 02/24/171649 Signed Impressions: Service Date/Time: Friday, February 24, 2017 18:27 - CONCLUSION: 1. Chronic interstitial lung changes, likely underlying pulmonary fibrosis as well as some bronchiectasis. Miguel Quach MD Lower Extremity CT 02/24/17 0000 Signed Impressions: Service Date/Time: Friday, February 24, 2017 19:43 - CONCLUSION: 1. No acute fracture of the right femur. Severe osteopenia. Small knee joint effusion. 2. Subcutaneous edema in the right medial and posterior thigh. Differential diagnosis includes bruising or cellulitis. 3. Subacute healing fracture right inferior pubic ramus. 4. Severe rectal constipation. Miguel Quach MD Femur X-Ray 02/24/17 0000 Signed Impressions: Service Date/Time: Friday, February 24, 2017 18:21 - CONCLUSION: Osteopenic right femur without evidence of fracture. Golden Bruner MD Last 24 hours Impressions Chest X-Ray 02/24/171649 Signed Impressions: Service Date/Time: Friday, February 24, 2017 18:27 - CONCLUSION: 1. Chronic interstitial lung changes, likely underlying pulmonary fibrosis as well as some bronchiectasis. Miguel Quach MD Objective Remarks Right lower extremity: Decreased muscle tone. No pain to palpation of hip or femur. Mild tenderness with range of motion of the knee. Distally she a neurologist sensation but has significant contracture of the her foot. No bruising or swelling right lower extremity Assessment & Plan Assessment and Plan Subacute fracture of right pubic rami. CVA with weakness of right lower extremity with contractures. No fractures to femur No weight restrictions Plan for discharge to rehabilitation No orthopedic follow-up needed Bill Gaitan Jr. Feb 25, 2017 07:14
[2017-02-25] MEDS ORDERED: amLODIPine BESYLATE 5 MG TAB PO SCH (09:00)
[2017-02-25] MEDS: MULTIVITAMIN TAB PO SCH (09:00)
--- NOTE | 2017-02-25 09:41 | EKG ---
Date Performed: 02/24/2017 Time Performed: 17:03:12 PTAGE: 86 years EKG: Sinus rhythm WITH FREQUENT SUPRAVENTRICULAR PREMATURE COMPLEXES NONSPECIFIC ST & T-WAVE ABNORMALITY ABNORMAL ECG INTERPRETATION BASED ON A DEFAULT AGE OF 40 YEARS NO PREVIOUS TRACING DOCTOR: Peter Wren Interpretating Date/Time 02/25/2017 09:34:23
[2017-02-25] MEDS: METOPROLOL TARTRATE 25 MG TAB PO SCH ×2 (10:12→21:25)
[2017-02-25] MEDS: PHENYTOIN SODIUM 100 MG CAP PO SCH ×2 (10:13→21:25)
[2017-02-25] MEDS: SODIUM CHLORIDE 0.9% FLUSH 10 ML FLUSH IV FLUSH SCH ×2 (10:13→21:00)
[2017-02-25] MEDS: DOCUSATE SODIUM 50 MG/SENNA 8.6 MG TAB PO SCH ×2 (10:19→21:24)
[2017-02-25] MEDS: THIAMINE HCL 100 MG TAB PO SCH (10:20)
[2017-02-25 15:26] LABS: ANION GAP 8 MEQ/L (5-15); AST (GOT) 48 U/L (15-37); BICARBONATE 24.7 MEQ/L (21.0-32.0); BLOOD UREA NITROGEN 13 MG/DL (7-18); CHLORIDE 108 MEQ/L (98-107); GLOMERULAR FILTRATION RATE 151 ML/MIN (>89); SODIUM (NA) 141 MEQ/L (136-145)
[2017-02-25 15:29] LABS: ALKALINE PHOSPHATASE 205 U/L (45-117); ALT (GPT) 22 U/L (10-53); TOTAL BILIRUBIN ADULT 0.3 MG/DL (0.2-1.0)
[2017-02-25] MEDS ORDERED: DILTIAZEM HCL 25 MG/5 ML VIAL IV PUSH ONE (15:30)
[2017-02-25] MEDS: ACETAMINOPHEN/HYDROcodone 325 MG/5 MG TAB PO PRN (15:38)
--- NOTE | 2017-02-25 15:53 | HHI.PR ---
Subjective Remarks Called time, patient tachycardic and in moderate distress Patient is aphasic, does not answer questions but she says constantly "oh God" When I asked her if she has chest pain, she says yes. As per RN the blood pressure is elevated Objective Vitals Vital Signs Date Time Temp Pulse Resp B/P Pulse Ox O2 Delivery O2 Flow Rate FiO2 02/25/17 12:00 96.3 125 18 121/88 97 02/25/17 07:51 97.7 80 17 146/85 100 02/25/17 00:00 96.2 62 17 144/68 98 02/24/17 20:15 96.7 74 18 164/89 96 02/24/17 19:15 83 18 137/60 97 Nasal Cannula 2 02/24/17 17:02 97 Nasal Cannula 2 02/24/17 17:02 95 Nasal Cannula 2 02/24/17 16:47 90 18 98 Room Air 02/24/17 16:41 97.9 89 18 160/70 98 I/O 02/24/17 02/24/17 02/24/17 02/25/17 02/25/17 02/25/17 07:00 15:00 23:00 07:00 15:00 23:00 Output Total 200 ml 200 ml Balance -200 ml -200 ml Output Urine Total 200 ml 200 ml # Bowel Movements 0 Result Diagram: 02/24/17 1713 02/25/17 1429 Imaging Last Impressions Chest X-Ray 02/24/17 1650 Signed Impressions: Service Date/Time: Friday, February 24, 2017 18:27 - CONCLUSION: 1. Chronic interstitial lung changes, likely underlying pulmonary fibrosis as well as some bronchiectasis. Miguel Quach MD Lower Extremity CT 02/24/17 0000 Signed Impressions: Service Date/Time: Friday, February 24, 2017 19:43 - CONCLUSION: 1. No acute fracture of the right femur. Severe osteopenia. Small knee joint effusion. 2. Subcutaneous edema in the right medial and posterior thigh. Differential diagnosis includes bruising or cellulitis. 3. Subacute healing fracture right inferior pubic ramus. 4. Severe rectal constipation. Miguel Quach MD Femur X-Ray 02/24/17 0000 Signed Impressions: Service Date/Time: Friday, February 24, 2017 18:21 - CONCLUSION: Osteopenic right femur without evidence of fracture. Golden Bruner MD Objective Remarks GENERAL: Thin, elderly white female in moderate distress however not noticed to be respiratory in origin. +Aphasia at baseline, however nods/shakes head to some questions. HEENT: PERRLA, EOMI. No scleral icterus or conjunctival pallor. No lid lag or facial droop. CARDIOVASCULAR: Regular rate and rhythm. No obvious murmurs to auscultation. No chest tenderness to palpation. RESPIRATORY: No obvious rhonchi or wheezing. Clear to auscultation. Breath sounds equal bilaterally. GASTROINTESTINAL: Abdomen soft, non-tender, nondistended. BS normal. MUSCULOSKELETAL: Decreased ROM of RLE due to pain. Pulses intact. NEUROLOGICAL: Awake, has right side contracted. Procedures none Medications and IVs Current Medications Medications (Trade) Dose Ordered Sig/Anabella Route Start Time Stop Time Status Last Admin Sodium Chloride 2 ml 2 ml UNSCH PRN IVF 02/24/17 17:00 (NS 1000 ml Inj) 1,000 ml @ 100 mls/hr Q10H IV 02/24/17 19:32 (NS Flush) 2 ml UNSCH PRN IV FLUSH 02/24/17 19:45 (NS Flush) 2 ml BID IV FLUSH 02/24/17 21:00 02/25/17 10:13 (Zofran Inj) 4 mg Q6H PRN IVP 02/24/17 19:45 (Tylenol) 650 mg Q6H PRN PO 02/24/17 19:45 ([place]ullos 5-325 Mg) 1 tab Q4H PRN PO 02/24/17 19:45 02/24/17 20:49 (Morphine Inj) 1 mg Q3H PRN IV 02/24/17 19:45 (Sienna-Colace) 1 tab BID PO 02/24/17 21:00 02/25/17 10:19 (Milk Of Magnesia Liq) 30 ml Q12H PRN PO 02/24/17 19:45 (Senokot) 17.2 mg Q12H PRN PO 02/24/17 19:45 (Dulcolax Supp) 10 mg DAILY PRN RECTAL 02/24/17 19:45 (Lactulose Liq) 30 ml DAILY PRN PO 02/24/17 19:45 (Norvasc) 5 mg DAILY PO 02/25/17 09:00 02/25/17 10:12 (Lioresal) 5 mg Q8HR PRN PO 02/24/17 19:45 (Lopressor) 25 mg BID PO 02/24/17 21:00 02/25/17 10:12 (Remeron) 7.5 mg HS PO 02/24/17 21:00 02/24/17 20:49 (Dilantin) 200 mg BID PO 02/24/17 21:00 02/25/17 10:13 (Vitamin B1) 100 mg DAILY PO 02/25/17 09:00 02/25/17 10:20 (Theragran) 1 tab DAILY PO 02/25/17 09:00 Urinary Catheter: Yes Assessment to: Continue Win insert reason: Pelvic Fractures Vascular Central Line Catheter: No A/P Problem List: (1) Fall ICD Code: W19.XXXA Status: Acute (2) Closed fracture of right distal femur ICD Code: S72.401A Status: Acute (3) CHF (congestive heart failure) ICD Code: I50.9 Status: Acute (4) A-fib ICD Code: I48.91 Status: Chronic (5) H/O: CVA (cerebrovascular accident) ICD Code: Z86.73 Status: Acute (6) Seizure disorder ICD Code: G40.909 Status: Chronic (7) COPD (chronic obstructive pulmonary disease) ICD Code: J44.9 Status: Chronic (8) Dementia ICD Code: F03.90 Status: Acute Assessment and Plan 1. Fall: s/p fall at SNF, unwitnessed, details unknown. 2. Right Femur Fx: Outpatient X-ray w/ right distal femur fracture, Ortho consulted by ER physician, recommended repeat imaging, Femur X-ray w/ osteopenic femur but no fracture, images reviewed by me. Will await Ortho eval for further recommendations. Analgesics/antiemetics as needed. 02/25 orthopedic appointment the patient and determined the patient does not have an acute fracture. There is no orthopedic follow-up needed. Patient cleared for discharge from orthopedic standpoint. 3. H/o CVA: w/ residual Aphasia, at baseline. Nods/Shakes head to some questions. 4. Seizure Disorder: No seizure activity. Resume home Dilantin, therapeutic levels. 5. COPD: Chronic Respiratory Failure. Stable. DuoNeb prn as needed. 6. A-fib: Chronic. On Coumadin per SNF records, however not listed on med rec. INR 1.0. 02/25 called by RN because patient tachycardic. EKG ordered stat, it shows A. fib with RVR with a ventricular rate of 1 35 bpm, some ST depressions on leads V4 - V6. Will place on a Cardizem drip with 1 time 0.25 mg/kg bolus to be given prior to starting the drip. Will check TSH, trend cardiac enzymes, obtain a chest x-ray. Will transfer to [facility] for telemetry monitoring and consult cardiology. 7. Dementia: At baseline. 8. DVT Prophylaxis: Anticoagulation post-op per Ortho 9. Social work for d/c planning as needed. 10. Chest pain. The patient is complaining of pain and is in severe distress. When asked if she has chest pain she nodes yes. Will check cardiac enzymes, trend EKGs serially, 11. UTI: Urinalysis positive for UTI. Urine culture no growth. I will start the patient on IV Rocephin. Discharge Planning Cancer patient to [facility]. Continue to monitor in the medical floor. No plans for DC yet. Problem Qualifiers (1) Fall: Qualified Code: W19.XXXA - Fall, initial encounter (2) Closed fracture of right distal femur: Qualified Code: S72.401A - Closed fracture of distal end of right femur, unspecified fracture morphology, initial encounter (3) Dementia: Qualified Code: F03.90 - Dementia without behavioral disturbance, unspecified dementia type Max Weir MD Feb 25, 2017 15:53
[2017-02-25] MEDS ORDERED: MORPHINE SULFATE 4 MG/ML INJ IV PUSH ONE (16:00)
[2017-02-25] MEDS ORDERED: DILTIAZEM INJ 125 MG in SODIUM CHLORIDE 0.9% INJ 100 ML IV SCH (16:00)
[2017-02-25] MEDS: cefTRIAXone INJ 1,000 MG in SODIUM CHLORIDE 0.9% INJ 100 ML IV SCH (16:35)
--- NOTE | 2017-02-25 16:56 | RADRPT ---
EXAM DATE/TIME: 02/25/2017 15:38 [place] COMPARISON: CHEST SINGLE AP, February 24, 2017, 18:27. INDICATIONS : Chest pain. MEDICAL HISTORY : Hypertension. Congestive heart failure. Afib. Coronary artery disease. SURGICAL HISTORY : Hysterectomy. ENCOUNTER: Initial ACUITY: 1 day PAIN SCORE: Non-responsive. LOCATION: Bilateral chest FINDINGS: Patchy airspace opacities of both lungs are again noted, both sides slightly improved in the interim. Underlying interstitial opacities are again noted that appear chronic. Small pleural effusion at lef t lung base likely. I don't see a pneumothorax on either side. Heart size stable, per limits of normal. CONCLUSION: Slightly improved patchy airspace opacities. Golden Bruner MD on February 25, 2017 at 16:52 Board Certified Radiologist. This report was verified electronically.
[2017-02-25 17:07] LABS: CREATINE KINASE 94 U/L (26-192)
[2017-02-25 20:46] LABS: CREATINE KINASE 74 U/L (26-192)
[2017-02-25] MEDS: MIRTAZAPINE 15 MG TAB PO SCH (21:25)
[2017-02-25 21:51] LABS: AUTOMATED NEUTROPHIL # 6.1 TH/MM3 (1.8-7.7); BASOPHIL % 0.6 % (0.0-2.0); EOSINOPHIL # 0.3 TH/MM3 (0-0.4); EOSINOPHIL % 4.1 % (0.0-4.0); HEMATOCRIT 35.9 % (35.0-46.0); HEMO FLAGS DIFF FINAL; LYMPH % 15.2 % (9.0-44.0); LYMPHOCYTE # 1.3 TH/MM3 (1.0-4.8); MEAN CELL VOLUME 85.7 FL (80.0-100.0); MEAN CORPUSCULAR HEMOGLOBIN 27.9 PG (27.0-34.0); MEAN CORPUSCULAR HGB CONC 32.5 % (32.0-36.0); MONO % 7.2 % (0.0-8.0); NEUT % 72.9 % (16.0-70.0); PLATELET COUNT 377 TH/MM3 (150-450); RED BLOOD COUNT 4.19 MIL/MM3 (4.00-5.30); RED CELL DISTRIBUTION WIDTH 14.6 % (11.6-17.2); WHITE BLOOD COUNT 8.3 TH/MM3 (4.0-11.0)
[2017-02-26] VITALS (25 sets, daily range): BP systolic 125–143; BP diastolic 74–83; PULSE 70–156; RESP 16–22; TEMP 97.5–98.5; O2SAT 96–99
[2017-02-26] MEDS: SODIUM CHLOR 0.9% 1000 ML INJ 1,000 ML IV SCH ×2 (01:32→11:32)
[2017-02-26 06:19] LABS: AUTOMATED NEUTROPHIL # 7.7 TH/MM3 (1.8-7.7); BASOPHIL # 0.1 TH/MM3 (0-0.2); BASOPHIL % 1.1 % (0.0-2.0); EOSINOPHIL # 0.5 TH/MM3 (0-0.4); EOSINOPHIL % 4.8 % (0.0-4.0); LYMPH % 16.8 % (9.0-44.0); LYMPHOCYTE # 1.8 TH/MM3 (1.0-4.8); MEAN CELL VOLUME 86.8 FL (80.0-100.0); MEAN CORPUSCULAR HGB CONC 32.2 % (32.0-36.0); MONO % 7.1 % (0.0-8.0); NEUT % 70.2 % (16.0-70.0); PLATELET COUNT 318 TH/MM3 (150-450); RED BLOOD COUNT 4.38 MIL/MM3 (4.00-5.30)
[2017-02-26 07:11] LABS: HEMO FLAGS AUTO DIFF
--- NOTE | 2017-02-26 07:28 | MB ---
cc: MICHAEL ABERNATHY DATE OF ADMISSION 02/24/2017 DATE OF CONSULTATION 02/25/2017 REASON FOR CONSULTATION Right leg pain with possible fracture. CONSULTING PHYSICIAN Dr. Gibson ROGERS Macias is an 86-year-old female who has dementia. She was unable to give any significant history. [facility]. She had an outpatient x-ray done which revealed a possible right distal femur fracture. The patient is unable to give any history regarding fall or injury. She presented to the emergency room. CT scan of right femur was unremarkable with no evidence of acute fracture. She is currently confused but awake. PAST MEDICAL HISTORY ILLNESSES 1. Hypertension. 2. Atrial fibrillation. 3. CHF. 4. History of CVA. 5. COPD. SURGERIES 1. Bilateral cataract surgery. 2. Hysterectomy. 3. Hip replacement. ALLERGIES SULFA. MEDICATIONS Please see EMR for complete list of inpatient medications. This was reviewed. FAMILY HISTORY Unobtainable. SOCIAL HISTORY Unobtainable. The patient does live in a jail facility. REVIEW OF SYSTEMS Unobtainable secondary to dementia and confusion. PHYSICAL EXAMINATION GENERAL: The patient is a thin 86-year-old female who is awake but confused. VITAL SIGNS: Temperature 98.5, pulse 85, respirations 18, blood pressure 126/77, O2 sat 99% on room air. HEENT: The patient is normocephalic. Pupils are equal. NECK: Soft, nontender. Trachea is midline. ABDOMEN: Soft, nontender, nondistended. EXTREMITIES: Examination of right arm reveals significant contractures of her shoulder, elbow, wrist and fingers. Skin is intact. Examination of the left arm reveals no significant pain with shoulder, elbow or wrist motion. Skin is intact. Radial pulses palpable bilaterally. Examination of the left leg reveals no significant pain with hip, knee or ankle motion. Skin is intact. Dorsalis pedis pulses palpable. Sensation is intact. Examination of the right leg reveals the skin is intact. She has minimal discomfort with very gentle hip, knee or ankle movement. She has some mild tenderness along the muscles of her quadriceps. Dorsalis pedis pulses palpable. Sensation is grossly intact. X-RAYS CT scan of the right femur was reviewed. CT scan reveals diffuse osteopenia. There is no acute fracture of the femur. There is some soft tissue swelling. IMPRESSION 1. Dementia. 2. COPD. 3. CHF. PLAN At this point no orthopedic intervention is necessary. The patient does not appear to have an acute fracture of her right femur. The patient may do activities as tolerated. She will be discharged back to the jail facility when she is medically cleared. All questions were answered. No further orthopedic followup is necessary. MD BRUCE Back/CORRINA /6:52 AM /7:25 AM
[2017-02-26 08:22] LABS: ACANTHOCYTES OCC (NORMAL); OVALOCYTES 1+ (NORMAL)
[2017-02-26 08:23] LABS: SCAN/DIFF AUTO DIFF CONFIRMED
[2017-02-26] MEDS: DOCUSATE SODIUM 50 MG/SENNA 8.6 MG TAB PO SCH ×2 (09:13→20:09)
[2017-02-26] MEDS: MULTIVITAMIN TAB PO SCH (09:13)
[2017-02-26] MEDS: METOPROLOL TARTRATE 25 MG TAB PO SCH ×2 (09:13→20:08)
[2017-02-26] MEDS: PHENYTOIN SODIUM 100 MG CAP PO SCH ×2 (09:13→20:08)
[2017-02-26] MEDS: SODIUM CHLORIDE 0.9% FLUSH 10 ML FLUSH IV FLUSH SCH ×2 (09:13→20:09)
[2017-02-26] MEDS: THIAMINE HCL 100 MG TAB PO SCH (09:13)
--- NOTE | 2017-02-26 11:12 | MB ---
cc: FREDY VALENCIA M.D. DATE OF CONSULTATION: 02/26/2017 REASON FOR CONSULTATION Evaluation of atrial fibrillation. HISTORY OF PRESENT ILLNESS Colleen Eason is an 86-year-old woman whom I am asked to see for atrial fibrillation. She had atrial fibrillation in November and January of 2011. On subsequent visits her EKG showed sinus rhythm with frequent PACs. Here she has had atrial fibrillation with a rapid rate and is on a diltiazem drip currently at 10 mg an hour. She has a background history of hypertension. There is a supposed history of CHF but her echo last performed October 08, 2010 showed an ejection fraction of 60-65%. 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 She is aphasic but is able to nod her head appropriately. There is a stated history of dementia. She has a history of osteoporosis, hyperlipidemia, COPD, seizure disorder and she had evidence for a small intracranial hemorrhage in September 2010. She is on aspirin 81 mg daily. I do not see evidence of other anticoagulation. She was admitted with a possible fracture of the right femur. Subsequent x-rays and now CT scan confirms the absence of a fracture, although she does have severe osteopenia. Not able to obtain any direct complaints from the patient at this time. MEDICATIONS Medications prior to admission included: 1. Metoprolol 25 mg b.i.d. 2. Norvasc 5 mg daily. 3. Dilantin. 4. Baclofen. 5. Remeron. 6. [place]. 7. Vitamin-B1. 8. . ALLERGIES SULFA. PAST MEDICAL HISTORY 1. Hypertension. 2. Atrial fibrillation. 3. Previous stroke. 4. Hyperlipidemia. 5. COPD. 6. Seizure disorder. 7. Interstitial lung disease. PAST SURGICAL HISTORY 1. Detached retina surgery. 2. Hysterectomy. 3. Hip surgery. SOCIAL HISTORY Non-smoker, non-drinker. REVIEW OF SYSTEMS Otherwise noncontributory. PHYSICAL EXAMINATION GENERAL: A frail, thin, elderly white female in no acute distress. Her weight is only 38.5 kg. HEENT: Exam is unremarkable. NECK: No JVD. No bruits. CHEST: Diminished breath sounds. CARDIAC: S1, S2, irregular rate and rhythm. No murmurs or gallops. ABDOMEN: Soft, nontender. EXTREMITIES: No peripheral edema. Pulses are intact. EKG EKG here shows atrial fibrillation with a rapid ventricular response, nonspecific ST-T wave changes. LABORATORY Hematocrit 38. Troponins negative x2. Creatinine 0.4. Dilantin level 18.8. IMAGING Chest x-ray report is noted. IMPRESSION Paroxysmal atrial fibrillation with rapid ventricular response, currently controlled with IV Cardizem. She is on p.o. metoprolol as well. PLAN I am going to change the IV Cardizem to 240 mg Cardizem p.o. Hopefully the IV can be weaned off and if her heart rate remains stable she can be discharged on that regimen. Amlodipine has been discontinued. She has had a previous intracranial hemorrhage and I would not put her back on Coumadin. Consideration could be given to Eliquis 2.5 [address]d. in place of aspirin. This is a judgmental call. Apparently a decision was made to not have her anticoagulation based on what I am seeing that she is only on aspirin. This may be appropriate in view of her somewhat bedridden status and prone to falls. Further therapy to be determined. MD JOSE CRUZ Garrett/NYDIA /10:17 AM /11:00 AM
--- NOTE | 2017-02-26 11:38 | EKG ---
Date Performed: 02/25/2017 Time Performed: 15:01:24 PTAGE: 86 years EKG: ATRIAL FIBRILLATION WITH RAPID VENTRICULAR RESPONSE SEPTAL MYOCARDIAL INFARCTION , PROBABLY OLD Since previous tracing, no significant change noted ABNORMAL ECG PREVIOUS TRACING : 02/24/2017 17.03 DOCTOR: Yves Soto Interpretating Date/Time 02/26/2017 11:37:38
[2017-02-26] MEDS: DILTIAZEM-CD 240 MG CAP ER PO SCH (12:25)
--- NOTE | 2017-02-26 13:44 | HHI.PR ---
Subjective Remarks Deferred entry - patient seen at 12:30 PM Patient is sitting in bed, denies chest pain or shortness of breath Slightly tachycardic Objective Vitals Vital Signs Date Time Temp Pulse Resp B/P Pulse Ox O2 Delivery O2 Flow Rate FiO2 02/26/17 13:09 84 02/26/17 12:11 88 02/26/17 12:11 98.0 73 16 128/74 99 02/26/17 11:47 76 02/26/17 10:19 113 02/26/17 09:20 131 02/26/17 09:14 16 02/26/17 08:26 128 02/26/17 08:22 98.3 87 18 140/76 96 02/26/17 07:42 156 02/26/17 06:00 86 02/26/17 05:00 90 02/26/17 04:00 78 02/26/17 04:00 98.5 85 18 126/77 98 02/26/17 03:00 82 02/26/17 02:00 80 02/26/17 01:00 84 02/26/17 00:00 97.5 76 22 125/83 97 02/26/17 00:00 74 02/25/17 23:00 85 02/25/17 22:00 94 02/25/17 21:00 90 02/25/17 20:00 98 02/25/17 20:00 98.6 95 12 126/65 100 02/25/17 19:00 116 02/25/17 17:54 98.4 92 18 143/94 97 02/25/17 16:15 91 129/71 02/25/17 16:05 90 118/80 02/25/17 16:00 96.8 103 18 135/89 98 02/25/17 15:52 132 135/89 I/O 02/25/17 02/25/17 02/25/17 02/26/17 02/26/17 02/26/17 07:00 15:00 23:00 07:00 15:00 23:00 Intake Total 480 ml 1066 ml 240 ml Output Total 200 ml 1000 ml 300 ml 525 ml Balance -200 ml -520 ml 766 ml -285 ml Intake Oral 480 ml 240 ml 240 ml IV Total 826 ml Output Urine Total 200 ml 1000 ml 300 ml 525 ml # Bowel Movements 0 0 1 1 Result Diagram: 02/26/17 0455 02/25/17 1429 Imaging Last Impressions Chest X-Ray 02/25/17 0000 Signed Impressions: Service Date/Time: Saturday, February 25, 2017 15:38 - CONCLUSION: Slightly improved patchy airspace opacities. Golden Bruner MD Lower Extremity CT 02/24/17 0000 Signed Impressions: Service Date/Time: Friday, February 24, 2017 19:43 - CONCLUSION: 1. No acute fracture of the right femur. Severe osteopenia. Small knee joint effusion. 2. Subcutaneous edema in the right medial and posterior thigh. Differential diagnosis includes bruising or cellulitis. 3. Subacute healing fracture right inferior pubic ramus. 4. Severe rectal constipation. Miguel Quach MD Femur X-Ray 02/24/17 0000 Signed Impressions: Service Date/Time: Friday, February 24, 2017 18:21 - CONCLUSION: Osteopenic right femur without evidence of fracture. Golden Bruner MD Objective Remarks GENERAL: Thin, elderly white female in moderate distress however not noticed to be respiratory in origin. +Aphasia at baseline, however nods/shakes head to some questions. HEENT: PERRLA, EOMI. No scleral icterus or conjunctival pallor. No lid lag or facial droop. CARDIOVASCULAR: Regular rate and rhythm. No obvious murmurs to auscultation. No chest tenderness to palpation. RESPIRATORY: No obvious rhonchi or wheezing. Clear to auscultation. Breath sounds equal bilaterally. GASTROINTESTINAL: Abdomen soft, non-tender, nondistended. BS normal. MUSCULOSKELETAL: Decreased ROM of RLE due to pain. Pulses intact. NEUROLOGICAL: Awake, has right side contracted. Procedures none Medications and IVs Current Medications Medications (Trade) Dose Ordered Sig/Anabella Route Start Time Stop Time Status Last Admin Sodium Chloride 2 ml 2 ml UNSCH PRN IVF 02/24/17 17:00 (NS 1000 ml Inj) 1,000 ml @ 100 mls/hr Q10H IV 02/24/17 19:32 02/26/17 11:32 (NS Flush) 2 ml UNSCH PRN IV FLUSH 02/24/17 19:45 (NS Flush) 2 ml BID IV FLUSH 02/24/17 21:00 02/26/17 09:13 (Zofran Inj) 4 mg Q6H PRN IVP 02/24/17 19:45 (Tylenol) 650 mg Q6H PRN PO 02/24/17 19:45 ([place] 5-325 Mg) 1 tab Q4H PRN PO 02/24/17 19:45 02/25/17 15:38 (Morphine Inj) 1 mg Q3H PRN IV 02/24/17 19:45 02/26/17 05:17 (Sienna-Colace) 1 tab BID PO 02/24/17 21:00 02/26/17 09:13 (Milk Of Magnesia Liq) 30 ml Q12H PRN PO 02/24/17 19:45 (Senokot) 17.2 mg Q12H PRN PO 02/24/17 19:45 (Dulcolax Supp) 10 mg DAILY PRN RECTAL 02/24/17 19:45 (Lactulose Liq) 30 ml DAILY PRN PO 02/24/17 19:45 (Lioresal) 5 mg Q8HR PRN PO 02/24/17 19:45 (Lopressor) 25 mg BID PO 02/24/17 21:00 02/26/17 09:13 (Remeron) 7.5 mg HS PO 02/24/17 21:00 02/25/17 21:25 (Dilantin) 200 mg BID PO 02/24/17 21:00 02/26/17 09:13 (Vitamin B1) 100 mg DAILY PO 02/25/17 09:00 02/26/17 09:13 Multivitamins 1 tab 1 tab DAILY PO 02/25/17 09:00 02/26/17 09:13 Diltiazem HCl 125 mg/Sodium Chloride 125 ml @ 0 mls/hr TITRATE IV 02/25/17 16:00 02/25/17 17:35 (Rocephin Inj/NS Inj) 100 ml @ 200 mls/hr Q24H IV 02/25/17 16:00 02/25/17 16:35 (Cardizem Cd) 240 mg DAILY PO 02/26/17 11:00 02/26/17 12:25 Urinary Catheter: No Vascular Central Line Catheter: No A/P Problem List: (1) Fall ICD Code: W19.XXXA Status: Acute (2) Closed fracture of right distal femur ICD Code: S72.401A Status: Acute (3) CHF (congestive heart failure) ICD Code: I50.9 Status: Acute (4) A-fib ICD Code: I48.91 Status: Chronic (5) H/O: CVA (cerebrovascular accident) ICD Code: Z86.73 Status: Acute (6) Seizure disorder ICD Code: G40.909 Status: Chronic (7) COPD (chronic obstructive pulmonary disease) ICD Code: J44.9 Status: Chronic (8) Dementia ICD Code: F03.90 Status: Acute Assessment and Plan 1. Fall: s/p fall at SNF, unwitnessed, details unknown. 2. Right Femur Fx: Outpatient X-ray w/ right distal femur fracture, Ortho consulted by ER physician, recommended repeat imaging, Femur X-ray w/ osteopenic femur but no fracture, images reviewed by me. Will await Ortho eval for further recommendations. Analgesics/antiemetics as needed. 02/25 orthopedic appointment the patient and determined the patient does not have an acute fracture. There is no orthopedic follow-up needed. Patient cleared for discharge from orthopedic standpoint. 3. H/o CVA: w/ residual Aphasia, at baseline. Nods/Shakes head to some questions. 4. Seizure Disorder: No seizure activity. Resume home Dilantin, therapeutic levels. 5. COPD: Chronic Respiratory Failure. Stable. DuoNeb prn as needed. 6. A-fib: Chronic. On Coumadin per SNF records, however not listed on med rec. INR 1.0. 02/25 called by RN because patient tachycardic. EKG ordered stat, it shows A. fib with RVR with a ventricular rate of 1 35 bpm, some ST depressions on leads V4 - V6. Will place on a Cardizem drip with 1 time 0.25 mg/kg bolus to be given prior to starting the drip. Will check TSH, trend cardiac enzymes, obtain a chest x-ray. Will transfer to [facility] for telemetry monitoring and consult cardiology. 02/26 patient still having A. fib with RVR. Seen by cardiology and started on oral Cardizem. The patient however still requiring some IV Cardizem. Will Titrate to off. Cardiac enzymes negative 2. Will check TSH, free T3 and free T4. Patient has elevated risk for stroke. However patient also is at elevated risk for falls, therefore we'll keep the patient on full strength aspirin. 7. Dementia: At baseline. 8. DVT Prophylaxis: Anticoagulation post-op per Ortho 9. Social work for d/c planning as needed. 10. Chest pain. The patient is complaining of pain and is in severe distress. When asked if she has chest pain she nodes yes. Cardiac enzymes negative 2, EKG showed A. fib with RVR at a ventricular rate of 35 bpm, mild ST depressions in lateral leads V4, V5 and V6. ACS ruled out. Repeat EKG. 11. UTI: Urinalysis positive for UTI. Urine culture no growth. Continue IV Rocephin. Discharge Planning DC pending clinical improvement and stabilization of heart rate. Patient still on Cardizem drip. Problem Qualifiers (1) Fall: Qualified Code: W19.XXXA - Fall, initial encounter (2) Closed fracture of right distal femur: Qualified Code: S72.401A - Closed fracture of distal end of right femur, unspecified fracture morphology, initial encounter (3) Dementia: Qualified Code: F03.90 - Dementia without behavioral disturbance, unspecified dementia type Max Weir MD Feb 26, 2017 13:44
[2017-02-26] MEDS: ASPIRIN 325 MG TAB PO SCH (14:00)
[2017-02-26] MEDS: cefTRIAXone INJ 1,000 MG in SODIUM CHLORIDE 0.9% INJ 100 ML IV SCH (15:16)
--- NOTE | 2017-02-26 15:25 | ECHRPT ---
Indication: Persistent atrial fibrillation CONCLUSIONS Mildly dilated left ventricle. Wall thickness is normal. The left ventricular systolic function is mildly reduced with an estimated ejection fraction in the range of 45- 50%. Doppler parameters are consistent with impaired left ventricular relaxtion (grade 1 diastolic dysfun ction). The right ventricular size is normal. The left atrial size is moderately dilated. The right atrial size is moderately dilated. Mild mitral valve regurgitation. Trace aortic valve regurgitation. Hamzjvmf-cd-htxcri aortic valve stenosis. Aortic valve area is .82 cm. Aortic valve mean gradient is 7.7 mmHg. (appears to be worse than ambrose n gradient would suggest) There is zwgmtjsm-ms-futcda tricuspid valve regurgitation. The estimated pulmonary arterial pressure is 43 mmHg. There is estimated mild pulmonary hypertension present (range 40-50 mmHg). BP: 159 / 84 HR: 95 Rhythm: Atrial fibrillation MEASUREMENTS (Male / Female) Normal Values Technical Quality:Good 2D ECHO LV Diastolic Diameter PLAX 3.4 cm 4.2 - 5.9 / 3.9 - 5.3 cm LV Systolic Diameter PLAX 2.8 cm IVS Diastolic Thickness 0.8 cm 0.6 - 1.0 / 0.6 - 0.9 cm LVPW Diastolic Thickness 0.8 cm 0.6 - 1.0 / 0.6 - 0.9 cm LV Relative Wall Thickness 0.5 RV Internal Dim ED PLAX 2.6 cm LVOT Diameter 1.5 cm M-MODE Aortic Root Diameter MM 2.0 cm LA Systolic Diameter MM 5.0 cm LA Ao Ratio MM 2.5 AV Cusp Separation MM 1.2 cm DOPPLER AV Peak Velocity 195.0 cm/s AV Peak Gradient 15.2 mmHg AV Mean Gradient 7.7 mmHg AV Velocity Time Integral 33.3 cm LVOT Peak Velocity 90.3 cm/s LVOT Peak Gradient 3.3 mmHg AV Area Cont Eq pk 0.8 cm MR Peak Velocity 415.5 cm/s MR Peak Gradient 69.1 mmHg TR Peak Velocity 289.0 cm/s TR Peak Gradient 33.4 mmHg PV Peak Velocity 69.2 cm/s PV Peak Gradient 1.9 mmHg FINDINGS LEFT VENTRICLE Mildly dilated left ventricle. Wall thickness is normal. The left ventricular systolic function is mildly reduced with an estimated ejection fraction in the range of 45- 50%. Doppler parameters are consistent with impaired left ventricular relaxtion (grade 1 diastolic dysfun ction). RIGHT VENTRICLE The right ventricular size is normal. LEFT ATRIUM The left atrial size is moderately dilated. RIGHT ATRIUM The right atrial size is moderately dilated. ATRIAL SEPTUM Normal atrial septal thickness without atrial level shunting by limited color doppler interrogation. AORTA The aortic root and proximal ascending aorta are normal in size on limited imaging. MITRAL VALVE Structurally normal mitral valve. Mild mitral valve regurgitation. AORTIC VALVE Trileaflet aortic valve. Trace aortic valve regurgitation. Iuqloosr-xy-djnryv aortic valve stenosis. Aortic valve area is .82 cm. Aortic valve mean gradient is 7.7 mmHg. TRICUSPID VALVE There is ljvwkwzo-us-oacnzm tricuspid valve regurgitation. The estimated pulmonary arterial pressure is 43 mmHg. There is estimated mild pulmonary hypertension present (range 40-50 mmHg). PULMONARY VALVE The pulmonary valve is not well visualized. VESSELS The inferior vena cava is normal in size. PERICARDIUM No pericardial effusion. Peter Wren MD, FACC (Electronically Signed) Final Date:26 February 2017 15:25 Amended: 26 February 2017 15:27
--- NOTE | 2017-02-26 18:11 | EKG ---
Date Performed: 02/25/2017 Time Performed: 22:50:26 PTAGE: 86 years EKG: Atrial fibrillation Inferior/lateral ST-T changes are nonspecific When compared to previous tracing, heart rate is under better Control. Abnormal ECG PREVIOUS TRACING : 02/25/2017 15.01 DOCTOR: Yves Soto Interpretating Date/Time 02/26/2017 18:10:06
[2017-02-26] MEDS: ACETAMINOPHEN/HYDROcodone 325 MG/5 MG TAB PO PRN (20:06)
[2017-02-26] MEDS: MIRTAZAPINE 15 MG TAB PO SCH (20:08)
[2017-02-27] VITALS (18 sets, daily range): BP systolic 120–151; BP diastolic 69–99; PULSE 54–121; RESP 16–18; TEMP 97.3–98; O2SAT 96–97
[2017-02-27 05:04] LABS: CREATINE KINASE 29 U/L (26-192)
[2017-02-27] MEDS: THIAMINE HCL 100 MG TAB PO SCH (08:43)
[2017-02-27] MEDS: DILTIAZEM-CD 240 MG CAP ER PO SCH (08:43)
[2017-02-27] MEDS: METOPROLOL TARTRATE 25 MG TAB PO SCH (08:43)
[2017-02-27] MEDS: MULTIVITAMIN TAB PO SCH (08:43)
[2017-02-27] MEDS: ASPIRIN 325 MG TAB PO SCH (08:44)
[2017-02-27] MEDS: DOCUSATE SODIUM 50 MG/SENNA 8.6 MG TAB PO SCH (08:44)
[2017-02-27] MEDS: PHENYTOIN SODIUM 100 MG CAP PO SCH (08:44)
[2017-02-27] MEDS: SODIUM CHLORIDE 0.9% FLUSH 10 ML FLUSH IV FLUSH SCH (08:44)
--- NOTE | 2017-02-27 08:48 | PD.CARD.PN ---
Subjective Subjective Remarks no complaints Objective Medications Current Medications Medications (Trade) Dose Ordered Sig/Anabella Route Start Time Stop Time Status Last Admin (NS Flush) 2 ml UNSCH PRN IVF 02/24/17 17:00 (NS Flush) 2 ml UNSCH PRN IV FLUSH 02/24/17 19:45 (NS Flush) 2 ml BID IV FLUSH 02/24/17 21:00 02/27/17 08:44 (Zofran Inj) 4 mg Q6H PRN IVP 02/24/17 19:45 (Tylenol) 650 mg Q6H PRN PO 02/24/17 19:45 ([place] 5-325 Mg) 1 tab Q4H PRN PO 02/24/17 19:45 02/26/17 20:06 (Morphine Inj) 1 mg Q3H PRN IV 02/24/17 19:45 02/26/17 05:17 (Sienna-Colace) 1 tab BID PO 02/24/17 21:00 02/27/17 08:44 (Milk Of Magnesia Liq) 30 ml Q12H PRN PO 02/24/17 19:45 (Senokot) 17.2 mg Q12H PRN PO 02/24/17 19:45 (Dulcolax Supp) 10 mg DAILY PRN RECTAL 02/24/17 19:45 (Lactulose Liq) 30 ml DAILY PRN PO 02/24/17 19:45 (Lioresal) 5 mg Q8HR PRN PO 02/24/17 19:45 (Lopressor) 25 mg BID PO 02/24/17 21:00 02/27/17 08:43 (Remeron) 7.5 mg HS PO 02/24/17 21:00 02/26/17 20:08 (Dilantin) 200 mg BID PO 02/24/17 21:00 02/27/17 08:44 (Vitamin B1) 100 mg DAILY PO 02/25/17 09:00 02/27/17 08:43 Multivitamins 1 tab 1 tab DAILY PO 02/25/17 09:00 02/27/17 08:43 Diltiazem HCl 125 mg/Sodium Chloride 125 ml @ 0 mls/hr TITRATE IV 02/25/17 16:00 02/25/17 17:35 (Rocephin Inj/NS Inj) 100 ml @ 200 mls/hr Q24H IV 02/25/17 16:00 02/26/17 15:16 (Cardizem Cd) 240 mg DAILY PO 02/26/17 11:00 02/27/17 08:43 (Aspirin) 325 mg DAILY PO 02/26/17 13:45 02/27/17 08:44 Vital Signs / I&O Vital Signs Date Time Temp Pulse Resp B/P Pulse Ox O2 Delivery O2 Flow Rate FiO2 02/27/17 06:00 80 02/27/17 05:00 80 02/27/17 04:00 98.0 82 18 135/69 97 02/27/17 04:00 70 02/27/17 03:00 80 02/27/17 02:00 78 02/27/17 01:00 76 02/27/17 00:00 69 02/27/17 00:00 97.3 98 18 120/76 97 02/26/17 23:00 70 02/26/17 22:00 70 02/26/17 21:00 88 02/26/17 20:00 97 02/26/17 20:00 98.0 106 22 143/77 98 02/26/17 19:00 106 02/26/17 18:05 122 02/26/17 17:26 106 02/26/17 16:39 85 02/26/17 16:39 98.4 93 16 133/75 99 02/26/17 15:17 98 02/26/17 14:36 83 02/26/17 13:09 84 02/26/17 12:11 88 02/26/17 12:11 98.0 73 16 128/74 99 02/26/17 11:47 76 02/26/17 10:19 113 02/26/17 09:20 131 02/26/17 09:14 16 I/O 02/26/17 02/26/17 02/26/17 02/27/17 02/27/17 02/27/17 07:00 15:00 23:00 07:00 15:00 23:00 Intake Total 240 ml 748 ml 170 ml Output Total 525 ml 600 ml 200 ml Balance -285 ml 148 ml -30 ml Intake Oral 240 ml 640 ml 120 ml IV Total 108 ml 50 ml Output Urine Total 525 ml 600 ml 200 ml # Bowel Movements 1 0 Physical Exam Awake. alert, very thin, up eating chest: diminished BS CV S1S2 irr irr no edema Laboratory Laboratory Tests Test 02/27/17 04:17 Phosphorus Level 2.5 MG/DL Magnesium Level 2.0 MG/DL Total Creatine Kinase 29 U/L Troponin I LESS THAN 0.02 NG/ML Assessment and Plan Problem List: (1) Atrial fibrillation Assessment and Plan: Increase metoprolol to 50mg bid. Turn off Dilt. drip. I will F/U prn Yves Soto MD Feb 27, 2017 08:48
[2017-02-27] MEDS ORDERED: METOPROLOL TARTRATE 25 MG TAB PO SCH (09:15)
--- NOTE | 2017-02-27 09:57 | HHI.PR ---
Subjective Remarks Patient denies chest pain or shortness of breath Heart rate is controlled Nonverbal but able to answer nodding head. Stable vital signs Objective Vitals Vital Signs Date Time Temp Pulse Resp B/P Pulse Ox O2 Delivery O2 Flow Rate FiO2 02/27/17 09:21 107 02/27/17 08:57 98 02/27/17 08:52 97.6 116 16 151/99 96 02/27/17 07:25 111 02/27/17 06:00 80 02/27/17 05:00 80 02/27/17 04:00 98.0 82 18 135/69 97 02/27/17 04:00 70 02/27/17 03:00 80 02/27/17 02:00 78 02/27/17 01:00 76 02/27/17 00:00 69 02/27/17 00:00 97.3 98 18 120/76 97 02/26/17 23:00 70 02/26/17 22:00 70 02/26/17 21:00 88 02/26/17 20:00 97 02/26/17 20:00 98.0 106 22 143/77 98 02/26/17 19:00 106 02/26/17 18:05 122 02/26/17 17:26 106 02/26/17 16:39 85 02/26/17 16:39 98.4 93 16 133/75 99 02/26/17 15:17 98 02/26/17 14:36 83 02/26/17 13:09 84 02/26/17 12:11 88 02/26/17 12:11 98.0 73 16 128/74 99 02/26/17 11:47 76 02/26/17 10:19 113 I/O 02/26/17 02/26/17 02/26/17 02/27/17 02/27/17 02/27/17 07:00 15:00 23:00 07:00 15:00 23:00 Intake Total 240 ml 748 ml 170 ml Output Total 525 ml 600 ml 200 ml Balance -285 ml 148 ml -30 ml Intake Oral 240 ml 640 ml 120 ml IV Total 108 ml 50 ml Output Urine Total 525 ml 600 ml 200 ml # Bowel Movements 1 0 Result Diagram: 02/26/17 0455 02/25/17 1429 Imaging Last Impressions Chest X-Ray 02/25/17 0000 Signed Impressions: Service Date/Time: Saturday, February 25, 2017 15:38 - CONCLUSION: Slightly improved patchy airspace opacities. Golden Bruner MD Lower Extremity CT 02/24/17 0000 Signed Impressions: Service Date/Time: Friday, February 24, 2017 19:43 - CONCLUSION: 1. No acute fracture of the right femur. Severe osteopenia. Small knee joint effusion. 2. Subcutaneous edema in the right medial and posterior thigh. Differential diagnosis includes bruising or cellulitis. 3. Subacute healing fracture right inferior pubic ramus. 4. Severe rectal constipation. Miguel Quach MD Femur X-Ray 02/24/17 0000 Signed Impressions: Service Date/Time: Friday, February 24, 2017 18:21 - CONCLUSION: Osteopenic right femur without evidence of fracture. Golden Bruner MD Objective Remarks GENERAL: Thin, elderly white female in moderate distress however not noticed to be respiratory in origin. +Aphasia at baseline, however nods/shakes head to some questions. HEENT: PERRLA, EOMI. No scleral icterus or conjunctival pallor. No lid lag or facial droop. CARDIOVASCULAR: Regular rate and rhythm. No obvious murmurs to auscultation. No chest tenderness to palpation. RESPIRATORY: No obvious rhonchi or wheezing. Clear to auscultation. Breath sounds equal bilaterally. GASTROINTESTINAL: Abdomen soft, non-tender, nondistended. BS normal. MUSCULOSKELETAL: Decreased ROM of RLE due to pain. Pulses intact. NEUROLOGICAL: Awake, has right side contracted. Procedures none Medications and IVs Current Medications Medications (Trade) Dose Ordered Sig/Anabella Route Start Time Stop Time Status Last Admin (NS Flush) 2 ml UNSCH PRN IVF 02/24/17 17:00 (NS Flush) 2 ml UNSCH PRN IV FLUSH 02/24/17 19:45 (NS Flush) 2 ml BID IV FLUSH 02/24/17 21:00 02/27/17 08:44 (Zofran Inj) 4 mg Q6H PRN IVP 02/24/17 19:45 (Tylenol) 650 mg Q6H PRN PO 02/24/17 19:45 ([place] 5-325 Mg) 1 tab Q4H PRN PO 02/24/17 19:45 02/27/17 13:20 (Morphine Inj) 1 mg Q3H PRN IV 02/24/17 19:45 02/26/17 05:17 (Sienna-Colace) 1 tab BID PO 02/24/17 21:00 02/27/17 08:44 (Milk Of Magnesia Liq) 30 ml Q12H PRN PO 02/24/17 19:45 (Senokot) 17.2 mg Q12H PRN PO 02/24/17 19:45 (Dulcolax Supp) 10 mg DAILY PRN RECTAL 02/24/17 19:45 (Lactulose Liq) 30 ml DAILY PRN PO 02/24/17 19:45 (Lioresal) 5 mg Q8HR PRN PO 02/24/17 19:45 (Remeron) 7.5 mg HS PO 02/24/17 21:00 02/26/17 20:08 (Dilantin) 200 mg BID PO 02/24/17 21:00 02/27/17 08:44 (Vitamin B1) 100 mg DAILY PO 02/25/17 09:00 02/27/17 08:43 Multivitamins 1 tab 1 tab DAILY PO 02/25/17 09:00 02/27/17 08:43 (Rocephin Inj/NS Inj) 100 ml @ 200 mls/hr Q24H IV 02/25/17 16:00 02/26/17 15:16 (Cardizem Cd) 240 mg DAILY PO 02/26/17 11:00 02/27/17 08:43 (Aspirin) 325 mg DAILY PO 02/26/17 13:45 02/27/17 08:44 (Lopressor) 50 mg BID PO 02/27/17 21:00 Urinary Catheter: No Vascular Central Line Catheter: No A/P Problem List: (1) Fall ICD Code: W19.XXXA Status: Acute (2) Closed fracture of right distal femur ICD Code: S72.401A Status: Acute (3) CHF (congestive heart failure) ICD Code: I50.9 Status: Acute (4) A-fib ICD Code: I48.91 Status: Chronic (5) H/O: CVA (cerebrovascular accident) ICD Code: Z86.73 Status: Acute (6) Seizure disorder ICD Code: G40.909 Status: Chronic (7) COPD (chronic obstructive pulmonary disease) ICD Code: J44.9 Status: Chronic (8) Dementia ICD Code: F03.90 Status: Acute Assessment and Plan 1. Fall: s/p fall at SNF, unwitnessed, details unknown. 2. Right Femur Fx: Outpatient X-ray w/ right distal femur fracture, Ortho consulted by ER physician, recommended repeat imaging, Femur X-ray w/ osteopenic femur but no fracture, images reviewed by me. Will await Ortho eval for further recommendations. Analgesics/antiemetics as needed. 02/25 orthopedic surgeon determined the patient does not have an acute fracture. There is no orthopedic follow-up needed. Patient cleared for discharge from orthopedic standpoint. Patient cleared to be discharged back to rehabilitation. 3. H/o CVA: w/ residual Aphasia, at baseline. Nods/Shakes head to some questions. Continue ASA. 4. Seizure Disorder: No seizure activity. Resume home Dilantin, therapeutic levels. 5. COPD: Chronic Respiratory Failure. Stable. DuoNeb prn as needed. 6. A-fib: Chronic. On Coumadin per SNF records, however not listed on med rec. INR 1.0 The patient was found to be tachycardic on 02/25. EKG revealed atrial fibrillation with RVR. The patient was started on Cardizem drip and transferred to [facility] for close telemetry monitoring. The patient was seen by cardiology and started on oral Cardizem. 02/27 patient's heart rate still a little elevated so metoprolol dose was increased from 25-50 g by mouth twice a day cardiology recommendations with achievement of rate control. Cardiac enzymes were trended and negative. TSH obtained on 01/18/17 was normal at 2.720. 7. Dementia: At baseline. 8. DVT Prophylaxis: Anticoagulation post-op per Ortho 9. Social work for d/c planning as needed. 10. Chest pain. Chest pain likely related to increased heart rate and demand ischemia. Pain resolved and was treated with IV morphine. 11. UTI: Urinalysis positive for UTI. Status post treatment with IV Rocephin. Will discharge on oral Ceftin. Discharge Planning Discharge to SNF when arrangements made. Problem Qualifiers (1) Fall: Qualified Code: W19.XXXA - Fall, initial encounter (2) Closed fracture of right distal femur: Qualified Code: S72.401A - Closed fracture of distal end of right femur, unspecified fracture morphology, initial encounter (3) Dementia: Qualified Code: F03.90 - Dementia without behavioral disturbance, unspecified dementia type Max Weir MD Feb 27, 2017 09:57
[2017-02-27] MEDS: ACETAMINOPHEN/HYDROcodone 325 MG/5 MG TAB PO PRN (13:20)
[2017-02-27] MEDS ORDERED: METO-309 PO (14:37)
[2017-02-27] MEDS ORDERED: CARD240C6 PO (14:37)
[2017-02-27] MEDS ORDERED: ASPI325T PO (14:37)
--- NOTE | 2017-02-27 14:41 | HHI.DCPOC ---
Discharge Care Plan Diagnosis: (1) H/O: CVA (cerebrovascular accident) (2) Closed fracture of right distal femur (3) COPD (chronic obstructive pulmonary disease) (4) Dementia (5) CHF (congestive heart failure) (6) Seizure disorder (7) A-fib (8) Fall Goals to Promote Your Health * To prevent worsening of your condition and complications * To maintain your health at the optimal level Directions to Meet Your Goals Take your medications as prescribed Follow your dietary instruction Follow activity as directed Keep your appointments as scheduled Take your immunizations and boosters as scheduled If your symptoms worsen call your PCP, if no PCP go to Urgent Care Center or Emergency Room Smoking is Dangerous to Your Health. Avoid second hand smoke Call the 24-hour hour crisis hotline for domestic abuse at Max Weir MD Feb 27, 2017 14:41
[2017-02-27] MEDS: cefTRIAXone INJ 1,000 MG in SODIUM CHLORIDE 0.9% INJ 100 ML IV SCH (16:00)
[2017-02-27] MEDS ORDERED: METOPROLOL TARTRATE 50 MG TAB PO SCH (21:00)
== END 2017-02-27 17:40 | DRG 565 ==
LOC: NEPE 16:17 → NEDA 18:49 → N06A 20:13 → HCIS 02-25 16:50
PROVIDERS: ADMIT Hospitalist; ATTEND Hospitalist
DX: M85.851 Other specified disorders of bone density and structure, right thigh (principal); J96.10 Chronic respiratory failure, unspecified whether with hypoxia or hypercapnia; J84.9 Interstitial pulmonary disease, unspecified; I24.8 Other forms of acute ischemic heart disease; N39.0 Urinary tract infection, site not specified; I48.0 Paroxysmal atrial fibrillation; I50.9 Heart failure, unspecified; F03.90 Unspecified dementia, unspecified severity, without behavioral disturbance, psychotic disturbance, mood disturbance, and anxiety; I11.0 Hypertensive heart disease with heart failure; J44.9 Chronic obstructive pulmonary disease, unspecified; G40.909 Epilepsy, unspecified, not intractable, without status epilepticus; E78.5 Hyperlipidemia, unspecified; I25.10 Atherosclerotic heart disease of native coronary artery without angina pectoris; I69.320 Aphasia following cerebral infarction; Z79.82 Long term (current) use of aspirin; Z96.649 Presence of unspecified artificial hip joint; M81.0 Age-related osteoporosis without current pathological fracture; Z91.81 History of falling
CPT/HCPCS: 71010; 73552; 73700; 76937; 80048; 80053; 80185; 81001; 82550; 83735; 84100; 84484; 85025; 85610; 86850; 86900; 86901; 87086; 93005; 93306; 96361; 96374; J0696; J2270; J7030; J7050

== ENCOUNTER 2017-02-28 10:37 | Emergency (ER) | payer MEDICARE, BC ==
[~2017-02-28] VITALS: Ht 160 cm; Wt 52.0 kg
[~2017-02-28 10:37] MED LIST changes: -AMLO10 PO; +AMLO5 PO; +ASPI325T PO; +BACL10TA PO; +CARD240C6 PO; +DULC10SU3 RECTAL; +METO-309 PO; -METO25TA3 PO; +MULTTAB67 PO; +REME15TA PO; -SENN1TAB PO; +SENN8.6T81 PO; -VITA100T2 PO; +VITA100T54 PO
[2017-02-28 10:49] VITALS: BP 132/83; PULSE 87; RESP 20; TEMP 97.8; O2SAT 99
--- NOTE | 2017-02-28 11:14 | PD ---
HPI Chief Complaint: Neuro Symptoms/ Deficits Time Seen by Provider: 11:14 Travel History International Travel<30 days: No Contact w/Intl Traveler<30days: No Traveled to known affect area: No History of Present Illness HPI 86-year-old female with a history of dementia, COPD, seizure disorder, atrial fibrillation, CHF, CVA with residual right-sided weakness, recent pubic rami fracture is brought to the emergency department from [facility] facility for evaluation of lethargy. The patient was recently discharged from our facility yesterday after a fall with right pubic rami fracture. She was discharged back to her [facility] facility. Per the patient's son she was noted to be more lethargic than usual and EMS was called to transport her to the ED. The patient is nonverbal at baseline however at this time she is sleeping and responsive only to painful stimuli. She does not appear to be in any acute distress. No history can be obtained at this time. PFSH Past Medical History Hx Anticoagulant Therapy: Yes (ASA) Arthritis: No Asthma: No Atrial Fibrillation: Yes Blood Disorders: No Heart Rhythm Problems: Yes Cancer: No Cardiovascular Problems: Yes High Cholesterol: Yes Chest Pain: No Congestive Heart Failure: Yes COPD: No Cerebrovascular Accident: Yes (R ARM CONTRACTED) Coronary Artery Disease: Yes Diabetes: No Diminished Hearing: No Endocrine: No Genitourinary: No Headaches: No Hypertension: Yes Immune Disorder: No Musculoskeletal: Yes (RIGHT SIDED WEAKNESS AND RIGHT ARM CONTRACTED) Neurologic: Yes Psychiatric: No Reproductive: No Respiratory: No Migraines: No Seizures: Yes Sleep Apnea: No Thyroid Disease: No PNEUMOCCOCAL Vaccine (Year): 1 ?: Not Menopausal: Yes Past Surgical History Abdominal Surgery: No Cardiac Surgery: No Ear Surgery: No Endocrine Surgery: No Eye Surgery: Yes (DETACHED RETINA, IVETTE CATARACTS) Genitourinary Surgery: No Gynecologic Surgery: Yes (Hysto) Hysterectomy: Yes Joint Replacement: Yes Oral Surgery: No Thoracic Surgery: No Other Surgery: Yes (Retina, Cataracts, Hysterectomy, hip joint replacement) Social History Alcohol Use: No Tobacco Use: No Substance Use: No Allergies-Medications (Allergen,Severity, Reaction): Coded Allergies: Sulfa (Verified Allergy, Severe, UNKNOWN, 01/18/17) Reported Meds & Prescriptions Reported Meds & Active Scripts Active Lopressor (Metoprolol Tartrate) 50 Mg Tab 50 Mg PO BID Cardizem CD 24 HR (Diltiazem CD 24 HR) 240 Mg Caper 240 Mg PO DAILY Aspirin 325 Mg Tab 325 Mg PO DAILY Reported Sennosides 8.6 Mg Tab 8.6 Mg PO HS Vitamin B-1 (Thiamine HCl) 100 Mg Tab 100 Mg PO DAILY Multiple Vitamin 1 Tab 1 Tab PO DAILY Dulcolax Supp (Bisacodyl) 10 Mg Supp 10 Mg RECTAL DAILY PRN Dilantin (Phenytoin Extended) 100 Mg Cap 200 Mg PO BID Baclofen 10 Mg Tab 5 Mg PO Q8HR PRN Norvasc (Amlodipine Besylate) 5 Mg Tab 5 Mg PO DAILY [place] (Hydrocodone-Acetaminophen) 5-325 mg Tab 1 Tab PO Q6H PRN Remeron (Mirtazapine) 15 Mg Tab 7.5 Mg PO HS Review of Systems ROS Limitations: Altered Mental Status Except as stated in HPI: all other systems reviewed are Neg Physical Exam Exam Limitations: Altered Mental Status Narrative GENERAL: Thin frail elderly female patient in no acute distress. Right-sided deficits from prior stroke noted. SKIN: Warm and dry. HEAD: Normocephalic and atraumatic. EYES: No injection, drainage, or hyphema noted. PERRLA. EOMI. ENT: No nasal drainage noted. Oropharynx is clear. NECK: Supple and the trachea is midline. CARDIOVASCULAR: Regular rate and rhythm. RESPIRATORY: Breath sounds are equal bilaterally with no accessory muscle use, wheezing, rhonchi, or crackles. GASTROINTESTINAL: Abdomen is soft, non-tender, and nondistended. MUSCULOSKELETAL: Right arm contracture, right leg contracture. No obvious deformities, swelling, cyanosis, or ecchymosis is present throughout the upper and lower extremities. DP pulses are 2+ bilaterally. Capillary refills within normal limits. NEUROLOGICAL: Lethargic. Aroused only by painful stimuli. Right-sided facial droop secondary to prior CVA. Cranial nerves are grossly intact. Data Data Last Documented VS Vital Signs Date Time Temp Pulse Resp B/P Pulse Ox O2 Delivery O2 Flow Rate FiO2 02/28/17 14:33 97.8 98 18 146/80 100 Nasal Cannula 2 Orders Electrocardiogram (02/28/17 ) Electrocardiogram (02/28/17 11:12) Complete Blood Count With Diff (02/28/17 11:12) Comprehensive Metabolic Panel (02/28/17 11:12) Troponin I (02/28/17 11:12) Urinalysis - C+S If Indicated (02/28/17 11:12) Chest, Single Ap (02/28/17 11:12) Ct Brain W/O Iv Contrast(Rout) (02/28/17 11:12) Blood Glucose (02/28/17 11:12) Ecg Monitoring (02/28/17 11:12) Iv Access Insert/Monitor (02/28/17 11:12) Oximetry (02/28/17 11:12) Sodium Chloride 0.9% Flush (Ns Flush) (02/28/17 11:15) Cath For Specimen (02/28/17 11:13) Urine Culture (02/28/17 11:20) Hospice Consult (02/28/17 12:41) Aspirin Supp (Aspirin Supp) (02/28/17 12:45) Labs Laboratory Tests Test 02/28/17 11:20 White Blood Count 11.0 TH/MM3 Red Blood Count 4.93 MIL/MM3 Hemoglobin 13.6 GM/DL Hematocrit 43.0 % Mean Corpuscular Volume 87.2 FL Mean Corpuscular Hemoglobin 27.6 PG Mean Corpuscular Hemoglobin 31.7 % Concent Red Cell Distribution Width 15.5 % Platelet Count 428 TH/MM3 Mean Platelet Volume 8.0 FL Neutrophils (%) (Auto) 79.7 % Lymphocytes (%) (Auto) 13.6 % Monocytes (%) (Auto) 4.6 % Eosinophils (%) (Auto) 1.7 % Basophils (%) (Auto) 0.4 % Neutrophils # (Auto) 8.7 TH/MM3 Lymphocytes # (Auto) 1.5 TH/MM3 Monocytes # (Auto) 0.5 TH/MM3 Eosinophils # (Auto) 0.2 TH/MM3 Basophils # (Auto) 0.0 TH/MM3 CBC Comment DIFF FINAL Differential Comment Urine Color YELLOW Urine Turbidity CLOUDY Urine pH 7.5 Urine Specific [place] 1.014 Urine Protein TRACE mg/dL Urine Glucose (UA) NEG mg/dL Urine Ketones NEG mg/dL Urine Occult Blood NEG Urine Nitrite NEG Urine Bilirubin NEG Urine Urobilinogen LESS THAN 2.0 MG/DL Urine Leukocyte Esterase MOD Urine RBC 2 /hpf Urine WBC 25 /hpf Urine Squamous Epithelial <1 /hpf Cells Urine Amorphous Sediment MANY Urine Bacteria RARE /hpf Urine Mucus FEW /lpf Microscopic Urinalysis Comment CATH-CULTURE IND Sodium Level 138 MEQ/L Potassium Level 4.0 MEQ/L Chloride Level 103 MEQ/L Carbon Dioxide Level 26.8 MEQ/L Anion Gap 8 MEQ/L Blood Urea Nitrogen 12 MG/DL Creatinine 0.62 MG/DL Estimat Glomerular Filtration 91 ML/MIN Rate Random Glucose 98 MG/DL Calcium Level 9.5 MG/DL Total Bilirubin 0.3 MG/DL Aspartate Amino Transf 36 U/L (AST/SGOT) Alanine Aminotransferase 29 U/L (ALT/SGPT) Alkaline Phosphatase 242 U/L Troponin I LESS THAN 0.02 NG/ML Total Protein 8.6 GM/DL Albumin 3.0 GM/DL [facility] Medical Decision Making Medical Screen Exam Complete: Yes Emergency Medical Condition: Yes Differential Diagnosis Dehydration versus loculated abnormality versus UTI versus pneumonia versus dementia versus intracranial hemorrhage Narrative Course 86-year-old female is brought to the emergency department from her [facility] facility for evaluation of altered mental status. Patient is afebrile, vital signs are stable. She has residual right-sided deficits from her prior stroke. Per the son she was noted to be more lethargic and EMS was called for transport. IV access is obtained, labs were drawn and sent. Patient is placed on cardiac telemetry and pulse oximetry monitoring. Chest x-ray and head CT has been ordered and is pending. CBC is unremarkable. CMP is unremarkable. Urinalysis shows moderate leukocyte esterase, 25 white blood toes, rare bacteria , few mucus. Head CT shows acute right middle cerebral artery infarct. 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 Cerebral atrophy. No acute hemorrhage. The patient's son is now at bedside. He is stating that he saw the patient at 920 this morning, about 3 hours ago and she was noted to be lethargic. He was told by the staff that she was the same all morning starting at about 7 AM. I discussed all findings with the patient's son and granddaughter. The patient's son is requesting that the patient have no intubation, no CPR, no ACLS medications. Patient is now DNR. Patient's son is interested in hospice and therefore a hospice consult has been placed. Hospice nurse came and spoke with the patient's family and spoke with her . They decided that the patient will be discharged to a hospice care facility from the emergency department. I discussed the case with my attending physician Dr. Westfall who is aware of the patients history, physical examination findings, and treatment plan. Physician Communication Physician Communication Dr. Chavez radiologist called with findings of acute infarct in right middle cerebral artery. Diagnosis Primary Impression: Acute CVA (cerebrovascular accident) Med/Other Pt SpecificInfo: No Change to Meds Disposition: 51 HOSPICE/MED FACILITY Condition: Cynthia Guzman Feb 28, 2017 11:14
[2017-02-28] MEDS ORDERED: SODIUM CHLORIDE 0.9% FLUSH 5 ML FLUSH IV FLUSH PRN (11:15)
[2017-02-28 11:17] VITALS: RESP 20; O2SAT 99
[2017-02-28 12:05] LABS: AUTOMATED NEUTROPHIL # 8.7 TH/MM3 (1.8-7.7); BASOPHIL % 0.4 % (0.0-2.0); EOSINOPHIL # 0.2 TH/MM3 (0-0.4); EOSINOPHIL % 1.7 % (0.0-4.0); HEMO FLAGS DIFF FINAL; LYMPH % 13.6 % (9.0-44.0); LYMPHOCYTE # 1.5 TH/MM3 (1.0-4.8); MEAN CELL VOLUME 87.2 FL (80.0-100.0); MEAN CORPUSCULAR HEMOGLOBIN 27.6 PG (27.0-34.0); MEAN CORPUSCULAR HGB CONC 31.7 % (32.0-36.0); MONO % 4.6 % (0.0-8.0); NEUT % 79.7 % (16.0-70.0); PLATELET COUNT 428 TH/MM3 (150-450); RED BLOOD COUNT 4.93 MIL/MM3 (4.00-5.30); RED CELL DISTRIBUTION WIDTH 15.5 % (11.6-17.2)
[2017-02-28 12:24] LABS: BACTERIA, URINE RARE /hpf; BLOOD, URINE NEG (NEG); GLUCOSE,URINE NEG (NEG); KETONE, URINE NEG (NEG); MUCUS URINE FEW /lpf (OCC); NITRITE,URINE NEG (NEG); PH, URINE 7.5 (5.0-8.5); SQUAMOUS EPITHELIAL CELL URINE <1 /hpf (0-5); URINE COLOR YELLOW (YELLW/STRAW)
[2017-02-28 12:26] LABS: COMMENT (UR) CATH-CULTURE IND; CULTURE IF INDICATED CATH CULTURE IND
--- NOTE | 2017-02-28 12:26 | EKG ---
Date Performed: 02/28/2017 Time Performed: 10:51:26 PTAGE: 86 years EKG: BASELINE ARTIFACT PRESENT. Sinus rhythm WITH OCCASIONAL SUPRAVENTRICULAR PREMATURE COMPLEXES POSSIBLE INFERIOR MYOCARDIAL INFARCTION BORDERL INE ECG I cannot accurately compare rhythm because of artifact. PREVIOUS TRACING : 02/25/2017 22.50 DOCTOR: Yunier Vines Interpretating Date/Time 02/28/2017 12:25:35
--- NOTE | 2017-02-28 12:31 | RADRPT ---
EXAM DATE/TIME: 02/28/2017 12:10 [facility] COMPARISON: CT BRAIN W/O CONTRAST, January 18, 2017, 16:15. INDICATIONS : Altered mental status. RADIATION DOSE: 31.27 CTDIvol (mGy) MEDICAL HISTORY : Cardiovascular disease. SURGICAL HISTORY : None. ENCOUNTER: Initial ACUITY: 1 day PAIN SCALE: 3/10 LOCATION: Cranial TECHNIQUE: Multiple contiguous axial images were obtained of the head. Using automated exposure control and adj ustment of the mA and/or kV according to patient size, radiation dose was kept as low as reasonably a chievable to obtain optimal diagnostic quality images. FINDINGS: There is a large area of decreased attenuation involving the right temporal and parietal lobes consis tent with acute middle cerebral artery distribution infarct on the right. The findings were called i mmediately to Cynthia Longo PA-C at 12: 22 p.m. on . 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 Old lacunar infarcts are noted within the left basal ganglia. Underlying cerebral atrophy is noted. No midline shift is noted. No acute hemorrhage is noted. Mild periventricular and subcortical white matter sma ll vessel ischemic changes are noted bilaterally. CONCLUSION: 1. 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 Cynthia Longo PA-C was called with the f indings of the examination at 12:22 p.m. on 02/28/2017. 2. 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 3. Cerebral atrophy. 4. Mild periventricular and subcortical white matter small vessel ischemic changes bilaterally. 5. Old lacunar infarcts within the left basal ganglia. 6. No acute hemorrhage, midline shift or extra-axial fluid collections. Ady Chavez MD on February 28, 2017 at 12:21 Board Certified Radiologist. This report was verified electronically.
[2017-02-28 12:34] LABS: ALT (GPT) 29 U/L (10-53); ANION GAP 8 MEQ/L (5-15); AST (GOT) 36 U/L (15-37); BICARBONATE 26.8 MEQ/L (21.0-32.0); BLOOD UREA NITROGEN 12 MG/DL (7-18); CHLORIDE 103 MEQ/L (98-107); GLOMERULAR FILTRATION RATE 91 ML/MIN (>89); SODIUM (NA) 138 MEQ/L (136-145)
[2017-02-28] MEDS ORDERED: ASPIRIN 300 MG SUPP RECTAL ONE (12:45)
[2017-02-28 12:46] LABS: ALKALINE PHOSPHATASE 242 U/L (45-117); TOTAL BILIRUBIN ADULT 0.3 MG/DL (0.2-1.0)
--- NOTE | 2017-02-28 12:53 | RADRPT ---
EXAM DATE/TIME: 02/28/2017 11:43 [facility] COMPARISON: CHEST SINGLE AP, February 24, 2017, 18:27. CHEST SINGLE AP, February 25, 2017, 15:38. INDICATIONS : Cough; AMS. MEDICAL HISTORY : Hypertension. Congestive heart failure. Coronary artery disease. Afib. CVA. Seizures. SURGICAL HISTORY : None. ENCOUNTER: Initial ACUITY: 1 day PAIN SCORE: Non-responsive. LOCATION: Bilateral chest FINDINGS: Evaluation of the left lower lung zone is limited due to overlying right upper extremity. There is im proved bilateral patchy airspace opacities are in the mid to lower lung zones. Stable diffuse interst itial prominence. Previously described small left pleural effusion is difficult to evaluate for a lik willard grossly unchanged. Cardiomediastinal contours are stable. Pulmonary vascularity is slightly indis tinct. Remainder of the exam is unchanged. CONCLUSION: 1. Improved patchy bilateral airspace disease. 2. Probably stable trace left pleural effusion. 3. Bilateral interstitial prominence, likely chronic and unchanged. 4. No significant interval change. José Miguel Scott MD on February 28, 2017 at 12:45 Board Certified Radiologist. This report was verified electronically.
[2017-02-28 13:00] VITALS: BP 153/72; PULSE 89; RESP 20; TEMP 97.9; O2SAT 98
[2017-02-28 14:33] VITALS: BP 146/80; PULSE 98; RESP 18; TEMP 97.8; O2SAT 100
[2017-02-28 16:53] VITALS: BP 138/76; PULSE 81; RESP 20; TEMP 97.8; O2SAT 98
[2017-02-28 16:55] VITALS: BP 138/76; TEMP 97.8
== END 2017-02-28 16:59 | disposition hospice, inpatient (51) ==
LOC: NEPC 10:37
DX: I63.9 Cerebral infarction, unspecified (principal); I48.91 Unspecified atrial fibrillation; Z79.82 Long term (current) use of aspirin; I50.9 Heart failure, unspecified; I10 Essential (primary) hypertension
CPT/HCPCS: 70450; 71010; 80053; 81001; 84484; 85025; 87086; 93005; 99285; P9612